=== PATIENT | female | born 1950 | race Caucasian/White ===

== ENCOUNTER 2019-12-25 10:04 | Inpatient (IN) ==
--- NOTE | 2019-12-10 15:07 | PAT Medication Instructions ---
Medication Instructions Date of Service December 10, 2019 Home Medications atenolol 25 mg PO QAM cholecalciferol (vitamin D3) 2,000 unit PO QAM hydrochlorothiazide 25 mg PO QAM levothyroxine 150 mcg PO UD metformin 500 mg PO BIDM omeprazole 20 mg PO QAM PRN acetaminophen [Tylenol Extra Strength] 1,000 mg PO Q6H PRN DO NOT take the morning of surgery cholecalciferol (vitamin D3) 2,000 unit PO QAM hydrochlorothiazide 25 mg PO QAM metformin 500 mg PO BIDM Take morning of surgery With a small sip of water, OTHERWISE NOTHING TO EAT OR DRINK AFTER MIDNIGHT: atenolol 25 mg PO QAM levothyroxine 150 mcg PO UD omeprazole 20 mg PO QAM PRN (if needed) acetaminophen [Tylenol Extra Strength] 1,000 mg PO Q6H PRN (okay to take up to 4 hours prior to surgery if needed) Take evening before surgery metformin 500 mg PO BIDM acetaminophen [Tylenol Extra Strength] 1,000 mg PO Q6H PRN (if needed) Other Notes If you have any questions please call us at [phone] or [phone] or [phone] or [phone]
--- NOTE | 2019-12-15 09:33 | Anesthesiology Consultation ---
Date of Service December 15, 2019 Assessment & Plan (1) Encounter for pre-operative examination: Per PAT assessment on 12/14: No known COVID-19 positive contacts. Travel screen- Lives/works in [facility]. Patient works as nurse at [employer] (no COVID cases at her facility in either residents or staff per patient). Patient had COVID testing 12/06 which was negative per patient (done weekly by employer). Wears PPE. She also states that she will not be working and will be self-isolating after having preop COVID testing done. No current COVID-19 related symptoms. Case reviewed with Dr. Hicks- does not feel that rapid testing needed on patient as long as no change to travel/work hx. Patient scheduled for preop protocol COVID-19 testing on 12/20 ([facility]). Awaiting results. - Check BSG AM DOS Chart Review Chart Review: Acceptable Risk for Surgery (pending COVID testing) and Patient seen in Pre Admission Testing Teaching & Discussion Pre-Anesthesia Teaching/Discussion Notes: Instructed NPO after midnight before surgery,except medications with 15 cc of water. Medication instructions provided according to the PAT guidelines. History Surgery Operation Date: 12/25/19 08:30 Proposed Procedures p Left Anterior Total Hip Arthroplasty - Heri Gerardo, DO Height/Weight Height: 5 ft 6.5 in Weight: 91.7 kg Allergies Allergy/AdvReac Type Severity Reaction Status Date / Time adhesive Allergy Mild Rash (with Verified 12/15/19 16:17 older bandaids) nickel Allergy Mild Rash Verified 11/30/19 08:13 tetanus toxoid, adsorbed AdvReac Intermediate Elevated BP Verified 12/15/19 16:17 NSAIDS (Non-Steroidal AdvReac Unknown was "told Unverified 12/15/19 16:17 Anti-Inflamma to avoid" Medications Home Medications Medication Instructions Recorded Confirmed Last Taken atenolol 25 mg PO QAM 12/02/18 11/30/19 01/08/19 05:45 cholecalciferol (vitamin D3) 2,000 unit PO QAM 12/02/18 11/30/19 01/07/19 hydrochlorothiazide 25 mg PO QAM 12/02/18 11/30/19 01/07/19 levothyroxine 150 mcg PO UD 12/02/18 11/30/19 01/08/19 05:45 metformin 500 mg PO BIDM 12/02/18 11/30/19 01/07/19 18:00 omeprazole 20 mg PO QAM PRN 12/02/18 11/30/19 01/07/19 acetaminophen [Tylenol Extra 1,000 mg PO Q6H PRN 11/30/19 11/30/19 Unknown Strength] Past Medical History Medical History Diabetes mellitus, type 2 NIDDM GERD (gastroesophageal reflux disease) controlled HTN (hypertension) (Chronic) Hypothyroidism Obesity Osteoarthritis Skin cancer s/p precancerous skin excision Exercise / Class Metabolic Activity II 4-5 Yardwork/Stairs/Walk up hill Past Family History Family History Mother Family history of diabetes mellitus Past Surgical History Surgical History H/O breast biopsy BENIGN H/O colonoscopy H/O tubal ligation History of appendectomy [facility] 2012. MAC #3, ET 7.0 grade view I. History of cholecystectomy 01/08/19: Grade view 1, MAC#3, ETT 7.5 at [facility] History of hysterectomy with unilateral oophorectomy History of repair of rotator cuff LEFT History of tooth extraction Orbital fracture REPAIRED (? HARDWARE INTACT/POSSIBLE WIRE) Past Anesthesia History No Hx of Anesthesia Complications (except PONV) and No Family Hx of Anesthesia Complications History of PONV History of PONV and Hx of Motion Sickness Social History Smoking Status: Former smoker tobacco type: cigarettes Do You Dip or Chew Tobacco: No Smoking End Date: QUIT 13+ YRS AGO Hx Alcohol Use: Yes Alcohol type: beer, wine and hard liquor alcohol intake frequency: holidays/special occasions only Hx Substance Use: No substance use type: does not use Review of Systems Controlled reflux. Patient denies chest pain, shortness of breath, dyspnea on exertion, fever, chills, cough, wheezing, palpitations. Physical Exam Vital Signs VITALS BP 132/80 P 61 TEMP 98.3 SP02 97$E RESP 16 PHYSICAL Full neck and c-spine range of motion. Full TMJ range of motion. TMD 3 finger breaths Mallampati Score 2 Dentition: full denture on upper Lungs: clear throughout to auscultation Cardiac: regular rate and rhythm, no murmurs noted Spine: normal Carotid arteries: negative bruit Extremities: no edema Testing Laboratory Results 12/15/19 09:53 12/15/19 09:53 PT 10.3 Seconds (9.0-12.0) 12/15/19 09:53 INR 1.0 (0.9-1.1) 12/15/19 09:53 APTT 25.6 Seconds (21.0-31.0) 12/15/19 09:53 Hemoglobin A1c 6.6 % (4.5-5.6) H 12/15/19 09:53 Blood Type A Positive 12/15/19 09:53 Antibody Screen NEGATIVE 12/15/19 09:53 Electrocardiogram Date: 01/05/19 Findings: + SB @ (58) Chest X-Ray Date: 12/15/19 Findings: + NAD
--- NOTE | 2019-12-15 10:19 | XRay Report ---
XR chest Pre-admission PA/Lat HISTORY: 68 years-old Female pat preoperative exam. No acute chest complaints COMPARISON: None TECHNIQUE: PA and lateral views of the chest FINDINGS: Cardiomediastinal and hilar silhouettes are within normal limits. There is no pneumothorax, pleural e ffusion, airspace consolidation or overt pulmonary edema. Bones of the chest appear grossly intact. D egenerative changes of the shoulders and spine. IMPRESSION: No acute process. ACT 112: Negative or not required by law. The above report was generated using voice recognition software. It may contain grammatical, syntax o r spelling errors. Electronically signed by: Mauricio Blair M.D. 12/15/2019 10:18 AM
[2019-12-15 11:09] LABS: Basophils # (auto) 0.03 K/uL (0-0.2); Basophils % (auto) 0.5 %; Eosinophils % (auto) 3.4 %; Hematocrit (blood only) 39.9 % (37-47); Hemoglobin 13.1 g/dL (12.0-16.0); Immature Granulocytes # (auto) 0.03 K/uL (0.00-0.02); Immature Granulocytes % (auto) 0.5 %; Lymphocytes # (auto) 1.79 K/uL (1.2-3.4); Lymphocytes % (auto) 30.4 %; Mean Corpuscular Hemoglobin 28.7 pg (25-34); Mean Corpuscular Hgb Conc 32.8 g/dL (32-36); Mean Corpuscular Volume 87.3 fL (80-100); Mean Platelet Volume 9.6 fL (7.4-10.4); Monocytes # (auto) 0.43 K/uL (0.11-0.59); Monocytes % (auto) 7.3 %; Neutrophils # (auto) 3.41 K/uL (1.4-6.5); Neutrophils % (auto) 57.9 %; Platelet Count 262 K/uL (130-400); RDW Coefficient of Variation 13.3 % (11.5-14.5); RDW Standard Deviation 42.5 fL (36.4-46.3); Red Blood Count 4.57 M/uL (4.2-5.4); White Blood Count 5.89 K/uL (4.8-10.8)
[2019-12-15 11:16] LABS: BUN Creatinine Ratio 23.1 (10-20); Calcium 8.9 mg/dl (8.5-10.1); Creatinine Clr Calc Pharmacy 86.1 ml/min; Est GFR (African American) 98.8; Est GFR (Non-African American) 85.2
[2019-12-15 11:17] LABS: Partial Thromboplastin Ratio 0.9; Partial Thromboplastin Time 25.6 Seconds (21.0-31.0); Prothrombin Time 10.3 Seconds (9.0-12.0)
[2019-12-15 11:56] LABS: Estimated Average Glucose 143 mg/dl; Hemoglobin A1C 6.6 % (4.5-5.6)
--- NOTE | 2019-12-24 06:59 | History & Physical Report ---
Date of Service December 24, 2019 Assessment & Plan (1) Osteoarthritis of left hip: We will proceed with a left anterior total of arthroplasty. Postoperatively she will be placed on aspirin for DVT prophylaxis and kept overnight in the hospital for postoperative medical management. She plans to use home nursing agency through [facility] upon discharge. Verito is a low risk for joint replacement surgery without any major comorbidities. Present on Admission?: Yes History of Present Illness Chief Complaint: Primary osteoarthritis of the left hip Primary Care Provider: Mahad Marques MD Verito is a pleasant 69-year-old female who is been dealing with chronic increasing left hip and groin pain. X-rays and clinical examination have been diagnostic for advanced osteoarthritis of the left hip. She has failed extensive conservative treatment including intra-articular injections. She has elected proceed with a left anterior total hip arthroplasty. Allergies Allergy/AdvReac Type Severity Reaction Status Date / Time adhesive Allergy Mild Rash (with Verified 12/15/19 16:17 older bandaids) nickel Allergy Mild Rash Verified 11/30/19 08:13 tetanus toxoid, adsorbed AdvReac Intermediate Elevated BP Verified 12/15/19 16:17 NSAIDS (Non-Steroidal AdvReac Unknown was "told Unverified 12/15/19 16:17 Anti-Inflamma to avoid" Home Medications Home Medications Medication Instructions Recorded Confirmed Type atenolol 25 mg PO QAM 12/02/18 11/30/19 History cholecalciferol (vitamin D3) 2,000 unit PO QAM 12/02/18 11/30/19 History hydrochlorothiazide 25 mg PO QAM 12/02/18 11/30/19 History levothyroxine 150 mcg PO UD 12/02/18 11/30/19 History metformin 500 mg PO BIDM 12/02/18 11/30/19 History omeprazole 20 mg PO QAM PRN 12/02/18 11/30/19 History acetaminophen [Tylenol Extra 1,000 mg PO Q6H PRN 11/30/19 11/30/19 History Strength] Past Med/Surg History Medical History Diabetes mellitus, type 2 NIDDM GERD (gastroesophageal reflux disease) controlled HTN (hypertension) (Chronic) Hypothyroidism Obesity Osteoarthritis Skin cancer s/p precancerous skin excision Surgical History H/O breast biopsy BENIGN H/O colonoscopy H/O tubal ligation History of appendectomy [facility] 2012. MAC #3, ET 7.0 grade view I. History of cholecystectomy 01/08/19: Grade view 1, MAC#3, ETT 7.5 at [facility] History of hysterectomy with unilateral oophorectomy History of repair of rotator cuff LEFT History of tooth extraction Orbital fracture REPAIRED (? 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 Beliefs That Will Affect Care: None marital status: Current Living Situation: Significant Other Feels Safe at Home: Yes Smoking Status: Former smoker Tobacco Type: cigarettes ; Second Hand Exposure: Yes (FAMILY SMOKED- A CHILD) ; Hx Alcohol Use: Yes Alcohol type: beer, wine and hard liquor Hx Substance Use: No Review of Systems Review of Systems: All systems reviewed & are unremarkable except as noted in HPI & below Physical Exam Constitutional: WD/WN, vitals as above Eyes: PERRL, conjunctivae normal, anicteric sclerae ENMT: external ear and nose normal, oropharynx normal Neck: trachea midline, no thyromegaly Respiratory: normal respiratory effort Cardiovascular: RRR, no murmur, no edema Gastrointestinal (Abdomen): normal bowel sounds, soft, nontender, no hepatosplenomegaly Musculoskeletal: Physical examination of the left hip reveals decreased range of motion with flexion, internal and external rotation. There is significant groin pain with forced internal rotation of the hip his leg lengths are essentially equal. Psychiatric: A+Ox3, euthymic affect Results & Data Results & Data ([facility]) Diagnostic Findings Radiographs of the left hip and pelvis demonstrate advanced osteoarthritis with joint space narrowing osteophyte formation and [id number] articulation. PG Care Time/CCT Total # of Minutes Spent Total Time Spent with Patient: Total time spent is greater than 50% in coordination of care (as documented) at patient's floor/unit and/or counseling patient: Coding Level of Care Code None Diagnoses Osteoarthritis of left hip M16.12
--- NOTE | 2019-12-25 09:50 | History & Physical Bridge Note ---
Date of Service December 25, 2019 History & Physical Bridge Note I have examined the patient, reviewed the History & Physical and in the interval since the performance of the History & Physical I have noted the following changes of clinical significance: no changes noted
[~2019-12-25 10:04] MED LIST: ACETAMINOPHEN 500 MG TAB PO SCH; BUPIVACAINE 0.5 % 5 MG/1 ML PF 10ML VIAL ONE; CEFAZOLIN 2000MG 2,000 MG/15 ML SYR IV SCH; FAMOTIDINE 20 MG TAB PO SCH; GABAPENTIN 300 MG CAP PO SCH; LIDOCAINE HCL 2% 2 ML VIAL/AMP(20MG/ML) INFIL ONE; LR 500ML BOLUS, THEN 15ML/HR IV SCH; LR 60ML/HR IV SCH; MIDAZOLAM HCL 1 MG/ML 2ML VIAL ONE; ONDANSETRON INJ 2 MG/ML 2 ML VIAL ONE; PROPOFOL IV EMULSION 10 MG/ML 20 ML VIAL IV ONE; ROPIVACAINE 0.5% HCL/PF 150 MG, BUPIVACAINE 0.5% MPF 30 ML, EPINEPHrine 30MG/30ML (OR U... INSTIL SCH; TRANEXAMIC ACID 1,000 MG **IV Intra-op IV SCH; TRANEXAMIC ACID 1,000 MG **IV Pre-op IV SCH; dexAMETHasone 4 MG TAB PO SCH; fentaNYL citrate 100 MCG/2 ML VIAL ONE
[2019-12-25] MEDS ORDERED: fentaNYL citrate 100 MCG/2 ML VIAL IV PRN (10:21)
[2019-12-25] MEDS ORDERED: HYDROmorphone INJ 1 MG/ML SYRINGE IV PRN (10:21)
[2019-12-25] MEDS ORDERED: ONDANSETRON INJ 2 MG/ML 2 ML VIAL IV PRN ×2 (10:21→15:05)
[2019-12-25] MEDS ORDERED: ePHEDrine sulfate 50 MG/ML AMP IV PRN (10:21)
[2019-12-25] MEDS ORDERED: ATROPINE SULFATE 0.1 MG/ML 10ML SYR IV PRN (10:21)
[2019-12-25] MEDS ORDERED: ORTHO JOINT ANESTHETIC ONE (10:22)
[2019-12-25] MEDS ORDERED: MIDAZOLAM HCL 1 MG/ML 2ML VIAL ONE (11:51)
[2019-12-25] MEDS ORDERED: ePHEDrine sulfate 50 MG/ML SYR ONE (12:07)
[2019-12-25] MEDS ORDERED: DiphenhydrAMINE HCL 50 MG/ML VIAL ONE (12:08)
[2019-12-25] MEDS ORDERED: PHENYLEPHRINE 100MCG/ML 5ML SYR ONE (12:08)
[2019-12-25] MEDS ORDERED: METOCLOPRAMIDE HCL INJ 5 MG/ML 2 ML VIAL ONE (12:08)
--- NOTE | 2019-12-25 12:53 | Operative Report ---
PG Post Operative Report Pre & Post Diagnosis Operation Date: 12/25/19 12:00 Pre-Op Diagnosis: LEFT HIP DEGENERATIVE JOINT DISEASE Post-Op Diagnosis: LEFT HIP DEGENERATIVE JOINT DISEASE I identified the patient and participated in the time-out.: Yes Procedure Operation Date: 12/25/19 12:00 Actual Procedures p Left Anterior Total Hip Arthroplasty(Left) - Heri Gerardo DO Surgeon Heri Gerardo DO Slip Tender Heri Montgomery PAC Estimated Blood Loss 200 Findings Consistent with Post-Op Diagnosis Specimens Left femoral head Complications none Disposition Disposition: Recovery Room Indications Verito is a pleasant 69-year-old female who is been dealing with chronic increasing left hip and groin pain. X-rays and clinical examination have been diagnostic for advanced osteoarthritis of the left hip. After failing conservative treatment, she has elected to proceed with a left anterior total hip arthroplasty. Description of Procedure Implants used I used a Biomet Taperloc total hip arthroplasty system with a size 14 standard offset micro Taperloc stem, a 50 mm G7 cup with a 25mm screw, an E1 polyethylene liner, a 36 mm ceramic head with a -3 neck. Verito arrived at the hospital for the above procedure. She was seen in the preoperative holding area and the operative extremity was identified and signed. She was given a spinal anesthetic, a preoperative antibiotic, and TXA. She was then taken back to the operating room and laid on the table in the supine position. She was given basic sedation. The operative leg was secured to a Puristst leg positioner. The hip was then prepped and draped in sterile fashion. A timeout was done and the patient and the operative extremity was properly identified. An anterior approach was used. Dissection was taken down through the fascia and the tensor muscle belly was retracted laterally and the rectus was retracted medially. The circumflex vessels were identified and ligated. The capsule was then incised and tagged for later repair. The femoral neck was then cut and the femoral head was removed. The acetabulum was exposed. Time was spent doing a complete circumferential labral release. Sequential reaming of the acetabulum up to a size 49 reamer was done. Final reamings were done under fluoroscopy to ensure appropriate version. A Biomet 50 mm G7 cup was then impacted into place. A single 25 mm screw was placed. The E1 polyethylene liner was then snapped into place. Surrounding soft tissues were then injected with 100 cc of an orthopedic pain control cocktail. The proximal femur was then exposed. Sequential broaching up to a size 14 broach was done. Off that broach a size 36 head with a -3 neck was trialed. The hip was reduced and fluoroscopic images showed anatomic alignment of the implants in acceptable length. The broach was removed. The final size 14 standard offset micro Taperloc stem was then impacted into place. A ceramic 46 mm head with a -3 neck was then impacted onto the stem and the hip was reduced. Final fluoroscopic images showed anatomic alignment of the hip. The capsule was then closed with #1 Vicryl suture. A dilute betadyne lavage was then done for 3 minutes. The joint was then irrigated with normal saline solution. The fascia was closed with #1 PDS suture. Skin was closed with 2-0 Vicryl, alaina, and a Silverlon dressing. She was then transferred to a hospital bed and taken to the post anesthesia care unit in stable condition. She tolerated the procedure well. Heri Montgomery PA-C, was present for the entire procedure. He was critical for patient positioning, prepping, draping, retraction exposure, wound closure and application of sterile dressing. I attest to the content of the Intraoperative Record and any orders documented therein. Any exceptions are noted below.
--- NOTE | 2019-12-25 12:59 | Fluoroscopy Report ---
FL hip LT 1V HISTORY: 69 years-old Female LT ANTERIOR TOTAL left hip total joint arthroplasty COMPARISON: Pelvis and left hip radiographs 12/15/2019 TECHNIQUE: 2 spot fluoroscopic images of the left hip were obtained utilizing 25.2 seconds fluoroscop y time FINDINGS: Left hip total joint arthroplasty illustrates satisfactory alignment. No acute fracture or definite r etained foreign body identified. Expected postoperative soft tissue swelling and deep tissue air. IMPRESSION: Fluoroscopic assistance as above. Please see operative report for further details. ACT 112: Negative or not required by law. The above report was generated using voice recognition software. It may contain grammatical, syntax o r spelling errors. Electronically signed by: Mauricio Blair M.D. 12/25/2019 12:57 PM
--- NOTE | 2019-12-25 14:02 | Anesthesiology Progress Note ---
Date of Service December 25, 2019 Anesthesia Post Procedure Vital Signs Vital Signs: Temp Pulse Resp BP BP Pulse Ox 12/25/19 13:55 60 13 128/66 96 12/25/19 13:45 36.4 C L 61 12 120/68 95 12/25/19 13:30 60 12 121/59 L 97 12/25/19 13:20 36.1 C L 63 16 100/67 98 12/25/19 10:37 37 C 56 L 20 141/51 H 97 Transfer of Care Handoff Completed per policy Notes Mental Status: alert / awake / arousable and participated in evaluation Patient Amnestic to Procedure: Yes Nausea / Vomiting: adequately controlled Pain: adequately controlled Airway Patency, RR, SpO2: stable & adequate BP & HR: stable & adequate Hydration State: stable & adequate Neuraxial Anesthesia: was administered and sensory block is resolving Anesthetic Complications: no major complications apparent and Pt Satisfied with anesthetic care
--- NOTE | 2019-12-25 14:18 | XRay Report ---
XR hip 1V LT w pelvis CLINICAL HISTORY: Postop examination COMPARISON: None. DISCUSSION: There are postsurgical changes of a total left hip arthroplasty. The femoral and acetabul ar components appear well seated. There is no dislocation. There are overlying skin alaina. There is gas in the soft tissues consistent with recent surgery IMPRESSION: Postsurgical changes of a total left hip arthroplasty. ACT 112: Negative or not required by law. Electronically signed by: Tai Peraza M.D. 12/25/2019 2:17 PM
[2019-12-25] MEDS ORDERED: HYDROmorphone INJ 0.5 MG/0.5 ML SYR IV PRN (15:05)
[2019-12-25] MEDS ORDERED: OXYCODONE HCL IR 5 MG TAB (IMMEDIATE RELEASE) PO PRN (15:05)
[2019-12-25] MEDS ORDERED: NALOXONE HCL 0.4 MG/1 ML VIAL/CARP IV PRN (15:05)
[2019-12-25] MEDS ORDERED: bisacodyL 10 MG SUPP PR PRN (15:05)
[2019-12-25] MEDS ORDERED: MAGNESIUM HYDROXIDE SUSP 30 ML UDC PO PRN (15:05)
[2019-12-25] MEDS ORDERED: METOCLOPRAMIDE HCL INJ 5 MG/ML 2 ML VIAL IV PRN (15:05)
[2019-12-25] MEDS ORDERED: PHARMACY GLYCEMIC MGMT CONSULT PRN (15:25)
[2019-12-25] MEDS ORDERED: DEXTROSE 50% 50 ML SYRINGE IV PRN (15:30)
[2019-12-25] MEDS ORDERED: GLUCOSE 10 TABS/TUBE PO PRN (15:30)
[2019-12-25] MEDS ORDERED: GLUCAGON FOR INJ 1 MG VIAL IM PRN (15:30)
[2019-12-25] MEDS ORDERED: CARBOHYDRATES FOR HYPOGLYCEMIA PO PRN (15:30)
[2019-12-25] MEDS ORDERED: GLUCOSE 40% GEL 15 GM TUBE PO PRN (15:30)
[2019-12-25] MEDS ORDERED: NovoLIN-N (NPH) PER UNIT CHARGE SQ ONE (15:45)
--- NOTE | 2019-12-25 16:24 | Pharmacy Report ---
Glycemic Control Consultation - Date of Service December 25, 2019 - Scope Scope: Glycemic Pharmacist consulted for glycemic control and to write orders per [facility] inpatient glycemic control protocol. - Objective Weight: 90.4 kg Accuchecks BSG (last 24hrs): 12/25/19 12/25/19 10:36 13:22 POC Glucose 170 H 193 H HbA1c: Hemoglobin A1c 6.6 % (4.5-5.6) H 12/15/19 09:53 - Recent Pertinent Medications Outpatient Anti-diabetic Regimen: * Metformin 500mg PO BIDM * A1c = 6.6 % 12/15/19 Risk Factors for Insulin Resistance: * Steroids: Dexamethasone 8mg PO preop + ortho mix * Recent Surgery * Diet - Assessment & Plan Assessment & Plan: ASSESSMENT: * 69yo T2DM female with excellent outpatient control per recent A1c * Pt is maintained on oral antidiabetic agents as an outpatient * Oral agents are not recommended for inpatient use d/t drug interactions, changing PO intake, and difficulty titrating for acute hyper/hypoglycemia. ADA recommends re-initiating outpatient oral agents 1-2 days prior to discharge if/when appropriate if they were held on admission. * Will hold oral agents for admission and utilize SQ basal bolus insulin regimen which is the recommended regimen for inpatient glycemic control. * Will initiate weight based insulin dosing for insulin jorge alberto patient and titrate based on BSG trends. * Will use one time dose of weight based NPH to cover pre-op steroids PLAN FOR INPATIENT GLYCEMIC CONTROL: * Holding outpatient oral diabetes medications - use NovoLog per CF/CR while metformin on hold * Steroid induced hyperglycemia * NPH 25 units (0.3 units/kg) SQ x 1 dose * Bolus insulin * NovoLog per scale ACHS or Q6hrs while NPO * Goal Range: Low 110 mg/dL - High 140 mg/dL * Correction Factor: 25 mg/dL/unit * Nutritional / Prandial insulin per carb ratio of 1 unit per 9 grams CHO consumed * Please note that the plan above was derived based on current level of insulin resistance and hospital stress. These recommendations are appropriate for inpatient admission only. Plan of care upon discharge will need to be reassessed to avoid potential outpatient hypo/hyperglycemia. Thank you.
[2019-12-25] MEDS: INSULIN ASPART 100 UNITS/ML 3 ML PEN SC SCH ×2 (17:15→21:29)
[2019-12-25] MEDS: KETOROLAC TROMETHAMINE 15 MG/ML VIAL IV SCH ×2 (17:16→21:21)
[2019-12-25] MEDS: SODIUM CHLORIDE 0.9% 1000ML 1,000 ML IV SCH (17:23)
[2019-12-25] MEDS: ACETAMINOPHEN 500 MG TAB PO SCH (17:28)
[2019-12-25] MEDS ORDERED: SENNA 8.6 MG TAB PO SCH (21:00)
[2019-12-25] MEDS: ASPIRIN 81 MG ECTAB PO SCH (21:20)
[2019-12-25] MEDS: DOCUSATE SODIUM 100 MG CAP PO SCH (21:21)
[2019-12-25] MEDS: CEFAZOLIN 2000MG 2,000 MG/15 ML SYR IV SCH (21:31)
[2019-12-26] MEDS: SODIUM CHLORIDE 0.9% 1000ML 1,000 ML IV SCH (02:37)
[2019-12-26] MEDS: KETOROLAC TROMETHAMINE 15 MG/ML VIAL IV SCH ×2 (03:02→09:42)
[2019-12-26] MEDS: CEFAZOLIN 2000MG 2,000 MG/15 ML SYR IV SCH (03:02)
[2019-12-26] MEDS: ACETAMINOPHEN 500 MG TAB PO SCH (06:16)
[2019-12-26] MEDS ORDERED: LEVOTHYROXINE SODIUM 150 MCG TABLET PO SCH (06:30)
[2019-12-26 06:47] LABS: Basophils # (auto) 0.01 K/uL (0-0.2); Basophils % (auto) 0.1 %; Hemoglobin 11.6 g/dL (12.0-16.0); Immature Granulocytes # (auto) 0.04 K/uL (0.00-0.02); Immature Granulocytes % (auto) 0.3 %; Lymphocytes # (auto) 1.07 K/uL (1.2-3.4); Lymphocytes % (auto) 8.5 %; Mean Corpuscular Hemoglobin 28.6 pg (25-34); Mean Corpuscular Hgb Conc 34.1 g/dL (32-36); Mean Platelet Volume 9.2 fL (7.4-10.4); Monocytes # (auto) 0.99 K/uL (0.11-0.59); Monocytes % (auto) 7.9 %; Neutrophils # (auto) 10.47 K/uL (1.4-6.5); Neutrophils % (auto) 83.2 %; Platelet Count 249 K/uL (130-400); RDW Coefficient of Variation 12.9 % (11.5-14.5); RDW Standard Deviation 39.4 fL (36.4-46.3); Red Blood Count 4.05 M/uL (4.2-5.4); White Blood Count 12.58 K/uL (4.8-10.8)
--- NOTE | 2019-12-26 06:48 | Orthopedic Progress Note ---
Date of Service December 26, 2019 Assessment & Plan (1) History of left hip replacement: Overall she is doing very well. She is not having much pain in the left hip. She will be seen by physical therapy this morning for ambulation and range of motion exercises. She is on aspirin for DVT prophylaxis. She can be discharged home later today. She will follow-up with orthopedics in 2 weeks. Present on Admission?: Yes Geri Sellers was seen and examined at bedside this morning. Overall she is doing very well. She is not having much pain in the left hip. She has been up and ambulating to the bathroom. She has no complaints. Physical Exam Musculoskeletal: On physical examination of the left hip, the Silverlon dressing is clean and dry. Leg lengths are equal. She has active dorsiflexion and plantarflexion of her left ankle. Results & Data ([facility]) Vital Signs (Past 12 Hours) Vital Signs Temp Pulse Pulse Resp BP Pulse Ox 12/26/19 02:13 36.9 C 66 16 134/72 95 12/25/19 23:46 36.5 C 69 16 134/72 96 12/25/19 19:30 36.5 C 71 16 110/64 97 Laboratory Results H & H 12/15/19 12/26/19 Range/Units 09:53 06:04 Hgb 13.1 11.6 L (12.0-16.0) g/dL Hct 39.9 34.0 L (37-47) % Coagulation 12/15/19 Range/Units 09:53 INR 1.0 (0.9-1.1) Diagnostic Findings Postoperative x-rays of the left hip show the prosthesis to be in anatomic alignment without any evidence of fracture, dislocation, or loosening. PG Care Time/CCT Total # of Minutes Spent Total Time Spent with Patient: Total time spent is greater than 50% in coordin ation of care (as documented) at patient's floor/unit and/or counseling patient: Coding Level of Care Code None Diagnoses History of left hip replacement Z96.642
--- NOTE | 2019-12-26 06:49 | Discharge Summary ---
Date of Service December 26, 2019 Admission HPI Per Admitting Provider Verito is a pleasant 69-year-old female who is been dealing with chronic increasing left hip and groin pain. X-rays and clinical examination have been diagnostic for advanced osteoarthritis of the left hip. She has failed extensive conservative treatment including intra-articular injections. She has elected proceed with a left anterior total hip arthroplasty. Principal Diagnosis Left hip replacement Discharge Data Allergies Allergy/AdvReac Type Severity Reaction Status Date / Time adhesive Allergy Mild Rash (with Verified 12/25/19 10:44 older bandaids) nickel Allergy Mild Rash Verified 12/25/19 10:44 tetanus toxoid, adsorbed AdvReac Intermediate Elevated BP Verified 12/25/19 10:44 NSAIDS (Non-Steroidal AdvReac Unknown was "told Verified 12/25/19 10:44 Anti-Inflamma to avoid" Consultations 12/26/19 08:00 Consult Case Management - Discharge Planning Routine Procedures Performed Operation Date: 12/25/19 12:00 Actual Procedures p Left Anterior Total Hip Arthroplasty(Left) - Heri Gerardo DO Ordered Studies 12/25/19 12:00 FL fluoroscopy <1hr Routine FL hip LT 1V Routine Hospital Course (1) History of left hip replacement: On December 25, 2019 Verito arrived at [facility] and underwent a left anterior total hip arthroplasty without complication. She had a spinal anesthetic. Postoperatively she was started on aspirin for DVT prophylaxis and transferred to the general orthopedic floors. Her hospital course was uneventful. On postop day #1 her H&H was stable and her pain was well controlled. She was able to participate well with physical therapy doing ambulation and range of motion exercises. She was then discharged home. She will follow-up with orthopedics in 2 weeks. Total Time Total Time Spent Total Time Spent (In Minutes): 20 Discharge Plan Discharge Items Patient Disposition: Home - Home Health Services Reason For Visit: LEFT HIP DEGENERATIVE JOINT DISEASE Discharge Diagnosis: Left hip replacement Activity: As commented below Non-emergency contact: Surgeon Call non-emergency contact if: your wound has increased redness and your wound has increased drainage Follow-up/Referrals: Mahad Marques MD [Primary Care Provider] - Diet: Regular Addtl Attending Provider Instructions: Activity and Therapy Recommendations: * If you are using [facility] then therapy will be provided at your home until they feel you have accomplished all of your goals. * If you are using [facility] then Physical Therapy will be provided until they feel you are ready to start Outpatient Physical Therapy. * If you are not using home therapy then Outpatient Physical Therapy should start about 3-5 days from your day of surgery. Therapy will last about 6-10 weeks * You were shown a series of exercises in the hospital. Do these exercises three times each day including the exercises you were shown in physical therapy. * Get up and walk several times each day.~ For the first four weeks, try not to stand or walk for more than one hour at a time. If you do stand or walk for more than one hour, you will not hurt anything, but your leg will likely swell.~~ * As you feel comfortable, you may change from the walker or crutches to a cane and~then to independent walking. Medications: * Narcotic You will likely be sent home from the hospital with a prescription for the narcotic pain medication that worked best throughout your stay. * Aspirin Most patients will be required to take Aspirin 81mg twice a day for 6 weeks after surgery. This is obtained [id number] and a prescription is not necessary. * Other medications may be prescribed for specific circumstances. If you have any questions, please call the office at . * Resume previous home medications unless otherwise instructed TEDs/Elastic Stockings: The white elastic stockings help limit swelling and prevent blood clots from forming in your legs. The more you wear them, the more they work. Wear them for six weeks. Dressing Care: Leave the Silverlon dressing on for 7 days. After 7 days you may remove the dressing. Then, you may leave the alaina open to air or cover them with a dry dressing so they do not rub on your pants. The alaina will be removed at your 2 week follow-up appointment. Showering: You may shower with the Silverlon dressing in place. After 7 days remove the dressing. After the dressing is removed you may shower normally with the alaina exposed. Let soapy water run over the alaina and pat them dry. Things To Watch For: * Drainage from the incision site that occurs more than one week after your surgery. * Increased redness at the incision site. * Fever above 102 degrees Fahrenheit. * Unusual chest pain or shortness of breath. * Call [facility] at with any of the above problems Follow-Up Visit: Follow-up with Dr. Gerardo's PA (Heri Montgomery) 2-3 weeks after your day of surgery. He will remove your alaina and answer any questions. If you have any additional questions or concerns, Dr Gerardo is usually in the office at the same time and will be available An appointment was probably scheduled when you signed-up for surgery in the office. If you have any questions call Office Instructions: More detailed instructions as well as Frequently Asked Questions were provided in a folder by our office when you signed-up for surgery. Please review these instructions when you get home. If you have any further questions or concerns, please feel free to call the office at [phone] Pending Studies at Discharge: No Stand-Alone Forms: My [facility], Smoking Cessation Medications and DC Order Prescriptions: New oxycodone 5 mg Tablet 5 mg PO Q4H PRN (Reason: pain) Qty: 30 RF: 0 aspirin 81 mg Tablet,Delayed Release (Dr/Ec) 81 mg PO BID 42 Days Qty: 0 RF: 0 Continued metformin 500 mg tablet 500 mg PO BIDM RF: 0 atenolol 25 mg tablet 25 mg PO QAM RF: 0 levothyroxine 150 mcg tablet 150 mcg PO UD RF: 0 omeprazole 20 mg capsule,delayed release(DR/EC) 20 mg PO QAM PRN (Reason: Heartburn) RF: 0 hydrochlorothiazide 25 mg tablet 25 mg PO QAM RF: 0 cholecalciferol (vitamin D3) 2,000 unit Tablet 2,000 unit PO QAM RF: 0 acetaminophen [Tylenol Extra Strength] 500 mg Tablet 1,000 mg PO Q6H PRN (Reason: Pain) RF: 0 Discharge Orders: Discharge Order (Routine); Ordered 12/26/19 Ordered By: Heri Gerardo Admission Data Admit Date/Time: 12/25/19 13:18 Attending Provider: Heri Gerardo Admit Provider: Heri Gerardo Primary Care Provider: Mahad Marques Coding Level of Care Code D/C Day Management <30 mins Diagnoses History of left hip replacement Z96.642
[2019-12-26 07:27] LABS: BUN Creatinine Ratio 24.3 (10-20); Calcium 8.6 mg/dl (8.5-10.1); Creatinine Clr Calc Pharmacy 68.4 ml/min; Est GFR (African American) 76.1; Est GFR (Non-African American) 65.7; Potassium 3.4 mmol/L (3.5-5.1)
[2019-12-26] MEDS ORDERED: hydroCHLOROthiazide 25 MG TAB PO SCH (09:00)
[2019-12-26] MEDS ORDERED: ATENOLOL 25 MG TABLET PO SCH (09:00)
[2019-12-26] MEDS ORDERED: MULTIVITAMIN TAB PO SCH (09:00)
[2019-12-26] MEDS ORDERED: PANTOprazole 40 MG TAB PO SCH (09:00)
[2019-12-26] MEDS: ASPIRIN 81 MG ECTAB PO SCH (09:37)
[2019-12-26] MEDS: INSULIN ASPART 100 UNITS/ML 3 ML PEN SC SCH (09:42)
[2019-12-26] MEDS: DOCUSATE SODIUM 100 MG CAP PO SCH (09:45)
[2019-12-27] MEDS ORDERED: LEVOTHYROXINE SODIUM 150 MCG TABLET PO SCH (06:30)
== END 2019-12-26 12:02 | disposition home health service (06) | DRG 470 ==
LOC: ASU 10:04 → 3E 13:18

== ENCOUNTER 2022-09-29 17:44 | Inpatient (IN) ==
--- NOTE | 2022-09-29 18:10 | Emergency Department Note ---
Impression & Plan Fever, Hypokalemia, Hypomagnesemia, Elevated procalcitonin ED Provider Note HISTORY OF PRESENT ILLNESS: Patient is a 71-year-old female presenting with a fever. Patient has a history of pancreatic cancer and received her first chemotherapy treatment 3 days ago. She reports she been doing well postchemotherapy but took her temperature today and it was elevated to 100.5. She denies any chest pain or shortness of breath. Denies any dysuria or hematuria. Denies any cough. Denies any abdominal pain, nausea or vomiting. Reports feeling well other than the fever. She denies taking any antipyretics prior to arrival in the emergency department. ROS: as above PHYSICAL EXAM: Constitutional: Patient appears in no acute distress. HENT: Head: Normocephalic and atraumatic. Eyes: EOMI, PERRL Mouth/Throat: Mucous membranes moist. Neck: Trachea midline. Neck supple. Cardiovascular: RRR, No murmurs, rubs or gallops. Intact distal pulses. Pulmonary/Chest: No respiratory distress. Breath sounds clear and equal erika aterally. No wheezes or rales. Abdominal: BS +. Abdomen soft, no tenderness, rebound or guarding. Musculoskeletal: No edema, tenderness or deformity noted. Skin: Warm and dry. No rash, erythema, pallor or cyanosis Psychiatric: Appropriate mood and affect for situation. Neurological: Alert and keenly responsive. CN II-XII grossly intact, moving all extremities equally and fully. MDM: - Vitals signs showed elevated temperature. - History obtained via patient. Patient presents with fever. Patient reports she just started chemotherapy for history of pancreatic cancer 3 days ago. She reports that she was doing well up until today when she developed a fever of 100.5. She did not take any antipyretics prior to arrival in the emergency department. Denies any chest pain, shortness of breath, cough, nausea or vomiting. Denies any abdominal pain. - Chronic conditions affecting care: DM-2; hypothyroidism; HTN; pancreatic cancer - Differential diagnoses include, but are not limited to: UTI; pneumonia; bacteremia; viral syndrome - Order placed for continuous cardiac monitoring. At this time, monitor showed rate of 80 bpm with normal sinus rhythm, per my interpretation. - External medical records reviewed. - EKG reviewed by myself showed normal sinus rhythm. Rate 76 bpm. No acute ischemic changes. QTc 432. - Laboratory workup interpreted by myself showed normal WBC; chronic anemia (Hgb 9.8); hypokalemia (K 3.4); hypomagnesemia (Mg 1.6); normal lactate; normal liver function tests; normal troponin; slightly elevated anion gap (12); elevated procalcitonin (0.92) - CXR negative for pneumonia, per my interpretation. - Blood cultures obtained. - Patient empirically started on IV vancomycin and cefepime, given her immunocompromised status. - Patient reports she gave urine yesterday to her doctor and it was negative. She does not wish to give another urine sample now. - Discussion was had with social services analyst about patient's case and need for admission. - Hospitalist, Dr. Hickman, consulted for admission. - [facility] ASSESSMENT AND PLAN: Diagnosis: Fever; elevated procalcitonin; hypomagnesemia; hypokalemia; elevated anion gap Plan: Admit Past Med/Surg History Medical History (Updated 09/29/22 @ 20:33 by Melba Melissa MD) Diabetes mellitus, type 2 NIDDM GERD (gastroesophageal reflux disease) controlled HTN (hypertension) Hypothyroidism Obesity Osteoarthritis Skin cancer s/p precancerous skin excision Surgical History (Updated 12/26/19 @ 06:44 by Heri Gerardo DO) H/O breast biopsy BENIGN H/O colonoscopy H/O tubal ligation History of appendectomy [facility], [place] 2012. MAC #3, ET 7.0 grade view I. History of cholecystectomy 01/08/19: Grade view 1, MAC#3, ETT 7.5 at [facility], [place] History of hysterectomy with unilateral oophorectomy History of left hip replacement (~12/2019) History of repair of rotator cuff LEFT History of tooth extraction Orbital fracture REPAIRED (? HARDWARE INTACT/POSSIBLE WIRE) Family History Mother Family history of diabetes mellitus Social History Smoking Status: Former smoker Second Hand Exposure: Yes (FAMILY SMOKED- A CHILD); Hx Alcohol Use: Yes Alcohol type: beer, wine and hard liquor Hx Substance Use: No Preferred Language: Prydeinig Communication Ability: Effective Residential Builder Required: No Beliefs That Will Affect Care: None marital status: Current Living Situation: Significant Other Feels Safe at Home: Yes Assistive Devices: Denture - Upper, Glasses and Walker Allergies Allergies Allergy/AdvReac Type Severity Reaction Status Date / Time adhesive Allergy Mild Rash (with Verified 09/29/22 19:13 older bandaids) nickel Allergy Mild Rash Verified 09/29/22 19:13 tetanus toxoid, adsorbed AdvReac Intermediate Elevated BP Verified 09/29/22 19:13 NSAIDS (Non-Steroidal AdvReac Unknown was "told Verified 09/29/22 19:13 Anti-Inflamma to avoid" Home Meds Home Medications Medication Instructions Recorded Confirmed atenolol 25 mg tablet 25 mg PO QAM 12/02/18 09/29/22 cholecalciferol (vitamin D3) 50 2,000 unit PO QAM 12/02/18 09/29/22 mcg (2,000 unit) tablet hydrochlorothiazide 25 mg tablet 25 mg PO QAM 12/02/18 09/29/22 levothyroxine 150 mcg tablet 150 mcg PO DAILYBB 12/02/18 09/29/22 omeprazole 20 mg capsule,delayed 20 mg PO QAM 12/02/18 09/29/22 release aspirin 81 mg tablet,delayed 81 mg PO DAILY 09/29/22 09/29/22 release empagliflozin 25 mg tablet 25 mg PO QAM 09/29/22 09/29/22 (Jardiance) metformin 500 mg tablet,extended 1,000 mg PO BIDM 09/29/22 09/29/22 release 24 hr nitrofurantoin 100 mg PO AMHS 09/29/22 09/29/22 monohydrate/macrocrystals 100 mg capsule ondansetron HCl 8 mg tablet 8 mg PO Q8 PRN Nausea 09/29/22 09/29/22 potassium chloride 10 mEq 20 meq PO QAM 09/29/22 09/29/22 tablet,extended release prochlorperazine maleate 10 mg 10 mg PO Q6 PRN Nausea 09/29/22 09/29/22 tablet Results & Data (ED) Vital Signs Vital Signs - 24 hr 09/29/22 17:51 09/29/22 19:00 09/29/22 18:51 Temperature 37.7 C H Temperature Source Oral Pulse Rate 80 78 Pulse Rate [Apical] Respiratory Rate 18 Respiratory Effort / Characteristics Non-Labored Spontaneous Respiratory Depth Normal Respiratory Pattern Regular Blood Pressure 115/75 Blood Pressure [Right Arm] Blood Pressure Mean 88 Blood Pressure Mean [Right Arm] Blood Pressure Position Sitting Pulse Oximetry 98 Oxygen Delivery Method Room Air Room Air Sepsis Recent Fever Within 48 Hours No Sepsis New/Unexplained Change in Mental Status N/A Sepsis Action Taken by Nursing No Action Required 09/29/22 19:00 09/29/22 19:00 09/29/22 19:30 Temperature Temperature Source Pulse Rate 81 Pulse Rate [Apical] Respiratory Rate 20 Respiratory Effort / Characteristics Respiratory Depth Respiratory Pattern Blood Pressure 115/60 117/64 Blood Pressure [Right Arm] Blood Pressure Mean 78 81 Blood Pressure Mean [Right Arm] Blood Pressure Position Pulse Oximetry 95 Oxygen Delivery Method Sepsis Recent Fever Within 48 Hours Sepsis New/Unexplained Change in Mental Status Sepsis Action Taken by Nursing 09/29/22 19:30 09/29/22 19:57 Temperature Temperature Source Pulse Rate 77 Pulse Rate [Apical] 78 Respiratory Rate 20 18 Respiratory Effort / Characteristics Respiratory Depth Respiratory Pattern Blood Pressure Blood Pressure [Right Arm] 117/64 Blood Pressure Mean Blood Pressure Mean [Right Arm] 81 Blood Pressure Position Pulse Oximetry 92 94 Oxygen Delivery Method Room Air Room Air Sepsis Recent Fever Within 48 Hours Sepsis New/Unexplained Change in Mental Status Sepsis Action Taken by Nursing Laboratory Data 09/29/22 18:51 09/29/22 18:51 Lab Results 09/29/22 09/29/22 09/29/22 Range/Units 18:51 18:51 18:51 WBC 10.80 (4.8-10.8) K/ul RBC 3.37 L (4.20-5.40) M/uL Hgb 9.8 L (12.0-16.0) g/dl Hct 29.3 L (37.0-47.0) % MCV 86.9 (80.0-100.0) fL MCH 29.1 (25.0-34.0) pg MCHC 33.4 (32.0-36.0) g/dL RDW Std Deviation 44.2 (36.4-46.3) fL RDW Coeff of Parth 14.0 (11.5-14.5) % Plt Count 242 (130-400) K/uL MPV 10.4 (9.4-12.4) fL Immature Gran % (Auto) 0.5 % Neut % (Auto) 94.3 % Lymph % (Auto) 4.6 % [place] % (Auto) 0.5 % Eos % (Auto) 0.0 % Baso % (Auto) 0.1 % Neut # (Auto) 10.19 H (1.40-6.50) K/uL Lymph # (Auto) 0.50 L (1.2-3.4) K/uL [place] # (Auto) 0.05 L (0.11-0.59) K/uL Eos # (Auto) 0.00 (0-0.50) K/uL Baso # (Auto) 0.01 (0-0.2) K/uL Immature Gran # (Auto) 0.05 (0.01-0.20) K/uL Sodium 133 L (136-145) mmol/L Potassium 3.4 L (3.5-5.1) mmol/L Chloride 98 (98-107) mmol/L Carbon Dioxide 23 (21-32) mmol/L Anion Gap 12 H (3-11) BUN 16 (6-23) mg/dl Creatinine 0.82 (0.6-1.2) mg/dl Est Cr Clr Drug Dosing 59.8 ml/min Est GFR ( Amer) 84.0 ml/min Est GFR (Non-Af Amer) 72.5 ml/min BUN/Creatinine Ratio 19.5 (10-20) Glucose 188 H (70-99(Fasting)) mg/dl Lactate (0.4-2.0) mmol/L Calcium 8.4 L (8.6-10.3) mg/dl Magnesium 1.6 L (1.7-2.4) mg/dl Total Bilirubin 1.0 (0.2-1.0) mg/dl Direct Bilirubin 0.2 (0-0.2) mg/dl AST 21 (13-39) U/L ALT 17 (7-52) U/L Alkaline Phosphatase 90 (34-104) U/L Troponin I High Sens 10.7 (0-14) pg/ml Total Protein 5.9 L (6.0-8.3) gm/dl Albumin 3.3 L (3.4-5.0) gm/dl Procalcitonin 0.92 H (0-0.5) ng/ml 09/29/22 Range/Units 20:00 WBC (4.8-10.8) K/ul RBC (4.20-5.40) M/uL Hgb (12.0-16.0) g/dl Hct (37.0-47.0) % MCV (80.0-100.0) fL MCH (25.0-34.0) pg MCHC (32.0-36.0) g/dL RDW Std Deviation (36.4-46.3) fL RDW Coeff of Parth (11.5-14.5) % Plt Count (130-400) K/uL MPV (9.4-12.4) fL Immature Gran % (Auto) % Neut % (Auto) % Lymph % (Auto) % [place] % (Auto) % Eos % (Auto) % Baso % (Auto) % Neut # (Auto) (1.40-6.50) K/uL Lymph # (Auto) (1.2-3.4) K/uL [place] # (Auto) (0.11-0.59) K/uL Eos # (Auto) (0-0.50) K/uL Baso # (Auto) (0-0.2) K/uL Immature Gran # (Auto) (0.01-0.20) K/uL Sodium (136-145) mmol/L Potassium (3.5-5.1) mmol/L Chloride (98-107) mmol/L Carbon Dioxide (21-32) mmol/L Anion Gap (3-11) BUN (6-23) mg/dl Creatinine (0.6-1.2) mg/dl Est Cr Clr Drug Dosing ml/min Est GFR ( Amer) ml/min Est GFR (Non-Af Amer) ml/min BUN/Creatinine Ratio (10-20) Glucose (70-99(Fasting)) mg/dl Lactate 0.7 (0.4-2.0) mmol/L Calcium (8.6-10.3) mg/dl Magnesium (1.7-2.4) mg/dl Total Bilirubin (0.2-1.0) mg/dl Direct Bilirubin (0-0.2) mg/dl AST (13-39) U/L ALT (7-52) U/L Alkaline Phosphatase (34-104) U/L Troponin I High Sens (0-14) pg/ml Total Protein (6.0-8.3) gm/dl Albumin (3.4-5.0) gm/dl Procalcitonin (0-0.5) ng/ml Administered Medications Sodium Chloride (Nss 1000ml) 1,000 mls @ 999 mls/hr IV .Q1H1M ONE Stop: 09/29/22 20:42 Last Admin: 09/29/22 20:07 Dose: 999 mls/hr Documented By: LAURA Discontinued Medications Cefepime HCl (Maxipime) 2,000 mg in 20 mls @ 5 mls/min IV NOW STA; Protocol Stop: 09/29/22 19:45 Last Admin: 09/29/22 20:07 Dose: 5 mls/min Documented By: LAURA Acetaminophen (Ofirmev) 1,000 mg in 100 mls @ 400 mls/hr IV NOW STA Stop: 09/29/22 20:13 Last Admin: 09/29/22 20:11 Dose: 400 mls/hr Documented By: LAURA Imaging Data Radiologist's Impression: Chest X-Ray 09/29/22 18:08 XR chest 1V portable HISTORY: 71 years-old Female Sepsis acute sepsis COMPARISON: 12/15/2019 TECHNIQUE: AP view of the chest FINDINGS: Cardiomediastinal and hilar silhouettes are unchanged. Right pectoral [id number] catheter distal tip projects over the superior cavoatrial junction. No pneumothorax, pleural effusion, airspace consolidation or pulmonary edema. Bones of the chest appear grossly intact. IMPRESSION: No acute process. ACT 112: Negative or not required by law. The above report was generated using voice recognition software. It may contain grammatical, syntax or spelling errors. Electronically signed by: Juan Carlos Blair M.D. 09/29/2022 6:53 PM Discharge Plan Visit Data Chief Complaint: Fever Stated Complaint: FEVER, IS CURRENTLY ON CHEMO ED Provider: Melba Melissa Discharge Problem: Fever, Hypokalemia, Hypomagnesemia, Elevated procalcitonin Forms Stand Alone Forms: [email or web address] Prescriptions Prescriptions: No Action atenolol 25 mg tablet 25 mg PO QAM levothyroxine 150 mcg tablet 150 mcg PO DAILYBB omeprazole 20 mg capsule,delayed release(DR/EC) 20 mg PO QAM hydrochlorothiazide 25 mg tablet 25 mg PO QAM cholecalciferol (vitamin D3) 2,000 unit Tablet 2,000 unit PO QAM ondansetron HCl 8 mg tablet 8 mg PO Q8 PRN (Reason: Nausea) potassium chloride 10 mEq tablet extended release 20 meq PO QAM prochlorperazine maleate 10 mg tablet 10 mg PO Q6 PRN (Reason: Nausea) aspirin [Aspirin Low-Strength] 81 mg Tablet,Delayed Release (Dr/Ec) 81 mg PO DAILY Rx Instructions: take with food metformin 500 mg tablet extended release 24 hr 1,000 mg PO BIDM nitrofurantoin monohyd/m-cryst 100 mg capsule 100 mg PO AMHS Rx Instructions: take with food until gone start 09/27/22 end 10/04/22 Jardiance 25 mg tablet 25 mg PO QAM Referrals Referrals: Mahad Marques MD [Primary Care Provider] -
--- NOTE | 2022-09-29 18:54 | XRay Report ---
XR chest 1V portable HISTORY: 71 years-old Female Sepsis acute sepsis COMPARISON: 12/15/2019 TECHNIQUE: AP view of the chest FINDINGS: Cardiomediastinal and hilar silhouettes are unchanged. Right pectoral Sfbbjm-a-Ncro catheter distal t ip projects over the superior cavoatrial junction. No pneumothorax, pleural effusion, airspace consol idation or pulmonary edema. Bones of the chest appear grossly intact. IMPRESSION: No acute process. ACT 112: Negative or not required by law. The above report was generated using voice recognition software. It may contain grammatical, syntax o r spelling errors. Electronically signed by: Juan Carlos Blair M.D. 09/29/2022 6:53 PM
[2022-09-29 19:23] LABS: Hematocrit (blood only) 29.3 % (37.0-47.0); Hemoglobin 9.8 g/dl (12.0-16.0); Mean Corpuscular Hemoglobin 29.1 pg (25.0-34.0); Mean Corpuscular Hgb Conc 33.4 g/dL (32.0-36.0); Mean Corpuscular Volume 86.9 fL (80.0-100.0); Mean Platelet Volume 10.4 fL (9.4-12.4); Platelet Count 242 K/uL (130-400); RDW Standard Deviation 44.2 fL (36.4-46.3); Red Blood Count 3.37 M/uL (4.20-5.40)
[2022-09-29 19:39] LABS: Albumin Level 3.3 gm/dl (3.4-5.0); BUN Creatinine Ratio 19.5 (10-20); Bilirubin Direct 0.2 mg/dl (0-0.2); Calcium 8.4 mg/dl (8.6-10.3); Creatinine Clr Calc Pharmacy 59.8 ml/min; Est GFR (Non-African American) 72.5 ml/min; Magnesium 1.6 mg/dl (1.7-2.4); Potassium 3.4 mmol/L (3.5-5.1); Total Protein 5.9 gm/dl (6.0-8.3)
[2022-09-29] MEDS ORDERED: CEFEPIME 2,000 MG/20 ML VIAL IV STA (19:42)
[2022-09-29] MEDS ORDERED: SODIUM CHLORIDE 0.9% 1000ML 1,000 ML IV ONE (19:42)
[2022-09-29] MEDS ORDERED: VANCOMYCIN HCL 1,750 MG in SODIUM CHLORIDE 0.9% 500 ML IV ONE (19:42)
[2022-09-29] MEDS ORDERED: VANCOMYCIN CONSULT ACTIVE PRN (19:42)
[2022-09-29 19:45] LABS: Basophils # (auto) 0.01 K/uL (0-0.2); Basophils % (auto) 0.1 %; Immature Granulocytes # (auto) 0.05 K/uL (0.01-0.20); Immature Granulocytes % (auto) 0.5 %; Lymphocytes % (auto) 4.6 %; Monocytes # (auto) 0.05 K/uL (0.11-0.59); Monocytes % (auto) 0.5 %; Neutrophils # (auto) 10.19 K/uL (1.40-6.50); Neutrophils % (auto) 94.3 %; Troponin I High Sensitivity 10.7 pg/ml (0-14)
[2022-09-29] MEDS ORDERED: ACETAMINOPHEN 1,000 MG/100 ML VIAL IV STA (19:59)
[2022-09-29] MEDS ORDERED: MAGNESIUM SULFATE / D5W 1 GM/100 ML BAG IV ONE (20:41)
[2022-09-29] MEDS ORDERED: POTASSIUM CHLORIDE PWD 20 MEQ PACK PO STA (20:41)
[2022-09-29] MEDS: DAPTOmycin 350 MG in SYRINGE 0 ML IV SCH (21:01)
--- NOTE | 2022-09-29 22:15 | History & Physical Report ---
Date of Service September 29, 2022 Assessment & Plan (1) Fever: Plan: Possible sepsis, abnormal procalcitonin immunocompromised patient History metastatic pancreatic cancer status post recent chemotherapy initiation No obvious source for now New onset anemia possibly from chemotherapy, rule out bleed from A port site with note of ecchymosis; FOBT negative hypertension, BP on the lower side DM2 on oral medications, suboptimal control as of recent hemoglobin A1c of 8.12 August 2022 Postsurgical hypothyroidism, TSH slightly elevated Hypokalemia secondary to home diuretic Rx past tobacco abuse GMF CS, Daptomycin and Cefepime for now Check UA CT chest Re: A port swelling rule out abscess Anemia work-up, transfuse PRBC if hemoglobin less than 7 and or for symptomatic anemia basal bolus insulin, ISS BG goal 1 10-1 40, carb count coverage Replace potassium, hold home diuretic until patient euvolemic. DVT prophylaxis. SCDs Re: A port site bruising possibly causing anemia DNR Text document was generated using [employer] voice recognition software. It may contain grammatical or spelling errors. Kindly contact undersigned for clarification of any documentation item in question. History of Present Illness Chief Complaint: Fever Primary Care Provider: Mahad Marques MD History obtained from patient and records. Medical history significant for hypertension, DM2 on oral medications, postsurgical hypothyroidism, metastatic pancreatic cancer status post surgery recently started on palliative chemotherapy, past tobacco abuse. Patient recently diagnosed to have metastatic pancreatic cancer status post surgery at [facility] last month. Patient had A port placement at [facility] by IR 5 days ago. Nonpainful wheezing noted Aport site postprocedure. Patient received first chemotherapy session a few days ago. Appetite okay but food tasted differently as per patient. Today temperature was noted to be 100.5 at home. Patient denies headache, chest pain, SOB, abdominal pain, dysuria, diarrhea. Denies black/bloody stools/hematuria. No unusual swellings. IV cefepime administered at the ER. 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 [facility] Allergies Allergy/AdvReac Type Severity Reaction Status Date / Time adhesive Allergy Mild Rash (with Verified 09/29/22 19:13 older bandaids) nickel Allergy Mild Rash Verified 09/29/22 19:13 tetanus toxoid, adsorbed AdvReac Intermediate Elevated BP Verified 09/29/22 19:13 NSAIDS (Non-Steroidal AdvReac Unknown was "told Verified 09/29/22 19:13 Anti-Inflamma to avoid" Home Medications Medication Instructions Recorded Confirmed Type atenolol 25 mg tablet 25 mg PO QAM 12/02/18 09/29/22 History cholecalciferol (vitamin D3) 50 2,000 unit PO QAM 12/02/18 09/29/22 History mcg (2,000 unit) tablet hydrochlorothiazide 25 mg tablet 25 mg PO QAM 12/02/18 09/29/22 History levothyroxine 150 mcg tablet 150 mcg PO DAILYBB 12/02/18 09/29/22 History omeprazole 20 mg capsule,delayed 20 mg PO QAM 12/02/18 09/29/22 History release aspirin 81 mg tablet,delayed 81 mg PO DAILY 09/29/22 09/29/22 History release empagliflozin 25 mg tablet 25 mg PO QAM 09/29/22 09/29/22 History (Jardiance) metformin 500 mg tablet,extended 1,000 mg PO BIDM 09/29/22 09/29/22 History release 24 hr nitrofurantoin 100 mg PO AMHS 09/29/22 09/29/22 History monohydrate/macrocrystals 100 mg capsule ondansetron HCl 8 mg tablet 8 mg PO Q8 PRN Nausea 09/29/22 09/29/22 History potassium chloride 10 mEq 20 meq PO QAM 09/29/22 09/29/22 History tablet,extended release prochlorperazine maleate 10 mg 10 mg PO Q6 PRN Nausea 09/29/22 09/29/22 History tablet Past Med/Surg History Medical History (Updated 09/29/22 @ 20:33 by Melba Melissa MD) Diabetes mellitus, type 2 NIDDM GERD (gastroesophageal reflux disease) controlled HTN (hypertension) Hypothyroidism Obesity Osteoarthritis Skin cancer s/p precancerous skin excision Surgical History (Updated 12/26/19 @ 06:44 by Heri Gerardo DO) H/O breast biopsy BENIGN H/O colonoscopy H/O tubal ligation History of appendectomy [facility] 2012. MAC #3, ET 7.0 grade view I. History of cholecystectomy 01/08/19: Grade view 1, MAC#3, ETT 7.5 at [facility] History of hysterectomy with unilateral oophorectomy History of left hip replacement (~12/2019) History of repair of rotator cuff LEFT History of tooth extraction Orbital fracture REPAIRED (? HARDWARE INTACT/POSSIBLE WIRE) Family History Mother Family history of diabetes mellitus Social History Smoking Status: Former smoker Smoking End Date: 16 YRS SGO; Second Hand Exposure: Yes (FAMILY SMOKED- A CHILD); Hx Alcohol Use: Yes Alcohol type: beer, wine and hard liquor Hx Substance Use: No Preferred Language: Thai Communication Ability: Effective Pot Firer Required: No Beliefs That Will Affect Care: None marital status: Current Living Situation: Other Current Living Situation Comment: FRIEND LESLY Feels Safe at Home: Yes Safety Concerns: Feels Safe At This Time Assistive Devices: Denture - Upper and Glasses Review of Systems Review of Systems: As per HPI, all other systems reviewed and negative Physical Exam Physical Exam: GENERAL: Comfortable, pleasant, no respiratory distress SKIN: Pallor, warm HEENT: Bespectacled, pale palpebral conjunctivae, no ptosis, dry buccal mucosa NECK : Supple, no tenderness CHEST : CTA, right a port site with minimal bruising, no tenderness HEART : RRR, no obvious murmurs ABDOMEN: Some distention, nontender RECTAL : Intact sphincter, yellow brown stool (FOBT negative) EXTREMITIES : No LE swelling/tenderness, no other conspicuous deformities noted NEUROLOGIC : Coherent, no facial asymmetry, no other gross focality Results & Data Results & Data Vital Signs (Past 12 Hours) Vital Signs Temp Pulse Pulse Resp BP BP Pulse Ox 09/29/22 21:34 36.8 C 09/29/22 21:30 78 20 96 09/29/22 21:30 111/74 09/29/22 21:00 76 19 96 09/29/22 21:00 103/61 09/29/22 20:30 80 18 95 09/29/22 20:30 136/76 09/29/22 20:00 78 20 92 09/29/22 20:00 114/65 09/29/22 19:57 78 18 117/64 94 09/29/22 19:30 77 20 92 09/29/22 19:30 117/64 09/29/22 19:00 81 20 95 09/29/22 19:00 115/60 09/29/22 18:51 09/29/22 19:00 78 09/29/22 17:51 37.7 C H 80 18 115/75 98 O2 Del Method 09/29/22 21:34 09/29/22 21:30 Room Air 09/29/22 21:30 09/29/22 21:00 09/29/22 21:00 09/29/22 20:30 Room Air 09/29/22 20:30 09/29/22 20:00 09/29/22 20:00 09/29/22 19:57 Room Air 09/29/22 19:30 Room Air 09/29/22 19:30 09/29/22 19:00 09/29/22 19:00 09/29/22 18:51 Room Air 09/29/22 19:00 09/29/22 17:51 Room Air Laboratory Results Laboratory Results WBC 10.80 K/ul (4.8-10.8) 09/29/22 18:51 RBC 3.37 M/uL (4.20-5.40) L 09/29/22 18:51 Hgb 9.8 g/dl (12.0-16.0) L 09/29/22 18:51 Hct 29.3 % (37.0-47.0) L 09/29/22 18:51 MCV 86.9 fL (80.0-100.0) 09/29/22 18:51 MCH 29.1 pg (25.0-34.0) 09/29/22 18:51 MCHC 33.4 g/dL (32.0-36.0) 09/29/22 18:51 RDW Std Deviation 44.2 fL (36.4-46.3) 09/29/22 18:51 RDW Coeff of Parth 14.0 % (11.5-14.5) 09/29/22 18:51 Plt Count 242 K/uL (130-400) 09/29/22 18:51 MPV 10.4 fL (9.4-12.4) 09/29/22 18:51 Immature Gran % (Auto) 0.5 % 09/29/22 18:51 Neut % (Auto) 94.3 % 09/29/22 18:51 Lymph % (Auto) 4.6 % 09/29/22 18:51 [place] % (Auto) 0.5 % 09/29/22 18:51 Eos % (Auto) 0.0 % 09/29/22 18:51 Baso % (Auto) 0.1 % 09/29/22 18:51 Neut # (Auto) 10.19 K/uL (1.40-6.50) H 09/29/22 18:51 Lymph # (Auto) 0.50 K/uL (1.2-3.4) L 09/29/22 18:51 [place] # (Auto) 0.05 K/uL (0.11-0.59) L 09/29/22 18:51 Eos # (Auto) 0.00 K/uL (0-0.50) 09/29/22 18:51 Baso # (Auto) 0.01 K/uL (0-0.2) 09/29/22 18:51 Immature Gran # (Auto) 0.05 K/uL (0.01-0.20) 09/29/22 18:51 Sodium 133 mmol/L (136-145) L 09/29/22 18:51 Potassium 3.4 mmol/L (3.5-5.1) L 09/29/22 18:51 Chloride 98 mmol/L (98-107) 09/29/22 18:51 Carbon Dioxide 23 mmol/L (21-32) 09/29/22 18:51 Anion Gap 12 (3-11) H 09/29/22 18:51 BUN 16 mg/dl (6-23) 09/29/22 18:51 Creatinine 0.82 mg/dl (0.6-1.2) 09/29/22 18:51 Est Cr Clr Drug Dosing 59.8 ml/min 09/29/22 18:51 Est GFR ( Amer) 84.0 ml/min 09/29/22 18:51 Est GFR (Non-Af Amer) 72.5 ml/min 09/29/22 18:51 BUN/Creatinine Ratio 19.5 (10-20) 09/29/22 18:51 Glucose 188 mg/dl (70-99(Fasting)) H 09/29/22 18:51 Lactate 0.7 mmol/L (0.4-2.0) 09/29/22 20:00 Calcium 8.4 mg/dl (8.6-10.3) L 09/29/22 18:51 Magnesium 1.6 mg/dl (1.7-2.4) L 09/29/22 18:51 Total Bilirubin 1.0 mg/dl (0.2-1.0) 09/29/22 18:51 Direct Bilirubin 0.2 mg/dl (0-0.2) 09/29/22 18:51 AST 21 U/L (13-39) 09/29/22 18:51 ALT 17 U/L (7-52) 09/29/22 18:51 Alkaline Phosphatase 90 U/L (34-104) 09/29/22 18:51 Troponin I High Sens 10.7 pg/ml (0-14) 09/29/22 18:51 Total Protein 5.9 gm/dl (6.0-8.3) L 09/29/22 18:51 Albumin 3.3 gm/dl (3.4-5.0) L 09/29/22 18:51 Procalcitonin 0.92 ng/ml (0-0.5) H 09/29/22 18:51 SARS-CoV-2, RNA, NAAT NEGATIVE (NEGATIVE) 09/29/22 20:42 Impressions Chest X-Ray 09/29/22 18:08 XR chest 1V portable HISTORY: 71 years-old Female Sepsis acute sepsis COMPARISON: 12/15/2019 TECHNIQUE: AP view of the chest FINDINGS: Cardiomediastinal and hilar silhouettes are unchanged. Right pectoral [id number] catheter distal tip projects over the superior cavoatrial junction. No pneumothorax, pleural effusion, airspace consolidation or pulmonary edema. Bones of the chest appear grossly intact. IMPRESSION: No acute process. ACT 112: Negative or not required by law. The above report was generated using voice recognition software. It may contain grammatical, syntax or spelling errors. Electronically signed by: Juan Carlos Blair M.D. 09/29/2022 6:53 PM Diagnostic Findings EKG as per my interpretation : Rate 75, NSR, LAD, LAFB, diffuse T wave flattening, low voltage
[2022-09-29] MEDS ORDERED: traMADol HCL 50 MG TABLET PO PRN (22:22)
[2022-09-29] MEDS ORDERED: LACTATED RINGER'S 1,000 ML IV ONE (22:22)
[2022-09-29] MEDS ORDERED: OPTIRAY 350 100ml IV ONE (22:33)
[2022-09-29 22:54] LABS: Thyroid Stimulating Hormone 7.553 uIu/ml (0.300-4.500)
[2022-09-29 23:34] LABS: T4 Free Thyroxine 1.44 ng/dl (0.61-1.60)
--- NOTE | 2022-09-29 23:34 | CT Scan Report ---
Exam(s): CT CHEST With Contrast EXAM: CT Chest With Intravenous Contrast CLINICAL HISTORY: Reason for exam: R chest wall swelling. TECHNIQUE: Axial computed tomography images of the chest with intravenous contrast. CTDI is 9.93 mGy and DLP is 308.82 mGy-cm. Automated exposure control was utilized for the study. A dose lowering technique was utilized adhering to the principles of ALARA. CONTRAST: Contrast must be dictated COMPARISON: No relevant prior studies available. FINDINGS: Lungs: Unremarkable. No mass. No consolidation. Pleural space: Unremarkable. No pneumothorax. No significant effusion. Heart: There is a trace pericardial effusion. There are coronary vascular calcifications. Bones/joints: There are advanced degenerative changes of the thoracic spine. No acute fracture. No dislocation. Soft tissues: Unremarkable. Vasculature: See above. Lymph nodes: Unremarkable. No enlarged lymph nodes. Liver: There are multiple hepatic low-density lesions. Pancreas: There is an inflammatory versus neoplastic process within the region of the pancreatic tail (image 54 series 2). Spleen: There is a small splenule. Intraperitoneal space: There is a small volume upper abdominal ascites. Tubes, lines and devices: There is a right chest chemotherapy port in place. IMPRESSION: 1. No acute intrathoracic abnormality. 2. No abnormality of the right chest wall, correlate with physical examination findings. 3. Partial visualization of an inflammatory versus neoplastic process in the pancreatic tail, correlate with patient's prior imaging. Electronically signed by: Josue Champagne MD 09/29/22 23:33 PM
[2022-09-29] MEDS ORDERED: GLUCOSE 10 TAB/TUBE PO PRN (23:54)
[2022-09-29] MEDS ORDERED: GLUCOSE 40% GEL 15 GM TUBE PO PRN (23:54)
[2022-09-29] MEDS ORDERED: DEXTROSE 50% 50 ML SYRINGE IV PRN (23:54)
[2022-09-29] MEDS ORDERED: GLUCAGON FOR INJ 1 MG VIAL SQ PRN (23:54)
[2022-09-29] MEDS ORDERED: CARBOHYDRATES FOR HYPOGLYCEMIA PO PRN (23:54)
[2022-09-30] MEDS: INSULIN ASPART PER UNIT CHARGE SC SCH ×5 (00:24→21:50)
[2022-09-30] MEDS: LANTUS PER UNIT CHARGE SQ SCH ×2 (00:24→21:51)
[2022-09-30] MEDS: LEVOTHYROXINE SODIUM 150 MCG TABLET PO SCH (05:06)
[2022-09-30 06:27] LABS: Hematocrit (blood only) 26.8 % (37.0-47.0); Hemoglobin 8.8 g/dl (12.0-16.0); Mean Corpuscular Hemoglobin 29.1 pg (25.0-34.0); Mean Corpuscular Hgb Conc 32.8 g/dL (32.0-36.0); Mean Corpuscular Volume 88.7 fL (80.0-100.0); Mean Platelet Volume 10.3 fL (9.4-12.4); Platelet Count 227 K/uL (130-400); RDW Coefficient of Variation 14.3 % (11.5-14.5); RDW Standard Deviation 46.1 fL (36.4-46.3); Red Blood Count 3.02 M/uL (4.20-5.40); White Blood Count 8.52 K/ul (4.8-10.8)
[2022-09-30 06:39] LABS: BUN Creatinine Ratio 22.7 (10-20); Calcium 8.3 mg/dl (8.6-10.3); Creatinine Clr Calc Pharmacy 74.2 ml/min; Est GFR (African American) 103.7 ml/min; Est GFR (Non-African American) 89.5 ml/min; Magnesium 1.9 mg/dl (1.7-2.4); Potassium 3.4 mmol/L (3.5-5.1)
[2022-09-30 06:51] LABS: Basophils # (auto) 0.02 K/uL (0-0.2); Basophils % (auto) 0.2 %; Eosinophils # (auto) 0.06 K/uL (0-0.50); Eosinophils % (auto) 0.7 %; Immature Granulocytes # (auto) 0.05 K/uL (0.01-0.20); Immature Granulocytes % (auto) 0.6 %; Lymphocytes # (auto) 0.66 K/uL (1.2-3.4); Lymphocytes % (auto) 7.7 %; Monocytes # (auto) 0.06 K/uL (0.11-0.59); Monocytes % (auto) 0.7 %; Neutrophils # (auto) 7.67 K/uL (1.40-6.50); Neutrophils % (auto) 90.1 %; RBC Morphology Unremarkable
[2022-09-30 06:59] LABS: Ferritin 922.2 ng/ml (8-388)
[2022-09-30] MEDS: POTASSIUM CHLORIDE CRTAB 20 MEQ TABCR PO SCH (08:47)
[2022-09-30] MEDS: ATENOLOL 25 MG TABLET PO SCH (08:47)
[2022-09-30] MEDS: PANTOprazole 40 MG TAB PO SCH (08:47)
--- NOTE | 2022-09-30 14:09 | Electrocardiogram Report ---
Test Reason : Blood Pressure : / mmHG Vent. Rate : 076 BPM Atrial Rate : 076 BPM P-R Int : 156 ms QRS Dur : 096 ms QT Int : 384 ms P-R-T Axes : 056 -06 063 degrees QTc Int : 432 ms Normal sinus rhythm Low voltage QRS Borderline ECG When compared with ECG of 03-OCT-2010 14:12, No significant change was found Confirmed by Manny Silva ([id number]) on 09/30/2022 2:09:03 PM Referred By: REFERRED SELF Confirmed By:Manny Silva
[2022-09-30] MEDS: DAPTOmycin 350 MG in SYRINGE 0 ML IV SCH (19:53)
[2022-09-30] MEDS: HEPARIN 100 UNIT/ML 5ML FLUSH FLUSH PRN (19:54)
--- NOTE | 2022-09-30 20:14 | Hospitalist Progress Note ---
Date of Service September 30, 2022 Assessment & Plan (1) Fever: Plan: 1) Fever: Possible sepsis, abnormal procalcitonin immunocompromised patient History metastatic pancreatic cancer status post surgery 08/29/22 recent chemotherapy initiation last as per patient No obvious source for now possibly from chemo on iv daptomycin and cefepime will follow cultures seems stable currently New onset anemia possibly from chemotherapy, rule out bleed from A port site with note of ecchymosis; FOBT negative will follow labs. hb 8.8 today hypertension, BP on the lower side on atenolol holding hctz. DM2 on oral medications, suboptimal control as of recent hemoglobin A1c of 8.12 August 2022 on insulin glargine and ISS will monitor Postsurgical hypothyroidism, TSH slightly elevated free t4 normal. Hypokalemia secondary to home diuretic Rx on supplements will follow labs past tobacco abuse Admission and Anticipated Discharge Date Admission Date: September 29, 2022 Subjective resting comfortably afebrile today denies cough no nausea ate opk no chest pain or sob n neck pain or back pain had surgery for pancreatic cancer 08/30 had fi\rest chemo last Says since surgery she is feeling pressure in her bladder Review of Systems Review of Systems: As above Physical Exam Constitutional: WD/WN, vitals as above Eyes: EOMI Neck: trachea midline, no thyromegaly Respiratory: normal respiratory effort, lungs clear to auscultation Cardiovascular: RRR, no murmur, no edema Gastrointestinal (Abdomen): surgery site clean, non tender soft bowel sounds present Neurologic: alert and oriented speech clear no facial droop moves extremities Results & Data Results & Data Vital Signs (Past 12 Hours) Vital Signs Temp Pulse Resp BP Pulse Ox O2 Del Method 09/30/22 15:13 36.9 C 70 16 112/72 96 Room Air
[2022-09-30] MEDS: ACETAMINOPHEN 325 MG TAB PO PRN (21:49)
[2022-10-01 01:26] LABS: Appearance Urine Cloudy (Clear); Bacteria Urine Automated Negative (Negative); Bilirubin Urine Negative (Negative); Blood Urine Negative (Negative); Color Urine Dark Yellow; Epithelial Cell Urine Auto >30 /lpf (0-5); Glucose Urine UA 3+ (Negative); Ketones Urine 3+ (Negative); Leukocyte Esterase Urine Negative (Negative); Nitrite Urine Negative (Negative); Protein Urine 1+ (Negative); RBC Urine Automated 0-4 /hpf (0-4); Specific Gravity Urine 1.044 (1.000-1.030); Urobilinogen Urine Negative (Negative); pH Urine 5.5 (4.5-7.5)
[2022-10-01] MEDS: LEVOTHYROXINE SODIUM 150 MCG TABLET PO SCH (06:08)
[2022-10-01 06:24] LABS: Basophils # (auto) 0.02 K/uL (0-0.2); Basophils % (auto) 0.3 %; Eosinophils # (auto) 0.16 K/uL (0-0.50); Eosinophils % (auto) 2.7 %; Hematocrit (blood only) 26.6 % (37.0-47.0); Hemoglobin 8.6 g/dl (12.0-16.0); Immature Granulocytes # (auto) 0.06 K/uL (0.01-0.20); Lymphocytes # (auto) 1.05 K/uL (1.2-3.4); Lymphocytes % (auto) 17.5 %; Mean Corpuscular Hemoglobin 28.9 pg (25.0-34.0); Mean Corpuscular Hgb Conc 32.3 g/dL (32.0-36.0); Mean Corpuscular Volume 89.3 fL (80.0-100.0); Monocytes # (auto) 0.06 K/uL (0.11-0.59); Neutrophils # (auto) 4.64 K/uL (1.40-6.50); Neutrophils % (auto) 77.5 %; Platelet Count 255 K/uL (130-400); RDW Coefficient of Variation 14.3 % (11.5-14.5); RDW Standard Deviation 46.4 fL (36.4-46.3); Red Blood Count 2.98 M/uL (4.20-5.40); White Blood Count 5.99 K/ul (4.8-10.8)
[2022-10-01 06:40] LABS: BUN Creatinine Ratio 23.3 (10-20); Calcium 8.6 mg/dl (8.6-10.3); Creatinine Clr Calc Pharmacy 81.7 ml/min; Est GFR (Non-African American) 92.4 ml/min; Magnesium 1.9 mg/dl (1.7-2.4); Potassium 3.5 mmol/L (3.5-5.1)
[2022-10-01] MEDS: POTASSIUM CHLORIDE CRTAB 20 MEQ TABCR PO SCH (08:33)
[2022-10-01] MEDS: PANTOprazole 40 MG TAB PO SCH (08:33)
[2022-10-01] MEDS: ATENOLOL 25 MG TABLET PO SCH (08:33)
[2022-10-01] MEDS: INSULIN ASPART PER UNIT CHARGE SC SCH ×4 (08:38→21:26)
--- NOTE | 2022-10-01 10:17 | Hospitalist Progress Note ---
Date of Service October 01, 2022 Assessment & Plan (1) Fever: Plan: 1) Fever: Possible sepsis, abnormal procalcitonin immunocompromised patient History metastatic pancreatic cancer status post surgery 08/29/22 recent chemotherapy initiation last as per patient No obvious source for now possibly elevated temp from chemo on iv daptomycin and cefepime will stop daptomycin now and cont with Rocephin pending urine culture result given h/o pressure in bladder. If negative will stop antibiotics completely and will send her home. New onset anemia possibly from chemotherapy, rule out bleed from A port site with note of ecchymosis; FOBT negative H/H stable. HTN-chroic, stable. on atenolol. holding hctz. DM2 on oral medications, suboptimal control as of recent hemoglobin A1c of 8.12 August 2022 on insulin glargine and ISS inpatient and around her goal. will monitor Postsurgical hypothyroidism, TSH slightly elevated free t4 normal. This is a long standing issue for her and she is managed in the clinic. Hypokalemia secondary to home diuretic Rx on supplements will follow labs DVT proph: start Lovenox given known malignancy and high risk VTE DNR Dispo-to home in am. Sweetie Zamora DO [facility] Hospitalist Admission and Anticipated Discharge Date Admission Date: September 29, 2022 Subjective 71 yo F presenting with elevated temperature post chemotherapy induction she remains afebrile feeling well denies nausea and is tolerating PO workup is negative for infection with urine culture pending She does report some "pressure" in her bladder with urination next chemo scheduled for Saturday Review of Systems Review of Systems: All systems were reviewed and negative except as indicated on subjective above. Physical Exam Physical Exam: CONSTITUTIONAL: WNWD, vitals as above, generally well-appearing, NAD EYES: normal conjunctivae, no scleral icterus ENT: external ear and nose normal, MMM NECK: trachea midline, RESPIRATORY: clear to auscultation bilaterally, no crackles, rales or wheezes, normal respiratory effort CARDIOVASCULAR: regular rate and rhythm, S1 and 2 heard without murmurs, gallops or rubs, no JVD, no peripheral edema, CHEST: inspection of chest was normal GASTROINTESTINAL: soft, nontender, ND, no guarding MUSCULOSKELETAL: strength 5/5 throughout, head is normocephalic and atraumatic, SKIN: warm and dry NEUROLOGIC: CN 2-12 grossly intact, no sensory deficit, normal cognition, normal speech, no tremor PSYCHIATRIC: alert cooperative and oriented to person, place and time. Euthymic mood, makes good eye contact, language grossly intact, recent and remote memory grossly intact. Results & Data Results & Data Vital Signs (Past 12 Hours) Vital Signs Temp Pulse Resp BP Pulse Ox O2 Del Method 10/01/22 07:25 36.7 C 66 18 107/66 95 Room Air 09/30/22 22:27 36.7 C 72 95 Room Air Laboratory Results Short CBC 10/01/22 Range/Units 06:02 WBC 5.99 (4.8-10.8) K/ul Hgb 8.6 L (12.0-16.0) g/dl Hct 26.6 L (37.0-47.0) % Plt Count 255 (130-400) K/uL BMP 10/01/22 06:02 Sodium 136 Potassium 3.5 Chloride 103 Carbon Dioxide 24 BUN 14 Creatinine 0.60 Glucose 122 H Calcium 8.6 Urine 10/01/22 Range/Units 01:15 Urine Color Dark Yellow Urine Appearance Cloudy A (Clear) Urine pH 5.5 (4.5-7.5) Ur Specific [place] 1.044 H (1.000-1.030) Urine Protein 1+ H (Negative) Urine Glucose (UA) 3+ H (Negative) Medications Administered Current Inpatient Medications Acetaminophen (Acetaminophen 325 Mg Tab) 650 mg PO Q4H PRN PRN Reason: pain/fever Stop: 10/29/22 23:53 Last Admin: 09/30/22 21:49 Dose: 650 mg Atenolol (Atenolol 25 Mg Tablet) 25 mg PO [facility] Stop: 10/30/22 08:59 Last Admin: 10/01/22 08:33 Dose: 25 mg Dextrose (Dextrose 50% 50 Ml Syringe) 25 - 50 ml IV UD PRN; Protocol PRN Reason: Hypoglycemia Protocol Stop: 10/29/22 23:53 Glucagon (Glucagon For Inj 1 Mg Vial) 1 mg SQ UD PRN; Protocol PRN Reason: Hypoglycemia Protocol Stop: 10/29/22 23:53 Glucose (Glucose 10 Tab/Tube) 4 - 8 tab PO UD PRN; Protocol PRN Reason: Hypoglycemia Treatment Stop: 10/29/22 23:53 Glucose (Glucose 40% Gel 15 Gm Tube) 15 - 30 gm PO UD PRN; Protocol PRN Reason: Hypoglycemia Protocol Stop: 10/29/22 23:53 Heparin Sodium (Porcine) (Heparin 100 Unit/Ml 5ml Flush) 5 ml FLUSH PRN PRN PRN Reason: Flush Stop: 10/30/22 05:40 Last Admin: 09/30/22 19:54 Dose: 5 ml Daptomycin 350 mg/ Syringe 7 mls @ 3.5 mls/min IV Q24H KIERSTEN; Protocol Stop: 10/01/22 20:59 Last Admin: 09/30/22 19:53 Dose: 3.5 mls/min Insulin Aspart (Insulin Aspart Per Unit Charge) 0 units SC ACHS KIERSTEN Stop: 10/29/22 23:53 Last Admin: 10/01/22 08:38 Dose: 2 units Insulin Glargine (Lantus Per Unit Charge) 5 units SQ HS KIERSTEN Stop: 10/29/22 23:53 Last Admin: 09/30/22 21:51 Dose: 5 units Levothyroxine Sodium (Levothyroxine Sodium 150 Mcg Tablet) 150 mcg PO DAILYBB KIERSTEN Stop: 10/30/22 06:29 Last Admin: 10/01/22 06:08 Dose: 150 mcg Miscellaneous (Carbohydrates For Hypoglycemia ) 15 - 30 gm PO UD PRN PRN Reason: Hypoglycemia Protocol Stop: 10/29/22 23:53 Pantoprazole Sodium (Pantoprazole 40 Mg Tab) 40 mg PO QAM [facility] Stop: 10/30/22 08:59 Last Admin: 10/01/22 08:33 Dose: Not Given Potassium Chloride (Potassium Chloride Crtab 20 Meq Tabcr) 20 meq PO QAM KIERSTEN Stop: 10/30/22 08:59 Last Admin: 10/01/22 08:33 Dose: 20 meq Tramadol HCl (Tramadol Hcl 50 Mg Tablet) 25 - 50 mg PO Q4H PRN PRN Reason: Pain Stop: 10/29/22 22:21
[2022-10-01] MEDS: ACETAMINOPHEN 325 MG TAB PO PRN (18:36)
[2022-10-01] MEDS ORDERED: cefTRIAXone SODIUM 1,000 MG in DEXTROSE 5% AD-VAN 50 ML IV SCH (21:00)
[2022-10-01] MEDS ORDERED: ENOXAPARIN INJ 40 MG/0.4 ML SYR SQ SCH (21:00)
[2022-10-01] MEDS: LANTUS PER UNIT CHARGE SQ SCH (21:27)
[2022-10-01] MEDS: HEPARIN 100 UNIT/ML 5ML FLUSH FLUSH PRN (21:59)
[2022-10-02] MEDS: LEVOTHYROXINE SODIUM 150 MCG TABLET PO SCH (06:06)
[2022-10-02] MEDS: INSULIN ASPART PER UNIT CHARGE SC SCH ×2 (08:26→12:27)
[2022-10-02] MEDS: POTASSIUM CHLORIDE CRTAB 20 MEQ TABCR PO SCH (08:26)
[2022-10-02] MEDS: PANTOprazole 40 MG TAB PO SCH (08:26)
[2022-10-02] MEDS: ATENOLOL 25 MG TABLET PO SCH (08:27)
--- NOTE | 2022-10-02 09:32 | Discharge Summary ---
Discharge Summary Date of Service October 02, 2022 Notes For Next Care Provider she was in the hospital after presenting for a fever workup for infection was negative and empiric antibiotics were stopped ok to proceed with chemotherapy as scheduled Medication Changes From Visit no changes Admission HPI Per Admitting Provider History obtained from patient and records. Medical history significant for hypertension, DM2 on oral medications, postsurgical hypothyroidism, metastatic pancreatic cancer status post surgery recently started on palliative chemotherapy, past tobacco abuse. Patient recently diagnosed to have metastatic pancreatic cancer status post surgery at [facility] last month. Patient had A port placement at [facility] by IR 5 days ago. Nonpainful wheezing noted Aport site postprocedure. Patient received first chemotherapy session a few days ago. Appetite okay but food tasted differently as per patient. Today temperature was noted to be 100.5 at home. Patient denies headache, chest pain, SOB, abdominal pain, dysuria, diarrhea. Denies black/bloody stools/hematuria. No unusual swellings. IV cefepime administered at the ER. Medical History as above Surgical History : Shoulder surgery, breast biopsy, vascular procedure, BTL, appendectomy, orbital floor repair, partial hysterectomy, oophorectomy, partial pancreatectomy as per records, thyroid lobectomy Family History : Throat cancer, DM Personal/Social history : Past tobacco abuse, rare EtOH intake, NEWS DEPARTMENT INTERN at [employer] Principal Dx & Hospital Course #1 = Principal Diagnosis (1) Fever: 1) Fever: Possible sepsis, abnormal procalcitonin immunocompromised patient History metastatic pancreatic cancer status post surgery 08/29/22 recent chemotherapy initiation last as per patient No obvious source for now possibly elevated temp from chemo on iv daptomycin and cefepime will stop daptomycin now and cont with Rocephin pending urine culture result given h/o pressure in bladder. If negative will stop antibiotics completely and will send her home. New onset anemia possibly from chemotherapy, rule out bleed from A port site with note of ecchymosis; FOBT negative H/H stable. HTN-chroic, stable. on atenolol. holding hctz. DM2 on oral medications, suboptimal control as of recent hemoglobin A1c of 8.12 August 2022 on insulin glargine and ISS inpatient and around her goal. will monitor Postsurgical hypothyroidism, TSH slightly elevated free t4 normal. This is a long standing issue for her and she is managed in the clinic. Hypokalemia secondary to home diuretic Rx on supplements will follow labs DVT proph: start Lovenox given known malignancy and high risk VTE DNR Dispo-to home in am. DO Wilfredo Yusufhuan Hospitalist Discharge Exam CONSTITUTIONAL: WNWD, vitals as above, generally well-appearing, NAD EYES: normal conjunctivae, no scleral icterus ENT: external ear and nose normal, MMM NECK: trachea midline, RESPIRATORY: clear to auscultation bilaterally, no crackles, rales or wheezes, normal respiratory effort CARDIOVASCULAR: regular rate and rhythm, S1 and 2 heard without murmurs, gallops or rubs, no JVD, no peripheral edema, CHEST: inspection of chest was normal GASTROINTESTINAL: soft, nontender, ND, no guarding MUSCULOSKELETAL: strength 5/5 throughout, head is normocephalic and atraumatic, SKIN: warm and dry NEUROLOGIC: CN 2-12 grossly intact, no sensory deficit, normal cognition, normal speech, no tremor PSYCHIATRIC: alert cooperative and oriented to person, place and time. Euthymic mood, makes good eye contact, language grossly intact, recent and remote memory grossly intact. Updated Medication List Medication Instructions Recorded Confirmed Type atenolol 25 mg tablet 25 mg PO QAM 12/02/18 09/29/22 History cholecalciferol (vitamin D3) 50 2,000 unit PO QAM 12/02/18 09/29/22 History mcg (2,000 unit) tablet hydrochlorothiazide 25 mg tablet 25 mg PO QAM 12/02/18 09/29/22 History levothyroxine 150 mcg tablet 150 mcg PO DAILYBB 12/02/18 09/29/22 History omeprazole 20 mg capsule,delayed 20 mg PO QAM 12/02/18 09/29/22 History release aspirin 81 mg tablet,delayed 81 mg PO DAILY 09/29/22 09/29/22 History release metformin 500 mg tablet,extended 1,000 mg PO BIDM 09/29/22 09/29/22 History release 24 hr ondansetron HCl 8 mg tablet 8 mg PO Q8 PRN Nausea 09/29/22 09/29/22 History potassium chloride 10 mEq 20 meq PO QAM 09/29/22 09/29/22 History tablet,extended release prochlorperazine maleate 10 mg 10 mg PO Q6 PRN Nausea 09/29/22 09/29/22 History tablet Hospital Stay Data Consultations 09/29/22 20:31 ED Decision to Admit Stat Diagnostic Imagining Performed 09/29/22 22:10 CT chest diagnostic w con Stat Pending Results Patient Have Any Pending Studies at Discharge: Yes Discharge Instructions Given to Patient (Per Discharging Provider) Please continue all medications as instructed on discharge list below. Please follow-up with your primary care provider within one week of discharge to touch base after returning home from the hospital. Please stop Jardiance as this is likely the cause of your recently increased urinary pressure. You may want to restart at the lower, 10mg dose at some poin t, but I would defer this to your primary care provider. Dr. Dillon is aware that you were in the hospital. He is planning to continue with your treatment on 10/05. There is a urine culture pending at time of discharge, but as of 10/02, no bacteria was growing in the lab. If you experience worsened fever, pain, shortness of breath or worsening urinary symptoms, please seek medical attention to investigate this further. It was a pleasure taking care of you! Please call if you have any questions or problems. You can reach a [facility] hospitalist on duty at [facility] 24 hours a day by calling [phone]. Take care of yourself. Sweetie Zamora, DO [facility]
[2022-10-02] MEDS: HEPARIN 100 UNIT/ML 5ML FLUSH FLUSH PRN (12:17)
--- NOTE | 2022-10-05 10:46 | Coding Query ---
To promote full compliance with coding requirements relating to patient care, provider participation is requested in all cases of applications scientist uncertainty. Please assist us with the question(s) below: Coding Question(s): The diagnosis below is documented in the medical record as possible sepsis with abnormal procalcitonin. Please indicate if it is still a possible diagnosis or ruled out. Physician's Response(s): SEPSIS ( ) Diagnosed and POA ( ) Diagnosed and not POA ( X ) Ruled out ( ) Other (please specify) MTDD
== END 2022-10-02 14:02 | disposition home or self-care (01) | DRG 864 ==
LOC: ED 17:44 → SUATTDRO 22:19 → 3E 22:19

== ENCOUNTER 2022-10-21 18:35 | Inpatient (IN) ==
--- NOTE | 2022-10-21 18:54 | Emergency Department Note ---
History of Present Illness General Chief complaint: Swelling/Edema to Extremity Stated complaint: L LEG EDEMA Time Seen by Provider: 10/21/22 18:43 History of Present Illness Provider complaint: Weakness shortness of breath left lower extremity swelling Onset (ago): day(s) 2 71-year-old female on chemotherapy for pancreatic cancer presents emergency department for weakness shortness of breath and left lower extremity swelling. Patient reports for the last 2 to 3 days she has been increasingly weak. She states she has not been getting up to walk around or move around as much because she feels so weak. She states that today she noticed that her left lower extremity swollen and she reports shortness of breath the last few days. No fevers. No nausea or vomiting. No diarrhea. No chest pain. No hematuria dysuria. No melena or hematochezia. Home Medications Medication Instructions Recorded Confirmed Type atenolol 25 mg tablet 25 mg PO QAM 12/02/18 10/21/22 History cholecalciferol (vitamin D3) 50 2,000 unit PO QAM 12/02/18 10/21/22 History mcg (2,000 unit) tablet hydrochlorothiazide 25 mg tablet 25 mg PO QAM 12/02/18 10/21/22 History levothyroxine 150 mcg tablet 150 mcg PO DAILYBB 12/02/18 10/21/22 History omeprazole 20 mg capsule,delayed 20 mg PO QAM 12/02/18 10/21/22 History release aspirin 81 mg tablet,delayed 81 mg PO DAILY 09/29/22 10/21/22 History release metformin 500 mg tablet,extended 1,000 mg PO BIDM 09/29/22 10/21/22 History release 24 hr ondansetron HCl 8 mg tablet 8 mg PO Q8 PRN Nausea 09/29/22 10/21/22 History potassium chloride 10 mEq 10 meq PO QAM 09/29/22 10/21/22 History tablet,extended release prochlorperazine maleate 10 mg 10 mg PO Q6 PRN Nausea 09/29/22 10/21/22 History tablet clotrimazole 10 mg rosalia 10 mg PO 5XD 10/21/22 10/21/22 History Allergies Allergy/AdvReac Type Severity Reaction Status Date / Time adhesive Allergy Mild Rash (with Verified 09/29/22 19:13 older bandaids) nickel Allergy Mild Rash Verified 09/29/22 19:13 tetanus toxoid, adsorbed AdvReac Intermediate Elevated BP Verified 09/29/22 19:13 NSAIDS (Non-Steroidal AdvReac Unknown was "told Verified 09/29/22 19:13 Anti-Inflamma to avoid" Past Med/Surg History Medical History Diabetes mellitus, type 2 NIDDM GERD (gastroesophageal reflux disease) controlled HTN (hypertension) Hypothyroidism Obesity Osteoarthritis Skin cancer s/p precancerous skin excision Surgical History H/O breast biopsy BENIGN H/O colonoscopy H/O tubal ligation History of appendectomy [facility] 2012. MAC #3, ET 7.0 grade view I. History of cholecystectomy 01/08/19: Grade view 1, MAC#3, ETT 7.5 at [facility] History of hysterectomy with unilateral oophorectomy History of left hip replacement (~12/2019) History of repair of rotator cuff LEFT History of tooth extraction Orbital fracture REPAIRED (? HARDWARE INTACT/POSSIBLE WIRE) Family History Mother Family history of diabetes mellitus Social History Smoking Status: Former smoker Second Hand Exposure: Yes (FAMILY SMOKED- A CHILD); Do You Dip or Chew Tobacco: No; Hx Alcohol Use: Yes Alcohol type: beer, wine and hard liquor Hx Substance Use: No Preferred Language: Singaporean Communication Ability: Effective Stamp Redemption Clerk Required: No Beliefs That Will Affect Care: None marital status: Current Living Situation: Other Current Living Situation Comment: FRIEND LESLY Feels Safe at Home: Yes Assistive Devices: Raised Toilet Seat and Walker Physical Exam Vital Signs Vital Signs - 24 hr 10/21/22 18:44 10/21/22 20:57 10/21/22 22:30 Temperature 36.5 C Temperature Source Oral Pulse Rate 69 Pulse Rate [Apical] 68 71 Pulse Rhythm Pulse Rhythm [Apical] Regular Regular Pulse Strength [Apical] Normal Normal Respiratory Rate 18 14 22 Respiratory Effort / Characteristics Non-Labored Spontaneous Non-Labored Spontaneous Non-Labored Spontaneous Respiratory Depth Normal Normal Normal Respiratory Pattern Regular Regular Regular Blood Pressure 121/86 Blood Pressure [Right Arm] 110/69 128/64 Blood Pressure Mean 97 Blood Pressure Mean [Right Arm] 82 85 Blood Pressure Position Semi-fowlers Blood Pressure Position [Right Arm] Semi-fowlers Semi-fowlers Pulse Oximetry 98 97 98 Oxygen Delivery Method Room Air Room Air Room Air Sepsis Recent Fever Within 48 Hours No Sepsis New/Unexplained Change in Mental Status No Sepsis Action Taken by Nursing No Action Required 10/21/22 22:36 Temperature Temperature Source Pulse Rate 71 Pulse Rate [Apical] Pulse Rhythm Regular Pulse Rhythm [Apical] Pulse Strength [Apical] Respiratory Rate 19 Respiratory Effort / Characteristics Respiratory Depth Respiratory Pattern Blood Pressure Blood Pressure [Right Arm] Blood Pressure Mean Blood Pressure Mean [Right Arm] Blood Pressure Position Blood Pressure Position [Right Arm] Pulse Oximetry 97 Oxygen Delivery Method Room Air Sepsis Recent Fever Within 48 Hours Sepsis New/Unexplained Change in Mental Status Sepsis Action Taken by Nursing Physical Exam HENT: Exam performed. -Head: Normocephalic and atraumatic. -Right Ear: External ear normal. No mastoid erythema -Left Ear: External ear normal. No mastoid erythema EYES: Conjunctivae and EOM are normal. Right eye exhibits no discharge. Left eye exhibits no discharge. No scleral icterus. NECK: Normal range of motion. Neck supple. No JVD present. CV: Normal rate, regular rhythm, normal heart sounds and intact distal pulses.Palpable radial pulses bue. PULM/CHEST: Effort normal and breath sounds normal. No respiratory distress. No stridor. She has no wheezes. She has no rales. ABD: The abdomen is soft. There is no tenderness. There is no rebound, no guarding. MUSC/SKEL: Swelling of the left lower extremity no pain on palpation of the popliteal or posterior thigh of the left lower extremity. Right lower extremity is within normal limits. Full range of motion of both lower extremities. NEURO: She is alert and oriented to person, place, and time. She has normal strength. No cranial nerve deficit or sensory deficit. Coordination and gait normal. GCS eye subscore is 4. GCS verbal subscore is 5. GCS motor subscore is 6. Cerebellar tests wnl. SKIN: Skin is warm and dry. She is not diaphoretic. PSYCH: She has a normal mood and affect. Behavior is normal. Judgment and thought content normal. Course Course 184: The patient was evaluated in room B9. A complete history and physical exam was performed Administered Medications Heparin Sodium/Dextrose (Heparin Sodium/Dextrose) 25,000 units in 500 mls @ 23 mls/hr IV .[id number] KIERSTEN; Protocol Stop: 11/20/22 21:59 Last Titration: 10/21/22 23:09 Dose: 1,150 units/hr, 23 mls/hr Documented By: Co-signed By: Admin: 10/21/22 22:30 Dose: 1,150 units/hr, 23 mls/hr Documented By: Co-signed By: BAKARI Discontinued Medications Heparin Sodium (Porcine) (Heparin Sod (Porcine) 1000 Unit/Ml) 5,000 units IV NOW ONE Stop: 10/21/22 22:01 Last Admin: 10/21/22 22:30 Dose: 5,000 units Documented By: Co-signed By: BAKARI Heparin Sodium/Dextrose (Heparin Iv Adult Wt-Based Standard With Bolus Protocol) 1 each IV NOW STA; Protocol Stop: 10/21/22 21:44 Last Admin: 10/21/22 22:30 Dose: 1 each Documented By: Ioversol (Optiray 320 500ml) 108 ml IV ONCE ONE Stop: 10/21/22 20:41 Last Admin: 10/21/22 20:40 Dose: 108 ml Documented By: CHRIS Ioversol (Optiray 320 100ml) 81 ml IV ONCE ONE Stop: 10/21/22 22:26 Last Admin: 10/21/22 22:25 Dose: 81 ml Documented By: VIOLETA Critical Care Time Critical Care Time: Yes Total Critical Care Time: 70 I have personally spent greater than 70 minutes of critical care time in the direct management of this patient. This includes bedside care, interpretation of diagnostic studies, and testing, discussion with consultants, patient, and family members, and other required patient management activities. This 70 minutes is in excess of all separately billable procedures. Medical Decision Making Laboratory Data Attestation: I reviewed the patient's lab results. 10/21/22 19:17 10/21/22 19:17 Lab Results 10/21/22 10/21/22 10/21/22 Range/Units 19:17 19:17 19:17 WBC 24.56 H (4.8-10.8) K/ul RBC 2.94 L (4.20-5.40) M/uL Hgb 8.8 L (12.0-16.0) g/dl Hct 26.4 L (37.0-47.0) % MCV 89.8 (80.0-100.0) fL MCH 29.9 (25.0-34.0) pg MCHC 33.3 (32.0-36.0) g/dL RDW Std Deviation 49.2 H (36.4-46.3) fL RDW Coeff of Parth 18.7 H (11.5-14.5) % Plt Count 330 (130-400) K/uL MPV 10.7 (9.4-12.4) fL Absolute Nucleated RBC 0.11 (0-0.12) K/uL Nucleated RBC % (auto) 0.4 % Neutrophils % (Manual) 89 % Lymphocytes % (Manual) 3 % Monocytes % (Manual) 6 % Metamyelocytes % (Man) 1 % Myelocytes % (Man) 1 % Neutrophils # (Manual) 21.86 H (1.40-6.50) K/uL Total Absolute Neuts 21.86 H (1.4-6.5) K/uL Lymphocytes # (Manual) 0.74 L (1.2-3.4) K/uL Total Abs Lymphocytes 0.74 L (1.2-3.4) K/uL Monocytes # (Manual) 1.47 H (0.11-0.59) K/uL Metamyelocytes # (Man) 0.25 H (0-0) K/uL Myelocytes # (Manual) 0.25 H (0-0) K/uL Hypersegmented Neuts 1+ Polychromasia 1+ Anisocytosis Present PT 11.4 (9.0-12.0) Seconds INR 1.0 (0.9-1.1) APTT 25.9 (21.0-31.0) Seconds PTT Ratio 0.9 Sodium 128 L (136-145) mmol/L Potassium 4.3 (3.5-5.1) mmol/L Chloride 97 L (98-107) mmol/L Carbon Dioxide 22 (21-32) mmol/L Anion Gap 9 (3-11) BUN 54 H (6-23) mg/dl Creatinine 1.34 H (0.6-1.2) mg/dl Est Cr Clr Drug Dosing Not Reportable Est GFR ( Amer) 46.4 ml/min Est GFR (Non-Af Amer) 40.0 ml/min BUN/Creatinine Ratio 40.3 H (10-20) Glucose 212 H (70-99(Fasting)) mg/dl Lactate (0.4-2.0) mmol/L Calcium 8.4 L (8.6-10.3) mg/dl Magnesium 1.6 L (1.7-2.4) mg/dl Total Bilirubin 0.5 (0.2-1.0) mg/dl Direct Bilirubin 0.1 (0-0.2) mg/dl AST 11 L (13-39) U/L ALT 7 (7-52) U/L Alkaline Phosphatase 91 (34-104) U/L Total Creatine Kinase 13 L (26-192) U/L Troponin I High Sens 8.2 (0-14) pg/ml Total Protein 5.8 L (6.0-8.3) gm/dl Albumin 3.1 L (3.4-5.0) gm/dl Lipase 44 (11-82) U/L Urine Color Urine Appearance (Clear) Urine pH (4.5-7.5) Ur Specific Delta (1.000-1.030) Urine Protein (Negative) Urine Glucose (UA) (Negative) Urine Ketones (Negative) Urine Blood (Negative) Urine Nitrite (Negative) Urine Bilirubin (Negative) Urine Urobilinogen (Negative) Ur Leukocyte Esterase (Negative) Urine WBC (Auto) (0-5) /hpf Urine RBC (Auto) (0-4) /hpf U Hyaline Cast (Auto) (0-5) /lpf U Epithel Cells (Auto) (0-5) /lpf Urine Bacteria (Auto) (Negative) Ur Renal Epithelial Cell Urine Mucus (None Prsent) 10/21/22 10/21/22 Range/Units 20:53 21:11 WBC (4.8-10.8) K/ul RBC (4.20-5.40) M/uL Hgb (12.0-16.0) g/dl Hct (37.0-47.0) % MCV (80.0-100.0) fL MCH (25.0-34.0) pg MCHC (32.0-36.0) g/dL RDW Std Deviation (36.4-46.3) fL RDW Coeff of Parth (11.5-14.5) % Plt Count (130-400) K/uL MPV (9.4-12.4) fL Absolute Nucleated RBC (0-0.12) K/uL Nucleated RBC % (auto) % Neutrophils % (Manual) % Lymphocytes % (Manual) % Monocytes % (Manual) % Metamyelocytes % (Man) % Myelocytes % (Man) % Neutrophils # (Manual) (1.40-6.50) K/uL Total Absolute Neuts (1.4-6.5) K/uL Lymphocytes # (Manual) (1.2-3.4) K/uL Total Abs Lymphocytes (1.2-3.4) K/uL Monocytes # (Manual) (0.11-0.59) K/uL Metamyelocytes # (Man) (0-0) K/uL Myelocytes # (Manual) (0-0) K/uL Hypersegmented Neuts Polychromasia Anisocytosis PT (9.0-12.0) Seconds INR (0.9-1.1) APTT (21.0-31.0) Seconds PTT Ratio Sodium (136-145) mmol/L Potassium (3.5-5.1) mmol/L Chloride (98-107) mmol/L Carbon Dioxide (21-32) mmol/L Anion Gap (3-11) BUN (6-23) mg/dl Creatinine (0.6-1.2) mg/dl Est Cr Clr Drug Dosing Est GFR ( Amer) ml/min Est GFR (Non-Af Amer) ml/min BUN/Creatinine Ratio (10-20) Glucose (70-99(Fasting)) mg/dl Lactate 1.6 (0.4-2.0) mmol/L Calcium (8.6-10.3) mg/dl Magnesium (1.7-2.4) mg/dl Total Bilirubin (0.2-1.0) mg/dl Direct Bilirubin (0-0.2) mg/dl AST (13-39) U/L ALT (7-52) U/L Alkaline Phosphatase (34-104) U/L Total Creatine Kinase (26-192) U/L Troponin I High Sens (0-14) pg/ml Total Protein (6.0-8.3) gm/dl Albumin (3.4-5.0) gm/dl Lipase (11-82) U/L Urine Color Dark Yellow Urine Appearance Cloudy A (Clear) Urine pH 5.0 (4.5-7.5) Ur Specific Delta > 1.045 H (1.000-1.030) Urine Protein Trace H (Negative) Urine Glucose (UA) Negative (Negative) Urine Ketones Negative (Negative) Urine Blood Negative (Negative) Urine Nitrite Negative (Negative) Urine Bilirubin 1+ H (Negative) Urine Urobilinogen Negative (Negative) Ur Leukocyte Esterase Negative (Negative) Urine WBC (Auto) 5-10 H (0-5) /hpf Urine RBC (Auto) 5-10 H (0-4) /hpf U Hyaline Cast (Auto) 5-10 H (0-5) /lpf U Epithel Cells (Auto) >30 H (0-5) /lpf Urine Bacteria (Auto) 1+ H (Negative) Ur Renal Epithelial Cell Not Reportable Urine Mucus Present A (None Prsent) Imaging Data Attestation: I personally reviewed and interpreted this imaging study as follows: My Impression: Chest x-ray negative. Airway clear. No pneumothorax. No consolidation. No cardiomegaly or cephalization.. No free air under the diaphragm. No fractures of the skeletal structures. Mediport present. Radiologist's Impression: Chest CTA 10/21/22 18:50 CR Exam(s): CTA CHEST IV Amt: 108ML OPTIRAY 320 EXAM: CT Angiography Chest With Intravenous Contrast CLINICAL HISTORY: Reason for exam: ro PE sob. TECHNIQUE: Axial computed tomographic angiography images of the chest with intravenous contrast. CTDI is 25 mGy and DLP is 379.68 mGy-cm. Automated exposure control was utilized for the study. A dose lowering technique was utilized adhering to the principles of ALARA. MIP reconstructed images were created and reviewed. COMPARISON: 09/29/2022. FINDINGS: Pulmonary arteries: On the right, there are filling defect identified within the mid proximal apical segmental branches of the right upper lobe pulmonary artery and several filling defect within the mid proximal right middle lobe pulmonary arteries. There is a partially occlusive thrombus involving the right lower lobe pulmonary artery with multiple proximal and mid distal segmental and subsegmental pulmonary emboli involving the right lower lobe. Filling defect identified within the mid distal left pulmonary artery extending into the left lower lobe pulmonary artery and several proximal segmental and subsegmental left lower lobe lateral branches of the left lower lobe pulmonary artery. Small filling defect identified within the mid distal branches of the lingular lobe pulmonary artery and within the mid proximal branch of the left upper lobe apical segmental pulmonary arteries. Aorta: Atherosclerotic disease of aorta with no aneurysm or dissection. Lungs: Small nodule in the right upper lobe, image 71, series 3 measuring 3.2 mm. Mild right lower lobe atelectasis. Pleural space: Unremarkable. No significant effusion. No pneumothorax. Heart: The RV/LV ratio is 0.9 with no distinct right-sided cardiac strain. No significant pericardial effusion. Normal cardiac size with coronary artery calcifications. Bones/joints: Multilevel degenerative disease of the spine with no acute fracture or subluxation. Soft tissues: Unremarkable. Lymph nodes: Unremarkable. No enlarged lymph nodes. Intraperitoneal space: Moderate to large ascites. There is a low- attenuation structure within the left liver lobe, incompletely characterized suggestive of liver lesion measuring approximately 4.0 x 3. 6 cm. Additional low-attenuation structures suggestive of liver cysts demonstrated largest seen in the left liver lobe by the hepatic hilum measuring 3.1 x 2.8 cm. IMPRESSION: 1. Numerous bilateral pulmonary emboli including the mid distal left pulmonary artery as well as multiple segmental and subsegmental bilateral pulmonary emboli as described with no evidence of right-sided cardiac strain. 2. Right upper lobe nodule measuring 3.2 mm. If indicated, this can be further followed up with CT chest in 6-12 months, depending on risk factors. 3. Liver lesions, many suggestive of simple liver cyst with at least one lesion identified in the anterior left liver lobe representing a solid lesion otherwise incompletely characterized. Follow-up with right upper quadrant ultrasound recommended to evaluate cystic versus solid lesion. Communications: Call Doctor Other Electronically signed by: Kristie Moreno MD 10/21/22 21:38 PM Chest X-Ray 10/21/22 18:50 XR chest 1V portable CLINICAL HISTORY: sob ro pe TECHNIQUE: Single frontal radiograph of the chest was obtained. Comparison: Comparison is made to chest radiograph 09/29/2022 FINDINGS: A port catheter is seen. Calcified aortic knob is seen. The lungs are clear. No evidence of pleural effusion or pneumothorax. IMPRESSION: No acute abnormalities and in particular no radiographic evidence of pneumonia. ACT 112: Negative or not required by law. Electronically signed by: Devon Dukes M.D. 10/21/2022 7:23 PM Venous Doppler Study 10/21/22 18:51 CR Exam(s): US VENOUS LEFT LOWER EXTREMITY EXAM: US Duplex Left Lower Extremity Veins CLINICAL HISTORY: Reason for exam: ro dvt. TECHNIQUE: Real-time duplex ultrasound scan of the left lower extremity veins integrating B-mode two-dimensional vascular structure, Doppler spectral analysis, color flow Doppler imaging and compression. COMPARISON: None. FINDINGS: Deep veins: Absent compressibility of the left common femoral vein, superficial femoral vein and popliteal vein consistent with deep venous thrombosis. Absent compressibility through the calf veins including the posterior tibial vein, peroneal and anterior tibial vein with no color flow consistent with deep venous thrombosis. Superficial veins: Unremarkable. No thrombus in the visualized great saphenous vein. Soft tissues: Nonspecific edema involving the calf region. No popliteal cyst. IMPRESSION: Deep venous thrombosis from the level of the common femoral vein into the popliteal vein and venous structures below the knee. Communications: Call Doctor Other Electronically signed by: Kristie Moreno MD 10/21/22 21:21 PM Abdomen/Pelvis CT 10/21/22 21:43 Exam(s): CT ABDOMEN + PELVIS With Contrast IV Amt: 81 ml optiray 320 EXAM: CT Abdomen and Pelvis With Intravenous Contrast CLINICAL HISTORY: Reason for exam: difficultuy urinating. TECHNIQUE: Axial computed tomography images of the abdomen and pelvis with intravenous contrast. Automated exposure control was utilized for the study. A dose lowering technique was utilized adhering to the principles of ALARA. CONTRAST: Patient received 81 ml optiray 320 of IV contrast COMPARISON: 04/13/2013. FINDINGS: Lung bases: Mild right lower lobe atelectasis, remainder of the lung bases are clear. Heart: Unremarkable. No significant pericardial effusion. Normal cardiac size with coronary artery calcifications. Mediastinum: Minimal hiatal hernia. Remainder of the stomach is unremarkable. ABDOMEN: Liver: There is a low-attenuation structure within the left liver lobe at the gallbladder fossa measuring 3.5 x 2.5 cm with slightly elevated Hounsfield units, indeterminate if this represents a liver cyst versus solid lesion. Multiple additional low-attenuation structures within the liver with Hounsfield units suggestive of liver cysts, and largest seen in the left liver lobe by the hepatic hilum measuring 3.5 x 2.0 cm. Gallbladder and bile ducts: Status post cholecystectomy. Pancreas: There is a large heterogeneous mass involving the pancreatic body measuring approximately 8.0 x 5.2 cm with area of central decreased attenuation measuring 2.4 x 2.6 cm, a combination of findings suggestive of large pancreatic mass with central necrosis. Spleen: There is an ill-defined low-attenuation lesion within the spleen measuring 1.3 x 0.7 cm, otherwise incompletely characterized, cannot exclude neoplasm. Adrenals: Unremarkable. No mass. Kidneys and ureters: Unremarkable. No solid mass. No hydronephrosis. Stomach and bowel: Area of mild thickening of the descending colon and sigmoid, does not exclude mild colitis. No obstruction. PELVIS: Appendix: No findings to suggest acute appendicitis. Bladder: The urinary bladder is decompressed Via Murdock catheter. Reproductive: Unremarkable as visualized. ABDOMEN and PELVIS: Intraperitoneal space: Numerous nodular intraperitoneal densities demonstrated along the anterior abdomen most compatible with omental carcinomatosis. Similar tortuous reticulonodular areas of metastatic implants along the right posterolateral abdomen. No free air. No significant fluid collection. Bones/joints: Multilevel degenerative disease of the spine. There is a left-sided hip prosthesis in place with normal alignment. No acute fracture. Soft tissues: Unremarkable. Vasculature: See above. Lymph nodes: Unremarkable. No enlarged lymph nodes. IMPRESSION: 1. 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 2. Multiple liver cysts with additional lesion in the left liver lobe measuring 3.5 cm, not excluding solid lesions/metastatic disease. If indicated, this can be assessed with ultrasound to evaluate simple cyst versus solid lesion. 3. Ill-defined slightly heterogeneous lesion within the spleen measuring 1.3 cm, cannot exclude metastatic process. If indicated, this may be assessed with ultrasound to evaluate cyst versus solid lesion. Electronically signed by: Kristie Moreno MD 10/21/22 22:58 PM ECG Data Attestation: I personally reviewed and interpreted this ECG as follows: Indication: + weakness Rate (beats per minute): 70 Rhythm: + normal sinus ECG Intervals/blocks: + Normal QRS, + Normal AR and + Normal QT-c ECG ST segments: + Normal ST segments Additional Comments: Baseline wander and artifact MDM Narrative Cardiac monitoring: An order was placed for continuous cardiac monitoring. The monitor shows a rate of 70 with sinus rhythm interpreted by me Vital signs stable. Labs show leukocytosis of 24.56 however lactic acid is within normal limits. Electrolytes are within normal limits. Imaging shows a large DVT and multiple pulmonary emboli. Patient be treated with heparin. Patient will be admitted to the [facility] hospitalist team Dr. Krishnamurthy notified. Impression & Plan Pulmonary emboli, DVT (deep venous thrombosis) Discharge Plan Visit Data Chief Complaint: Swelling/Edema to Extremity Stated Complaint: L LEG EDEMA ED Provider: Kevin Malone Discharge Problem: Pulmonary emboli, DVT (deep venous thrombosis) Patient Disposition: Admitted As Inpatient Forms Stand Alone Forms: [facility] Prescriptions Prescriptions: No Action atenolol 25 mg tablet 25 mg PO QAM levothyroxine 150 mcg tablet 150 mcg PO DAILYBB omeprazole 20 mg capsule,delayed release(DR/EC) 20 mg PO QAM hydrochlorothiazide 25 mg tablet 25 mg PO QAM cholecalciferol (vitamin D3) 2,000 unit Tablet 2,000 unit PO QAM ondansetron HCl 8 mg tablet 8 mg PO Q8 PRN (Reason: Nausea) potassium chloride 10 mEq tablet extended release 10 meq PO QAM prochlorperazine maleate 10 mg tablet 10 mg PO Q6 PRN (Reason: Nausea) aspirin 81 mg Tablet,Delayed Release (Dr/Ec) 81 mg PO DAILY Rx Instructions: take with food metformin 500 mg tablet extended release 24 hr 1,000 mg PO BIDM clotrimazole 10 mg rosalia 10 mg PO 5XD Rx Instructions: use for 14 days Referrals Referrals: Mahad Marques MD [Primary Care Provider] -
--- NOTE | 2022-10-21 19:24 | XRay Report ---
XR chest 1V portable CLINICAL HISTORY: sob ro pe TECHNIQUE: Single frontal radiograph of the chest was obtained. Comparison: Comparison is made to chest radiograph 09/29/2022 FINDINGS: A port catheter is seen. Calcified aortic knob is seen. The lungs are clear. No evidence of pleural e ffusion or pneumothorax. IMPRESSION: No acute abnormalities and in particular no radiographic evidence of pneumonia. ACT 112: Negative or not required by law. Electronically signed by: Devon Dukes M.D. 10/21/2022 7:23 PM
[2022-10-21 19:49] LABS: Hematocrit (blood only) 26.4 % (37.0-47.0); Hemoglobin 8.8 g/dl (12.0-16.0); Mean Corpuscular Hemoglobin 29.9 pg (25.0-34.0); Mean Corpuscular Hgb Conc 33.3 g/dL (32.0-36.0); Mean Corpuscular Volume 89.8 fL (80.0-100.0); Mean Platelet Volume 10.7 fL (9.4-12.4); Nucleated RBC # (auto) 0.11 K/uL (0-0.12); Nucleated RBC % (auto) 0.4 %; Platelet Count 330 K/uL (130-400); RDW Coefficient of Variation 18.7 % (11.5-14.5); RDW Standard Deviation 49.2 fL (36.4-46.3); Red Blood Count 2.94 M/uL (4.20-5.40); White Blood Count 24.56 K/ul (4.8-10.8)
[2022-10-21 20:00] LABS: Alanine Aminotransferase 7 U/L (7-52); Albumin Level 3.1 gm/dl (3.4-5.0); Alkaline Phosphatase 91 U/L (34-104); Anion Gap 9 (3-11); Aspartate Aminotransferase 11 U/L (13-39); BUN Creatinine Ratio 40.3 (10-20); Bilirubin Direct 0.1 mg/dl (0-0.2); Bilirubin,Total 0.5 mg/dl (0.2-1.0); Blood Urea Nitrogen 54 mg/dl (6-23); Calcium 8.4 mg/dl (8.6-10.3); Carbon Dioxide 22 mmol/L (21-32); Chloride 97 mmol/L (98-107); Creatine Kinase 13 U/L (26-192); Est GFR (African American) 46.4 ml/min; Glucose 212 mg/dl (70-99(Fasting)); Lipase 44 U/L (11-82); Magnesium 1.6 mg/dl (1.7-2.4); Potassium 4.3 mmol/L (3.5-5.1); Sodium 128 mmol/L (136-145); Total Protein 5.8 gm/dl (6.0-8.3)
[2022-10-21 20:07] LABS: Troponin I High Sensitivity 8.2 pg/ml (0-14)
[2022-10-21 20:10] LABS: Partial Thromboplastin Ratio 0.9; Partial Thromboplastin Time 25.9 Seconds (21.0-31.0); Prothrombin Time 11.4 Seconds (9.0-12.0)
[2022-10-21 20:12] LABS: ALC (manual) 0.74 K/uL (1.2-3.4); ANC (manual) 21.86 K/uL (1.4-6.5); Anisocytosis Present; Hypersegmented Neutrophils 1+; Lymphocytes # (manual) 0.74 K/uL (1.2-3.4); Lymphocytes % (manual) 3 %; Metamyelocytes # (manual) 0.25 K/uL (0-0); Metamyelocytes % (manual) 1 %; Monocytes # (manual) 1.47 K/uL (0.11-0.59); Monocytes % (manual) 6 %; Myelocytes # (manual) 0.25 K/uL (0-0); Myelocytes % (manual) 1 %; Neutrophils # (manual) 21.86 K/uL (1.40-6.50); Neutrophils % (manual) 89 %; Polychromasia 1+
[2022-10-21] MEDS ORDERED: OPTIRAY 320 500ml IV ONE (20:40)
--- NOTE | 2022-10-21 21:22 | Ultrasound Report ---
Exam(s): US VENOUS LEFT LOWER EXTREMITY EXAM: US Duplex Left Lower Extremity Veins CLINICAL HISTORY: Reason for exam: ro dvt. TECHNIQUE: Real-time duplex ultrasound scan of the left lower extremity veins integrating B-mode two-dimensional vascular structure, Doppler spectral analysis, color flow Doppler imaging and compression. COMPARISON: None. FINDINGS: Deep veins: Absent compressibility of the left common femoral vein, superficial femoral vein and popliteal vein consistent with deep venous thrombosis. Absent compressibility through the calf veins including the posterior tibial vein, peroneal and anterior tibial vein with no color flow consistent with deep venous thrombosis. Superficial veins: Unremarkable. No thrombus in the visualized great saphenous vein. Soft tissues: Nonspecific edema involving the calf region. No popliteal cyst. IMPRESSION: Deep venous thrombosis from the level of the common femoral vein into the popliteal vein and venous structures below the knee. Communications: Call Doctor Other Electronically signed by: Kristie Moreno MD 10/21/22 21:21 PM
[2022-10-21 21:31] LABS: Appearance Urine Cloudy (Clear); Blood Urine Negative (Negative); Color Urine Dark Yellow; Epithelial Cell Urine Auto >30 /lpf (0-5); Glucose Urine UA Negative (Negative); Ketones Urine Negative (Negative); Leukocyte Esterase Urine Negative (Negative); Nitrite Urine Negative (Negative); Protein Urine Trace (Negative); Specific Gravity Urine > 1.045 (1.000-1.030); Urobilinogen Urine Negative (Negative)
[2022-10-21 21:33] LABS: Bilirubin Urine 1+ (Negative)
--- NOTE | 2022-10-21 21:39 | CT Scan Report ---
Exam(s): CTA CHEST IV Amt: 108ML OPTIRAY 320 EXAM: CT Angiography Chest With Intravenous Contrast CLINICAL HISTORY: Reason for exam: ro PE sob. TECHNIQUE: Axial computed tomographic angiography images of the chest with intravenous contrast. CTDI is 25 mGy and DLP is 379.68 mGy-cm. Automated exposure control was utilized for the study. A dose lowering technique was utilized adhering to the principles of ALARA. MIP reconstructed images were created and reviewed. COMPARISON: 09/29/2022. FINDINGS: Pulmonary arteries: On the right, there are filling defect identified within the mid proximal apical segmental branches of the right upper lobe pulmonary artery and several filling defect within the mid proximal right middle lobe pulmonary arteries. There is a partially occlusive thrombus involving the right lower lobe pulmonary artery with multiple proximal and mid distal segmental and subsegmental pulmonary emboli involving the right lower lobe. Filling defect identified within the mid distal left pulmonary artery extending into the left lower lobe pulmonary artery and several proximal segmental and subsegmental left lower lobe lateral branches of the left lower lobe pulmonary artery. Small filling defect identified within the mid distal branches of the lingular lobe pulmonary artery and within the mid proximal branch of the left upper lobe apical segmental pulmonary arteries. Aorta: Atherosclerotic disease of aorta with no aneurysm or dissection. Lungs: Small nodule in the right upper lobe, image 71, series 3 measuring 3.2 mm. Mild right lower lobe atelectasis. Pleural space: Unremarkable. No significant effusion. No pneumothorax. Heart: The RV/LV ratio is 0.9 with no distinct right-sided cardiac strain. No significant pericardial effusion. Normal cardiac size with coronary artery calcifications. Bones/joints: Multilevel degenerative disease of the spine with no acute fracture or subluxation. Soft tissues: Unremarkable. Lymph nodes: Unremarkable. No enlarged lymph nodes. Intraperitoneal space: Moderate to large ascites. There is a low- attenuation structure within the left liver lobe, incompletely characterized suggestive of liver lesion measuring approximately 4.0 x 3. 6 cm. Additional low-attenuation structures suggestive of liver cysts demonstrated largest seen in the left liver lobe by the hepatic hilum measuring 3.1 x 2.8 cm. IMPRESSION: 1. Numerous bilateral pulmonary emboli including the mid distal left pulmonary artery as well as multiple segmental and subsegmental bilateral pulmonary emboli as described with no evidence of right-sided cardiac strain. 2. Right upper lobe nodule measuring 3.2 mm. If indicated, this can be further followed up with CT chest in 6-12 months, depending on risk factors. 3. Liver lesions, many suggestive of simple liver cyst with at least one lesion identified in the anterior left liver lobe representing a solid lesion otherwise incompletely characterized. Follow-up with right upper quadrant ultrasound recommended to evaluate cystic versus solid lesion. Communications: Call Doctor Other Electronically signed by: Kristie Moreno MD 10/21/22 21:38 PM
[2022-10-21] MEDS ORDERED: Heparin IV Adult Wt-Based Standard WITH Bolus Protocol IV STA (21:43)
[2022-10-21 21:46] LABS: Bacteria Urine Automated 1+ (Negative); Mucus Urine Present (None Prsent)
[2022-10-21] MEDS ORDERED: HEPARIN SOD (PORCINE) 1000 UNIT/ML IV ONE ×2 (21:59→22:00)
[2022-10-21] MEDS ORDERED: OPTIRAY 320 100ml IV ONE (22:25)
[2022-10-21] MEDS: HEPARIN SODIUM/DEXTROSE 25,000 UNITS/500 ML BAG IV SCH (22:30)
--- NOTE | 2022-10-21 22:59 | CT Scan Report ---
Exam(s): CT ABDOMEN + PELVIS With Contrast IV Amt: 81 ml optiray 320 EXAM: CT Abdomen and Pelvis With Intravenous Contrast CLINICAL HISTORY: Reason for exam: difficultuy urinating. TECHNIQUE: Axial computed tomography images of the abdomen and pelvis with intravenous contrast. Automated exposure control was utilized for the study. A dose lowering technique was utilized adhering to the principles of ALARA. CONTRAST: Patient received 81 ml optiray 320 of IV contrast COMPARISON: 04/13/2013. FINDINGS: Lung bases: Mild right lower lobe atelectasis, remainder of the lung bases are clear. Heart: Unremarkable. No significant pericardial effusion. Normal cardiac size with coronary artery calcifications. Mediastinum: Minimal hiatal hernia. Remainder of the stomach is unremarkable. ABDOMEN: Liver: There is a low-attenuation structure within the left liver lobe at the gallbladder fossa measuring 3.5 x 2.5 cm with slightly elevated Hounsfield units, indeterminate if this represents a liver cyst versus solid lesion. Multiple additional low-attenuation structures within the liver with Hounsfield units suggestive of liver cysts, and largest seen in the left liver lobe by the hepatic hilum measuring 3.5 x 2.0 cm. Gallbladder and bile ducts: Status post cholecystectomy. Pancreas: There is a large heterogeneous mass involving the pancreatic body measuring approximately 8.0 x 5.2 cm with area of central decreased attenuation measuring 2.4 x 2.6 cm, a combination of findings suggestive of large pancreatic mass with central necrosis. Spleen: There is an ill-defined low-attenuation lesion within the spleen measuring 1.3 x 0.7 cm, otherwise incompletely characterized, cannot exclude neoplasm. Adrenals: Unremarkable. No mass. Kidneys and ureters: Unremarkable. No solid mass. No hydronephrosis. Stomach and bowel: Area of mild thickening of the descending colon and sigmoid, does not exclude mild colitis. No obstruction. PELVIS: Appendix: No findings to suggest acute appendicitis. Bladder: The urinary bladder is decompressed Via Murdock catheter. Reproductive: Unremarkable as visualized. ABDOMEN and PELVIS: Intraperitoneal space: Numerous nodular intraperitoneal densities demonstrated along the anterior abdomen most compatible with omental carcinomatosis. Similar tortuous reticulonodular areas of metastatic implants along the right posterolateral abdomen. No free air. No significant fluid collection. Bones/joints: Multilevel degenerative disease of the spine. There is a left-sided hip prosthesis in place with normal alignment. No acute fracture. Soft tissues: Unremarkable. Vasculature: See above. Lymph nodes: Unremarkable. No enlarged lymph nodes. IMPRESSION: 1. 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 2. Multiple liver cysts with additional lesion in the left liver lobe measuring 3.5 cm, not excluding solid lesions/metastatic disease. If indicated, this can be assessed with ultrasound to evaluate simple cyst versus solid lesion. 3. Ill-defined slightly heterogeneous lesion within the spleen measuring 1.3 cm, cannot exclude metastatic process. If indicated, this may be assessed with ultrasound to evaluate cyst versus solid lesion. Electronically signed by: Kristie Moreno MD 10/21/22 22:58 PM
[2022-10-21] MEDS ORDERED: MAGNESIUM SULFATE / D5W 1 GM/100 ML BAG IV ONE (23:06)
[2022-10-21] MEDS ORDERED: SODIUM CHLORIDE 0.9% 1000ML 1,000 ML IV ONE (23:07)
[2022-10-22 00:01] LABS: Thyroid Stimulating Hormone 27.221 uIu/ml (0.300-4.500)
[2022-10-22 00:39] LABS: T4 Free Thyroxine 1.4 ng/dl (0.61-1.60)
--- NOTE | 2022-10-22 01:43 | History & Physical Report ---
Date of Service October 22, 2022 Assessment & Plan (1) Pulmonary emboli: Plan: Pulmonary thromboembolism metastatic pancreatic cancer status post surgery (chemotherapy currently on hold due to weakness), progressive disease noted on CAT scan Hyponatremia, ARF secondary to clinical dehydration hypertension, BP on the lower side DM2 on oral medications, suboptimal control as of recent hemoglobin A1c of 8.12 August 2022 postsurgical hypothyroidism, TSH markedly elevated chronic anemia likely secondary to chemotherapy, hemoglobin at baseline, FOBT negative past tobacco abuse Medical telemetry IV heparin Request AM provider to contact patient's G oncologist Dr. Sutherland) to discuss recommendations for home anticoagulation and possible inpatient Palliative care consultation to discuss goals of care if appropriate given progressive disease and increased patient debility. Careful correction of sodium, hyponatremia work-up Monitor creatinine response to IVF, hold home HCTZ for now Increase maintenance levothyroxine dose from 150mcg to 175 mcg daily and recheck TSH next month outpatient. basal bolus insulin, ISS BG goal 1 10-1 40, carb count coverage DVT prophylaxis. IV heparin DNR Text document was generated using [employer] voice recognition software. It may contain grammatical or spelling errors. Kindly contact undersigned for clarification of any documentation item in question. History of Present Illness Chief Complaint: Leg swelling, shortness of breath, weakness Primary Care Provider: Mahad Marques MD History obtained from patient and records. Medical history significant for hypertension, DM2 on oral medications, postsurgical hypothyroidism, metastatic pancreatic cancer status post surgery (chemotherapy currently on hold ), chronic anemia (last baseline hemoglobin of 8), past tobacco abuse. Recent confinement last month for fever, possible sepsis in setting of recent chemotherapy initiation for metastatic pancreatic cancer. No growth on CS. Patient discharged home. Chemotherapy on hold since last session last 10/11/2022 due to generalized weakne ss. Patient not ambulating well. Patient noted left leg swelling with shortness of breath the last few days. No chest pain, no unusual cough symptoms. Patient consulted ER for worsening symptoms. IV heparin started at the ER for PE DVT on imaging. Medical Historyas above Surgical History : Shoulder surgery, breast biopsy, vascular procedure, BTL, appendectomy, orbital floor repair, partial hysterectomy, oophorectomy, partial pancreatectomy as per records, thyroid lobectomy Family History : Throat cancer, DM Personal/Social history : Past tobacco abuse, rare EtOH intake, [employer] at [employer] [facility], [place] Allergies Allergy/AdvReac Type Severity Reaction Status Date / Time adhesive Allergy Mild Rash (with Verified 09/29/22 19:13 older bandaids) nickel Allergy Mild Rash Verified 09/29/22 19:13 tetanus toxoid, adsorbed AdvReac Intermediate Elevated BP Verified 09/29/22 19:13 NSAIDS (Non-Steroidal AdvReac Unknown was "told Verified 09/29/22 19:13 Anti-Inflamma to avoid" Home Medications Medication Instructions Recorded Confirmed Type atenolol 25 mg tablet 25 mg PO QAM 12/02/18 10/21/22 History cholecalciferol (vitamin D3) 50 2,000 unit PO QAM 12/02/18 10/21/22 History mcg (2,000 unit) tablet hydrochlorothiazide 25 mg tablet 25 mg PO QAM 12/02/18 10/21/22 History levothyroxine 150 mcg tablet 150 mcg PO DAILYBB 12/02/18 10/21/22 History omeprazole 20 mg capsule,delayed 20 mg PO QAM 12/02/18 10/21/22 History release aspirin 81 mg tablet,delayed 81 mg PO DAILY 09/29/22 10/21/22 History release metformin 500 mg tablet,extended 1,000 mg PO BIDM 09/29/22 10/21/22 History release 24 hr ondansetron HCl 8 mg tablet 8 mg PO Q8 PRN Nausea 09/29/22 10/21/22 History potassium chloride 10 mEq 10 meq PO QAM 09/29/22 10/21/22 History tablet,extended release prochlorperazine maleate 10 mg 10 mg PO Q6 PRN Nausea 09/29/22 10/21/22 History tablet clotrimazole 10 mg rosalia 10 mg PO 5XD 10/21/22 10/21/22 History Past Med/Surg History Medical History Diabetes mellitus, type 2 NIDDM GERD (gastroesophageal reflux disease) controlled HTN (hypertension) Hypothyroidism Obesity Osteoarthritis Skin cancer s/p precancerous skin excision Surgical History H/O breast biopsy BENIGN H/O colonoscopy H/O tubal ligation History of appendectomy [facility] 2012. MAC #3, ET 7.0 grade view I. History of cholecystectomy 01/08/19: Grade view 1, MAC#3, ETT 7.5 at [facility] History of hysterectomy with unilateral oophorectomy History of left hip replacement (~12/2019) History of repair of rotator cuff LEFT History of tooth extraction Orbital fracture REPAIRED (? HARDWARE INTACT/POSSIBLE WIRE) Family History Mother Family history of diabetes mellitus Social History Smoking Status: Former smoker Second Hand Exposure: Yes (FAMILY SMOKED- A CHILD); Do You Dip or Chew Tobacco: No; Hx Alcohol Use: Yes Alcohol type: beer, wine and hard liquor Hx Substance Use: No Preferred Language: Botswanan Communication Ability: Effective Compliance Technician Required: No Beliefs That Will Affect Care: None marital status: Current Living Situation: Other Current Living Situation Comment: FRIEND LESLY Feels Safe at Home: Yes Assistive Devices: Raised Toilet Seat and Walker Review of Systems Review of Systems: As per HPI, all other systems reviewed and negative Physical Exam Physical Exam: GENERAL: Comfortable, pleasant, no respiratory distress SKIN: Pallor, warm HEENT: Bespectacled, pale palpebral conjunctivae, no ptosis, dry buccal mucosa NECK : Supple, no tenderness CHEST : CTA, no tenderness HEART : RRR, no obvious murmurs ABDOMEN: Some distention, nontender RECTAL : Intact sphincter, yellow brown stool (FOBT negative) EXTREMITIES : LLE swelling with minimal tenderness, no other conspicuous deformities noted NEUROLOGIC : Coherent, no facial asymmetry, no other gross focality Results & Data Results & Data Vital Signs (Past 12 Hours) Vital Signs Temp Pulse Pulse Resp BP BP Pulse Ox 10/21/22 22:36 71 19 97 10/21/22 22:30 71 22 128/64 98 10/21/22 20:57 68 14 110/69 97 10/21/22 18:44 36.5 C 69 18 121/86 98 O2 Del Method 10/21/22 22:36 Room Air 10/21/22 22:30 Room Air 10/21/22 20:57 Room Air 10/21/22 18:44 Room Air Laboratory Results Laboratory Results WBC 24.56 K/ul (4.8-10.8) H 10/21/22 19:17 RBC 2.94 M/uL (4.20-5.40) L 10/21/22 19:17 Hgb 8.8 g/dl (12.0-16.0) L 10/21/22 19:17 Hct 26.4 % (37.0-47.0) L 10/21/22 19:17 MCV 89.8 fL (80.0-100.0) 10/21/22 19:17 MCH 29.9 pg (25.0-34.0) 10/21/22 19:17 MCHC 33.3 g/dL (32.0-36.0) 10/21/22 19:17 RDW Std Deviation 49.2 fL (36.4-46.3) H 10/21/22 19:17 RDW Coeff of Parth 18.7 % (11.5-14.5) H 10/21/22 19:17 Plt Count 330 K/uL (130-400) 10/21/22 19:17 MPV 10.7 fL (9.4-12.4) 10/21/22 19:17 Absolute Nucleated RBC 0.11 K/uL (0-0.12) 10/21/22 19:17 Nucleated RBC % (auto) 0.4 % 10/21/22 19:17 Neutrophils % (Manual) 89 % 10/21/22 19:17 Lymphocytes % (Manual) 3 % 10/21/22 19:17 Monocytes % (Manual) 6 % 10/21/22 19:17 Metamyelocytes % (Man) 1 % 10/21/22 19:17 Myelocytes % (Man) 1 % 10/21/22 19:17 Neutrophils # (Manual) 21.86 K/uL (1.40-6.50) H 10/21/22 19:17 Total Absolute Neuts 21.86 K/uL (1.4-6.5) H 10/21/22 19:17 Lymphocytes # (Manual) 0.74 K/uL (1.2-3.4) L 10/21/22 19:17 Total Abs Lymphocytes 0.74 K/uL (1.2-3.4) L 10/21/22 19:17 Monocytes # (Manual) 1.47 K/uL (0.11-0.59) H 10/21/22 19:17 Metamyelocytes # (Man) 0.25 K/uL (0-0) H 10/21/22 19:17 Myelocytes # (Manual) 0.25 K/uL (0-0) H 10/21/22 19:17 Hypersegmented Neuts 1+ 10/21/22 19:17 Polychromasia 1+ 10/21/22 19:17 Anisocytosis Present 10/21/22 19:17 PT 11.4 Seconds (9.0-12.0) 10/21/22 19:17 INR 1.0 (0.9-1.1) 10/21/22 19:17 APTT 25.9 Seconds (21.0-31.0) 10/21/22 19:17 PTT Ratio 0.9 10/21/22 19:17 Sodium 128 mmol/L (136-145) L 10/21/22 19:17 Potassium 4.3 mmol/L (3.5-5.1) 10/21/22 19:17 Chloride 97 mmol/L (98-107) L 10/21/22 19:17 Carbon Dioxide 22 mmol/L (21-32) 10/21/22 19:17 Anion Gap 9 (3-11) 10/21/22 19:17 BUN 54 mg/dl (6-23) H 10/21/22 19:17 Creatinine 1.34 mg/dl (0.6-1.2) H 10/21/22 19:17 Est Cr Clr Drug Dosing Not Reportable 10/21/22 19:17 Est GFR ( Amer) 46.4 ml/min 10/21/22 19:17 Est GFR (Non-Af Amer) 40.0 ml/min 10/21/22 19:17 BUN/Creatinine Ratio 40.3 (10-20) H 10/21/22 19:17 Glucose 212 mg/dl (70-99(Fasting)) H 10/21/22 19:17 Osmolality 293 mOsm/kg (280-300) 10/21/22 19:17 Lactate 1.6 mmol/L (0.4-2.0) 10/21/22 20:53 Calcium 8.4 mg/dl (8.6-10.3) L 10/21/22 19:17 Magnesium 1.6 mg/dl (1.7-2.4) L 10/21/22 19:17 Total Bilirubin 0.5 mg/dl (0.2-1.0) 10/21/22 19:17 Direct Bilirubin 0.1 mg/dl (0-0.2) 10/21/22 19:17 AST 11 U/L (13-39) L 10/21/22 19:17 ALT 7 U/L (7-52) 10/21/22 19:17 Alkaline Phosphatase 91 U/L (34-104) 10/21/22 19:17 Total Creatine Kinase 13 U/L (26-192) L 10/21/22 19:17 Troponin I High Sens 8.2 pg/ml (0-14) 10/21/22 19:17 Total Protein 5.8 gm/dl (6.0-8.3) L 10/21/22 19:17 Albumin 3.1 gm/dl (3.4-5.0) L 10/21/22 19:17 Lipase 44 U/L (11-82) 10/21/22 19:17 TSH 27.221 uIu/ml (0.300-4.500) H 10/21/22 19:17 Free T4 1.40 ng/dl (0.61-1.60) 10/21/22 19:17 Urine Color Dark Yellow 10/21/22 21:11 Urine Appearance Cloudy (Clear) A 10/21/22 21:11 Urine pH 5.0 (4.5-7.5) 10/21/22 21:11 Ur Specific Mobile > 1.045 (1.000-1.030) H 10/21/22 21:11 Urine Protein Trace (Negative) H 10/21/22 21:11 Urine Glucose (UA) Negative (Negative) 10/21/22 21:11 Urine Ketones Negative (Negative) 10/21/22 21:11 Urine Blood Negative (Negative) 10/21/22 21:11 Urine Nitrite Negative (Negative) 10/21/22 21:11 Urine Bilirubin 1+ (Negative) H 10/21/22 21:11 Urine Urobilinogen Negative (Negative) 10/21/22 21:11 Ur Leukocyte Esterase Negative (Negative) 10/21/22 21:11 Urine WBC (Auto) 5-10 /hpf (0-5) H 10/21/22 21:11 Urine RBC (Auto) 5-10 /hpf (0-4) H 10/21/22 21:11 U Hyaline Cast (Auto) 5-10 /lpf (0-5) H 10/21/22 21:11 U Epithel Cells (Auto) >30 /lpf (0-5) H 10/21/22 21:11 Urine Bacteria (Auto) 1+ (Negative) H 10/21/22 21:11 Ur Renal Epithelial Cell Not Reportable 10/21/22 21:11 Urine Mucus Present (None Prsent) A 10/21/22 21:11 SARS-CoV-2, RNA, NAAT NEGATIVE (NEGATIVE) 10/21/22 23:28 Impressions Chest CTA 10/21/22 18:50 CR Exam(s): CTA CHEST IV Amt: 108ML OPTIRAY 320 EXAM: CT Angiography Chest With Intravenous Contrast CLINICAL HISTORY: Reason for exam: ro PE sob. TECHNIQUE: Axial computed tomographic angiography images of the chest with intravenous contrast. CTDI is 25 mGy and DLP is 379.68 mGy-cm. Automated exposure control was utilized for the study. A dose lowering technique was utilized adhering to the principles of ALARA. MIP reconstructed images were created and reviewed. COMPARISON: 09/29/2022. FINDINGS: Pulmonary arteries: On the right, there are filling defect identified within the mid proximal apical segmental branches of the right upper lobe pulmonary artery and several filling defect within the mid proximal right middle lobe pulmonary arteries. There is a partially occlusive thrombus involving the right lower lobe pulmonary artery with multiple proximal and mid distal segmental and subsegmental pulmonary emboli involving the right lower lobe. Filling defect identified within the mid distal left pulmonary artery extending into the left lower lobe pulmonary artery and several proximal segmental and subsegmental left lower lobe lateral branches of the left lower lobe pulmonary artery. Small filling defect identified within the mid distal branches of the lingular lobe pulmonary artery and within the mid proximal branch of the left upper lobe apical segmental pulmonary arteries. Aorta: Atherosclerotic disease of aorta with no aneurysm or dissection. Lungs: Small nodule in the right upper lobe, image 71, series 3 measuring 3.2 mm. Mild right lower lobe atelectasis. Pleural space: Unremarkable. No significant effusion. No pneumothorax. Heart: The RV/LV ratio is 0.9 with no distinct right-sided cardiac strain. No significant pericardial effusion. Normal cardiac size with coronary artery calcifications. Bones/joints: Multilevel degenerative disease of the spine with no acute fracture or subluxation. Soft tissues: Unremarkable. Lymph nodes: Unremarkable. No enlarged lymph nodes. Intraperitoneal space: Moderate to large ascites. There is a low- attenuation structure within the left liver lobe, incompletely characterized suggestive of liver lesion measuring approximately 4.0 x 3. 6 cm. Additional low-attenuation structures suggestive of liver cysts demonstrated largest seen in the left liver lobe by the hepatic hilum measuring 3.1 x 2.8 cm. IMPRESSION: 1. Numerous bilateral pulmonary emboli including the mid distal left pulmonary artery as well as multiple segmental and subsegmental bilateral pulmonary emboli as described with no evidence of right-sided cardiac strain. 2. Right upper lobe nodule measuring 3.2 mm. If indicated, this can be further followed up with CT chest in 6-12 months, depending on risk factors. 3. Liver lesions, many suggestive of simple liver cyst with at least one lesion identified in the anterior left liver lobe representing a solid lesion otherwise incompletely characterized. Follow-up with right upper quadrant ultrasound recommended to evaluate cystic versus solid lesion. Communications: Call Doctor Other Electronically signed by: Kristie Moreno MD 10/21/22 21:38 PM Chest X-Ray 10/21/22 18:50 XR chest 1V portable CLINICAL HISTORY: sob ro pe TECHNIQUE: Single frontal radiograph of the chest was obtained. Comparison: Comparison is made to chest radiograph 09/29/2022 FINDINGS: A port catheter is seen. Calcified aortic knob is seen. The lungs are clear. No evidence of pleural effusion or pneumothorax. IMPRESSION: No acute abnormalities and in particular no radiographic evidence of pneumonia. ACT 112: Negative or not required by law. Electronically signed by: Devon Dukes M.D. 10/21/2022 7:23 PM Venous Doppler Study 10/21/22 18:51 CR Exam(s): US VENOUS LEFT LOWER EXTREMITY EXAM: US Duplex Left Lower Extremity Veins CLINICAL HISTORY: Reason for exam: ro dvt. TECHNIQUE: Real-time duplex ultrasound scan of the left lower extremity veins integrating B-mode two-dimensional vascular structure, Doppler spectral analysis, color flow Doppler imaging and compression. COMPARISON: None. FINDINGS: Deep veins: Absent compressibility of the left common femoral vein, superficial femoral vein and popliteal vein consistent with deep venous thrombosis. Absent compressibility through the calf veins including the posterior tibial vein, peroneal and anterior tibial vein with no color flow consistent with deep venous thrombosis. Superficial veins: Unremarkable. No thrombus in the visualized great saphenous vein. Soft tissues: Nonspecific edema involving the calf region. No popliteal cyst. IMPRESSION: Deep venous thrombosis from the level of the common femoral vein into the popliteal vein and venous structures below the knee. Communications: Call Doctor Other Electronically signed by: Kristie Moreno MD 10/21/22 21:21 PM Abdomen/Pelvis CT 10/21/22 21:43 Exam(s): CT ABDOMEN + PELVIS With Contrast IV Amt: 81 ml optiray 320 EXAM: CT Abdomen and Pelvis With Intravenous Contrast CLINICAL HISTORY: Reason for exam: difficultuy urinating. TECHNIQUE: Axial computed tomography images of the abdomen and pelvis with intravenous contrast. Automated exposure control was utilized for the study. A dose lowering technique was utilized adhering to the principles of ALARA. CONTRAST: Patient received 81 ml optiray 320 of IV contrast COMPARISON: 04/13/2013. FINDINGS: Lung bases: Mild right lower lobe atelectasis, remainder of the lung bases are clear. Heart: Unremarkable. No significant pericardial effusion. Normal cardiac size with coronary artery calcifications. Mediastinum: Minimal hiatal hernia. Remainder of the stomach is unremarkable. ABDOMEN: Liver: There is a low-attenuation structure within the left liver lobe at the gallbladder fossa measuring 3.5 x 2.5 cm with slightly elevated Hounsfield units, indeterminate if this represents a liver cyst versus solid lesion. Multiple additional low-attenuation structures within the liver with Hounsfield units suggestive of liver cysts, and largest seen in the left liver lobe by the hepatic hilum measuring 3.5 x 2.0 cm. Gallbladder and bile ducts: Status post cholecystectomy. Pancreas: There is a large heterogeneous mass involving the pancreatic body measuring approximately 8.0 x 5.2 cm with area of central decreased attenuation measuring 2.4 x 2.6 cm, a combination of findings suggestive of large pancreatic mass with central necrosis. Spleen: There is an ill-defined low-attenuation lesion within the spleen measuring 1.3 x 0.7 cm, otherwise incompletely characterized, cannot exclude neoplasm. Adrenals: Unremarkable. No mass. Kidneys and ureters: Unremarkable. No solid mass. No hydronephrosis. Stomach and bowel: Area of mild thickening of the descending colon and sigmoid, does not exclude mild colitis. No obstruction. PELVIS: Appendix: No findings to suggest acute appendicitis. Bladder: The urinary bladder is decompressed Via Murdock catheter. Reproductive: Unremarkable as visualized. ABDOMEN and PELVIS: Intraperitoneal space: Numerous nodular intraperitoneal densities demonstrated along the anterior abdomen most compatible with omental carcinomatosis. Similar tortuous reticulonodular areas of metastatic implants along the right posterolateral abdomen. No free air. No significant fluid collection. Bones/joints: Multilevel degenerative disease of the spine. There is a left-sided hip prosthesis in place with normal alignment. No acute fracture. Soft tissues: Unremarkable. Vasculature: See above. Lymph nodes: Unremarkable. No enlarged lymph nodes. IMPRESSION: 1. 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 2. Multiple liver cysts with additional lesion in the left liver lobe measuring 3.5 cm, not excluding solid lesions/metastatic disease. If indicated, this can be assessed with ultrasound to evaluate simple cyst versus solid lesion. 3. Ill-defined slightly heterogeneous lesion within the spleen measuring 1.3 cm, cannot exclude metastatic process. If indicated, this may be assessed with ultrasound to evaluate cyst versus solid lesion. Electronically signed by: Kristie Moreno MD 10/21/22 22:58 PM Diagnostic Findings EKG as per my interpretation :Rate 70, NSR, LAD, LAFB, T wave flattening lateral leads, low voltage Code Status & VTE Plan VTE Prophylaxis Plan VTE Prophylaxis will be ordered: Yes (1) Pulmonary emboli Pulmonary embolism type: multiple subsegmental (without acute cor pulmonale) Qualified Code(s): I26.94 - Multiple subsegmental pulmonary emboli without acute cor pulmonale
[2022-10-22] MEDS ORDERED: CARBOHYDRATES FOR HYPOGLYCEMIA PO PRN (03:57)
[2022-10-22] MEDS ORDERED: oxyCODONE HCL IR 5 MG TAB (IMMEDIATE RELEASE) PO PRN (03:57)
[2022-10-22] MEDS ORDERED: GLUCOSE 40% GEL 15 GM TUBE PO PRN (03:57)
[2022-10-22] MEDS ORDERED: GLUCAGON FOR INJ 1 MG VIAL SQ PRN (03:57)
[2022-10-22] MEDS ORDERED: GLUCOSE 10 TAB/TUBE PO PRN (03:57)
[2022-10-22] MEDS ORDERED: DEXTROSE 50% 50 ML SYRINGE IV PRN (03:57)
[2022-10-22 04:38] LABS: Hematocrit (blood only) 25.3 % (37.0-47.0); Hemoglobin 8.7 g/dl (12.0-16.0); Mean Corpuscular Hemoglobin 30.5 pg (25.0-34.0); Mean Corpuscular Hgb Conc 34.4 g/dL (32.0-36.0); Mean Corpuscular Volume 88.8 fL (80.0-100.0); Mean Platelet Volume 10.4 fL (9.4-12.4); Nucleated RBC # (auto) 0.07 K/uL (0-0.12); Nucleated RBC % (auto) 0.3 %; Platelet Count 325 K/uL (130-400); RDW Standard Deviation 49.3 fL (36.4-46.3); Red Blood Count 2.85 M/uL (4.20-5.40); White Blood Count 24.94 K/ul (4.8-10.8)
[2022-10-22 04:52] LABS: BUN Creatinine Ratio 36.7 (10-20); Calcium 8.6 mg/dl (8.6-10.3); Creatinine Clr Calc Pharmacy 38.4 ml/min; Est GFR (African American) 44.4 ml/min; Est GFR (Non-African American) 38.3 ml/min; Potassium 4.4 mmol/L (3.5-5.1)
[2022-10-22 05:01] LABS: Anisocytosis Present; Basophils % (auto) 0.4 %; Eosinophils # (auto) 0.07 K/uL (0-0.50); Eosinophils % (auto) 0.3 %; Immature Granulocytes # (auto) 2.38 K/uL (0.01-0.20); Immature Granulocytes % (auto) 9.5 %; Lymphocytes # (auto) 2.64 K/uL (1.2-3.4); Lymphocytes % (auto) 10.6 %; Monocytes # (auto) 1.89 K/uL (0.11-0.59); Monocytes % (auto) 7.6 %; Neutrophils # (auto) 17.86 K/uL (1.40-6.50); Neutrophils % (auto) 71.6 %; Polychromasia 1+
[2022-10-22] MEDS: INSULIN ASPART PER UNIT CHARGE SC SCH ×5 (05:15→21:59)
[2022-10-22 05:23] LABS: Partial Thromboplastin Ratio 4.9
[2022-10-22 06:09] LABS: Partial Thromboplastin Time 136.8 Seconds (21.0-31.0)
[2022-10-22] MEDS: LEVOTHYROXINE SODIUM 175 MCG TABLET PO SCH (07:13)
[2022-10-22 08:45] LABS: Uric Acid 8.6 mg/dl (2.6-7.2)
[2022-10-22] MEDS: PANTOprazole 40 MG TAB PO SCH (09:29)
[2022-10-22] MEDS: ATENOLOL 25 MG TABLET PO SCH (09:30)
--- NOTE | 2022-10-22 10:24 | Ultrasound Report ---
ULTRASOUND KIDNEYS AND BLADDER CLINICAL HISTORY: Acute renal insufficiency. COMPARISON STUDY: Abdominal CT dated 10/21/2022. TECHNIQUE: Real-time, grayscale, and color flow sonography of the kidneys and bladder is performed. I mages are reviewed in the transverse and longitudinal planes. FINDINGS: Kidneys: The kidneys demonstrated mild cortical atrophy. Echotexture is normal. The right kidney vickie ures 11.0 cm in length and the left kidney measures 10.5 cm in length. There is no hydronephrosis. N o shadowing renal calculi are identified. There is no sonographic evidence of contour deforming renal mass lesion. No perinephric fluid is identified. Bladder: The bladder is decompressed right Murdock catheter and could not be evaluated. Abdomen: Survey images of the abdomen show a moderate to large volume of abdominopelvic ascites. IMPRESSION: 1. The kidneys demonstrate mild cortical atrophy and are without hydronephrosis. 2. The bladder was decompressed around a Murdock catheter and could not be assessed. 3. Abdominopelvic ascites. ACT 112: Negative or not required by law. Electronically signed by: Frandy Mauro M.D. 10/22/2022 10:23 AM
[2022-10-22] MEDS: LANTUS PER UNIT CHARGE SQ SCH (11:25)
[2022-10-22 11:27] LABS: Partial Thromboplastin Ratio 1.8
[2022-10-22] MEDS: SODIUM CHLORIDE 0.9% 1000ML 1,000 ML IV SCH ×2 (13:32→17:52)
--- NOTE | 2022-10-22 14:03 | Communication Note ---
Date of Service: October 22, 2022 Patient seen and examined at bedside. She is upset due to multiple test She endorses discomfort in her left leg. Murdock is in place draining clear urine. Bladder scan is greater than 700; likely due to ascites. Renal ultrasound confirms that bladder is decompressed. On examination; Constitutional: WD/WN, vitals as above, NAD, sitting up in bed, pleasant, conversing easily Respiratory: normal respiratory effort, lungs clear to auscultation, no wheeze, rales, rhonchi. Normal insp/exp effort, no accessory muscle use Cardiovascular: RRR, no murmur, no edema Vessels: no JVD or carotid bruit Chest: normal inspection of chest Abdomen: Distended, nontender. Musculoskeletal: no cyanosis or clubbing, extremities motor strength 5/5. Left leg greater than right. Skin: no rashes, warm and dry normal turgor Neurologic: PERRL, EOMI, accommodation nl, no face palsy, no dysarthria CN's II- XI intact bilaterally and moves all extremities Psychiatric: A+Ox prerenal. Obtain, euthymic affect Lymphatic: no cervical or axillary lymphadenopathy : deferred Assessment/plan Acute DVT on the left resulting in PE: Continue on IV heparin for now Monitor kidney function; will decide on oral anticoagulation depending on kidney function. Acute kidney injury Hyponatremia Baseline creatinine 0.8. Likely prerenal. Obtain urine osmolarity, urine electrolytes. Renal USG Continue on IV normal saline. Obtain BMP in afternoon Leukocytosis Start on empiric ceftriaxone for now. Follow-up on urine and blood culture results. Metastatic pancreatic cancer on palliative chemotherapy; Chemotherapy on hold due to weakness since 10/11/2022 We will obtain palliative care consult after discussion with the patient.. Patient would be eligible for hospice care.
[2022-10-22 14:59] LABS: BUN Creatinine Ratio 41.7 (10-20); Creatinine Clr Calc Pharmacy 44.5 ml/min; Est GFR (Non-African American) 45.8 ml/min
[2022-10-22 15:08] LABS: Urine Chloride < 15 mmol/L; Urine Potassium 48.7 mmol/L; Urine Sodium < 10 mmol/L
[2022-10-22] MEDS: cefTRIAXone SODIUM 2,000 MG in DEXTROSE 5% 50 ML IV SCH (15:26)
--- NOTE | 2022-10-22 17:11 | Electrocardiogram Report ---
Test Reason : Blood Pressure : / mmHG Vent. Rate : 070 BPM Atrial Rate : 070 BPM P-R Int : 168 ms QRS Dur : 106 ms QT Int : 374 ms P-R-T Axes : 034 -03 069 degrees QTc Int : 403 ms Normal sinus rhythm Low voltage QRS Abnormal ECG When compared with ECG of 29-SEP-2022 18:37, No significant change was found Confirmed by Phan Alonzo ([id number]) on 10/22/2022 5:10:45 PM Referred By: REFERRED SELF Confirmed By:Ernst Alonzo
[2022-10-22] MEDS: PROMETHAZINE HCL 6.25 MG in SODIUM CHLORIDE 0.9% 50 ML IV PRN (20:46)
[2022-10-23] MEDS ORDERED: HEPARIN 100 UNIT/ML 5ML FLUSH FLUSH PRN (00:51)
[2022-10-23] MEDS: HEPARIN SODIUM/DEXTROSE 25,000 UNITS/500 ML BAG IV SCH (03:15)
[2022-10-23] MEDS: LEVOTHYROXINE SODIUM 175 MCG TABLET PO SCH (05:19)
[2022-10-23] MEDS: SODIUM CHLORIDE 0.9% 1000ML 1,000 ML IV SCH ×2 (07:18→21:38)
[2022-10-23 07:23] LABS: Hematocrit (blood only) 25.3 % (37.0-47.0); Hemoglobin 8.4 g/dl (12.0-16.0); Mean Corpuscular Hemoglobin 30.1 pg (25.0-34.0); Mean Corpuscular Hgb Conc 33.2 g/dL (32.0-36.0); Mean Corpuscular Volume 90.7 fL (80.0-100.0); Mean Platelet Volume 10.3 fL (9.4-12.4); Nucleated RBC # (auto) 0.02 K/uL (0-0.12); Nucleated RBC % (auto) 0.1 %; Platelet Count 438 K/uL (130-400); RDW Coefficient of Variation 19.6 % (11.5-14.5); RDW Standard Deviation 55.2 fL (36.4-46.3); Red Blood Count 2.79 M/uL (4.20-5.40); White Blood Count 25.32 K/ul (4.8-10.8)
[2022-10-23 07:48] LABS: Basophils # (auto) 0.09 K/uL (0-0.2); Basophils % (auto) 0.4 %; Eosinophils # (auto) 0.13 K/uL (0-0.50); Eosinophils % (auto) 0.5 %; Hypersegmented Neutrophils 1+; Immature Granulocytes # (auto) 1.59 K/uL (0.01-0.20); Immature Granulocytes % (auto) 6.3 %; Lymphocytes % (auto) 10.3 %; Monocytes % (auto) 6.7 %; Neutrophils # (auto) 19.21 K/uL (1.40-6.50); Neutrophils % (auto) 75.8 %
[2022-10-23 08:04] LABS: Partial Thromboplastin Ratio 1.7
[2022-10-23 08:32] LABS: Partial Thromboplastin Time 46.8 Seconds (21.0-31.0)
[2022-10-23] MEDS: ATENOLOL 25 MG TABLET PO SCH (08:32)
[2022-10-23] MEDS: PANTOprazole 40 MG TAB PO SCH (08:32)
[2022-10-23] MEDS: LANTUS PER UNIT CHARGE SQ SCH (08:35)
[2022-10-23] MEDS: INSULIN ASPART PER UNIT CHARGE SC SCH ×4 (08:35→21:37)
--- NOTE | 2022-10-23 10:35 | Palliative Care Consultation ---
Date of Consultation October 23, 2022 Assessment & Plan (1) Palliative care by specialist: Met with pt at the bedside - upon introducing myself, she immediately advised me she did not need palliative medicine because she "was not going on hospice and did not wish to have comfort care." Provided overview of Palliative Medicine, a subspecialty that provides specialized medical care for people living with a serious illness by offering a focus on quality of life. Palliative Medicine is often conflated with hospice: I advised patient/family that Palliative and hospice can be partners but we are not the same. It is important to understand the difference so that we may be informed, and not afraid. Palliative Medicine works to improve QOL through reduction of symptom burden/more control over their illness, for both the patient and family. Palliative medicine clinicians are board certified, specially-trained and another member of the patient's medical care team. We often provide an extra layer of support because our care is based on the needs of the patient, not the prognosis; as such, it's appropriate at any age/advancing stage of a serious illness and can be provided along with curative treatment. Palliative Medicine clinicians are also trained in advanced communication methodologies, to facilitate complex discussions about advanced illness planning, which are needed to help assure that the treatment choices match the patient's goals, aka delivering Goal Concordant care. Finally, we discussed that hospice is a visiting nurse service that focuses on care delivered at the very end of life for patients with terminal illness, with life expectancy less than 6 month. After providing her with additional information about what palliative medicine can offer, she was willing to meet with me and have more conversation. Please see advance care planning discussion below. (2) Advanced care planning/counseling discussion: Face to face ACP discussion with pt at bedside x 40 minutes Advance illness planning conversations are conducted to review goals and expectations, support shared decision-making, and engage in disease specific advance care planning. This type of advance care planning is sometimes referred to as 'preparedness planning. It is used to review the risks and benefits of offered therapy, elicit and deepen understanding of the underlying illness and therapeutic options, ensure adequate psychosocial support, address existential concerns and coping, and engage in end-of-life planning. Preparedness planning is not meant to replace informed consent discussions. Palliative medicine plays a role in the process of deepening a patients understanding of this specific medical intervention and ensuring this treatment aligns with their goals of care remains a central tenet of the planning conversation. We reviewed that all chronic/progressive disease has a declining trajectory over time where facets of patient self-identity and independence are lost. Every acute event leads to a further decline, resulting- many times, in a new baseline. Advised that the greatest priority is to determine what matters most to pt, then family and to develop a plan of care that is aligned with those priorities. Verito states that she does not believe her chemotherapy is offering much help to her cancer. She states that she has been following her CA 19-9 level and noticing that it is not dramatically reducing. She states that she has not had any conversations about prognosis with her oncology team. She also states that she has not asked about prognosis because she feels that if there was something to share with her that she needed to know, then they would tell her without having to be prompted. She is unsure where about whether or not she wants to continue chemotherapy. 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 But she feels that overall her quality of life is not dramatically improved with therapy. She wants to have more of a conversation about this with her oncology team as well as with her daughter. (3) Pulmonary emboli: Pulmonary embolism type: multiple subsegmental (without acute cor pulmonale) Qualified Code(s): I26.94 - Multiple subsegmental pulmonary emboli without acute cor pulmonale (4) Metastasis from pancreatic cancer: (5) Fever: (6) Weakness generalized: (7) Former smoker: Maverick Sellers is overall aware of her mortality and the fact that she has a terminal cancer. She has not had any conversation about prognosis with her oncology team but indicates that she is recently beginning to think it is time to explore these conversations. She has withheld asking anything because she feels if there is something to tell her as far as prognosis, that would have been advised to her by without being prompted. She has been following her labs and feels that her chemotherapy has not been showing any demonstrable effect on her cancer. For now she wishes to continue cancer directed therapy and have follow- up with her oncologist who is a physician. She does not want additional family members involved in any discussions or decision making. She has been discussing concerns with her daughter, but she is not interested in including any other members of her family. She also adds that she has not shared her disease or her prognosis with her siblings. She does not desire any hospice or comfort directed care at this time. She wishes to follow-up with primary oncology team to discuss prognosis and further decisions about cancer directed therapy. She is not interested in nursing home placement for subacute rehab. She is receptive to possibly some home-based PT services but apart from this, will not consider anything else. She denies any acute symptom management needs at this time. I provided my name and contact information should this change in the future. For now I will sign off and remain available to reengage if needed. Patient is aware that she can asked them to call me or page me should she have additional questions or needs. She was appreciative of our time together in conversation and she also expressed an apology for her "rude reaction to hearing you say you're with palliative medicine when you came into the room" and states that she feels better knowing that it is not end-of-life care or hospice. History of Present Illness Reason for Consultation: On 10/23/22 @ 10:29 Gutierrez Garcia Wrote metastatic pacnreatic cancer, [facility], hospice care Attending Physician: Gutierrez Garcia MD History of Present Illness Per ED notes: "History obtained from patient and records. Medical history significant for hypertension, DM2 on oral medications, postsurgical hypothyroidism, metastatic pancreatic cancer status post surgery (chemotherapy currently on hold ), chronic anemia (last baseline hemoglobin of 8), past tobacco abuse. Recent confinement last month for fever, possible sepsis in setting of recent chemotherapy initiation for metastatic pancreatic cancer. No growth on CS. Patient discharged home. Chemotherapy on hold since last session last 10/11/2022 due to generalized weakness. Patient not ambulating well. Patient noted left leg swelling with shortness of breath the last few days. No chest pain, no unusual cough symptoms. Patient consulted ER for worsening symptoms." PMH: HTN, DM2 on oral medications, postsurgical hypothyroidism, metastatic pancreatic ca s/p surgery/foll by Dr. Audra dawson/recently started on palliative chemotherapy, +prior tobacco abuse. CTA in ED revealed the followin. Numerous bilateral pulmonary emboli including the mid distal left pulmonary artery as well as multiple segmental and subsegmental bilateral pulmonary emboli as described with no evidence of right- sided cardiac strain. 2. Right upper lobe nodule measuring 3.2 mm. If indicated, this can be further followed up with CT chest in 6-12 months, depending on risk factors. 3. Liver lesions, many suggestive of simple liver cyst with at least one lesion identified in the anterior left liver lobe representing a solid lesion otherwise incompletely characterized. Follow-up with right upper quadrant ultrasound recommended to evaluate cystic versus solid lesion. Allergies Allergy/AdvReac Type Severity Reaction Status Date / Time adhesive Allergy Mild Rash (with Verified 09/29/22 19:13 older bandaids) nickel Allergy Mild Rash Verified 09/29/22 19:13 tetanus toxoid, adsorbed AdvReac Intermediate Elevated BP Verified 09/29/22 19:13 NSAIDS (Non-Steroidal AdvReac Unknown was "told Verified 09/29/22 19:13 Anti-Inflamma to avoid" Home Medications Medication Instructions Recorded Confirmed Type atenolol 25 mg tablet 25 mg PO QAM 12/02/18 10/21/22 History cholecalciferol (vitamin D3) 50 2,000 unit PO QAM 12/02/18 10/21/22 History mcg (2,000 unit) tablet hydrochlorothiazide 25 mg tablet 25 mg PO QAM 12/02/18 10/21/22 History levothyroxine 150 mcg tablet 150 mcg PO DAILYBB 12/02/18 10/21/22 History omeprazole 20 mg capsule,delayed 20 mg PO QAM 12/02/18 10/21/22 History release aspirin 81 mg tablet,delayed 81 mg PO DAILY 09/29/22 10/21/22 History release metformin 500 mg tablet,extended 1,000 mg PO BIDM 09/29/22 10/21/22 History release 24 hr ondansetron HCl 8 mg tablet 8 mg PO Q8 PRN Nausea 09/29/22 10/21/22 History potassium chloride 10 mEq 10 meq PO QAM 09/29/22 10/21/22 History tablet,extended release prochlorperazine maleate 10 mg 10 mg PO Q6 PRN Nausea 09/29/22 10/21/22 History tablet clotrimazole 10 mg rosalia 10 mg PO 5XD 10/21/22 10/21/22 History apixaban 5 mg tablet (Eliquis) 5 mg PO BID #60 tabs 10/23/22 Rx Patient History Medical History (Updated 10/23/22 @ 10:42 by Olga Lidia Levin DNP) Advanced care planning/counseling discussion Diabetes mellitus, type 2 NIDDM Former smoker GERD (gastroesophageal reflux disease) controlled HTN (hypertension) Hypothyroidism Metastasis from pancreatic cancer Obesity Osteoarthritis Palliative care by specialist Skin cancer s/p precancerous skin excision Weakness generalized Surgical History H/O breast biopsy BENIGN H/O colonoscopy H/O tubal ligation History of appendectomy [facility] 2012. MAC #3, ET 7.0 grade view I. 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) Family History Mother Family history of diabetes mellitus Social History Smoking Status: Former smoker Second Hand Exposure: Yes (FAMILY SMOKED- A CHILD); Do You Dip or Chew Tobacco: No; Hx Alcohol Use: No Hx Substance Use: No Preferred Language: Greek Communication Ability: Effective 4Th Grade Teacher Required: No Beliefs That Will Affect Care: None marital status: Current Living Situation: Significant Other Current Living Situation Comment: FRIEND LESLY Feels Safe at Home: Yes Safety Concerns: Feels Safe At This Time Assistive Devices: None Review of Systems Review of Systems: All systems reviewed & are unremarkable except as noted in Subjective Physical Exam Physical Exam: pt declined Results & Data Vital Signs (Past 12 Hours) Vital Signs Temp Pulse Pulse Resp BP Pulse Ox O2 Del Method 10/23/22 08:01 36.7 C 68 18 106/70 95 Room Air 10/23/22 06:00 62 10/23/22 03:53 36.7 C 65 18 115/75 96 Room Air 10/22/22 23:21 36.7 C 65 16 106/70 95 Room Air Laboratory Results data reviewed Diagnostic Findings data reviewed PG Care Time/CCT Total # of Minutes Spent Total Time Spent: 100 Total Time Spent with Patient: Total time spent is greater than 50% in coordination of care (as documented) at patient's floor/unit and/or counseling patient: I spent 100 minutes overall addressing this case: 20 in medical data review/discussion with referring provider(s) and/or preparation for the visit 15 in direct interaction with the patient 40 Advance Care Planning/Goals of Care discussions as detailed above in note (must be >16min) 10 in subsequent review and synthesis of assessment and plan 15 in communicating with other providers regarding the patient's case: primary team Advanced Care Planning 56201 Advanced Care Planning 30 Min 89012 Advanced Care Planning Additional 30 [place] [address] IN/OBS CONSULT LVL 5,80M Patient Type New History Comprehensive Exam Comprehensive Medical Decision Making High Complexity Diagnoses Palliative care by specialist Z51.5 Advanced care planning/counseling discussion Z71.89 Pulmonary emboli I26.94 Pulmonary embolism type: multiple subsegmental (without acute cor pulmonale) Metastasis from pancreatic cancer C79.9; C25.9 Fever R50.9 Weakness generalized R53.1 Former smoker Z87.891 Additional Codes Advanced Care Planning - 66251 Advanced Care Planning 30 Min: 38056 Advanced Care Planning 30 Min ([id number]) Advanced Care Planning - 17922 Advanced Care Planning Additional 30 Min: 24733 Advanced Care Planning Additional 30 Min ([id number])
[2022-10-23 11:13] LABS: Calcium 8.3 mg/dl (8.6-10.3); Creatinine Clr Calc Pharmacy 45.2 ml/min; Est GFR (Non-African American) 45.8 ml/min; Potassium 3.7 mmol/L (3.5-5.1)
[2022-10-23] MEDS: cefTRIAXone SODIUM 2,000 MG in DEXTROSE 5% 50 ML IV SCH (15:16)
--- NOTE | 2022-10-23 16:09 | Hospitalist Progress Note ---
Date of Service October 23, 2022 Assessment & Plan (1) Pulmonary emboli: (2) Metastasis from pancreatic cancer: (3) DVT (deep venous thrombosis): Plan: History of metastatic pancreatic cancer status post surgery (chemotherapy currently on hold due to weakness), progressive disease noted on CAT scan. Follows up with Dr. Sutherland. Last chemotherapy on October 11, 2022 Presented with left leg swelling Found to have left-sided DVT from the level of common femoral vein to popliteal vein and venous structure below the knee CTA chest reviewed; numerous bilateral PE Currently on heparin drip Plans to switch over to Eliquis in the next subsequent days. Prescription sent. Asked case management to review the sifuentes. Discussed with oncologist. Patient has follow-up with oncology day after tomorrow. (4) Acute kidney failure: (5) Hyponatremia: Plan: Acute kidney injury likely prerenal. Renal ultrasound obtained Interpretation of urinary electrolytes suggest hyponatremia due to hypovolemia Creatinine downtrending with IV hydration. Sodium improving as well Continue IV hydration for now. Murdock removed on request of the patient. (6) Leukocytosis: Plan: Noted to have leukocytosis with WBC of 24,000 Blood cultures negative Urine culture negative Continue on ceftriaxone for now. Monitor for fever, chills. Repeat blood culture if is positive. (7) Diabetes: Plan: A1c of 8.5 in August 2022. NovoLog and Lantus. Plan Goals of care discussion; Refer palliative care note for further details. Patient was to follow-up with oncology and decide on further cancer treatment. DVT heparin drip DNR/DNI Dispofrom home, lives with her . Prefers to go back home. PT OT ordered. Admission and Anticipated Discharge Date Admission Date: October 22, 2022 Subjective Patient seen and examined at bedside. She is comfortably sitting up; not in any distress. She is saturating well on room air. Review of Systems Review of Systems: All systems reviewed & are unremarkable except as noted in Subjective Physical Exam Physical Exam: GENERAL: Comfortable, pleasant, no respiratory distress SKIN: Pallor, warm NECK : Supple, no tenderness CHEST : CTA, no tenderness HEART : RRR, no obvious murmurs ABDOMEN: Some distention, nontender RECTAL : Intact sphincter, yellow brown stool (FOBT negative) EXTREMITIES : LLE swelling with minimal tenderness, no other conspicuous deformities noted NEUROLOGIC : Coherent, no facial asymmetry, no other gross focality Results & Data Results & Data Vital Signs (Past 12 Hours) Vital Signs Temp Pulse Pulse Resp BP Pulse Ox O2 Del Method 10/23/22 15:03 36.7 C 64 18 108/71 96 Room Air 10/23/22 11:50 36.7 C 72 16 104/71 96 Room Air 10/23/22 07:30 68 10/23/22 08:00 Room Air 10/23/22 08:01 36.7 C 68 18 106/70 95 Room Air 10/23/22 06:00 62 Laboratory Results Laboratory Results WBC 25.32 K/ul (4.8-10.8) H 10/23/22 06:50 RBC 2.79 M/uL (4.20-5.40) L 10/23/22 06:50 Hgb 8.4 g/dl (12.0-16.0) L 10/23/22 06:50 Hct 25.3 % (37.0-47.0) L 10/23/22 06:50 MCV 90.7 fL (80.0-100.0) 10/23/22 06:50 MCH 30.1 pg (25.0-34.0) 10/23/22 06:50 MCHC 33.2 g/dL (32.0-36.0) 10/23/22 06:50 RDW Std Deviation 55.2 fL (36.4-46.3) H 10/23/22 06:50 RDW Coeff of Parth 19.6 % (11.5-14.5) H 10/23/22 06:50 Plt Count 438 K/uL (130-400) H 10/23/22 06:50 MPV 10.3 fL (9.4-12.4) 10/23/22 06:50 Immature Gran % (Auto) 6.3 % 10/23/22 06:50 Neut % (Auto) 75.8 % 10/23/22 06:50 Lymph % (Auto) 10.3 % 10/23/22 06:50 [place] % (Auto) 6.7 % 10/23/22 06:50 Eos % (Auto) 0.5 % 10/23/22 06:50 Baso % (Auto) 0.4 % 10/23/22 06:50 Neut # (Auto) 19.21 K/uL (1.40-6.50) H 10/23/22 06:50 Lymph # (Auto) 2.60 K/uL (1.2-3.4) 10/23/22 06:50 [place] # (Auto) 1.70 K/uL (0.11-0.59) H 10/23/22 06:50 Eos # (Auto) 0.13 K/uL (0-0.50) 10/23/22 06:50 Baso # (Auto) 0.09 K/uL (0-0.2) 10/23/22 06:50 Immature Gran # (Auto) 1.59 K/uL (0.01-0.20) H 10/23/22 06:50 Absolute Nucleated RBC 0.02 K/uL (0-0.12) 10/23/22 06:50 Nucleated RBC % (auto) 0.1 % 10/23/22 06:50 Neutrophils % (Manual) 89 % 10/21/22 19:17 Lymphocytes % (Manual) 3 % 10/21/22 19:17 Monocytes % (Manual) 6 % 10/21/22 19:17 Metamyelocytes % (Man) 1 % 10/21/22 19:17 Myelocytes % (Man) 1 % 10/21/22 19:17 Neutrophils # (Manual) 21.86 K/uL (1.40-6.50) H 10/21/22 19:17 Total Absolute Neuts 21.86 K/uL (1.4-6.5) H 10/21/22 19:17 Lymphocytes # (Manual) 0.74 K/uL (1.2-3.4) L 10/21/22 19:17 Total Abs Lymphocytes 0.74 K/uL (1.2-3.4) L 10/21/22 19:17 Monocytes # (Manual) 1.47 K/uL (0.11-0.59) H 10/21/22 19:17 Metamyelocytes # (Man) 0.25 K/uL (0-0) H 10/21/22 19:17 Myelocytes # (Manual) 0.25 K/uL (0-0) H 10/21/22 19:17 Hypersegmented Neuts 1+ 10/23/22 06:50 Polychromasia 1+ 10/22/22 04:26 Anisocytosis Present 10/22/22 04:26 PT 11.4 Seconds (9.0-12.0) 10/21/22 19:17 INR 1.0 (0.9-1.1) 10/21/22 19:17 APTT 46.8 Seconds (21.0-31.0) H* 10/23/22 06:50 PTT Ratio 1.7 10/23/22 06:50 Sodium 131 mmol/L (136-145) L 10/23/22 10:30 Potassium 3.7 mmol/L (3.5-5.1) 10/23/22 10:30 Chloride 99 mmol/L (98-107) 10/23/22 10:30 Carbon Dioxide 24 mmol/L (21-32) 10/23/22 10:30 Anion Gap 8 (3-11) 10/23/22 10:30 BUN 42 mg/dl (6-23) H 10/23/22 10:30 Creatinine 1.20 mg/dl (0.6-1.2) 10/23/22 10:30 Est Cr Clr Drug Dosing 45.2 ml/min 10/23/22 10:30 Est GFR ( Amer) 53.0 ml/min 10/23/22 10:30 Est GFR (Non-Af Amer) 45.8 ml/min 10/23/22 10:30 BUN/Creatinine Ratio 35.0 (10-20) H 10/23/22 10:30 Glucose 211 mg/dl (70-99(Fasting)) H 10/23/22 10:30 POC Glucose 203 mg/dl (70-99) H 10/23/22 11:48 Osmolality 293 mOsm/kg (280-300) 10/21/22 19:17 Lactate 1.6 mmol/L (0.4-2.0) 10/21/22 20:53 Uric Acid 8.6 mg/dl (2.6-7.2) H 10/22/22 04:26 Calcium 8.3 mg/dl (8.6-10.3) L 10/23/22 10:30 Magnesium 1.6 mg/dl (1.7-2.4) L 10/21/22 19:17 Total Bilirubin 0.5 mg/dl (0.2-1.0) 10/21/22 19:17 Direct Bilirubin 0.1 mg/dl (0-0.2) 10/21/22 19:17 AST 11 U/L (13-39) L 10/21/22 19:17 ALT 7 U/L (7-52) 10/21/22 19:17 Alkaline Phosphatase 91 U/L (34-104) 10/21/22 19:17 Total Creatine Kinase 11 U/L (26-192) L 10/22/22 04:26 Troponin I High Sens 8.2 pg/ml (0-14) 10/21/22 19:17 Total Protein 5.8 gm/dl (6.0-8.3) L 10/21/22 19:17 Albumin 3.1 gm/dl (3.4-5.0) L 10/21/22 19:17 Lipase 44 U/L (11-82) 10/21/22 19:17 TSH 27.221 uIu/ml (0.300-4.500) H 10/21/22 19:17 Free T4 1.40 ng/dl (0.61-1.60) 10/21/22 19:17 Urine Color Dark Yellow 10/21/22 21:11 Urine Appearance Cloudy (Clear) A 10/21/22 21:11 Urine pH 5.0 (4.5-7.5) 10/21/22 21:11 Ur Specific [place] > 1.045 (1.000-1.030) H 10/21/22 21:11 Urine Protein Trace (Negative) H 10/21/22 21:11 Urine Glucose (UA) Negative (Negative) 10/21/22 21:11 Urine Ketones Negative (Negative) 10/21/22 21:11 Urine Blood Negative (Negative) 10/21/22 21:11 Urine Nitrite Negative (Negative) 10/21/22 21:11 Urine Bilirubin 1+ (Negative) H 10/21/22 21:11 Urine Urobilinogen Negative (Negative) 10/21/22 21:11 Ur Leukocyte Esterase Negative (Negative) 10/21/22 21:11 Urine WBC (Auto) 5-10 /hpf (0-5) H 10/21/22 21:11 Urine RBC (Auto) 5-10 /hpf (0-4) H 10/21/22 21:11 U Hyaline Cast (Auto) 5-10 /lpf (0-5) H 10/21/22 21:11 U Epithel Cells (Auto) >30 /lpf (0-5) H 10/21/22 21:11 Urine Bacteria (Auto) 1+ (Negative) H 10/21/22 21:11 Ur Renal Epithelial Cell Not Reportable 10/21/22 21:11 Urine Mucus Present (None Prsent) A 10/21/22 21:11 Urine Osmolality 545 mOsm/kg (500-800) 10/22/22 Unknown Ur Random Creatinine 103.0 mg/dl 10/22/22 Unknown Urine Sodium < 10 mmol/L 10/22/22 Unknown Urine Potassium 48.7 mmol/L 10/22/22 Unknown Urine Chloride < 15 mmol/L 10/22/22 Unknown SARS-CoV-2, RNA, NAAT NEGATIVE (NEGATIVE) 10/21/22 23:28 Impressions Chest CTA 10/21/22 18:50 CR Exam(s): CTA CHEST IV Amt: 108ML OPTIRAY 320 EXAM: CT Angiography Chest With Intravenous Contrast CLINICAL HISTORY: Reason for exam: ro PE sob. TECHNIQUE: Axial computed tomographic angiography images of the chest with intravenous contrast. CTDI is 25 mGy and DLP is 379.68 mGy-cm. Automated exposure control was utilized for the study. A dose lowering technique was utilized adhering to the principles of ALARA. MIP reconstructed images were created and reviewed. COMPARISON: 09/29/2022. FINDINGS: Pulmonary arteries: On the right, there are filling defect identified within the mid proximal apical segmental branches of the right upper lobe pulmonary artery and several filling defect within the mid proximal right middle lobe pulmonary arteries. There is a partially occlusive thrombus involving the right lower lobe pulmonary artery with multiple proximal and mid distal segmental and subsegmental pulmonary emboli involving the right lower lobe. Filling defect identified within the mid distal left pulmonary artery extending into the left lower lobe pulmonary artery and several proximal segmental and subsegmental left lower lobe lateral branches of the left lower lobe pulmonary artery. Small filling defect identified within the mid distal branches of the lingular lobe pulmonary artery and within the mid proximal branch of the left upper lobe apical segmental pulmonary arteries. Aorta: Atherosclerotic disease of aorta with no aneurysm or dissection. Lungs: Small nodule in the right upper lobe, image 71, series 3 measuring 3.2 mm. Mild right lower lobe atelectasis. Pleural space: Unremarkable. No significant effusion. No pneumothorax. Heart: The RV/LV ratio is 0.9 with no distinct right-sided cardiac strain. No significant pericardial effusion. Normal cardiac size with coronary artery calcifications. Bones/joints: Multilevel degenerative disease of the spine with no acute fracture or subluxation. Soft tissues: Unremarkable. Lymph nodes: Unremarkable. No enlarged lymph nodes. Intraperitoneal space: Moderate to large ascites. There is a low- attenuation structure within the left liver lobe, incompletely characterized suggestive of liver lesion measuring approximately 4.0 x 3. 6 cm. Additional low-attenuation structures suggestive of liver cysts demonstrated largest seen in the left liver lobe by the hepatic hilum measuring 3.1 x 2.8 cm. IMPRESSION: 1. Numerous bilateral pulmonary emboli including the mid distal left pulmonary artery as well as multiple segmental and subsegmental bilateral pulmonary emboli as described with no evidence of right-sided cardiac strain. 2. Right upper lobe nodule measuring 3.2 mm. If indicated, this can be further followed up with CT chest in 6-12 months, depending on risk factors. 3. Liver lesions, many suggestive of simple liver cyst with at least one lesion identified in the anterior left liver lobe representing a solid lesion otherwise incompletely characterized. Follow-up with right upper quadrant ultrasound recommended to evaluate cystic versus solid lesion. Communications: Call Doctor Other Electronically signed by: Kristie Moreno MD 10/21/22 21:38 PM Chest X-Ray 10/21/22 18:50 XR chest 1V portable CLINICAL HISTORY: sob ro pe TECHNIQUE: Single frontal radiograph of the chest was obtained. Comparison: Comparison is made to chest radiograph 09/29/2022 FINDINGS: A port catheter is seen. Calcified aortic knob is seen. The lungs are clear. No evidence of pleural effusion or pneumothorax. IMPRESSION: No acute abnormalities and in particular no radiographic evidence of pneumonia. ACT 112: Negative or not required by law. Electronically signed by: Devon Dukes M.D. 10/21/2022 7:23 PM Venous Doppler Study 10/21/22 18:51 CR Exam(s): US VENOUS LEFT LOWER EXTREMITY EXAM: US Duplex Left Lower Extremity Veins CLINICAL HISTORY: Reason for exam: ro dvt. TECHNIQUE: Real-time duplex ultrasound scan of the left lower extremity veins integrating B-mode two-dimensional vascular structure, Doppler spectral analysis, color flow Doppler imaging and compression. COMPARISON: None. FINDINGS: Deep veins: Absent compressibility of the left common femoral vein, superficial femoral vein and popliteal vein consistent with deep venous thrombosis. Absent compressibility through the calf veins including the posterior tibial vein, peroneal and anterior tibial vein with no color flow consistent with deep venous thrombosis. Superficial veins: Unremarkable. No thrombus in the visualized great saphenous vein. Soft tissues: Nonspecific edema involving the calf region. No popliteal cyst. IMPRESSION: Deep venous thrombosis from the level of the common femoral vein into the popliteal vein and venous structures below the knee. Communications: Call Doctor Other Electronically signed by: Kristie Moreno MD 10/21/22 21:21 PM Abdomen/Pelvis CT 10/21/22 21:43 Exam(s): CT ABDOMEN + PELVIS With Contrast IV Amt: 81 ml optiray 320 EXAM: CT Abdomen and Pelvis With Intravenous Contrast CLINICAL HISTORY: Reason for exam: difficultuy urinating. TECHNIQUE: Axial computed tomography images of the abdomen and pelvis with intravenous contrast. Automated exposure control was utilized for the study. A dose lowering technique was utilized adhering to the principles of ALARA. CONTRAST: Patient received 81 ml optiray 320 of IV contrast COMPARISON: 04/13/2013. FINDINGS: Lung bases: Mild right lower lobe atelectasis, remainder of the lung bases are clear. Heart: Unremarkable. No significant pericardial effusion. Normal cardiac size with coronary artery calcifications. Mediastinum: Minimal hiatal hernia. Remainder of the stomach is unremarkable. ABDOMEN: Liver: There is a low-attenuation structure within the left liver lobe at the gallbladder fossa measuring 3.5 x 2.5 cm with slightly elevated Hounsfield units, indeterminate if this represents a liver cyst versus solid lesion. Multiple additional low-attenuation structures within the liver with Hounsfield units suggestive of liver cysts, and largest seen in the left liver lobe by the hepatic hilum measuring 3.5 x 2.0 cm. Gallbladder and bile ducts: Status post cholecystectomy. Pancreas: There is a large heterogeneous mass involving the pancreatic body measuring approximately 8.0 x 5.2 cm with area of central decreased attenuation measuring 2.4 x 2.6 cm, a combination of findings suggestive of large pancreatic mass with central necrosis. Spleen: There is an ill-defined low-attenuation lesion within the spleen measuring 1.3 x 0.7 cm, otherwise incompletely characterized, cannot exclude neoplasm. Adrenals: Unremarkable. No mass. Kidneys and ureters: Unremarkable. No solid mass. No hydronephrosis. Stomach and bowel: Area of mild thickening of the descending colon and sigmoid, does not exclude mild colitis. No obstruction. PELVIS: Appendix: No findings to suggest acute appendicitis. Bladder: The urinary bladder is decompressed Via Murdock catheter. Reproductive: Unremarkable as visualized. ABDOMEN and PELVIS: Intraperitoneal space: Numerous nodular intraperitoneal densities demonstrated along the anterior abdomen most compatible with omental carcinomatosis. Similar tortuous reticulonodular areas of metastatic implants along the right posterolateral abdomen. No free air. No significant fluid collection. Bones/joints: Multilevel degenerative disease of the spine. There is a left-sided hip prosthesis in place with normal alignment. No acute fracture. Soft tissues: Unremarkable. Vasculature: See above. Lymph nodes: Unremarkable. No enlarged lymph nodes. IMPRESSION: 1. 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 2. Multiple liver cysts with additional lesion in the left liver lobe measuring 3.5 cm, not excluding solid lesions/metastatic disease. If indicated, this can be assessed with ultrasound to evaluate simple cyst versus solid lesion. 3. Ill-defined slightly heterogeneous lesion within the spleen measuring 1.3 cm, cannot exclude metastatic process. If indicated, this may be assessed with ultrasound to evaluate cyst versus solid lesion. Electronically signed by: Kristie Moreno MD 10/21/22 22:58 PM Renal Ultrasound 10/22/22 08:52 ULTRASOUND KIDNEYS AND BLADDER CLINICAL HISTORY: Acute renal insufficiency. COMPARISON STUDY: Abdominal CT dated 10/21/2022. TECHNIQUE: Real-time, grayscale, and color flow sonography of the kidneys and bladder is performed. Images are reviewed in the transverse and longitudinal planes. FINDINGS: Kidneys: The kidneys demonstrated mild cortical atrophy. Echotexture is normal. The right kidney measures 11.0 cm in length and the left kidney measures 10.5 cm in length. There is no hydronephrosis. No shadowing renal calculi are identified. There is no sonographic evidence of contour deforming renal mass lesion. No perinephric fluid is identified. Bladder: The bladder is decompressed right Murdock catheter and could not be evaluated. Abdomen: Survey images of the abdomen show a moderate to large volume of abdominopelvic ascites. IMPRESSION: 1. The kidneys demonstrate mild cortical atrophy and are without hydronephrosis. 2. The bladder was decompressed around a Murdock catheter and could not be assessed. 3. Abdominopelvic ascites. ACT 112: Negative or not required by law. Electronically signed by: Frandy Mauro M.D. 10/22/2022 10:23 AM (1) Pulmonary emboli Pulmonary embolism type: multiple subsegmental (without acute cor pulmonale) Qualified Code(s): I26.94 - Multiple subsegmental pulmonary emboli without acute cor pulmonale (3) DVT (deep venous thrombosis) Affected thrombotic vein of extremity: unspecified vein of extremity Chronicity: acute DVT location: lower extremity Laterality: left Qualified Code(s): I82.402 - Acute embolism and thrombosis of unspecified deep veins of left lower extremity
[2022-10-24] MEDS: LEVOTHYROXINE SODIUM 175 MCG TABLET PO SCH (06:17)
[2022-10-24] MEDS: HEPARIN SODIUM/DEXTROSE 25,000 UNITS/500 ML BAG IV SCH (07:25)
[2022-10-24] MEDS: INSULIN ASPART PER UNIT CHARGE SC SCH ×4 (08:25→21:15)
[2022-10-24] MEDS: LANTUS PER UNIT CHARGE SQ SCH (08:26)
[2022-10-24] MEDS: PANTOprazole 40 MG TAB PO SCH (08:26)
[2022-10-24] MEDS: ATENOLOL 25 MG TABLET PO SCH (08:26)
[2022-10-24 09:09] LABS: BUN Creatinine Ratio 36.1 (10-20); Calcium 8.4 mg/dl (8.6-10.3); Creatinine Clr Calc Pharmacy 56.5 ml/min; Est GFR (African American) 68.6 ml/min; Est GFR (Non-African American) 59.2 ml/min; Potassium 3.8 mmol/L (3.5-5.1)
[2022-10-24 09:32] LABS: Partial Thromboplastin Ratio 1.9
[2022-10-24 09:43] LABS: Partial Thromboplastin Time 52.7 Seconds (21.0-31.0)
[2022-10-24] MEDS: SODIUM CHLORIDE 0.9% 1000ML 1,000 ML IV SCH (11:06)
[2022-10-24] MEDS: APIXABAN 5 MG TABLET PO SCH ×2 (13:17→21:16)
[2022-10-24] MEDS: cefTRIAXone SODIUM 2,000 MG in DEXTROSE 5% 50 ML IV SCH (14:49)
--- NOTE | 2022-10-24 17:00 | Hospitalist Progress Note ---
Date of Service October 24, 2022 Assessment & Plan (1) Pulmonary emboli: (2) Metastasis from pancreatic cancer: (3) DVT (deep venous thrombosis): Plan: per admitting service notes with addendum: History of metastatic pancreatic cancer status post surgery (chemotherapy currently on hold due to weakness), progressive disease noted on CAT scan. Follows up with Dr. Sutherland. Last chemotherapy on October 11, 2022 Presented with left leg swelling Found to have left-sided DVT from the level of common femoral vein to popliteal vein and venous structure below the knee CTA chest reviewed; numerous bilateral PE Currently on heparin drip Plans to switch over to Eliquis in the next subsequent days. Prescription sent. Asked case management to review the sifuentes. Discussed with oncologist. Patient has follow-up with oncology day after tomorrow. 10/24 Hemodynamically stable Transition from heparin drip to Eliquis 10 mg twice daily x7 days, then 5 mg twice daily next (4) Acute kidney failure: (5) Hyponatremia: Plan: Acute kidney injury likely prerenal. Renal ultrasound obtained Interpretation of urinary electrolytes suggest hyponatremia due to hypovolemia Creatinine downtrending with IV hydration. Sodium improving as well Continue IV hydration for now. Murdock removed on request of the patient. 10/24 Sodium improved now 131 Creatinine improved, now 0.97 Monitor closely (6) Leukocytosis: Plan: Noted to have leukocytosis with WBC of 24,000 Blood cultures negative Urine culture negative Continue on ceftriaxone for now. Monitor for fever, chills. Repeat blood culture if is positive. 10/24 Leukocytosis about the same, 25 K No signs of infection at this point Reactive from DVT/PE: Repeat tomorrow, with peripheral smear (7) Diabetes: Plan: A1c of 8.5 in August 2022. NovoLog and Lantus. Generalized weakness PT and OT evaluation Plan Goals of care discussion; Refer palliative care note for further details. Patient was to follow-up with oncology and decide on further cancer treatment. DVT heparin drip DNR/DNI DispoPT and OT in progress Lives at home with her Admission and Anticipated Discharge Date Admission Date: October 22, 2022 Subjective Follow-up for acute DVT, PE, etc. Seen resting in bed, comfortable, not in distress States she feels fine overall except for urinary retention Denies abdominal pain, dysuria, fevers or chills No shortness of breath, chest pain, dizziness No bleeding No other symptoms Review of Systems Review of Systems: all noted and negative except for above Physical Exam Physical Exam: General- oriented x 3, not in distress, speaks in sentences with no effort or accessory muscle use Eyes- anicteric Neck- no JVD Lungs- clear breath sounds bilaterally, no rales/wheezes Heart- normal rate, regular rhythm; no murmurs Abdomen- normal bowel sounds, nondistended, soft, nontender Extremities-right lower extremity edema but no warmth or tenderness Neuro- alert, oriented x 3; no gross focal neurologic deficits Skin- warm & dry Results & Data Results & Data Vital Signs (Past 12 Hours) Vital Signs Temp Pulse Pulse Resp BP Pulse Ox O2 Del Method 10/24/22 15:00 36.7 C 66 18 97/64 L 94 Room Air 10/24/22 11:24 36.8 C 67 18 104/69 95 Room Air 10/24/22 07:00 68 10/24/22 09:21 Room Air 10/24/22 07:47 36.7 C 66 18 113/74 94 Room Air all noted and reviewed including below (1) Pulmonary emboli Pulmonary embolism type: multiple subsegmental (without acute cor pulmonale) Qualified Code(s): I26.94 - Multiple subsegmental pulmonary emboli without acute cor pulmonale (3) DVT (deep venous thrombosis) Affected thrombotic vein of extremity: unspecified vein of extremity Chronicity: acute DVT location: lower extremity Laterality: left Qualified Code(s): I82.402 - Acute embolism and thrombosis of unspecified deep veins of left lower extremity
[2022-10-25] MEDS: SODIUM CHLORIDE 0.9% 1000ML 1,000 ML IV SCH ×2 (00:22→13:42)
[2022-10-25] MEDS: LEVOTHYROXINE SODIUM 175 MCG TABLET PO SCH (05:46)
[2022-10-25 08:29] LABS: Basophils # (auto) 0.07 K/uL (0-0.2); Basophils % (auto) 0.3 %; Eosinophils # (auto) 0.11 K/uL (0-0.50); Eosinophils % (auto) 0.5 %; Hematocrit (blood only) 24.3 % (37.0-47.0); Immature Granulocytes # (auto) 0.78 K/uL (0.01-0.20); Immature Granulocytes % (auto) 3.7 %; Lymphocytes # (auto) 1.41 K/uL (1.2-3.4); Lymphocytes % (auto) 6.7 %; Mean Corpuscular Hemoglobin 30.2 pg (25.0-34.0); Mean Corpuscular Hgb Conc 32.9 g/dL (32.0-36.0); Mean Corpuscular Volume 91.7 fL (80.0-100.0); Monocytes # (auto) 1.84 K/uL (0.11-0.59); Monocytes % (auto) 8.7 %; Neutrophils # (auto) 16.84 K/uL (1.40-6.50); Neutrophils % (auto) 80.1 %; Platelet Count 539 K/uL (130-400); RDW Coefficient of Variation 19.6 % (11.5-14.5); Red Blood Count 2.65 M/uL (4.20-5.40); White Blood Count 21.05 K/ul (4.8-10.8)
[2022-10-25] MEDS: APIXABAN 5 MG TABLET PO SCH ×2 (08:46→21:25)
[2022-10-25] MEDS: PANTOprazole 40 MG TAB PO SCH (08:46)
[2022-10-25] MEDS: ATENOLOL 25 MG TABLET PO SCH (08:46)
[2022-10-25 08:47] LABS: BUN Creatinine Ratio 31.9 (10-20); Calcium 8.3 mg/dl (8.6-10.3); Creatinine Clr Calc Pharmacy 60.6 ml/min; Est GFR (African American) 74.1 ml/min; Est GFR (Non-African American) 63.9 ml/min; Potassium 3.6 mmol/L (3.5-5.1)
[2022-10-25 08:51] LABS: Partial Thromboplastin Ratio 1.2; Partial Thromboplastin Time 33.9 Seconds (21.0-31.0)
[2022-10-25] MEDS: LANTUS PER UNIT CHARGE SQ SCH (08:51)
[2022-10-25] MEDS: INSULIN ASPART PER UNIT CHARGE SC SCH ×4 (08:51→21:23)
[2022-10-25 08:59] LABS: Hypersegmented Neutrophils 1+; Polychromasia 1+
--- NOTE | 2022-10-25 09:29 | Urology Consultation ---
Date of Consultation October 25, 2022 Assessment & Plan (1) Urinary retention: 71 year old female with metastatic pancreatic cancer admitted for DVT and PE. - Urology is consulted for urinary retention. - Afebrile, labs reviewed - creatinine 0.91, WBC 21.05, Hgb 8.0. - Urine culture 10/21 showed low counts of mixed probable skin steve. - Blood cultures no growth to date. - She remains on Ceftriaxone empirically. - Imaging reviewed and shows no obstruction. - Murdock was removed on 10/23 and patient has been unable to void, requiring straight catheterization. - Bladder scans have been confounded by abdominal/pelvic ascites. We discussed potential etiologies including deconditioning, atonic bladder, pelvic floor dysfunction or musculoskeletal dysfunction, constipation, urinary tract infection. Recommend insert and maintain Murdock catheter for management of retention at this time. She is agreeable. Maintain Murdock for 7-10 days. Recommend follow-up outpatient with our service for voiding trial and further evaluation. will sign off, contact our service with any questions or concerns. History of Present Illness Reason for Consultation: urinary retention Attending Physician: David Georges MD History of Present Illness This is a 71 year old female with metastatic pancreatic cancer that presented to the emergency department on 10/21/22 with complaint of left lower extremity swelling and shortness of breath for the past few days. She was found to have DVT and PE on imaging and was admitted and started on Heparin. She developed urinary retention during admission. Urology is consulted for urinary retention. Murdock catheter was inserted on day of admission. CT A/P on arrival showed no hydronephrosis, urinary bladder decompressed by Murdock catheter. Murdock was removed on 10/23 per patient request. She has been unable to void on her own since removal and has required straight catheterization. Bladder scans have been elevated. However, patient has ascites. She remains afebrile. Today's labs show creatinine 0.91, WBC 21.05, Hgb 8.0. Blood cultures showing no growth to date. Urine culture showed 3 types of organisms, all low counts of probable skin steve. She is currently on IV Ceftriaxone. Renal US 10/22 - IMPRESSION: 1. The kidneys demonstrate mild cortical atrophy and are without hydronephrosis. 2. The bladder was decompressed around a Murdock catheter and could not be assessed. 3. Abdominopelvic ascites. Patient seen and examined at bedside. She is awake, alert and resting in bed. Reports improvement in her edema since arrival. She denies prior issue with urinary retention. She was voiding spontaneously prior to admission, but does endorse some sensation of incomplete emptying since her surgery in August. She reports bladder pressure. No flank or abdominal pain. No dysuria or hematuria. No nausea or vomiting. No fever or chills. Denies bothersome urgency or freq uency at baseline. Allergies Allergy/AdvReac Type Severity Reaction Status Date / Time adhesive Allergy Mild Rash (with Verified 09/29/22 19:13 older bandaids) nickel Allergy Mild Rash Verified 09/29/22 19:13 tetanus toxoid, adsorbed AdvReac Intermediate Elevated BP Verified 09/29/22 19:13 NSAIDS (Non-Steroidal AdvReac Unknown was "told Verified 09/29/22 19:13 Anti-Inflamma to avoid" Home Medications Medication Instructions Recorded Confirmed Type atenolol 25 mg tablet 25 mg PO QAM 12/02/18 10/21/22 History cholecalciferol (vitamin D3) 50 2,000 unit PO QAM 12/02/18 10/21/22 History mcg (2,000 unit) tablet hydrochlorothiazide 25 mg tablet 25 mg PO QAM 12/02/18 10/21/22 History levothyroxine 150 mcg tablet 150 mcg PO DAILYBB 12/02/18 10/21/22 History omeprazole 20 mg capsule,delayed 20 mg PO QAM 12/02/18 10/21/22 History release aspirin 81 mg tablet,delayed 81 mg PO DAILY 09/29/22 10/21/22 History release metformin 500 mg tablet,extended 1,000 mg PO BIDM 09/29/22 10/21/22 History release 24 hr ondansetron HCl 8 mg tablet 8 mg PO Q8 PRN Nausea 09/29/22 10/21/22 History potassium chloride 10 mEq 10 meq PO QAM 09/29/22 10/21/22 History tablet,extended release prochlorperazine maleate 10 mg 10 mg PO Q6 PRN Nausea 09/29/22 10/21/22 History tablet clotrimazole 10 mg rosalia 10 mg PO 5XD 10/21/22 10/21/22 History apixaban 5 mg tablet (Eliquis) 5 mg PO BID #60 tabs 10/23/22 Rx Patient History Medical History Advanced care planning/counseling discussion Diabetes mellitus, type 2 NIDDM Former smoker GERD (gastroesophageal reflux disease) controlled HTN (hypertension) Hypothyroidism Metastasis from pancreatic cancer Obesity Osteoarthritis Palliative care by specialist Skin cancer s/p precancerous skin excision Weakness generalized Surgical History H/O breast biopsy BENIGN H/O colonoscopy H/O tubal ligation History of appendectomy [facility] 2012. MAC #3, ET 7.0 grade view I. History of cholecystectomy 01/08/19: Grade view 1, MAC#3, ETT 7.5 at [facility] History of hysterectomy with unilateral oophorectomy History of left hip replacement (~12/2019) History of repair of rotator cuff LEFT History of tooth extraction Orbital fracture REPAIRED (? 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 Beliefs That Will Affect Care: None marital status: Current Living Situation: Significant Other Current Living Situation Comment: FRIEND LESLY Feels Safe at Home: Yes Safety Concerns: Feels Safe At This Time Assistive Devices: Walker Review of Systems Review of Systems: All systems reviewed & are unremarkable except as noted in HPI & below Physical Exam Constitutional: comfortable; no acute distress Eyes: no scleral abnormality Neck: trachea midline Respiratory: normal respiratory effort; no respiratory distress and no labored breathing Cardiovascular: Extremities: + edema (left lower extremity) Gastrointestinal (Abdomen): Percussion/Palpation: abdomen soft; abdomen nontender Musculoskeletal: Head/Neck/Chest: normocephalic and head atraumatic Neurologic: moves all extremities and awake Psychiatric: Orientation: alert and oriented x 3 Genitourinary: no CVA tenderness Results & Data Vital Signs (Past 12 Hours) Vital Signs Temp Pulse Pulse Resp BP Pulse Ox O2 Del Method 10/25/22 07:55 77 10/25/22 07:54 36.7 C 77 18 112/73 94 Room Air 10/25/22 03:50 36.8 C 71 18 120/74 94 Room Air 10/25/22 00:32 71 10/24/22 23:39 36.7 C 70 18 114/72 94 Room Air 10/24/22 21:41 Room Air PG Care Time/CCT Total # of Minutes Spent Total Time Spent with Patient: Total time spent is greater than 50% in coordination of care (as documented) at patient's floor/unit and/or counseling patient: Coding Level of Care Code 10721 INT INP/OBS CARE 2/55MIN Diagnoses Urinary retention R33.9
[2022-10-25] MEDS: cefTRIAXone SODIUM 2,000 MG in DEXTROSE 5% 50 ML IV SCH (13:43)
--- NOTE | 2022-10-25 18:09 | Hospitalist Progress Note ---
Date of Service October 25, 2022 Assessment & Plan (1) Pulmonary emboli: (2) Metastasis from pancreatic cancer: (3) DVT (deep venous thrombosis): Plan: per admitting service notes with addendum: History of metastatic pancreatic cancer status post surgery (chemotherapy currently on hold due to weakness), progressive disease noted on CAT scan. Follows up with Dr. Sutherland. Last chemotherapy on October 11, 2022 Presented with left leg swelling Found to have left-sided DVT from the level of common femoral vein to popliteal vein and venous structure below the knee CTA chest reviewed; numerous bilateral PE Currently on heparin drip Plans to switch over to Eliquis in the next subsequent days. Prescription sent. Asked case management to review the sifuentes. Discussed with oncologist. Patient has follow-up with oncology day after tomorrow. 10/25 Hemodynamically stable Transition from heparin drip to Eliquis 10 mg twice daily x7 days, then 5 mg twice daily Tolerating Eliquis well (4) Acute kidney failure: (5) Hyponatremia: Plan: Acute kidney injury likely prerenal. Renal ultrasound obtained Interpretation of urinary electrolytes suggest hyponatremia due to hypovolemia Creatinine downtrending with IV hydration. Sodium improving as well Continue IV hydration for now. Murdock removed on request of the patient. 10/25 Sodium improved now 131 Creatinine improved, now 0.97 Monitor closely (6) Leukocytosis: Plan: Noted to have leukocytosis with WBC of 24,000 Blood cultures negative Urine culture negative Continue on ceftriaxone for now. Monitor for fever, chills. Repeat blood culture if is positive. 10/25 Leukocytosis improving, 21 K No signs of infection at this point Reactive from DVT/PE? (7) Diabetes: Plan: A1c of 8.5 in August 2022. NovoLog and Lantus. Generalized weakness PT and OT evaluation Urinary retention Urologist consulted Murdock catheter placed for now, maintain for 7 to 10 days Trial of voiding as an outpatient Plan Goals of care discussion; Refer palliative care note for further details. Patient was to follow-up with oncology and decide on further cancer treatment. DVT heparin drip DNR/DNI DispoPT and OT in progress Lives at home with her Admission and Anticipated Discharge Date Admission Date: October 22, 2022 Subjective Follow-up for acute DVT and PE, etc. Seen resting in bed, not in distress, comfortable States she still feels weak today No abdominal pain Still having urinary retention Lower leg pain improving No shortness of breath, palpitations, hemoptysis No other symptoms Review of Systems Review of Systems: all noted and negative except for above Physical Exam Physical Exam: General- oriented x 3, not in distress, speaks in sentences with no effort or accessory muscle use Eyes- anicteric Neck- no JVD Lungs- clear breath sounds bilaterally, no rales/wheezes Heart- normal rate, regular rhythm; no murmurs Abdomen- normal bowel sounds, nondistended, soft, nontender Extremities-mild left lower extremity edema Neuro- alert, oriented x 3; no gross focal neurologic deficits Skin- warm & dry Results & Data Results & Data Vital Signs (Past 12 Hours) all noted and reviewed including below (1) Pulmonary emboli Pulmonary embolism type: multiple subsegmental (without acute cor pulmonale) Qualified Code(s): I26.94 - Multiple subsegmental pulmonary emboli without acute cor pulmonale (3) DVT (deep venous thrombosis) Affected thrombotic vein of extremity: unspecified vein of extremity Chronicity: acute DVT location: lower extremity Laterality: left Qualified Code(s): I82.402 - Acute embolism and thrombosis of unspecified deep veins of left lower extremity
[2022-10-26] MEDS: ACETAMINOPHEN 325 MG TAB PO PRN (00:41)
[2022-10-26] MEDS: SODIUM CHLORIDE 0.9% 1000ML 1,000 ML IV SCH ×2 (03:18→16:31)
[2022-10-26] MEDS: LEVOTHYROXINE SODIUM 175 MCG TABLET PO SCH (03:19)
[2022-10-26 08:21] LABS: BUN Creatinine Ratio 29.9 (10-20); Calcium 8.5 mg/dl (8.6-10.3); Creatinine Clr Calc Pharmacy 63.1 ml/min; Est GFR (African American) 78.2 ml/min; Est GFR (Non-African American) 67.5 ml/min; Potassium 3.7 mmol/L (3.5-5.1)
[2022-10-26] MEDS: LANTUS PER UNIT CHARGE SQ SCH (08:34)
[2022-10-26] MEDS: INSULIN ASPART PER UNIT CHARGE SC SCH ×4 (08:34→22:07)
[2022-10-26] MEDS: ATENOLOL 25 MG TABLET PO SCH (08:37)
[2022-10-26] MEDS: PANTOprazole 40 MG TAB PO SCH (08:37)
[2022-10-26] MEDS: APIXABAN 5 MG TABLET PO SCH ×2 (08:37→22:02)
[2022-10-26 10:17] LABS: Basophils # (auto) 0.08 K/uL (0-0.2); Basophils % (auto) 0.4 %; Eosinophils % (auto) 0.5 %; Hematocrit (blood only) 25.8 % (37.0-47.0); Hemoglobin 8.4 g/dl (12.0-16.0); Immature Granulocytes # (auto) 0.67 K/uL (0.01-0.20); Immature Granulocytes % (auto) 3.1 %; Lymphocytes # (auto) 1.25 K/uL (1.2-3.4); Lymphocytes % (auto) 5.8 %; Mean Corpuscular Hemoglobin 29.5 pg (25.0-34.0); Mean Corpuscular Hgb Conc 32.6 g/dL (32.0-36.0); Mean Corpuscular Volume 90.5 fL (80.0-100.0); Mean Platelet Volume 9.9 fL (9.4-12.4); Monocytes # (auto) 1.76 K/uL (0.11-0.59); Monocytes % (auto) 8.2 %; Neutrophils # (auto) 17.52 K/uL (1.40-6.50); Platelet Count 641 K/uL (130-400); RDW Coefficient of Variation 19.5 % (11.5-14.5); RDW Standard Deviation 62.2 fL (36.4-46.3); Red Blood Count 2.85 M/uL (4.20-5.40); White Blood Count 21.38 K/ul (4.8-10.8)
[2022-10-26] MEDS: cefTRIAXone SODIUM 2,000 MG in DEXTROSE 5% 50 ML IV SCH (14:53)
--- NOTE | 2022-10-26 17:22 | Hospitalist Progress Note ---
Date of Service October 26, 2022 Assessment & Plan (1) Pulmonary emboli: (2) Metastasis from pancreatic cancer: (3) DVT (deep venous thrombosis): Plan: per admitting service notes with addendum: History of metastatic pancreatic cancer status post surgery (chemotherapy currently on hold due to weakness), progressive disease noted on CAT scan. Follows up with Dr. Sutherland. Last chemotherapy on October 11, 2022 Presented with left leg swelling Found to have left-sided DVT from the level of common femoral vein to popliteal vein and venous structure below the knee CTA chest reviewed; numerous bilateral PE Currently on heparin drip Plans to switch over to Eliquis in the next subsequent days. Prescription sent. Asked case management to review the sifuentes. Discussed with oncologist. Patient has follow-up with oncology day after tomorrow. 10/26 Hemodynamically stable Transition from heparin drip to Eliquis 10 mg twice daily x7 days, then 5 mg twice daily Tolerating Eliquis well (4) Acute kidney failure: (5) Hyponatremia: Plan: Acute kidney injury likely prerenal. Renal ultrasound obtained Interpretation of urinary electrolytes suggest hyponatremia due to hypovolemia Creatinine downtrending with IV hydration. Sodium improving as well Continue IV hydration for now. Murdock removed on request of the patient. 10/26 Sodium improved now 130 Creatinine improved, now 0.8 Monitor closely (6) Leukocytosis: Plan: Noted to have leukocytosis with WBC of 24,000 Blood cultures negative Urine culture negative Continue on ceftriaxone for now. Monitor for fever, chills. Repeat blood culture if is positive. 10/26 Leukocytosis improving, 21 K Peripheral smear: no lymphoproliferative disorder No signs of infection at this point Reactive from DVT/PE? (7) Diabetes: Plan: A1c of 8.5 in August 2022. NovoLog and Lantus. Generalized weakness PT and OT evaluation Urinary retention Urologist consulted Murdock catheter placed for now, maintain for 7 to 10 days Trial of voiding as an outpatient Plan Goals of care discussion; Refer palliative care note for further details. Patient was to follow-up with oncology and decide on further cancer treatment. DVT heparin drip DNR/DNI DispoPT and OT in progress Lives at home with her Admission and Anticipated Discharge Date Admission Date: October 22, 2022 Subjective ff up for acute DVT, PE, etc seen resting in bed, comfortable states weakness improving no chest pain, dyspnea, palpitations, dizziness has mild LLE discomfort, swelling no other new symptoms Review of Systems Review of Systems: all noted and negative except for above Physical Exam Physical Exam: General- oriented x 3, not in distress, speaks in sentences with no effort or accessory muscle use Eyes- anicteric Neck- no JVD Lungs- clear breath sounds bilaterally, no rales/wheezes Heart- normal rate, regular rhythm; no murmurs Abdomen- normal bowel sounds, nondistended, soft, nontender Extremities-mild edema RLE Neuro- alert, oriented x 3; no gross focal neurologic deficits Skin- warm & dry Results & Data Results & Data Vital Signs (Past 12 Hours) Vital Signs Temp Pulse Pulse Resp BP Pulse Ox O2 Del Method 10/26/22 15:47 69 10/26/22 15:30 36.5 C 69 16 110/75 96 Room Air 10/26/22 08:00 Room Air 10/26/22 08:00 74 10/26/22 12:06 36.5 C 65 18 111/75 96 Room Air 10/26/22 07:29 36.9 C 74 18 114/77 96 Room Air all noted and reviewed including below (1) Pulmonary emboli Pulmonary embolism type: multiple subsegmental (without acute cor pulmonale) Qualified Code(s): I26.94 - Multiple subsegmental pulmonary emboli without acute cor pulmonale (3) DVT (deep venous thrombosis) Affected thrombotic vein of extremity: unspecified vein of extremity Chronicity: acute DVT location: lower extremity Laterality: left Qualified Code(s): I82.402 - Acute embolism and thrombosis of unspecified deep veins of left lower extremity
[2022-10-27] MEDS: PROMETHAZINE HCL 6.25 MG in SODIUM CHLORIDE 0.9% 50 ML IV PRN (01:41)
[2022-10-27] MEDS: ACETAMINOPHEN 325 MG TAB PO PRN (03:45)
[2022-10-27] MEDS: LEVOTHYROXINE SODIUM 175 MCG TABLET PO SCH (03:45)
[2022-10-27] MEDS: SODIUM CHLORIDE 0.9% 1000ML 1,000 ML IV SCH (05:52)
[2022-10-27 08:28] LABS: Basophils % (auto) 0.5 %; Eosinophils # (auto) 0.11 K/uL (0-0.50); Eosinophils % (auto) 0.6 %; Hematocrit (blood only) 25.9 % (37.0-47.0); Hemoglobin 8.4 g/dl (12.0-16.0); Immature Granulocytes # (auto) 0.56 K/uL (0.01-0.20); Immature Granulocytes % (auto) 2.9 %; Lymphocytes # (auto) 1.71 K/uL (1.2-3.4); Lymphocytes % (auto) 8.7 %; Mean Corpuscular Hemoglobin 29.9 pg (25.0-34.0); Mean Corpuscular Hgb Conc 32.4 g/dL (32.0-36.0); Mean Corpuscular Volume 92.2 fL (80.0-100.0); Mean Platelet Volume 9.6 fL (9.4-12.4); Monocytes # (auto) 1.98 K/uL (0.11-0.59); Monocytes % (auto) 10.1 %; Neutrophils # (auto) 15.13 K/uL (1.40-6.50); Neutrophils % (auto) 77.2 %; Platelet Count 667 K/uL (130-400); RDW Coefficient of Variation 19.7 % (11.5-14.5); RDW Standard Deviation 64.4 fL (36.4-46.3); Red Blood Count 2.81 M/uL (4.20-5.40); White Blood Count 19.59 K/ul (4.8-10.8)
[2022-10-27 08:45] LABS: BUN Creatinine Ratio 32.9 (10-20); Calcium 8.4 mg/dl (8.6-10.3); Creatinine Clr Calc Pharmacy 72.3 ml/min; Est GFR (African American) 87.9 ml/min; Est GFR (Non-African American) 75.8 ml/min; Potassium 3.8 mmol/L (3.5-5.1)
--- NOTE | 2022-10-27 09:18 | Hospitalist Progress Note ---
Date of Service October 27, 2022 Assessment & Plan (1) Pulmonary emboli: (2) Metastasis from pancreatic cancer: (3) DVT (deep venous thrombosis): Plan: per admitting service notes with addendum: History of metastatic pancreatic cancer status post surgery (chemotherapy currently on hold due to weakness), progressive disease noted on CAT scan. Follows up with Dr. Sutherland. Last chemotherapy on October 11, 2022 Presented with left leg swelling Found to have left-sided DVT from the level of common femoral vein to popliteal vein and venous structure below the knee CTA chest reviewed; numerous bilateral PE Currently on heparin drip Plans to switch over to Eliquis in the next subsequent days. Prescription sent. Asked case management to review the sifuentes. Discussed with oncologist. Patient has follow-up with oncology day after tomorrow. 10/26 Hemodynamically stable Transition from heparin drip to Eliquis 10 mg twice daily x7 days, then 5 mg twice daily Tolerating Eliquis well (4) Acute kidney failure: (5) Hyponatremia: Plan: Acute kidney injury likely prerenal. Renal ultrasound obtained Interpretation of urinary electrolytes suggest hyponatremia due to hypovolemia Creatinine downtrending with IV hydration. Sodium improving as well Continue IV hydration for now. Murdock removed on request of the patient. 10/26 Sodium improved now 130 Creatinine improved, now 0.8 Monitor closely (6) Leukocytosis: Plan: Noted to have leukocytosis with WBC of 24,000 Blood cultures negative Urine culture negative Continue on ceftriaxone for now. Monitor for fever, chills. Repeat blood culture if is positive. 10/26 Leukocytosis improving, 21 K Peripheral smear: no lymphoproliferative disorder No signs of infection at this point Reactive from DVT/PE? (7) Diabetes: Plan: A1c of 8.5 in August 2022. NovoLog and Lantus. Generalized weakness PT and OT evaluation Urinary retention Urologist consulted Murdock catheter placed for now, maintain for 7 to 10 days Trial of voiding as an outpatient Plan Goals of care discussion; Refer palliative care note for further details. Patient was to follow-up with oncology and decide on further cancer treatment. DVT heparin drip DNR/DNI DispoPT and OT in progress Lives at home with her Admission and Anticipated Discharge Date Admission Date: October 22, 2022 Results & Data Results & Data Vital Signs (Past 12 Hours) Vital Signs Temp Pulse Pulse Resp BP Pulse Ox O2 Del Method 10/27/22 08:19 36.4 C L 72 18 112/74 95 Room Air 10/27/22 02:36 36.5 C 75 18 133/85 95 Room Air 10/26/22 22:00 72 10/26/22 22:57 36.5 C 71 16 119/78 95 Room Air (1) Pulmonary emboli Pulmonary embolism type: multiple subsegmental (without acute cor pulmonale) Qualified Code(s): I26.94 - Multiple subsegmental pulmonary emboli without acute cor pulmonale (3) DVT (deep venous thrombosis) Affected thrombotic vein of extremity: unspecified vein of extremity Chronicity: acute DVT location: lower extremity Laterality: left Qualified Code(s): I82.402 - Acute embolism and thrombosis of unspecified deep veins of left lower extremity
[2022-10-27] MEDS: ATENOLOL 25 MG TABLET PO SCH (09:33)
[2022-10-27] MEDS: APIXABAN 5 MG TABLET PO SCH (09:33)
[2022-10-27] MEDS: PANTOprazole 40 MG TAB PO SCH (09:33)
[2022-10-27] MEDS: LANTUS PER UNIT CHARGE SQ SCH (09:38)
[2022-10-27] MEDS: INSULIN ASPART PER UNIT CHARGE SC SCH ×2 (09:38→13:08)
[2022-10-27] MEDS: cefTRIAXone SODIUM 2,000 MG in DEXTROSE 5% 50 ML IV SCH (13:08)
--- NOTE | 2022-10-27 17:28 | Discharge Summary ---
Discharge Summary Date of Service October 27, 2022 Notes For Next Care Provider Medication Changes From Visit Eliquis 10 mg twice daily until October 30, 2022, then 5 mg twice daily Admission HPI Per Admitting Provider History obtained from patient and records. Medical history significant for hypertension, DM2 on oral medications, postsurgical hypothyroidism, metastatic pancreatic cancer status post surgery (chemotherapy currently on hold ), chronic anemia (last baseline hemoglobin of 8), past tobacco abuse. Recent confinement last month for fever, possible sepsis in setting of recent chemotherapy initiation for metastatic pancreatic cancer. No growth on CS. Patient discharged home. Chemotherapy on hold since last session last 10/11/2022 due to generalized weakness. Patient not ambulating well. Patient noted left leg swelling with shortness of breath the last few days. No chest pain, no unusual cough symptoms. Patient consulted ER for worsening symptoms. IV heparin started at the ER for PE DVT on imaging. 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 [employer] Admission Exam Per Admitting Provider GENERAL: Comfortable, pleasant, no respiratory distress SKIN: Pallor, warm HEENT: Bespectacled, pale palpebral conjunctivae, no ptosis, dry buccal mucosa NECK : Supple, no tenderness CHEST : CTA, no tenderness HEART : RRR, no obvious murmurs ABDOMEN: Some distention, nontender RECTAL : Intact sphincter, yellow brown stool (FOBT negative) EXTREMITIES : LLE swelling with minimal tenderness, no other conspicuous deformities noted NEUROLOGIC : Coherent, no facial asymmetry, no other gross focality Principal Dx & Hospital Course #1 = Principal Diagnosis (1) Pulmonary emboli: (2) Metastasis from pancreatic cancer: (3) DVT (deep venous thrombosis): (4) Acute kidney failure: (5) Hyponatremia: (6) Leukocytosis: (7) Diabetes: Plan (1) Pulmonary emboli: (2) Metastasis from pancreatic cancer: (3) DVT (deep venous thrombosis): Plan: per admitting service notes with addendum: History of metastatic pancreatic cancer status post surgery (chemotherapy currently on hold due to weakness), progressive disease noted on CAT scan. Follows up with Dr. Sutherland. Last chemotherapy on October 11, 2022 Presented with left leg swelling Found to have left-sided DVT from the level of common femoral vein to popliteal vein and venous structure below the knee CTA chest reviewed; numerous bilateral PE Currently on heparin drip Plans to switch over to Eliquis in the next subsequent days. Prescription sent. Asked case management to review the sifuentes. Discussed with oncologist. Patient has follow-up with oncology day after tomorrow. 10/27 Hemodynamically stable Transition from heparin drip to Eliquis 10 mg twice daily x7 days, then 5 mg twice daily Tolerating Eliquis well (4) Acute kidney failure: (5) Hyponatremia: Plan: Acute kidney injury likely prerenal. Renal ultrasound obtained Interpretation of urinary electrolytes suggest hyponatremia due to hypovolemia Creatinine downtrending with IV hydration. Sodium improving as well Continue IV hydration for now. Swanson removed on request of the patient. 10/27 Sodium improved now 131 Creatinine improved, now 0.8 Monitor as outpatient Blood pressure stable, DC HCTZ and potassium (6) Leukocytosis: Plan: Noted to have leukocytosis with WBC of 24,000 Blood cultures negative Urine culture negative Continue on ceftriaxone for now. Monitor for fever, chills. Repeat blood culture if is positive. 10/27 Leukocytosis improving, 24 K, now 19 K Peripheral smear: no lymphoproliferative disorder No signs of infection at this point Reactive from DVT/PE? Monitor as outpatient (7) Diabetes: Plan: A1c of 8.5 in August 2022. NovoLog and Lantus. Generalized weakness PT and OT evaluation Urinary retention Urologist consulted Swanson catheter placed for now, maintain for 7 to 10 days Trial of voiding as an outpatient Abnormal CT findings Liver lesions, many suggestive of simple liver cyst with at least one lesion identified in the anterior left liver lobe representing a solid lesion otherwise incompletely characterized. Follow-up with right upper quadrant ultrasound recommended to evaluate cystic versus solid lesion. Ill-defined slightly heterogeneous lesion within the spleen measuring 1.3 cm, cannot exclude metastatic process. If indicated, this may be assessed with ultrasound to evaluate cyst versus solid lesion. Plan Goals of care discussion; Refer palliative care note for further details. Patient was to follow-up with oncology and decide on further cancer treatment. DVT heparin drip DNR/DNI Dispopatient prefers to be discharged to home with her family support Discharge Exam General- oriented x 3, not in distress, speaks in sentences with no effort or accessory muscle use Eyes- anicteric Neck- no JVD Lungs- clear breath sounds bilaterally, no rales/wheezes Heart- normal rate, regular rhythm; no murmurs Abdomen- normal bowel sounds, nondistended, soft, nontender Extremities-mild left lower extremity edema, no warmth/tenderness/erythema Neuro- alert, oriented x 3; no gross focal neurologic deficits Skin- warm & dry Updated Medication List Medication Instructions Recorded Confirmed Type atenolol 25 mg tablet 25 mg PO QAM 12/02/18 10/21/22 History cholecalciferol (vitamin D3) 50 2,000 unit PO QAM 12/02/18 10/21/22 History mcg (2,000 unit) tablet levothyroxine 150 mcg tablet 150 mcg PO DAILYBB 12/02/18 10/21/22 History omeprazole 20 mg capsule,delayed 20 mg PO QAM 12/02/18 10/21/22 History release metformin 500 mg tablet,extended 1,000 mg PO BIDM 09/29/22 10/21/22 History release 24 hr ondansetron HCl 8 mg tablet 8 mg PO Q8 PRN Nausea 09/29/22 10/21/22 History prochlorperazine maleate 10 mg 10 mg PO Q6 PRN Nausea 09/29/22 10/21/22 History tablet clotrimazole 10 mg rosalia 10 mg PO 5XD 10/21/22 10/21/22 History apixaban 5 mg tablet (Eliquis) 5 mg PO BID #60 tabs 10/23/22 Rx Hospital Stay Data Consultations 10/21/22 23:02 ED Decision to Admit Stat 10/23/22 10:28 Consult Palliative Care Routine 10/25/22 08:32 Consult Urology Routine Diagnostic Imagining Performed 10/21/22 18:50 CT angio chest PE protocol Stat FINDINGS: Pulmonary arteries: On the right, there are filling defect identified within the mid proximal apical segmental branches of the right upper lobe pulmonary artery and several filling defect within the mid proximal right middle lobe pulmonary arteries. There is a partially occlusive thrombus involving the right lower lobe pulmonary artery with multiple proximal and mid distal segmental and subsegmental pulmonary emboli involving the right lower lobe. Filling defect identified within the mid distal left pulmonary artery extending into the left lower lobe pulmonary artery and several proximal segmental and subsegmental left lower lobe lateral branches of the left lower lobe pulmonary artery. Small filling defect identified within the mid distal branches of the lingular lobe pulmonary artery and within the mid proximal branch of the left upper lobe apical segmental pulmonary arteries. Aorta: Atherosclerotic disease of aorta with no aneurysm or dissection. Lungs: Small nodule in the right upper lobe, image 71, series 3 measuring 3.2 mm. Mild right lower lobe atelectasis. Pleural space: Unremarkable. No significant effusion. No pneumothorax. Heart: The RV/LV ratio is 0.9 with no distinct right-sided cardiac strain. No significant pericardial effusion. Normal cardiac size with coronary artery calcifications. Bones/joints: Multilevel degenerative disease of the spine with no acute fracture or subluxation. Soft tissues: Unremarkable. Lymph nodes: Unremarkable. No enlarged lymph nodes. Intraperitoneal space: Moderate to large ascites. There is a low- attenuation structure within the left liver lobe, incompletely characterized suggestive of liver lesion measuring approximately 4.0 x 3. 6 cm. Additional low-attenuation structures suggestive of liver cysts demonstrated largest seen in the left liver lobe by the hepatic hilum measuring 3.1 x 2.8 cm. IMPRESSION: 1. Numerous bilateral pulmonary emboli including the mid distal left pulmonary artery as well as multiple segmental and subsegmental bilateral pulmonary emboli as described with no evidence of right-sided cardiac strain. 2. Right upper lobe nodule measuring 3.2 mm. If indicated, this can be further followed up with CT chest in 6-12 months, depending on risk factors. 3. Liver lesions, many suggestive of simple liver cyst with at least one lesion identified in the anterior left liver lobe representing a solid lesion otherwise incompletely characterized. Follow-up with right upper quadrant ultrasound recommended to evaluate cystic versus solid lesion. Communications: Call Doctor Other Electronically signed by: Kristie Moreno MD 10/21/22 21:38 PM 10/21/22 18:51 US venous doppler LE LT Stat 10/21/22 21:43 CT abd pelvis IV con only Stat FINDINGS: Lung bases: Mild right lower lobe atelectasis, remainder of the lung bases are clear. Heart: Unremarkable. No significant pericardial effusion. Normal cardiac size with coronary artery calcifications. Mediastinum: Minimal hiatal hernia. Remainder of the stomach is unremarkable. ABDOMEN: Liver: There is a low-attenuation structure within the left liver lobe at the gallbladder fossa measuring 3.5 x 2.5 cm with slightly elevated Hounsfield units, indeterminate if this represents a liver cyst versus solid lesion. Multiple additional low-attenuation structures within the liver with Hounsfield units suggestive of liver cysts, and largest seen in the left liver lobe by the hepatic hilum measuring 3.5 x 2.0 cm. Gallbladder and bile ducts: Status post cholecystectomy. Pancreas: There is a large heterogeneous mass involving the pancreatic body measuring approximately 8.0 x 5.2 cm with area of central decreased attenuation measuring 2.4 x 2.6 cm, a combination of findings suggestive of large pancreatic mass with central necrosis. Spleen: There is an ill-defined low-attenuation lesion within the spleen measuring 1.3 x 0.7 cm, otherwise incompletely characterized, cannot exclude neoplasm. Adrenals: Unremarkable. No mass. Kidneys and ureters: Unremarkable. No solid mass. No hydronephrosis. Stomach and bowel: Area of mild thickening of the descending colon and sigmoid, does not exclude mild colitis. No obstruction. PELVIS: Appendix: No findings to suggest acute appendicitis. Bladder: The urinary bladder is decompressed Via Swanson catheter. Reproductive: Unremarkable as visualized. ABDOMEN and PELVIS: Intraperitoneal space: Numerous nodular intraperitoneal densities demonstrated along the anterior abdomen most compatible with omental carcinomatosis. Similar tortuous reticulonodular areas of metastatic implants along the right posterolateral abdomen. No free air. No significant fluid collection. Bones/joints: Multilevel degenerative disease of the spine. There is a left-sided hip prosthesis in place with normal alignment. No acute fracture. Soft tissues: Unremarkable. Vasculature: See above. Lymph nodes: Unremarkable. No enlarged lymph nodes. IMPRESSION: 1. 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 2. Multiple liver cysts with additional lesion in the left liver lobe measuring 3.5 cm, not excluding solid lesions/metastatic disease. If indicated, this can be assessed with ultrasound to evaluate simple cyst versus solid lesion. 3. Ill-defined slightly heterogeneous lesion within the spleen measuring 1.3 cm, cannot exclude metastatic process. If indicated, this may be assessed with ultrasound to evaluate cyst versus solid lesion. 10/22/22 08:52 US Renal Bladder [US renal/blad retro comp] Urgent Pending Results Patient Have Any Pending Studies at Discharge: No Discharge Instructions Given to Patient (Per Discharging Provider) PLEASE REFER TO YOUR NEW MEDICATION LIST AND FOLLOW INSTRUCTIONS CAREFULLY. YOUR NEW MEDICATIONS INCLUDE: ELIQUIS- blood thinner for blood clots in the lungs, legs - take as follows: 10MG TWICE A DAY UNTIL OCTOBER 30, 2022, THEN 5MG TWICE A DAY INDEFINITELY STOP TAKING HCTZ AND POTASSIUM. MAINTAIN SWANSON CATHETER FOR NOW UNTIL FOLLOW UP WITH PRIMARY CARE PHYSICIAN. PLEASE CALL YOUR PRIMARY CARE PHYSICIAN OR RETURN TO THE ER IF WITH WORSENING OF SYMPTOMS, INCLUDING SHORTNESS OF BREATH, CHEST PAIN, LEG SWELLING OR PAIN, ETC FOLLOW UP WITH PRIMARY CARE PHYSICIAN IN 1 WEEK. Total Time Total Time Spent Total Time Spent (In Minutes): > 30 minutes
== END 2022-10-27 15:19 | disposition home or self-care (01) | DRG 299 ==
LOC: ED 18:35 → EDINP 10-22 01:41 → SUATTDRO 10-22 01:41 → 2W 10-22 03:57

== ENCOUNTER 2022-10-30 14:28 | Inpatient (IN) ==
--- NOTE | 2022-10-30 14:41 | Emergency Department Note ---
Impression & Plan Acute dehydration, Metastasis from pancreatic cancer, Weakness generalized, Leukocytosis, Arrhythmia ED Provider Note NAME: KRIS GREENE AGE: 71 SEX: F : 1950 ARRIVES VIA: Ambulance INFORMANT: Patient, ED PROVIDER(S): German Anaya MD CHIEF COMPLAINT: Shortness of breath MEDICAL DECISION MAKING: Patient presents due to concern for an episode of shortness of breath. The patient does appear to have bigeminy with associated PVCs. IV was established and the patient did receive IV fluids. Patient does have a white count of 19 but this is chronic and stable. Hemoglobin 8.7 which is chronic and stable. Platelet count of 822 she has worsened compared to prior. EKG does show possible bigeminy as well as accelerated junctional rhythm. Procalcitonin was added given the patient's elevated white blood cell count. The patient was ordered additional IV fluids. The patient's calcium was low which was ordered for repletion. I did speak the on-call hospitalist service Valencia Ceja PA-C and the patient was admitted by Dr. Banda Prior /Outside records reviewed: During the patient's most recent admission the patient was noted to have an elevated white counts of up to 24,000. The patient has had negative blood cultures at that time. Patient's leukocytosis had improved from 24,000 and 19,000. This is relatively stable from the time of her discharge. Did review a discharge summary from 3 days prior shows that the patient has a known history of hypertension type 2 diabetes metastatic pancreatic cancer postsurgery with chemo currently on hold prior history of tobacco use abuse and chronic anemia. Patient was diagnosed with PEs with metastases from pancreatic cancer and associated DVT patient was to be transitioned to Eliquis 10 twice daily for 7 days then 5 twice daily thereafter. Patient is also been seen by palliative care during her most recent inpatient stay she does state that the patient is overall aware of her mortality and the fact that she has terminal cancer. This at the time of this palliative care consultation the patient does not desire any hospice or comfort directed care. Differential diagnosis: Reactive airway disease, pneumonia, pneumothorax, COPD, CHF, infections, cardiac ischemia, pulmonary embolism, musculoskeletal, gastrointestinal, as well as other pathologies. Diagnostics, as interpreted by me: ECG: Possible accelerated junctional rhythm in a pattern of bigeminy. PVCs noted. Normal axis. Ventricular rate of 112. Cardiac monitoring: An order was placed for continuous cardiac monitoring. The monitor shows a rate of 82 with sinus with PVCs rhythm. Patient was placed on pulse oximetry Medical decision rules: none Imaging studies: See below HPI: Patient presents due to concern for shortness of breath which began prior to arrival. This approximate lasted 30 minutes in duration. The patient has had productive cough which is relatively unchanged from prior. The patient does have a known history of metastatic pancreatic cancer was recently admitted for PEs. Patient does have a chronic indwelling Murdock catheter. Currently chemothe rapy is on hold given the patient's weakness as well as recent admission and hospitalization. The patient was recently discharged on Saturday. Patient denies any chest pains. No leg swelling or calf pain. Patient has had poor appetite in the last 24 hours. Patient denies any falls or trauma. At the time of the episode she did feel weak and dizzy and thus lay down on the floor. The patient was not able to get up and ambulate thereafter. Ambulance did arrive and thus brought the patient in for further evaluation treatment PAST MEDICAL HISTORY: See Below PAST SURGICAL HISTORY: See Below SOCIAL HISTORY: See Below HOME MEDICATIONS: See Below ALLERGIES: See Below VITALS: See Below PHYSICAL EXAMINATION: GENERAL: Fatigued in appearance, wearing glasses, nontoxic EYE EXAM: Normal conjunctiva. PERRL, no anisocoria and EOM's grossly intact w/o pain. NECK: Supple, no nuchal rigidity, no adenopathy, non-tender. No signs of meningismus. FROM of the neck with good chin to chest and neck extension. No stridor. LUNGS: Clear to auscultation. Normal chest wall mechanics. HEART: Regular, no MRG. ABDOMEN: Abdomen soft, non-tender, no masses, no rebound or guarding. BACK: No CVA TTP. SKIN: No rashes and no bruising. UPPER EXTREMITIES: Upper extremities are grossly normal. LOWER EXTREMITIES: Grossly normal, no edema. NEURO EXAM: A&O x3, cranial nerves II-XII grossly intact, normal speech, moves all 4 extremities. Past Med/Surg History Medical History Advanced care planning/counseling discussion Diabetes mellitus, type 2 NIDDM Former smoker GERD (gastroesophageal reflux disease) controlled HTN (hypertension) Hypothyroidism Metastasis from pancreatic cancer Obesity Osteoarthritis Palliative care by specialist Skin cancer s/p precancerous skin excision Weakness generalized Surgical History H/O breast biopsy BENIGN H/O colonoscopy H/O tubal ligation History of appendectomy [facility] 2012. MAC #3, ET 7.0 grade view I. History of cholecystectomy 01/08/19: Grade view 1, MAC#3, ETT 7.5 at [facility] History of hysterectomy with unilateral oophorectomy History of left hip replacement (~12/2019) History of repair of rotator cuff LEFT History of tooth extraction Orbital fracture REPAIRED (? HARDWARE INTACT/POSSIBLE WIRE) Family History Mother Family history of diabetes mellitus Social History Smoking Status: Former smoker Tobacco Type: Cigarettes Second Hand Exposure: No; Do You Dip or Chew Tobacco: No; Tobacco Cessation Education Requested by Patient: No Hx Alcohol Use: No Hx Substance Use: No Preferred Language: Latvian Communication Ability: Effective Visual Impairment: Limited Hearing Ability: Normal Spring Coiler Required: No Beliefs That Will Affect Care: None marital status: Current Living Situation: Significant Other Current Living Situation Comment: FRIEND LESLY Other Information That Helps Us Care for You: No Feels Safe at Home: Yes Safety Concerns: Feels Safe At This Time Assistive Devices: None Allergies Allergies Allergy/AdvReac Type Severity Reaction Status Date / Time adhesive Allergy Mild Rash (with Verified 09/29/22 19:13 older bandaids) nickel Allergy Mild Rash Verified 09/29/22 19:13 tetanus toxoid, adsorbed AdvReac Intermediate Elevated BP Verified 09/29/22 19:13 NSAIDS (Non-Steroidal AdvReac Unknown was "told Verified 09/29/22 19:13 Anti-Inflamma to avoid" Home Meds Home Medications Medication Instructions Recorded Confirmed atenolol 25 mg tablet 25 mg PO QAM 12/02/18 10/30/22 cholecalciferol (vitamin D3) 50 2,000 unit PO QAM 12/02/18 10/30/22 mcg (2,000 unit) tablet levothyroxine 150 mcg tablet 150 mcg PO DAILYBB 12/02/18 10/30/22 omeprazole 20 mg capsule,delayed 20 mg PO QAM 12/02/18 10/30/22 release metformin 500 mg tablet,extended 1,000 mg PO BIDM 09/29/22 10/30/22 release 24 hr ondansetron HCl 8 mg tablet 8 mg PO Q8 PRN Nausea 09/29/22 10/30/22 prochlorperazine maleate 10 mg 10 mg PO Q6 PRN Nausea 09/29/22 10/30/22 tablet clotrimazole 10 mg rosalia 10 mg PO 5XD 10/21/22 10/30/22 Previous Rx's Medication Instructions Recorded apixaban 5 mg tablet (Eliquis) 5 mg PO BID #60 tabs 10/23/22 Results & Data (ED) Vital Signs Vital Signs - 24 hr 10/30/22 14:37 10/30/22 14:37 10/30/22 14:39 Temperature 36.7 C Temperature Source Oral Pulse Rate 56 L 56 L Pulse Rate [Right Apical] Pulse Rate from SpO2 Sensor Respiratory Rate 24 Respiratory Effort / Characteristics Respiratory Depth Respiratory Pattern Tachypnea Blood Pressure 89/63 L Blood Pressure [Left Arm] Blood Pressure Mean 71 Blood Pressure Mean [Left Arm] Pulse Oximetry 97 Oxygen Delivery Method Room Air Room Air Sepsis Recent Fever Within 48 Hours No Sepsis New/Unexplained Change in Mental Status No Sepsis Action Taken by Nursing Physician Notified Oxygen Flow Rate - Titration 97 10/30/22 14:56 10/30/22 14:42 10/30/22 15:30 Temperature Temperature Source Pulse Rate 75 Pulse Rate [Right Apical] 70 Pulse Rate from SpO2 Sensor Respiratory Rate 20 24 Respiratory Effort / Characteristics Non-Labored Spontaneous Respiratory Depth Normal Respiratory Pattern Regular Blood Pressure 86/59 L Blood Pressure [Left Arm] 89/63 L Blood Pressure Mean 68 Blood Pressure Mean [Left Arm] 71 Pulse Oximetry 97 97 Oxygen Delivery Method Room Air Room Air Sepsis Recent Fever Within 48 Hours Sepsis New/Unexplained Change in Mental Status Sepsis Action Taken by Nursing Oxygen Flow Rate - Titration 10/30/22 16:00 10/30/22 16:30 10/30/22 17:00 Temperature Temperature Source Pulse Rate 112 H 51 L 47 L Pulse Rate [Right Apical] Pulse Rate from SpO2 Sensor 73 Respiratory Rate 21 15 24 Respiratory Effort / Characteristics Respiratory Depth Respiratory Pattern Blood Pressure 88/57 L 87/64 L 87/57 L Blood Pressure [Left Arm] Blood Pressure Mean 67 71 67 Blood Pressure Mean [Left Arm] Pulse Oximetry 95 Oxygen Delivery Method Room Air Sepsis Recent Fever Within 48 Hours Sepsis New/Unexplained Change in Mental Status Sepsis Action Taken by Nursing Oxygen Flow Rate - Titration 10/30/22 18:09 10/30/22 18:30 Temperature Temperature Source Pulse Rate 53 L 49 L Pulse Rate [Right Apical] Pulse Rate from SpO2 Sensor 53 L Respiratory Rate 16 18 Respiratory Effort / Characteristics Respiratory Depth Respiratory Pattern Blood Pressure 89/56 L 90/57 L Blood Pressure [Left Arm] Blood Pressure Mean 67 68 Blood Pressure Mean [Left Arm] Pulse Oximetry 94 Oxygen Delivery Method Sepsis Recent Fever Within 48 Hours Sepsis New/Unexplained Change in Mental Status Sepsis Action Taken by Nursing Oxygen Flow Rate - Titration Home Medications Current Medication List: was personally reviewed by me Laboratory Data Attestation: I reviewed the patient's lab results. 10/30/22 15:21 10/30/22 15:21 Lab Results 10/30/22 10/30/22 10/30/22 Range/Units 15:21 15:21 15:21 WBC 19.39 H (4.8-10.8) K/ul RBC 2.95 L (4.20-5.40) M/uL Hgb 8.7 L (12.0-16.0) g/dl Hct 27.8 L (37.0-47.0) % MCV 94.2 (80.0-100.0) fL MCH 29.5 (25.0-34.0) pg MCHC 31.3 L (32.0-36.0) g/dL RDW Std Deviation 65.2 H (36.4-46.3) fL RDW Coeff of Parth 19.3 H (11.5-14.5) % Plt Count 822 H (130-400) K/uL MPV 9.6 (9.4-12.4) fL Immature Gran % (Auto) 4.5 % Neut % (Auto) 79.4 % Lymph % (Auto) 7.9 % [place] % (Auto) 7.7 % Eos % (Auto) 0.1 % Baso % (Auto) 0.4 % Neut # (Auto) 15.39 H (1.40-6.50) K/uL Lymph # (Auto) 1.54 (1.2-3.4) K/uL [place] # (Auto) 1.50 H (0.11-0.59) K/uL Eos # (Auto) 0.02 (0-0.50) K/uL Baso # (Auto) 0.07 (0-0.2) K/uL Immature Gran # (Auto) 0.87 H (0.01-0.20) K/uL Absolute Nucleated RBC 0.02 (0-0.12) K/uL Nucleated RBC % (auto) 0.1 % Sodium 128 L (136-145) mmol/L Potassium 4.7 (3.5-5.1) mmol/L Chloride 101 (98-107) mmol/L Carbon Dioxide 14 L (21-32) mmol/L Anion Gap 13 H (3-11) BUN 42 H (6-23) mg/dl Creatinine 1.27 H (0.6-1.2) mg/dl Est Cr Clr Drug Dosing 45.0 ml/min Est GFR ( Amer) 49.5 ml/min Est GFR (Non-Af Amer) 42.7 ml/min BUN/Creatinine Ratio 33.1 H (10-20) Glucose 223 H (70-99(Fasting)) mg/dl Calcium 8.3 L (8.6-10.3) mg/dl Total Bilirubin 0.4 (0.2-1.0) mg/dl AST 13 (13-39) U/L ALT 8 (7-52) U/L Alkaline Phosphatase 86 (34-104) U/L Troponin I High Sens 33.1 H (0-14) pg/ml Total Protein 5.5 L (6.0-8.3) gm/dl Albumin 2.6 L (3.4-5.0) gm/dl Globulin 2.9 (2.5-4.0) gm/dl Albumin/Globulin Ratio 0.9 (0.9-2) Procalcitonin (0-0.5) ng/ml TSH 32.051 H (0.300-4.500) uIu/ml Free T4 1.09 (0.61-1.60) ng/dl Lyme Disease IgG Ab (Negative) Lyme Disease IgM Ab (Negative) SARS-CoV-2, RNA, NAAT (NEGATIVE) 10/30/22 10/30/22 10/30/22 Range/Units 15:21 15:21 15:25 WBC (4.8-10.8) K/ul RBC (4.20-5.40) M/uL Hgb (12.0-16.0) g/dl Hct (37.0-47.0) % MCV (80.0-100.0) fL MCH (25.0-34.0) pg MCHC (32.0-36.0) g/dL RDW Std Deviation (36.4-46.3) fL RDW Coeff of Parth (11.5-14.5) % Plt Count (130-400) K/uL MPV (9.4-12.4) fL Immature Gran % (Auto) % Neut % (Auto) % Lymph % (Auto) % [place] % (Auto) % Eos % (Auto) % Baso % (Auto) % Neut # (Auto) (1.40-6.50) K/uL Lymph # (Auto) (1.2-3.4) K/uL [place] # (Auto) (0.11-0.59) K/uL Eos # (Auto) (0-0.50) K/uL Baso # (Auto) (0-0.2) K/uL Immature Gran # (Auto) (0.01-0.20) K/uL Absolute Nucleated RBC (0-0.12) K/uL Nucleated RBC % (auto) % Sodium (136-145) mmol/L Potassium (3.5-5.1) mmol/L Chloride (98-107) mmol/L Carbon Dioxide (21-32) mmol/L Anion Gap (3-11) BUN (6-23) mg/dl Creatinine (0.6-1.2) mg/dl Est Cr Clr Drug Dosing ml/min Est GFR ( Amer) ml/min Est GFR (Non-Af Amer) ml/min BUN/Creatinine Ratio (10-20) Glucose (70-99(Fasting)) mg/dl Calcium (8.6-10.3) mg/dl Total Bilirubin (0.2-1.0) mg/dl AST (13-39) U/L ALT (7-52) U/L Alkaline Phosphatase (34-104) U/L Troponin I High Sens (0-14) pg/ml Total Protein (6.0-8.3) gm/dl Albumin (3.4-5.0) gm/dl Globulin (2.5-4.0) gm/dl Albumin/Globulin Ratio (0.9-2) Procalcitonin 0.45 (0-0.5) ng/ml TSH (0.300-4.500) uIu/ml Free T4 (0.61-1.60) ng/dl Lyme Disease IgG Ab Negative (Negative) Lyme Disease IgM Ab Equivocal A (Negative) SARS-CoV-2, RNA, NAAT NEGATIVE (NEGATIVE) Administered Medications Apixaban (Apixaban 5 Mg Tablet) 5 mg PO BID KIERSTEN Stop: 11/29/22 22:59 Last Admin: 10/31/22 09:11 Dose: 5 mg Documented By: Admin: 10/30/22 23:11 Dose: 5 mg Documented By: ABL Clotrimazole (Clotrimazole 10 Mg Rosalia) 10 mg BUCCAL [id number] KIERSTEN Stop: 11/13/22 19:01 Last Admin: 10/31/22 05:42 Dose: 10 mg Documented By: Admin: 10/30/22 23:41 Dose: 10 mg Documented By: ABL Sodium Chloride (Nss 1000ml) 1,000 mls @ 125 mls/hr IV .Q8H KIERSTEN Stop: 10/31/22 14:20 Last Admin: 10/31/22 05:43 Dose: 125 mls/hr Documented By: Infusion: 10/31/22 05:43 Dose: 125 mls/hr Documented By: Admin: 10/30/22 23:41 Dose: 125 mls/hr Documented By: ABL Insulin Aspart (Insulin Aspart Per Unit Charge) 0 units SC ACHS KIERSTEN Stop: 11/30/22 07:29 Last Admin: 10/31/22 09:11 Dose: 2 units Documented By: KTEzra Co-signed By: EDMUND Levothyroxine Sodium (Levothyroxine Sodium 150 Mcg Tablet) 150 mcg PO DAILYBB KIERSTEN Stop: 11/30/22 06:29 Last Admin: 10/31/22 05:42 Dose: 150 mcg Documented By: ABL Pantoprazole Sodium (Pantoprazole 40 Mg Tab) 40 mg PO QAM KIERSTEN Stop: 11/30/22 08:59 Last Admin: 10/31/22 09:11 Dose: 40 mg Documented By: KTS Vitamin D (Cholecalciferol 1,000 Units 25 Mcg Tab) 2,000 units PO QAM KIERSTEN Stop: 11/30/22 08:59 Last Admin: 10/31/22 09:11 Dose: 2,000 units Documented By: EDILIA Discontinued Medications Heparin Sodium (Porcine) (Heparin Sod 5,000 Unit/0.5 Ml Vial) 5,000 units SQ Q8 KIERSTEN Stop: 11/29/22 22:20 Last Admin: 10/30/22 23:47 Dose: Not Given Documented By: ABL Sodium Chloride (Nss) 500 mls @ 999 mls/hr IV .Q31M KIERSTEN Stop: 10/30/22 15:30 Last Infusion: 10/30/22 16:03 Dose: 0 mls/hr Documented By: Admin: 10/30/22 15:26 Dose: 999 mls/hr Documented By: KATHERYN Calcium Gluconate () 1,000 mg in 60 mls @ 240 mls/hr IV NOW STA Stop: 10/30/22 17:15 Last Infusion: 10/30/22 17:50 Dose: 0 mls/hr Documented By: Admin: 10/30/22 17:21 Dose: 240 mls/hr Documented By: KATHERYN Sodium Chloride (Nss 1000ml) 1,000 mls @ 999 mls/hr IV .Q1H1M ONE Stop: 10/30/22 18:01 Last Infusion: 10/30/22 20:56 Dose: 0 mls/hr Documented By: Admin: 10/30/22 17:20 Dose: 999 mls/hr Documented By: KATHERYN Sodium Chloride (Nss) 500 mls @ 500 mls/hr IV .Q1H KIERSTEN Stop: 10/30/22 23:44 Last Infusion: 10/30/22 23:49 Dose: 0 mls/hr Documented By: Admin: 10/30/22 22:49 Dose: 500 mls/hr Documented By: ABL Imaging Data Radiologist's Impression: Chest X-Ray 10/30/22 14:48 XR chest 1V portable CLINICAL HISTORY: weakness TECHNIQUE: Single frontal radiograph of the chest was obtained. Comparison: Comparison is made to chest radiograph 10/21/2022 FINDINGS: A port catheter is seen. The cardiomediastinal silhouette is normal. The lungs are clear. No evidence of pleural effusion or pneumothorax. IMPRESSION: No acute chest disease. ACT 112: Negative or not required by law. Electronically signed by: Devon Dukes M.D. 10/30/2022 3:02 PM Discharge Plan Visit Data Chief Complaint: Shortness of Breath/Dyspnea Stated Complaint: SOB ED Provider: German Anaya Discharge Problem: Acute dehydration, Metastasis from pancreatic cancer, Weakness generalized, Leukocytosis, Arrhythmia Patient Disposition: Admitted As Inpatient Discharge Instructions Interventions: ED Discharge Assessment Last Done: 10/30/22 22:00 Leukocytosis Qualifiers: Leukocytosis type: unspecified Qualified Code(s): D72.829 - Elevated white blood cell count, unspecified Arrhythmia Qualifiers: Arrhythmia type: unspecified cardiac arrhythmia Qualified Code(s): I49.9 - Cardiac arrhythmia, unspecified
[2022-10-30] MEDS ORDERED: SODIUM CHLORIDE 0.9% 500 ML IV SCH ×2 (15:00→22:45)
--- NOTE | 2022-10-30 15:04 | XRay Report ---
XR chest 1V portable CLINICAL HISTORY: weakness TECHNIQUE: Single frontal radiograph of the chest was obtained. Comparison: Comparison is made to chest radiograph 10/21/2022 FINDINGS: A port catheter is seen. The cardiomediastinal silhouette is normal. The lungs are clear. No evidence of pleural effusion or pneumothorax. IMPRESSION: No acute chest disease. ACT 112: Negative or not required by law. Electronically signed by: Devon Dukes M.D. 10/30/2022 3:02 PM
--- NOTE | 2022-10-30 15:18 | Electrocardiogram Report ---
Test Reason : Blood Pressure : / mmHG Vent. Rate : 112 BPM Atrial Rate : 000 BPM P-R Int : 000 ms QRS Dur : 112 ms QT Int : 346 ms P-R-T Axes : 000 -06 076 degrees QTc Int : 472 ms Probable Accelerated Junctional rhythm with frequent Premature ventricular complexes in a pattern of bigeminy Low voltage QRS Cannot rule out Anterior infarct (cited on or before 30-OCT-2022) Abnormal ECG When compared with ECG of 21-OCT-2022 19:02, Junctional rhythm has replaced Sinus rhythm Vent. rate has increased BY 42 BPM Confirmed by Manny Silva ([id number]) on 10/30/2022 3:18:30 PM Referred By: Confirmed By:Manny Silva
[2022-10-30 15:57] LABS: Basophils # (auto) 0.07 K/uL (0-0.2); Basophils % (auto) 0.4 %; Eosinophils # (auto) 0.02 K/uL (0-0.50); Eosinophils % (auto) 0.1 %; Hematocrit (blood only) 27.8 % (37.0-47.0); Hemoglobin 8.7 g/dl (12.0-16.0); Immature Granulocytes # (auto) 0.87 K/uL (0.01-0.20); Immature Granulocytes % (auto) 4.5 %; Lymphocytes # (auto) 1.54 K/uL (1.2-3.4); Lymphocytes % (auto) 7.9 %; Mean Corpuscular Hemoglobin 29.5 pg (25.0-34.0); Mean Corpuscular Hgb Conc 31.3 g/dL (32.0-36.0); Mean Corpuscular Volume 94.2 fL (80.0-100.0); Mean Platelet Volume 9.6 fL (9.4-12.4); Monocytes % (auto) 7.7 %; Neutrophils # (auto) 15.39 K/uL (1.40-6.50); Neutrophils % (auto) 79.4 %; Nucleated RBC # (auto) 0.02 K/uL (0-0.12); Nucleated RBC % (auto) 0.1 %; Platelet Count 822 K/uL (130-400); RDW Coefficient of Variation 19.3 % (11.5-14.5); RDW Standard Deviation 65.2 fL (36.4-46.3); Red Blood Count 2.95 M/uL (4.20-5.40); White Blood Count 19.39 K/ul (4.8-10.8)
[2022-10-30 16:22] LABS: Lyme Ab IgG w/WB Rflx Negative (Negative)
[2022-10-30 16:23] LABS: Lyme Ab IgM w/WB Rflx Equivocal (Negative)
[2022-10-30 16:36] LABS: Albumin Level 2.6 gm/dl (3.4-5.0); Bilirubin,Total 0.4 mg/dl (0.2-1.0); Calcium 8.3 mg/dl (8.6-10.3); Potassium 4.7 mmol/L (3.5-5.1)
[2022-10-30 16:42] LABS: Albumin Globulin Ratio 0.9 (0.9-2); BUN Creatinine Ratio 33.1 (10-20); Est GFR (African American) 49.5 ml/min; Est GFR (Non-African American) 42.7 ml/min; Globulin 2.9 gm/dl (2.5-4.0); Total Protein 5.5 gm/dl (6.0-8.3); Troponin I High Sensitivity 33.1 pg/ml (0-14)
[2022-10-30 16:49] LABS: Thyroid Stimulating Hormone 32.051 uIu/ml (0.300-4.500)
[2022-10-30] MEDS ORDERED: SODIUM CHLORIDE 0.9% 1000ML 1,000 ML IV ONE (17:01)
[2022-10-30] MEDS ORDERED: CALCIUM GLUCONATE 1,000 MG/60 ML BAG IV STA (17:01)
[2022-10-30 17:28] LABS: T4 Free Thyroxine 1.09 ng/dl (0.61-1.60)
--- NOTE | 2022-10-30 18:32 | History & Physical Report ---
Date of Service October 30, 2022 Assessment & Plan (1) Urinary retention: (2) Leukocytosis: (3) Hyponatremia: (4) Acute kidney failure: (5) Metastasis from pancreatic cancer: (6) Pulmonary emboli: (7) Hypothyroidism: (8) Diabetes mellitus, type 2: Plan This is a 71yo F with a PMH of recent admission for PE, metastatic pancreatic cancer status post surgery (chemotherapy currently on hold due to weakness), progressive disease noted on CAT scan, hyponatremia 2/2 poor PO intake, DM II, hypothyroidism, anemia and other medical problems who presents with ongoing weakness and fall at home. Generalized weakness In setting of poor cancer prognosis, dehydration Placement recommended on previous admission but patient elected to return home with services Fall precautions, rehydration, PT/OT evaluation - goal is to return home with services Declined palliative consult Pulmonary emboli Metastasis from pancreatic cancer DVT (deep venous thrombosis) History of metastatic pancreatic cancer status post surgery (chemotherapy currently on hold due to weakness), progressive disease noted on CAT scan. Follows up with Dr. Sutherland. Last chemotherapy on October 11, 2022 CTA chest reviewed; numerous bilateral PE Transitioned to Eliquis 10 mg twice daily x7 days, then 5 mg twice daily Acute kidney failure Cr 1.27 (baseline ~0.8). Likely pre-renal Continue fluid resuscitation Monitor with daily BMP Hypotension SBP 80-90s since arrival, resting comfortably and responding to questions Received 1 L NSS fluid bolus in ED, continue maintenance fluids WBC unchanged from previous, afebrile, cont. to monitor Arrhythmia ECG with probable Accelerated Junctional rhythm with frequent Premature ventricular complexes in a pattern of bigeminy, HR [id number] Resting comfortably, no CP, denies any lightheadedness or palpitations Continue to monitor on telemetry overnight, repeat EKG in AM Urinary retention Indwelling charlton in place from retention on previous admission Charlton catheter placed for now, maintain for 7 to 10 days per urology Trial of voiding as an outpatient Hyponatremia Ongoing due to hypovolemia, dehydration. Improved with hydration on previous admission HCTZ discontinued on previous admission Leukocytosis Noted to have leukocytosis with WBC of 24K on last admission and was 19K at discharge, which it remains Negative infectious workup a few days prior with negative blood and urine cultures Completed course of IV ceftriaxone previous admission, no indication for continued abx at this time Monitor for fever, chills Diabetes II A1c of 8.5 in August 2022 Hold home agents SSI while in-patient BSG AC HS Abnormal CT findings Liver lesions, many suggestive of simple liver cyst with at least one lesion identified in the anterior left liver lobe representing a solid lesion otherwise incompletely characterized Follow-up with RUQ ultrasound recommended to evaluate cystic versus solid lesion as out-patient Goals of care discussion During previous admission with palliative service Patient was to follow-up with oncology and decide on further cancer treatment - declined further palliative care at this time DVT Ppx: Eliquis Code status: DNR/DNI PCP: Jerald Dispo: Admitted to PCU Patient seen in collaboration with Dr. Mcintosh. Please see addendum. I spent a total of 80 minutes coordinating, documenting, and providing care for this patient excluding time spent in the performance of separately billed services. History of Present Illness Chief Complaint: generalized weakness, fall at home Primary Care Provider: Mahad Marques MD This is a 71yo F with a PMH of recent admission for PE, metastatic pancreatic cancer status post surgery (chemotherapy currently on hold due to weakness), progressive disease noted on CAT scan, hyponatremia 2/2 poor PO intake, DM II, hypothyroidism, anemia and other medical problems who presents with ongoing weakness and fall at home. Was discharged home few days ago after admission for DVT/PE. Did not want placement at time of discharge and returned home. Was able to get out of bed and use commode today but became very weak upon standing and slid "on to bed" with help of family, who were able to clean her up and called EMS to bring to ED for further evaluation. Patient continues to feel poorly with progressive cancer diagnosis. Poor appetite. Feels depressed. Has been unable to receive chemotherapy treatment due to recent weakness. Is not interested in palliative care during admission but does confirm status as DNR. Denies any fever or chills, chest pain, palpitations, shortness of breath, nausea, vomiting, abdominal pain at chronic baseline, no diarrhea or constipation. Has indwelling Charlton due to urinary retention for the past 4 days. Allergies Allergy/AdvReac Type Severity Reaction Status Date / Time adhesive Allergy Mild Rash (with Verified 09/29/22 19:13 older bandaids) nickel Allergy Mild Rash Verified 09/29/22 19:13 tetanus toxoid, adsorbed AdvReac Intermediate Elevated BP Verified 09/29/22 19:13 NSAIDS (Non-Steroidal AdvReac Unknown was "told Verified 09/29/22 19:13 Anti-Inflamma to avoid" Home Medications Medication Instructions Recorded Confirmed Type atenolol 25 mg tablet 25 mg PO QAM 12/02/18 10/30/22 History cholecalciferol (vitamin D3) 50 2,000 unit PO QAM 12/02/18 10/30/22 History mcg (2,000 unit) tablet levothyroxine 150 mcg tablet 150 mcg PO DAILYBB 12/02/18 10/30/22 History omeprazole 20 mg capsule,delayed 20 mg PO QAM 12/02/18 10/30/22 History release metformin 500 mg tablet,extended 1,000 mg PO BIDM 09/29/22 10/30/22 History release 24 hr ondansetron HCl 8 mg tablet 8 mg PO Q8 PRN Nausea 09/29/22 10/30/22 History prochlorperazine maleate 10 mg 10 mg PO Q6 PRN Nausea 09/29/22 10/30/22 History tablet clotrimazole 10 mg rosalia 10 mg PO 5XD 10/21/22 10/30/22 History apixaban 5 mg tablet (Eliquis) 5 mg PO BID #60 tabs 10/23/22 10/30/22 Rx Past Med/Surg History Medical History Advanced care planning/counseling discussion Diabetes mellitus, type 2 NIDDM Former smoker GERD (gastroesophageal reflux disease) controlled HTN (hypertension) Hypothyroidism Metastasis from pancreatic cancer Obesity Osteoarthritis Palliative care by specialist Skin cancer s/p precancerous skin excision Weakness generalized Surgical History H/O breast biopsy BENIGN H/O colonoscopy H/O tubal ligation History of appendectomy [facility] 2012. MAC #3, ET 7.0 grade view I. History of cholecystectomy 01/08/19: Grade view 1, MAC#3, ETT 7.5 at [facility] History of hysterectomy with unilateral oophorectomy History of left hip replacement (~12/2019) History of repair of rotator cuff LEFT History of tooth extraction Orbital fracture REPAIRED (? HARDWARE INTACT/POSSIBLE WIRE) Family History Mother Family history of diabetes mellitus Social History Smoking Status: Former smoker Tobacco Type: Cigarettes Second Hand Exposure: No; Do You Dip or Chew Tobacco: No; Tobacco Cessation Education Requested by Patient: No Hx Alcohol Use: No Hx Substance Use: No Preferred Language: Jamaican Communication Ability: Effective Visual Impairment: Limited Hearing Ability: Normal Practicing Urologist Required: No Beliefs That Will Affect Care: None marital status: Current Living Situation: Significant Other Current Living Situation Comment: FRIEND LESLY Other Information That Helps Us Care for You: No Feels Safe at Home: Yes Safety Concerns: Feels Safe At This Time Assistive Devices: Walker Review of Systems Review of Systems: At least ten systems reviewed and negative except as noted in the HPI. Physical Exam Physical Exam: General Appearance: WD/WN, vitals as above, appears chronically ill, pale, fatigued Head: normocephalic, atraumatic Eyes: normal inspection, PERRL, conjunctivae normal, anicteric sclerae ENT: external ear and nose normal, oropharynx with dry mucous membranes Neck: normal visual inspection, trachea midline, no thyromegaly Respiratory: normal respiratory effort, lungs clear to auscultation, no wheeze, rales, rhonchi. No accessory muscle use Cardiovascular: bradycardic rate, irregular rhythm, normal peripheral pulses, 1+ BLE edema. Vessels: no JVD Chest: normal inspection of chest Abdomen/GI: normal bowel sounds, soft, nontender, no hepatosplenomegaly : + Charlton Extremities/Musculoskeletal: no cyanosis or clubbing, extremities motor strength 5/5 Neurologic: PERRL, EOMI, accommodation nl, no face palsy, no dysarthria, CN's II-XI intact bilaterally and moves all extremities Psychiatric: A+Ox3, flattened affect Skin: no rashes, normal color, warm/dry Results & Data Results & Data Vital Signs (Past 12 Hours) Vital Signs Temp Pulse Pulse Resp BP BP Pulse Ox 10/30/22 18:09 53 L 16 89/56 L 94 10/30/22 17:00 47 L 24 87/57 L 10/30/22 16:30 51 L 15 87/64 L 95 10/30/22 16:00 112 H 21 88/57 L 10/30/22 15:30 75 24 86/59 L 10/30/22 14:42 70 20 89/63 L 97 10/30/22 14:56 97 10/30/22 14:39 56 L 10/30/22 14:37 10/30/22 14:37 36.7 C 56 L 24 89/63 L 97 O2 Del Method 10/30/22 18:09 10/30/22 17:00 10/30/22 16:30 Room Air 10/30/22 16:00 10/30/22 15:30 10/30/22 14:42 Room Air 10/30/22 14:56 Room Air 10/30/22 14:39 10/30/22 14:37 Room Air 10/30/22 14:37 Room Air Laboratory Results Short CBC 10/30/22 Range/Units 15:21 WBC 19.39 H (4.8-10.8) K/ul Hgb 8.7 L (12.0-16.0) g/dl Hct 27.8 L (37.0-47.0) % Plt Count 822 H (130-400) K/uL BMP 10/30/22 15:21 Sodium 128 L Potassium 4.7 Chloride 101 Carbon Dioxide 14 L BUN 42 H Creatinine 1.27 H Glucose 223 H Calcium 8.3 L Liver Function 10/30/22 Range/Units 15:21 Total Bilirubin 0.4 (0.2-1.0) mg/dl AST 13 (13-39) U/L ALT 8 (7-52) U/L Alkaline Phosphatase 86 (34-104) U/L Albumin 2.6 L (3.4-5.0) gm/dl Diagnostic Findings Chest X-Ray 10/30/22 14:48 XR chest 1V portable CLINICAL HISTORY: weakness TECHNIQUE: Single frontal radiograph of the chest was obtained. Comparison: Comparison is made to chest radiograph 10/21/2022 FINDINGS: A port catheter is seen. The cardiomediastinal silhouette is normal. The lungs are clear. No evidence of pleural effusion or pneumothorax. IMPRESSION: No acute chest disease. ACT 112: Negative or not required by law. Electronically signed by: Devon Dukes M.D. 10/30/2022 3:02 PM ECG Additional Comments: ECG reviewed: Probable Accelerated Junctional rhythm with frequent Premature ventricular complexes in a pattern of bigeminy. Vent. rate has increased BY42 BPM from previous EKG Supervising Physician Co-Signing Physician Notes Date of Service: October 30, 2022 The patient was seen and examined in emergency room: She is a 75-year-old female with significant past medical history of metastatic pancreatic cancer DVT and recent pulmonary emboli on Eliquis and also has leukocytosis without any source of infection apparently felt presyncope while she was trying to use bedside commode at home. She was discharged recently from the hospital 120 at following DVT pulmonary emboli and hyponatremia with acute kidney failure. She has been complaining of more shortness of breath and also more weakness. There is no loss of consciousness during the presyncope episode at home. Denies any fever and or chills. 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 Generally very weak and lethargic Her labs, EKG , imaging studies and medications reviewed Has significant leukocytosis without any evidence of infection, MIGUEL and hyponatremia with abnormal EKG Presyncope likely secondary to dehydration and hypotension Arrhythmia has to be ruled out Metastatic pancreatic cancer with DVT and pulmonary embolism on Eliquis We will try intravenous fluid and check urine for any infection We will admit the patient to telemetry unit for continuation of care Prognosis remains poor-discussed with significant other Reviewed assessment plan as outlined above by Valencia Mcintosh (6) Pulmonary emboli Pulmonary embolism type: multiple subsegmental (without acute cor pulmonale) Qualified Code(s): I26.94 - Multiple subsegmental pulmonary emboli without acute cor pulmonale
--- NOTE | 2022-10-30 18:40 | Communication Note ---
Date of Service: October 30, 2022 The patient was seen and examined in emergency room: She is a 75-year-old female with significant past medical history of metastatic pancreatic cancer DVT and recent pulmonary emboli on Eliquis and also has leukocytosis without any source of infection apparently felt presyncope while she was trying to use bedside commode at home. She was discharged recently from the hospital 120 at following DVT pulmonary emboli and hyponatremia with acute kidney failure. She has been complaining of more shortness of breath and also more weakness. There is no loss of consciousness during the presyncope episode at home. Denies any fever and or chills. On examination Lying in bed with moderate shortness of breath at rest Denies any pain Blood pressure noted to be low at 89/56 Chest-clear to auscultate bilaterally Heart-S1, S2 regular Abdomen-mildly distended, mildly tender all over, bowel sound present Extremities-trace edema bilaterally more on the right side [employer] CLEANING MANAGER-alert, awake and oriented x3. Generally very weak and lethargic Her labs, EKG , imaging studies and medications reviewed Has significant leukocytosis without any evidence of infection, MIGUEL and hyponatremia with abnormal EKG Presyncope likely secondary to dehydration and hypotension Arrhythmia has to be ruled out Metastatic pancreatic cancer with DVT and pulmonary embolism on Eliquis We will try intravenous fluid and check urine for any infection We will admit the patient to telemetry unit for continuation of care Prognosis remains poor-discussed with significant other Reviewed assessment plan as outlined above by Valencia Mcintosh
[2022-10-30] MEDS ORDERED: POLYETHYLENE (MIRALAX) 17 GM PACK PO PRN (22:21)
[2022-10-30] MEDS ORDERED: ONDANSETRON INJ 2 MG/ML 2 ML VIAL IV PRN (22:21)
[2022-10-30] MEDS ORDERED: HEPARIN SOD 5,000 UNIT/0.5 ML VIAL SQ SCH (22:21)
[2022-10-30] MEDS ORDERED: PROCHLORPERAZINE MALEATE 10 MG TAB PO PRN (22:53)
[2022-10-30] MEDS ORDERED: GLUCAGON FOR INJ 1 MG VIAL SQ PRN (22:56)
[2022-10-30] MEDS ORDERED: CARBOHYDRATES FOR HYPOGLYCEMIA PO PRN (22:56)
[2022-10-30] MEDS ORDERED: GLUCOSE 10 TAB/TUBE PO PRN (22:56)
[2022-10-30] MEDS ORDERED: GLUCOSE 40% GEL 15 GM TUBE PO PRN (22:56)
[2022-10-30] MEDS ORDERED: DEXTROSE 50% 50 ML SYRINGE IV PRN (22:56)
[2022-10-30] MEDS: APIXABAN 5 MG TABLET PO SCH (23:11)
[2022-10-30 23:18] LABS: Appearance Urine Turbid (Clear); Bacteria Urine Automated Negative (Negative); Blood Urine 3+ (Negative); Color Urine Orange; Epithelial Cell Urine Auto >30 /lpf (0-5); Glucose Urine UA Trace (Negative); Ketones Urine Negative (Negative); Leukocyte Esterase Urine 2+ (Negative); Nitrite Urine Positive (Negative); Protein Urine 2+ (Negative); RBC Urine Automated >30 /hpf (0-4); Specific Gravity Urine 1.023 (1.000-1.030); Urobilinogen Urine Negative (Negative); WBC Urine Automated >30 /hpf (0-5)
[2022-10-30] MEDS: SODIUM CHLORIDE 0.9% 1000ML 1,000 ML IV SCH (23:41)
[2022-10-30] MEDS: CLOTRIMAZOLE 10 MG TROCHE BUCCAL SCH (23:41)
[2022-10-31 00:11] LABS: Bilirubin Urine 2+ (Negative)
[2022-10-31 00:33] LABS: Cast Urine Automated 0 /lpf (0-5); Uric Acid Crystals Urine Present (None Prsent)
[2022-10-31] MEDS: LEVOTHYROXINE SODIUM 150 MCG TABLET PO SCH (05:42)
[2022-10-31] MEDS: CLOTRIMAZOLE 10 MG TROCHE BUCCAL SCH ×5 (05:42→23:40)
[2022-10-31] MEDS: SODIUM CHLORIDE 0.9% 1000ML 1,000 ML IV SCH ×2 (05:43→16:17)
[2022-10-31 06:39] LABS: Hematocrit (blood only) 26.5 % (37.0-47.0); Hemoglobin 8.3 g/dl (12.0-16.0); Mean Corpuscular Hemoglobin 29.2 pg (25.0-34.0); Mean Corpuscular Hgb Conc 31.3 g/dL (32.0-36.0); Mean Corpuscular Volume 93.3 fL (80.0-100.0); Mean Platelet Volume 9.7 fL (9.4-12.4); Nucleated RBC # (auto) 0.02 K/uL (0-0.12); Nucleated RBC % (auto) 0.1 %; Platelet Count 745 K/uL (130-400); RDW Coefficient of Variation 18.8 % (11.5-14.5); Red Blood Count 2.84 M/uL (4.20-5.40); White Blood Count 18.67 K/ul (4.8-10.8)
[2022-10-31 07:03] LABS: BUN Creatinine Ratio 32.6 (10-20); Calcium 8.5 mg/dl (8.6-10.3); Creatinine Clr Calc Pharmacy 41.4 ml/min; Est GFR (African American) 44.8 ml/min; Est GFR (Non-African American) 38.6 ml/min; Potassium 4.6 mmol/L (3.5-5.1)
[2022-10-31] MEDS: PANTOprazole 40 MG TAB PO SCH (09:11)
[2022-10-31] MEDS: CHOLECALCIFEROL 1,000 UNITS 25 MCG TAB PO SCH (09:11)
[2022-10-31] MEDS: INSULIN ASPART PER UNIT CHARGE SC SCH ×4 (09:11→21:20)
[2022-10-31] MEDS: APIXABAN 5 MG TABLET PO SCH ×2 (09:11→20:05)
--- NOTE | 2022-10-31 11:22 | Electrocardiogram Report ---
Test Reason : Blood Pressure : / mmHG Vent. Rate : 112 BPM Atrial Rate : 038 BPM P-R Int : 000 ms QRS Dur : 104 ms QT Int : 336 ms P-R-T Axes : 000 068 127 degrees QTc Int : 458 ms Accelerated Junctional rhythm with frequent Premature ventricular complexes Low voltage QRS Nonspecific T wave abnormality Abnormal ECG When compared with ECG of 30-OCT-2022 14:57, Questionable change in QRS axis Confirmed by Manny Silva ([id number]) on 10/31/2022 11:21:36 AM Referred By: REFERRED SELF Confirmed By:Manny Silva
--- NOTE | 2022-10-31 15:56 | Hospitalist Progress Note ---
Date of Service October 31, 2022 Assessment & Plan (1) Urinary retention: (2) Leukocytosis: (3) Hyponatremia: (4) Acute kidney failure: (5) Metastasis from pancreatic cancer: (6) Pulmonary emboli: (7) Hypothyroidism: (8) Diabetes mellitus, type 2: Plan This is a 71yo F with a PMH of recent admission for PE, metastatic pancreatic cancer status post surgery (chemotherapy currently on hold due to weakness), progressive disease noted on CAT scan, hyponatremia 2/2 poor PO intake, DM II, hypothyroidism, anemia and other medical problems who presents with ongoing weakness and fall at home. Generalized weakness In setting of poor cancer prognosis, dehydration Placement recommended on previous admission but patient elected to return home with services Fall precautions, rehydration, PT/OT evaluation - goal is to return home with services Declined palliative consult Weakness persist which is multifactorial and mainly due to metastatic pancreatic cancer Pulmonary emboli Metastasis from pancreatic cancer DVT (deep venous thrombosis) History of metastatic pancreatic cancer status post surgery (chemotherapy currently on hold due to weakness), progressive disease noted on CAT scan. Follows up with Dr. Sutherland. Last chemotherapy on October 11, 2022 CTA chest reviewed; numerous bilateral PE Transitioned to Eliquis 10 mg twice daily x7 days, then 5 mg twice daily We will continue Eliquis for now Acute kidney failure Cr 1.27 (baseline ~0.8). Likely pre-renal Continue fluid resuscitation Monitor with daily BMP -creatinine remains elevated We will continue with intravenous fluid and was advised to drink more fluid Hypotension SBP 80-90s since arrival, resting comfortably and responding to questions Received 1 L NSS fluid bolus in ED, continue maintenance fluids WBC unchanged from previous, afebrile, cont. to monitor Blood pressure remains on the lower side Arrhythmia ECG with probable Accelerated Junctional rhythm with frequent Premature ventricular complexes in a pattern of bigeminy, HR [id number] Resting comfortably, no CP, denies any lightheadedness or palpitations Continue to monitor on telemetry overnight, repeat EKG in AM Echo of the heart showed hyperdynamic EF more than 70% no significant valvular disease Urinary retention Indwelling charlton in place from retention on previous admission Charlton catheter placed for now, maintain for 7 to 10 days per urology Trial of voiding as an outpatient Hyponatremia Ongoing due to hypovolemia, dehydration. 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 and no evidence of any infection Antibiotics are not indicated Diabetes II A1c of 8.5 in August 2022 Hold home agents SSI while in-patient BSG AC HS Abnormal CT findings Liver lesions, many suggestive of simple liver cyst with at least one lesion identified in the anterior left liver lobe representing a solid lesion otherwise incompletely characterized Follow-up with RUQ ultrasound recommended to evaluate cystic versus solid lesion as out-patient Goals of care discussion During previous admission with palliative service Patient was to follow-up with oncology and decide on further cancer treatment - declined further palliative care at this time DVT Ppx: Eliquis Code status: DNR/DNI PCP: Jerald Dispo: Admitted to PCU Discussion with the family members in detail Updated about the pancreatic cancer status with metastasis and updated about irregularities of the heart Condition is stable but critical Prognosis remains poor Admission and Anticipated Discharge Date Admission Date: October 30, 2022 Subjective 10/31/2022 The patient was seen and examined in telemetry unit in presence of the family members She has been feeling a little better but he still remains very weak and lethargic No shortness of breath and no dizziness No fever and or chills and no abdominal pain Review of Systems Review of Systems: All systems reviewed and are unremarkable except as noted below Physical Exam Physical Exam: General Appearance: WD/WN, vitals as above, appears chronically ill, pale, fatigued Head: normocephalic, atraumatic Eyes: normal inspection, PERRL, conjunctivae normal, anicteric sclerae ENT: external ear and nose normal, oropharynx with dry mucous membranes Neck: normal visual inspection, trachea midline, no thyromegaly Respiratory: normal respiratory effort, lungs clear to auscultation, no wheeze, rales, rhonchi. No accessory muscle use Cardiovascular: bradycardic rate, irregular rhythm, normal peripheral pulses, 1+ BLE edema. Vessels: no JVD Chest: normal inspection of chest Abdomen/GI: normal bowel sounds, soft, nontender, no hepatosplenomegaly : + Charlton Extremities/Musculoskeletal: no cyanosis or clubbing, extremities motor strength 5/5 Neurologic: PERRL, EOMI, accommodation nl, no face palsy, no dysarthria, CN's II-XI intact bilaterally and moves all extremities Psychiatric: A+Ox3, flattened affect Skin: no rashes, normal color, warm/dry Results & Data Results & Data Vital Signs (Past 12 Hours) Vital Signs Temp Pulse Resp BP Pulse Ox O2 Del Method 10/31/22 13:22 Room Air 10/31/22 12:20 36.4 C L 79 16 88/62 L 96 Room Air 10/31/22 08:08 36.3 C L 97 H 18 94/64 L 96 Room Air 10/31/22 05:41 102/63 Laboratory Results Short CBC 10/30/22 10/31/22 Range/Units 15:21 05:41 WBC 19.39 H 18.67 H (4.8-10.8) K/ul Hgb 8.7 L 8.3 L (12.0-16.0) g/dl Hct 27.8 L 26.5 L (37.0-47.0) % Plt Count 822 H 745 H (130-400) K/uL BMP 10/30/22 10/31/22 15:21 05:41 Sodium 128 L 130 L Potassium 4.7 4.6 Chloride 101 104 Carbon Dioxide 14 L 15 L BUN 42 H 45 H Creatinine 1.27 H 1.38 H Glucose 223 H 187 H Calcium 8.3 L 8.5 L Liver Function 10/30/22 Range/Units 15:21 Total Bilirubin 0.4 (0.2-1.0) mg/dl AST 13 (13-39) U/L ALT 8 (7-52) U/L Alkaline Phosphatase 86 (34-104) U/L Albumin 2.6 L (3.4-5.0) gm/dl Urine 10/30/22 Range/Units Unknown Urine Color [place] Urine Appearance Turbid A (Clear) Urine pH 5.0 (4.5-7.5) Ur Specific [place] 1.023 (1.000-1.030) Urine Protein 2+ H (Negative) Urine Glucose (UA) Trace H (Negative) Medications Administered Current Inpatient Medications Acetaminophen (Acetaminophen 325 Mg Tab) 650 mg PO Q4H PRN PRN Reason: Pain or Fever Stop: 11/29/22 22:20 Apixaban (Apixaban 5 Mg Tablet) 5 mg PO BID [facility] Stop: 11/29/22 22:59 Last Admin: 10/31/22 09:11 Dose: 5 mg Clotrimazole (Clotrimazole 10 Mg Augusto) 10 mg BUCCAL [id number] Stop: 11/13/22 19:01 Last Admin: 10/31/22 14:29 Dose: 10 mg Dextrose (Dextrose 50% 50 Ml Syringe) 25 - 50 ml IV UD PRN; Protocol PRN Reason: Hypoglycemia Protocol Stop: 11/29/22 22:55 Glucagon (Glucagon For Inj 1 Mg Vial) 1 mg SQ UD PRN; Protocol PRN Reason: Hypoglycemia Protocol Stop: 11/29/22 22:55 Glucose (Glucose 10 Tab/Tube) 4 - 8 tab PO UD PRN; Protocol PRN Reason: Hypoglycemia Treatment Stop: 11/29/22 22:55 Glucose (Glucose 40% Gel 15 Gm Tube) 15 - 30 gm PO UD PRN; Protocol PRN Reason: Hypoglycemia Protocol Stop: 11/29/22 22:55 Insulin Aspart (Insulin Aspart Per Unit Charge) 0 units SC ACHS [facility] Stop: 11/30/22 07:29 Last Admin: 10/31/22 13:01 Dose: 1 units Levothyroxine Sodium (Levothyroxine Sodium 150 Mcg Tablet) 150 mcg PO DAILYBB [facility] Stop: 11/30/22 06:29 Last Admin: 10/31/22 05:42 Dose: 150 mcg Miscellaneous (Carbohydrates For Hypoglycemia ) 15 - 30 gm PO UD PRN PRN Reason: Hypoglycemia Protocol Stop: 11/29/22 22:55 Ondansetron HCl (Ondansetron Inj 2 Mg/Ml 2 Ml Vial) 4 mg IV Q6H PRN PRN Reason: Nausea Stop: 11/29/22 22:20 Pantoprazole Sodium (Pantoprazole 40 Mg Tab) 40 mg PO QAM [facility] Stop: 11/30/22 08:59 Last Admin: 10/31/22 09:11 Dose: 40 mg Polyethylene Glycol (Polyethylene (Miralax) 17 Gm Pack) 17 gm PO DAILY PRN PRN Reason: Constipation Stop: 11/29/22 22:20 Prochlorperazine (Prochlorperazine Maleate 10 Mg Tab) 10 mg PO Q6 PRN PRN Reason: Nausea Stop: 11/29/22 22:52 Vitamin D (Cholecalciferol 1,000 Units 25 Mcg Tab) 2,000 units PO QAM [facility] Stop: 11/30/22 08:59 Last Admin: 10/31/22 09:11 Dose: 2,000 units (2) Leukocytosis Leukocytosis type: unspecified Qualified Code(s): D72.829 - Elevated white blood cell count, unspecified (6) Pulmonary emboli Pulmonary embolism type: multiple subsegmental (without acute cor pulmonale) Qualified Code(s): I26.94 - Multiple subsegmental pulmonary emboli without acute cor pulmonale
[2022-11-01] MEDS: SODIUM CHLORIDE 0.9% 1000ML 1,000 ML IV SCH (00:40)
--- NOTE | 2022-11-01 02:02 | Urology Consultation ---
Date of Consultation November 01, 2022 Assessment & Plan (1) Urinary retention: Urology was asked to see this patient secondary to urinary retention and Mountain functioning Charlton catheter. As noted the patient's Charlton catheter was felt to be nonfunctional this was exchanged by the nursing staff and again the catheter was not draining appropriately. I presented to the patient's bedside where the nurses performed an additional bladder scan where the patient was noted to have an excess of 700 cc. I tried to flush and irrigate the patient's catheter and I was only able to flush the catheter and retrieve only the irrigation that was placed in her bladder. I therefore elected to take the existing Charlton catheter out and exchanges for another Charlton catheter to see if it was a Charlton catheter malfunction. New Charlton catheter was inserted without difficulty and was flushed easily but I was only able to obtain the irrigation that I placed into the bladder. As this Charlton catheter did not appear to be functioning properly was subsequent removed. I did discuss case with my attending physician Dr. Langley and patient's imaging that was available was reviewed. As the patient has known metastatic pancreatic cancer with a large volume of abdominopelvic ascites consideration was given that perhaps the amount of fluid noted on bladder scan was actually abdominal pelvic ascites. We therefore replaced the patient's Charlton catheter without difficulty and flushed and irrigated this Charlton catheter. We are easily able to retrieve all the irrigation that was flushed into the Charlton catheter with minimal to no urine output. I discussed with the patient that it is possible that she merely has minimal to no urine in her bladder and again the fluid we are seeing on bladder scan in the discomfort in her lower abdomen may be from abdominal pelvic ascites. For the present time we will leave the Charlton catheter in place and we will obtain a ultrasound to see if the bladder is decompressed around the Charlton catheter balloon with additional recommendations to follow. At the conclusion of the above events the patient did note that she was somewhat comfortable and noted she had some lower abdominal discomfort as noted before but it was not unbearable and she was not in extremis. Bladder US reviewed and it appeared the bladder was decompressed with charlton. I re-visited the patient around 5:45 am and RN notes she had about 50 cc of urine since most recent charlton exchange. History of Present Illness Reason for Consultation: Malfunctioning Charlton Attending Physician: Abiola Mcintosh MD History of Present Illness This is a 71-year-old female who has an underlying history of metastatic pancreatic cancer. The patient had a recent admission to [facility] secondary to pulmonary emboli at which time she developed urinary retention. A Charlton catheter was placed and the patient has had this Charlton catheter since that time. The patient was readmitted to [facility] on 10/30/2022 secondary to generalized weakness and failure to thrive. Urology was consulted as the patient was noted to have minimal output from her Charlton catheter throughout the day on 10/31/2022. The warehouse supervisor 3rd shift nurse noted that the patient again had minimal urine output and the patient was complaining of some lower abdominal discomfort. It was noted that the patient had minimal output from her Charlton catheter. Her Charlton catheter was flushed and irrigated with minimal return. The patient did have her Charlton catheter exchanged and again little to no output was obtained. A bladder scan was performed at bedside were in excess of 700 cc was noted. There is concern the patient had some type of obstructive process in her Charlton catheter and so therefore urology was consulted. At the time of this provider's interview with the patient she did complain of some lower abdominal pain. She did not report any nausea or vomiting. She did not report any fevers, shakes, or chills. CT scan of the abdomen and pelvis performed on 10/21/2022. This showed the patient had a large pancreatic tail mass with extensive peritoneal and omental carcinomatosis and a large amount of abdominal pelvic ascites. No hydronephrosis was noted on this study. Patient did have a Charlton catheter at the time of the study which resulted in decompression of the bladder. Patient has also had a renal ultrasound on 10/22/2022 that showed a large amount of abdominal pelvic ascites and the bladder was again noted to be decompressed around the Charlton catheter. There is no hydronephrosis on this study. Allergies Allergy/AdvReac Type Severity Reaction Status Date / Time adhesive Allergy Mild Rash (with Verified 09/29/22 19:13 older bandaids) nickel Allergy Mild Rash Verified 09/29/22 19:13 tetanus toxoid, adsorbed AdvReac Intermediate Elevated BP Verified 09/29/22 19:13 NSAIDS (Non-Steroidal AdvReac Unknown was "told Verified 09/29/22 19:13 Anti-Inflamma to avoid" Home Medications Medication Instructions Recorded Confirmed Type atenolol 25 mg tablet 25 mg PO QAM 12/02/18 10/30/22 History cholecalciferol (vitamin D3) 50 2,000 unit PO QAM 12/02/18 10/30/22 History mcg (2,000 unit) tablet levothyroxine 150 mcg tablet 150 mcg PO DAILYBB 12/02/18 10/30/22 History omeprazole 20 mg capsule,delayed 20 mg PO QAM 12/02/18 10/30/22 History release metformin 500 mg tablet,extended 1,000 mg PO BIDM 09/29/22 10/30/22 History release 24 hr ondansetron HCl 8 mg tablet 8 mg PO Q8 PRN Nausea 09/29/22 10/30/22 History prochlorperazine maleate 10 mg 10 mg PO Q6 PRN Nausea 09/29/22 10/30/22 History tablet clotrimazole 10 mg rosalia 10 mg PO 5XD 10/21/22 10/30/22 History apixaban 5 mg tablet (Eliquis) 5 mg PO BID #60 tabs 10/23/22 10/30/22 Rx Patient History Medical History Advanced care planning/counseling discussion Diabetes mellitus, type 2 NIDDM Former smoker GERD (gastroesophageal reflux disease) controlled HTN (hypertension) Hypothyroidism Metastasis from pancreatic cancer Obesity Osteoarthritis Palliative care by specialist Skin cancer s/p precancerous skin excision Weakness generalized Surgical History H/O breast biopsy BENIGN H/O colonoscopy H/O tubal ligation History of appendectomy [facility] 2012. MAC #3, ET 7.0 grade view I. History of cholecystectomy 01/08/19: Grade view 1, MAC#3, ETT 7.5 at [facility] History of hysterectomy with unilateral oophorectomy History of left hip replacement (~12/2019) History of repair of rotator cuff LEFT History of tooth extraction Orbital fracture REPAIRED (? HARDWARE INTACT/POSSIBLE WIRE) Family History Mother Family history of diabetes mellitus Social History Smoking Status: Former smoker Tobacco Type: Cigarettes Second Hand Exposure: No; Do You Dip or Chew Tobacco: No; Tobacco Cessation Education Requested by Patient: No Hx Alcohol Use: No Hx Substance Use: No Preferred Language: Finnish Communication Ability: Effective Visual Impairment: Limited Hearing Ability: Normal Contract Implementation Analyst Required: No Beliefs That Will Affect Care: None marital status: Current Living Situation: Significant Other Current Living Situation Comment: FRIEND LESLY Other Information That Helps Us Care for You: No Feels Safe at Home: Yes Safety Concerns: Feels Safe At This Time Assistive Devices: Walker Review of Systems Constitutional: no fever and no chills Eyes: + corrective lenses Ear, Nose, Mouth, Throat: no hearing loss Respiratory: no cough Cardiovascular: no chest pain Gastrointestinal: + abdominal pain (Lower abdominal discomfort); no nausea and no vomiting Genitourinary: Urinary retention Musculoskeletal: no back pain Neurologic: + generalized weakness Physical Exam Constitutional: WD/WN, vitals as above Eyes: Wears glasses ENMT: Ears: no hearing impairment and no external ear abnormality Mouth: no oropharynx abnormality Neck: trachea midline Respiratory: normal respiratory effort; no respiratory distress and no labored breathing Cardiovascular: Rate/Rhythm: regular rate and regular rhythm Gastrointestinal (Abdomen): Abdomen is nonrigid and soft. Patient did have some mild distention. There is no rebound tenderness or guarding Musculoskeletal: 1+ lower extremity edema noted bilaterally Psychiatric: A+Ox3, euthymic affect Results & Data Vital Signs (Past 12 Hours) Vital Signs Temp Pulse Resp BP Pulse Ox O2 Del Method 10/31/22 23:22 36.3 C L 69 18 95/65 L 96 Room Air 10/31/22 19:27 36.4 C L 79 22 94/64 L 96 Room Air 10/31/22 16:47 36.0 C L 82 16 90/64 L 97 Room Air PG Care Time/CCT Total # of Minutes Spent Total Time Spent with Patient: Total time spent is greater than 50% in coordination of care (as documented) at patient's floor/unit and/or counseling patient: Coding Level of Care Code 38437 INT INP/OBS CARE 2/55MIN Diagnoses Urinary retention R33.9
--- NOTE | 2022-11-01 04:09 | Ultrasound Report ---
Exam(s): US BLADDER EXAM: US Pelvis Transabdominal, Complete CLINICAL HISTORY: Reason for exam: assess for charlton placement/decompressed bladder. TECHNIQUE: Real-time complete transabdominal pelvic ultrasound with image documentation. COMPARISON: No relevant prior studies available. FINDINGS: Free fluid: Moderate ascites. Bladder: Charlton catheter is identified in the pelvis likely within a decompressed bladder. IMPRESSION: 1. Moderate ascites. 2. Charlton catheter is identified in the pelvis likely within a decompressed bladder. Electronically signed by: Myles Dillon M.D. 11/01/22 04:07 AM
[2022-11-01] MEDS: HEPARIN 100 UNIT/ML 5ML FLUSH FLUSH PRN (05:47)
[2022-11-01] MEDS: LEVOTHYROXINE SODIUM 150 MCG TABLET PO SCH (05:48)
[2022-11-01] MEDS: CLOTRIMAZOLE 10 MG TROCHE BUCCAL SCH ×5 (06:00→22:26)
[2022-11-01 06:24] LABS: Basophils # (auto) 0.08 K/uL (0-0.2); Basophils % (auto) 0.4 %; Eosinophils # (auto) 0.05 K/uL (0-0.50); Eosinophils % (auto) 0.3 %; Hematocrit (blood only) 25.2 % (37.0-47.0); Immature Granulocytes # (auto) 0.73 K/uL (0.01-0.20); Immature Granulocytes % (auto) 3.8 %; Lymphocytes # (auto) 1.47 K/uL (1.2-3.4); Lymphocytes % (auto) 7.6 %; Mean Corpuscular Hgb Conc 31.7 g/dL (32.0-36.0); Mean Corpuscular Volume 94.4 fL (80.0-100.0); Mean Platelet Volume 9.5 fL (9.4-12.4); Monocytes # (auto) 1.38 K/uL (0.11-0.59); Monocytes % (auto) 7.1 %; Neutrophils # (auto) 15.65 K/uL (1.40-6.50); Neutrophils % (auto) 80.8 %; Platelet Count 645 K/uL (130-400); RDW Coefficient of Variation 19.3 % (11.5-14.5); RDW Standard Deviation 64.4 fL (36.4-46.3); Red Blood Count 2.67 M/uL (4.20-5.40); White Blood Count 19.36 K/ul (4.8-10.8)
[2022-11-01 06:37] LABS: Calcium 8.3 mg/dl (8.6-10.3); Creatinine Clr Calc Pharmacy 39.5 ml/min; Est GFR (African American) 41.5 ml/min; Est GFR (Non-African American) 35.8 ml/min; Potassium 4.1 mmol/L (3.5-5.1)
[2022-11-01] MEDS: APIXABAN 5 MG TABLET PO SCH (08:07)
[2022-11-01] MEDS: CHOLECALCIFEROL 1,000 UNITS 25 MCG TAB PO SCH (08:08)
[2022-11-01] MEDS: PANTOprazole 40 MG TAB PO SCH (08:08)
[2022-11-01] MEDS: INSULIN ASPART PER UNIT CHARGE SC SCH ×4 (08:15→21:45)
[2022-11-01] MEDS ORDERED: cefTRIAXone SODIUM 1,000 MG in DEXTROSE 5% AD-VAN 50 ML IV SCH (08:15)
[2022-11-01] MEDS: cefTRIAXone SODIUM 2,000 MG in DEXTROSE 5% 50 ML IV SCH (10:46)
--- NOTE | 2022-11-01 11:43 | Urology Progress Note ---
Date of Service November 01, 2022 Assessment & Plan (1) Urinary retention: Plan: Follow-up of urinary retention. Bladder US reviewed and bladder was decompressed with Murdock. Murdock is patent and draining yellow urine during exam. Urine output has been low. Urine culture showing low counts of gram negative bacilli - has been started on IV Rocephin by primary team. Patient asked about doing a voiding trial while inpatient. She remains weak and deconditioned. She has declined PT/OT per nursing. We discussed that with her abd/pelvic ascites and low urine output it will be difficult to monitor for retention if catheter is removed and she is unable to void. Recommend keep Murdock for now and likely maintain until outpatient follow- up. Can reassess if she remains inpatient. Continue supportive care and management per medicine service. Plan for follow-up with urology outpatient. Admission and Anticipated Discharge Date Admission Date: October 30, 2022 Subjective Patient seen and examined at bedside this morning. She is awake and resting in bed. Reports feeling tired and weak. She has some abdominal/pelvic discomfort. Murdock is draining clear yellow urine. Review of Systems Constitutional: as per Subjective / HPI Gastrointestinal: as per Subjective / HPI Genitourinary: as per Subjective / HPI Physical Exam Constitutional: no acute distress Respiratory: normal respiratory effort; no respiratory distress and no labored breathing Cardiovascular: Extremities: + edema (mild left lower extremity edema) Gastrointestinal (Abdomen): Percussion/Palpation: abdomen soft; abdomen nontender Psychiatric: Orientation: alert and oriented x 3 Genitourinary: Murdock patent and draining light yellow urine Results & Data Vital Signs (Past 12 Hours) Vital Signs Temp Pulse Pulse Resp BP Pulse Ox O2 Del Method 11/01/22 11:04 Room Air 11/01/22 08:37 36.3 C L 70 18 96/66 L 96 Room Air 11/01/22 07:37 69 11/01/22 03:44 36.3 C L 105 H 20 91/67 L 94 Room Air PG Care Time/CCT Total # of Minutes Spent Total Time Spent with Patient: Total time spent is greater than 50% in coordination of care (as documented) at patient's floor/unit and/or counseling patient: Coding Level of Care Code None Diagnoses Urinary retention R33.9
[2022-11-01 12:40] LABS: INR 1.2 (0.9-1.1); Prothrombin Time 12.9 Seconds (9.0-12.0)
--- NOTE | 2022-11-01 15:57 | Hospitalist Progress Note ---
Date of Service November 01, 2022 Assessment & Plan (1) Urinary retention: (2) Leukocytosis: (3) Hyponatremia: (4) Acute kidney failure: (5) Metastasis from pancreatic cancer: (6) Pulmonary emboli: (7) Hypothyroidism: (8) Diabetes mellitus, type 2: Plan This is a 71yo F with a PMH of recent admission for PE, metastatic pancreatic cancer status post surgery (chemotherapy currently on hold due to weakness), progressive disease noted on CAT scan, hyponatremia 2/2 poor PO intake, DM II, hypothyroidism, anemia and other medical problems who presents with ongoing weakness and fall at home. Generalized weakness In setting of poor cancer prognosis, dehydration Placement recommended on previous admission but patient elected to return home with services Fall precautions, rehydration, PT/OT evaluation - goal is to return home with services Declined palliative consult Weakness persist which is multifactorial and mainly due to metastatic pancreatic cancer Remains stable but critical Urinary retention Indwelling charlton in place from retention on previous admission Charlton catheter placed for now, maintain for 7 to 10 days per urology Has a problem last night with passing urine Urology service was consulted and the patient required multiple times of catheterization last night Appreciate urology input and recommendation Has ascites clinically and also with the ultrasound We will try to get paracentesis The patient is on Eliquis We will hold Eliquis from tomorrow so that paracentesis can be done Saturday or Saturday Pulmonary emboli Metastasis from pancreatic cancer Subacute DVT (deep venous thrombosis) History of metastatic pancreatic cancer status post surgery (chemotherapy currently on hold due to weakness), progressive disease noted on CAT scan. Follows up with Dr. Sutherland. Last chemotherapy on October 11, 2022 CTA chest reviewed; numerous bilateral PE Transitioned to Eliquis 10 mg twice daily x7 days, then 5 mg twice daily We will continue Eliquis for now We will hold Eliquis from tomorrow for possible paracentesis on Saturday/Saturday Acute kidney failure Cr 1.27 (baseline ~0.8). Likely pre-renal Continue fluid resuscitation Monitor with daily BMP -creatinine remains elevated We will continue with intravenous fluid and was advised to drink more fluid Kidney function has been getting slightly worse with BUN and creatinine at 47/4.7 on 11/01/2022 Hypotension SBP 80-90s since arrival, resting comfortably and responding to questions Received 1 L NSS fluid bolus in ED, continue maintenance fluids WBC unchanged from previous, afebrile, cont. to monitor Blood pressure remains on the lower side Arrhythmia ECG with probable Accelerated Junctional rhythm with frequent Premature ventricular complexes in a pattern of bigeminy, HR [id number] Resting comfortably, no CP, denies any lightheadedness or palpitations Continue to monitor on telemetry overnight, repeat EKG in AM Echo of the heart showed hyperdynamic EF more than 70% no significant valvular disease Hyponatremia Ongoing due to hypovolemia, dehydration. 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 and no evidence of any infection Antibiotics are not indicated Diabetes II A1c of 8.5 in August 2022 Hold home agents SSI while in-patient BSG AC HS Abnormal CT findings Liver lesions, many suggestive of simple liver cyst with at least one lesion identified in the anterior left liver lobe representing a solid lesion otherwise incompletely characterized Follow-up with RUQ ultrasound recommended to evaluate cystic versus solid lesion as out-patient Goals of care discussion During previous admission with palliative service Patient was to follow-up with oncology and decide on further cancer treatment - declined further palliative care at this time DVT Ppx: Eliquis Code status: DNR/DNI PCP: Jerald Dispo: Admitted to PCU Discussion with the family members in detail Updated about the pancreatic cancer status with metastasis and updated about irregularities of the heart Condition is stable but critical Prognosis remains poor Admission and Anticipated Discharge Date Admission Date: October 30, 2022 Subjective 10/31/2022 The patient was seen and examined in telemetry unit in presence of the family members She has been feeling a little better but he still remains very weak and lethargic No shortness of breath and no dizziness No fever and or chills and no abdominal pain 11/01/2022 The patient was seen and examined in telemetry unit She has been stable but remains very weak and lethargic Complains abdominal discomfort and wants to avoid Has had issues with voiding last night and urologist has been helping with it with the Charlton placement No fever and or chills and denies any significant pain Review of Systems Review of Systems: All systems reviewed and are unremarkable except as noted below Physical Exam Physical Exam: General Appearance: WD/WN, vitals as above, appears chronically ill, pale, fatigued Head: normocephalic, atraumatic Eyes: normal inspection, PERRL, conjunctivae normal, anicteric sclerae ENT: external ear and nose normal, oropharynx with dry mucous membranes Neck: normal visual inspection, trachea midline, no thyromegaly Respiratory: normal respiratory effort, lungs clear to auscultation, no wheeze, rales, rhonchi. No accessory muscle use Cardiovascular: bradycardic rate, irregular rhythm, normal peripheral pulses, 1+ BLE edema. Vessels: no JVD Chest: normal inspection of chest Abdomen/GI: Mildly distended, minimal fluid in the abdomen clinically, mildly tender normal bowel sounds, soft, no hepatosplenomegaly : + Charlton Extremities/Musculoskeletal: no cyanosis or clubbing, extremities motor strength 5/5 Neurologic: PERRL, EOMI, accommodation nl, no face palsy, no dysarthria, CN's II-XI intact bilaterally and moves all extremities remains very weak and lethargic Psychiatric: A+Ox3, flattened affect Skin: no rashes, normal color, warm/dry Results & Data Results & Data Vital Signs (Past 12 Hours) Vital Signs Temp Pulse Pulse Resp BP Pulse Ox O2 Del Method 11/01/22 12:31 36.6 C 72 18 100/69 94 Room Air 11/01/22 11:04 Room Air 11/01/22 08:37 36.3 C L 70 18 96/66 L 96 Room Air 11/01/22 07:37 69 Laboratory Results Short CBC 11/01/22 Range/Units 05:47 WBC 19.36 H (4.8-10.8) K/ul Hgb 8.0 L (12.0-16.0) g/dl Hct 25.2 L (37.0-47.0) % Plt Count 645 H (130-400) K/uL BMP 11/01/22 05:47 Sodium 131 L Potassium 4.1 Chloride 105 Carbon Dioxide 15 L BUN 47 H Creatinine 1.47 H Glucose 136 H Calcium 8.3 L Medications Administered Current Inpatient Medications Acetaminophen (Acetaminophen 325 Mg Tab) 650 mg PO Q4H PRN PRN Reason: Pain or Fever Stop: 11/29/22 22:20 Apixaban (Apixaban 5 Mg Tablet) 5 mg PO BID KIERSTEN Stop: 11/29/22 22:59 Last Admin: 11/01/22 08:07 Dose: 5 mg Clotrimazole (Clotrimazole 10 Mg Augusto) 10 mg BUCCAL [id number] KIERSTEN Stop: 11/13/22 19:01 Last Admin: 11/01/22 10:46 Dose: Not Given Dextrose (Dextrose 50% 50 Ml Syringe) 25 - 50 ml IV UD PRN; Protocol PRN Reason: Hypoglycemia Protocol Stop: 11/29/22 22:55 Glucagon (Glucagon For Inj 1 Mg Vial) 1 mg SQ UD PRN; Protocol PRN Reason: Hypoglycemia Protocol Stop: 11/29/22 22:55 Glucose (Glucose 10 Tab/Tube) 4 - 8 tab PO UD PRN; Protocol PRN Reason: Hypoglycemia Treatment Stop: 11/29/22 22:55 Glucose (Glucose 40% Gel 15 Gm Tube) 15 - 30 gm PO UD PRN; Protocol PRN Reason: Hypoglycemia Protocol Stop: 11/29/22 22:55 Heparin Sodium (Porcine) (Heparin 100 Unit/Ml 5ml Flush) 5 ml FLUSH PRN PRN PRN Reason: Flush Stop: 12/01/22 00:43 Last Admin: 11/01/22 05:47 Dose: 5 ml Ceftriaxone Sodium 2,000 mg/ (Dextrose) 70 mls @ 140 mls/hr IV Q24H KIERSTEN Stop: 11/11/22 08:59 Last Infusion: 11/01/22 11:17 Dose: Infused Insulin Aspart (Insulin Aspart Per Unit Charge) 0 units SC ACHS KIERSTEN Stop: 11/30/22 07:29 Last Admin: 11/01/22 12:11 Dose: 2 units Levothyroxine Sodium (Levothyroxine Sodium 150 Mcg Tablet) 150 mcg PO DAILYBB [facility] Stop: 11/30/22 06:29 Last Admin: 11/01/22 05:48 Dose: 150 mcg Miscellaneous (Carbohydrates For Hypoglycemia ) 15 - 30 gm PO UD PRN PRN Reason: Hypoglycemia Protocol Stop: 11/29/22 22:55 Ondansetron HCl (Ondansetron Inj 2 Mg/Ml 2 Ml Vial) 4 mg IV Q6H PRN PRN Reason: Nausea Stop: 11/29/22 22:20 Pantoprazole Sodium (Pantoprazole 40 Mg Tab) 40 mg PO QAM [facility] Stop: 11/30/22 08:59 Last Admin: 11/01/22 08:08 Dose: 40 mg Polyethylene Glycol (Polyethylene (Miralax) 17 Gm Pack) 17 gm PO DAILY PRN PRN Reason: Constipation Stop: 11/29/22 22:20 Prochlorperazine (Prochlorperazine Maleate 10 Mg Tab) 10 mg PO Q6 PRN PRN Reason: Nausea Stop: 11/29/22 22:52 Vitamin D (Cholecalciferol 1,000 Units 25 Mcg Tab) [facility] [place]: 11/30/22 08:59 Last Admin: 11/01/22 08:08 Dose: Not Given (2) Leukocytosis Leukocytosis type: unspecified Qualified Code(s): D72.829 - Elevated white blood cell count, unspecified (6) Pulmonary emboli Pulmonary embolism type: multiple subsegmental (without acute cor pulmonale) Qualified Code(s): I26.94 - Multiple subsegmental pulmonary emboli without acute cor pulmonale
[2022-11-02] MEDS: ACETAMINOPHEN 325 MG TAB PO PRN (00:04)
[2022-11-02] MEDS: HEPARIN 100 UNIT/ML 5ML FLUSH FLUSH PRN (01:42)
[2022-11-02] MEDS ORDERED: oxyCODONE HCL IR 5 MG TAB (IMMEDIATE RELEASE) PO STA (01:46)
[2022-11-02] MEDS: LEVOTHYROXINE SODIUM 150 MCG TABLET PO SCH (06:02)
[2022-11-02] MEDS: CLOTRIMAZOLE 10 MG TROCHE BUCCAL SCH ×5 (06:03→23:38)
[2022-11-02] MEDS: CHOLECALCIFEROL 1,000 UNITS 25 MCG TAB PO SCH (08:33)
[2022-11-02] MEDS: PANTOprazole 40 MG TAB PO SCH (08:33)
[2022-11-02 08:57] LABS: Basophils % (auto) 0.5 %; Eosinophils # (auto) 0.06 K/uL (0-0.50); Eosinophils % (auto) 0.3 %; Hematocrit (blood only) 27.3 % (37.0-47.0); Hemoglobin 8.7 g/dl (12.0-16.0); Immature Granulocytes # (auto) 0.71 K/uL (0.01-0.20); Immature Granulocytes % (auto) 3.7 %; Lymphocytes % (auto) 7.3 %; Mean Corpuscular Hemoglobin 29.6 pg (25.0-34.0); Mean Corpuscular Hgb Conc 31.9 g/dL (32.0-36.0); Mean Corpuscular Volume 92.9 fL (80.0-100.0); Mean Platelet Volume 9.6 fL (9.4-12.4); Monocytes # (auto) 1.25 K/uL (0.11-0.59); Monocytes % (auto) 6.5 %; Neutrophils # (auto) 15.66 K/uL (1.40-6.50); Neutrophils % (auto) 81.7 %; Nucleated RBC # (auto) 0.02 K/uL (0-0.12); Nucleated RBC % (auto) 0.1 %; Platelet Count 604 K/uL (130-400); RDW Coefficient of Variation 19.6 % (11.5-14.5); RDW Standard Deviation 64.6 fL (36.4-46.3); Red Blood Count 2.94 M/uL (4.20-5.40); White Blood Count 19.18 K/ul (4.8-10.8)
[2022-11-02] MEDS: Heparin IV Adult Wt-Based Low-Dose *NO* Bolus Protocol IV SCH (08:59)
[2022-11-02 09:06] LABS: BUN Creatinine Ratio 33.3 (10-20); Calcium 8.6 mg/dl (8.6-10.3); Est GFR (African American) 37.7 ml/min; Est GFR (Non-African American) 32.6 ml/min; Potassium 4.4 mmol/L (3.5-5.1)
[2022-11-02 09:22] LABS: 18KDIGG Band REACTIVE; 23KDIGG Band NON-REACTIVE; 23KDIGM Band NON-REACTIVE; 28KDIGG Band NON-REACTIVE; 30KDIGG Band NON-REACTIVE; 39KDIGG Band NON-REACTIVE; 39KDIGM Band NON-REACTIVE; 41KDIGG Band NON-REACTIVE; 41KDIGM Band NON-REACTIVE; 45KDIGG Band NON-REACTIVE; 58KDIGG Band REACTIVE; 66KDIGG Band NON-REACTIVE; 93KDIGG Band REACTIVE; Lyme Antibodies, WB IgG NEGATIVE (NEGATIVE); Lyme Antibodies, WB IgM NEGATIVE (NEGATIVE)
[2022-11-02] MEDS: INSULIN ASPART PER UNIT CHARGE SC SCH ×4 (09:30→21:18)
[2022-11-02] MEDS: cefTRIAXone SODIUM 2,000 MG in DEXTROSE 5% 50 ML IV SCH (09:33)
[2022-11-02] MEDS: HEPARIN SODIUM/DEXTROSE 25,000 UNITS/500 ML BAG IV SCH (09:33)
[2022-11-02 11:00] LABS: Partial Thromboplastin Ratio 1.2; Partial Thromboplastin Time 32.8 Seconds (21.0-31.0)
--- NOTE | 2022-11-02 15:26 | Hospitalist Progress Note ---
Date of Service November 01, 2022 Assessment & Plan (1) Urinary retention: (2) Leukocytosis: (3) Hyponatremia: (4) Acute kidney failure: (5) Metastasis from pancreatic cancer: (6) Pulmonary emboli: (7) Hypothyroidism: (8) Diabetes mellitus, type 2: Plan This is a 71yo F with a PMH of recent admission for PE, metastatic pancreatic cancer status post surgery (chemotherapy currently on hold due to weakness), progressive disease noted on CAT scan, hyponatremia 2/2 poor PO intake, DM II, hypothyroidism, anemia and other medical problems who presents with ongoing weakness and fall at home. Generalized weakness In setting of poor cancer prognosis, dehydration Placement recommended on previous admission but patient elected to return home with services Fall precautions, rehydration, PT/OT evaluation - goal is to return home with services Declined palliative consult Weakness persist which is multifactorial and mainly due to metastatic pancreatic cancer Remains stable but critical Weakness is persisting which is multifactorial and mainly due to metastatic pancreatic cancer Urinary retention Indwelling charlton in place from retention on previous admission Charlton catheter placed for now, maintain for 7 to 10 days per urology Has a problem last night with passing urine Urology service was consulted and the patient required multiple times of catheterization last night Appreciate urology input and recommendation Has ascites clinically and also with the ultrasound We will try to get paracentesis The patient is on Eliquis We will hold Eliquis from tomorrow so that paracentesis can be done Saturday or Saturday Pulmonary emboli Metastasis from pancreatic cancer Subacute DVT (deep venous thrombosis) History of metastatic pancreatic cancer status post surgery (chemotherapy currently on hold due to weakness), progressive disease noted on CAT scan. Follows up with Dr. Sutherland. Last chemotherapy on October 11, 2022 CTA chest reviewed; numerous bilateral PE Transitioned to Eliquis 10 mg twice daily x7 days, then 5 mg twice daily We will continue Eliquis for now We will hold Eliquis from tomorrow for possible paracentesis on Saturday/Saturday Eliquis has been on hold from today and heparin low-dose without bolus has been started for treatment and prevention of clots The risk and benefit of heparin was discussed with the patient Acute kidney failure Cr 1.27 (baseline ~0.8). Likely pre-renal Continue fluid resuscitation Monitor with daily BMP -creatinine remains elevated We will continue with intravenous fluid and was advised to drink more fluid Kidney function has been getting slightly worse with BUN and creatinine at 47/4.7 on 11/01/2022 Creatinine has been going up and it is 1.59 today-patient is likely going through multiorgan failure Hypotension SBP 80-90s since arrival, resting comfortably and responding to questions Received 1 L NSS fluid bolus in ED, continue maintenance fluids WBC unchanged from previous, afebrile, cont. to monitor Blood pressure remains on the lower side Arrhythmia ECG with probable Accelerated Junctional rhythm with frequent Premature ventricular complexes in a pattern of bigeminy, HR [id number] Resting comfortably, no CP, denies any lightheadedness or palpitations Continue to monitor on telemetry overnight, repeat EKG in AM Echo of the heart showed hyperdynamic EF more than 70% no significant valvular disease Remains hemodynamically stable doubt any more arrhythmias Hyponatremia Ongoing due to hypovolemia, dehydration. Improved with hydration on previous admission HCTZ discontinued on previous admission Sodium level is 131 today Sodium is 129 as of today Leukocytosis Noted to have leukocytosis with WBC of 24K on last admission and was 19K at discharge, which it remains Negative infectious workup a few days prior with negative blood and urine cultures Completed course of IV ceftriaxone previous admission, no indication for continued abx at this time Monitor for fever, chills Likely secondary to pancreatic necrosis and no evidence of any infection Antibiotics are not indicated-he has been getting ceftriaxone for possible UTI Diabetes II A1c of 8.5 in August 2022 Hold home agents SSI while in-patient BSG AC HS Abnormal CT findings Liver lesions, many suggestive of simple liver cyst with at least one lesion identified in the anterior left liver lobe representing a solid lesion otherwise incompletely characterized Follow-up with RUQ ultrasound recommended to evaluate cystic versus solid lesion as out-patient Goals of care discussion During previous admission with palliative service Patient was to follow-up with oncology and decide on further cancer treatment - declined further palliative care at this time DVT Ppx: Eliquis Code status: DNR/DNI PCP: Jerald Dispo: Admitted to PCU Discussion with the family members in detail Updated about the pancreatic cancer status with metastasis and updated about irregularities of the heart Condition is stable but critical Prognosis remains poor Admission and Anticipated Discharge Date Admission Date: October 30, 2022 Subjective 10/31/2022 The patient was seen and examined in telemetry unit in presence of the family members She has been feeling a little better but he still remains very weak and lethargic No shortness of breath and no dizziness No fever and or chills and no abdominal pain 11/01/2022 The patient was seen and examined in telemetry unit She has been stable but remains very weak and lethargic Complains abdominal discomfort and wants to avoid Has had issues with voiding last night and urologist has been helping with it with the Charlton placement No fever and or chills and denies any significant pain 11/02/2022 The patient was seen and examined in telemetry unit She remains very weak and lethargic She denies any significant abdominal pain and/or distention, no nausea and/or vomiting Review of Systems Review of Systems: All systems reviewed and are unremarkable except as noted below Gastrointestinal: Some abdominal distention Physical Exam Physical Exam: General Appearance: WD/WN, vitals as above, appears chronically ill, pale, fatigued Head: normocephalic, atraumatic Eyes: normal inspection, PERRL, conjunctivae normal, anicteric sclerae ENT: external ear and nose normal, oropharynx with dry mucous membranes Neck: normal visual inspection, trachea midline, no thyromegaly Respiratory: normal respiratory effort, lungs clear to auscultation, no wheeze, rales, rhonchi. No accessory muscle use Cardiovascular: bradycardic rate, irregular rhythm, normal peripheral pulses, 1+ BLE edema. Vessels: no JVD Chest: normal inspection of chest Abdomen/GI: Mildly distended, minimal fluid in the abdomen clinically, mildly tender normal bowel sounds, soft, no hepatosplenomegaly : + Charlton Extremities/Musculoskeletal: no cyanosis or clubbing, extremities motor strength 5/3 Neurologic: PERRL, EOMI, accommodation nl, no face palsy, no dysarthria, CN's II-XI intact bilaterally and moves all extremities remains very weak and lethargic Psychiatric: A+Ox3, flattened affect Skin: no rashes, normal color, warm/dry Results & Data Results & Data Vital Signs (Past 12 Hours) Vital Signs Temp Pulse Pulse Resp BP Pulse Ox O2 Del Method 11/01/22 12:31 36.6 C 72 18 100/69 94 Room Air 11/01/22 11:04 Room Air 11/01/22 08:37 36.3 C L 70 18 96/66 L 96 Room Air 11/01/22 07:37 69 Laboratory Results Short CBC 11/02/22 Range/Units 07:51 WBC 19.18 H (4.8-10.8) K/ul Hgb 8.7 L (12.0-16.0) g/dl Hct 27.3 L (37.0-47.0) % Plt Count 604 H (130-400) K/uL BMP 11/02/22 07:51 Sodium 129 L Potassium 4.4 Chloride 104 Carbon Dioxide 15 L BUN 53 H Creatinine 1.59 H Glucose 205 H Calcium 8.6 Medications Administered Current Inpatient Medications Acetaminophen (Acetaminophen 325 Mg Tab) 650 mg PO Q4H PRN PRN Reason: Pain or Fever Stop: 11/29/22 22:20 Last Admin: 11/02/22 00:04 Dose: 650 mg Apixaban (Apixaban 5 Mg Tablet) 5 mg PO BID KIERSTEN Stop: 11/29/22 22:59 Last Admin: 11/01/22 08:07 Dose: 5 mg Clotrimazole (Clotrimazole 10 Mg Augusto) 10 mg BUCCAL [id number] KIERSTEN Stop: 11/13/22 19:01 Last Admin: 11/02/22 10:26 Dose: Not Given Dextrose (Dextrose 50% 50 Ml Syringe) 25 - 50 ml IV UD PRN; Protocol PRN Reason: Hypoglycemia Protocol Stop: 11/29/22 22:55 Glucagon (Glucagon For Inj 1 Mg Vial) 1 mg SQ UD PRN; Protocol PRN Reason: Hypoglycemia Protocol Stop: 11/29/22 22:55 Glucose (Glucose 10 Tab/Tube) 4 - 8 tab PO UD PRN; Protocol PRN Reason: Hypoglycemia Treatment Stop: 11/29/22 22:55 Glucose (Glucose 40% Gel 15 Gm Tube) 15 - 30 gm PO UD PRN; Protocol PRN Reason: Hypoglycemia Protocol Stop: 11/29/22 22:55 Heparin Sodium (Porcine) (Heparin 100 Unit/Ml 5ml Flush) 5 ml FLUSH PRN PRN PRN Reason: Flush Stop: 12/01/22 00:43 Last Admin: 11/02/22 01:42 Dose: 5 ml Ceftriaxone Sodium 2,000 mg/ (Dextrose) 70 mls @ 140 mls/hr IV Q24H KIERSTEN Stop: 11/11/22 08:59 Last Infusion: 11/02/22 10:26 Dose: Infused Heparin Sodium/Dextrose (Heparin Sodium/Dextrose) 25,000 units in 500 mls @ 17 mls/hr IV .Q24H [facility]; Protocol Stop: 12/02/22 08:44 Last Admin: 11/02/22 09:33 Dose: 850 units/hr, 17 mls/hr Insulin Aspart (Insulin Aspart Per Unit Charge) 0 units SC ACHS [facility] Stop: 11/30/22 07:29 Last Admin: 11/02/22 12:10 Dose: 3 units Levothyroxine Sodium (Levothyroxine Sodium 150 Mcg Tablet) 150 mcg PO DAILYBB [facility] Stop: 11/30/22 06:29 Last Admin: 11/02/22 06:02 Dose: 150 mcg Miscellaneous (Carbohydrates For Hypoglycemia ) 15 - 30 gm PO UD PRN PRN Reason: Hypoglycemia Protocol Stop: 11/29/22 22:55 Ondansetron HCl (Ondansetron Inj 2 Mg/Ml 2 Ml Vial) 4 mg IV Q6H PRN PRN Reason: Nausea Stop: 11/29/22 22:20 Pantoprazole Sodium (Pantoprazole 40 Mg Tab) [facility] [place] Stop: 11/30/22 08:59 Last Admin: 11/02/22 08:33 Dose: 40 mg Polyethylene Glycol (Polyethylene (Miralax) 17 Gm Pack) 17 gm PO DAILY PRN PRN Reason: Constipation Stop: 11/29/22 22:20 Prochlorperazine (Prochlorperazine Maleate 10 Mg Tab) 10 mg PO Q6 PRN PRN Reason: Nausea Stop: 11/29/22 22:52 Vitamin D (Cholecalciferol 1,000 Units 25 Mcg Tab) 2,[facility] [place] Stop: 11/30/22 08:59 Last Admin: 11/02/22 08:33 Dose: 2,000 units (2) Leukocytosis Leukocytosis type: unspecified Qualified Code(s): D72.829 - Elevated white blood cell count, unspecified (6) Pulmonary emboli Pulmonary embolism type: multiple subsegmental (without acute cor pulmonale) Qualified Code(s): I26.94 - Multiple subsegmental pulmonary emboli without acute cor pulmonale
[2022-11-02 16:33] LABS: Partial Thromboplastin Ratio 1.8
[2022-11-02 17:23] LABS: Partial Thromboplastin Time 50.1 Seconds (21.0-31.0)
[2022-11-03] MEDS: ACETAMINOPHEN 325 MG TAB PO PRN ×3 (01:46→22:17)
[2022-11-03 05:20] LABS: Basophils # (auto) 0.11 K/uL (0-0.2); Basophils % (auto) 0.6 %; Eosinophils # (auto) 0.12 K/uL (0-0.50); Eosinophils % (auto) 0.6 %; Hemoglobin 8.4 g/dl (12.0-16.0); Immature Granulocytes # (auto) 0.75 K/uL (0.01-0.20); Immature Granulocytes % (auto) 3.8 %; Lymphocytes # (auto) 1.75 K/uL (1.2-3.4); Mean Corpuscular Hemoglobin 29.1 pg (25.0-34.0); Mean Corpuscular Hgb Conc 31.1 g/dL (32.0-36.0); Mean Corpuscular Volume 93.4 fL (80.0-100.0); Mean Platelet Volume 9.7 fL (9.4-12.4); Monocytes # (auto) 1.22 K/uL (0.11-0.59); Monocytes % (auto) 6.3 %; Neutrophils # (auto) 15.55 K/uL (1.40-6.50); Neutrophils % (auto) 79.7 %; Platelet Count 583 K/uL (130-400); RDW Coefficient of Variation 19.4 % (11.5-14.5); RDW Standard Deviation 64.7 fL (36.4-46.3); Red Blood Count 2.89 M/uL (4.20-5.40)
[2022-11-03 05:41] LABS: Albumin Level 2.5 gm/dl (3.4-5.0); Bilirubin,Total 0.2 mg/dl (0.2-1.0); Calcium 8.1 mg/dl (8.6-10.3); Potassium 4.1 mmol/L (3.5-5.1)
[2022-11-03 05:46] LABS: Partial Thromboplastin Ratio 3.5
[2022-11-03 05:47] LABS: Albumin Globulin Ratio 0.9 (0.9-2); BUN Creatinine Ratio 35.6 (10-20); Creatinine Clr Calc Pharmacy 36.7 ml/min; Est GFR (African American) 37.4 ml/min; Est GFR (Non-African American) 32.3 ml/min; Globulin 2.8 gm/dl (2.5-4.0); Total Protein 5.3 gm/dl (6.0-8.3)
[2022-11-03] MEDS: LEVOTHYROXINE SODIUM 150 MCG TABLET PO SCH (05:54)
[2022-11-03 06:56] LABS: Partial Thromboplastin Time 97.7 Seconds (21.0-31.0)
[2022-11-03] MEDS: PANTOprazole 40 MG TAB PO SCH (08:55)
[2022-11-03] MEDS: CHOLECALCIFEROL 1,000 UNITS 25 MCG TAB PO SCH (08:55)
[2022-11-03] MEDS: CLOTRIMAZOLE 10 MG TROCHE BUCCAL SCH ×5 (08:55→22:50)
[2022-11-03] MEDS: INSULIN ASPART PER UNIT CHARGE SC SCH ×4 (09:00→21:30)
[2022-11-03] MEDS: HEPARIN SODIUM/DEXTROSE 25,000 UNITS/500 ML BAG IV SCH (09:00)
[2022-11-03] MEDS: cefTRIAXone SODIUM 2,000 MG in DEXTROSE 5% 50 ML IV SCH (09:00)
--- NOTE | 2022-11-03 13:46 | Hospitalist Progress Note ---
Date of Service November 03, 2022 Assessment & Plan (1) Urinary retention: (2) Leukocytosis: (3) Hyponatremia: (4) Acute kidney failure: (5) Metastasis from pancreatic cancer: (6) Pulmonary emboli: (7) Hypothyroidism: (8) Diabetes mellitus, type 2: Plan 71 yo F with PMH of recent admission for PE, metastatic pancreatic cancer status post surgery (chemotherapy currently on hold due to weakness), progressive disease noted on CAT scan, hyponatremia 2/2 poor PO intake, DM II, hyp othyroidism, anemia and other medical problems who presented 10/30 with ongoing weakness and fall at home. She is being managed for the following: Generalized weakness In setting of poor cancer prognosis, dehydration and poor appetite. Placement recommended on previous admission but patient elected to return home with services Fall precautions, rehydration, PT/OT evaluation - goal is to return home with services Declined palliative consult Weakness persist which is multifactorial and mainly due to metastatic pancreatic cancer Appears pt is refusing PT/OT, seems like this is a pattern, will continue to try to convince to use PT/OT while in hospital. Urinary retention: Indwelling charlton in place from retention on previous admission, Uro evaled - keep charlton for now and maintain OP f/u. Ascites: for paracentesis likely on Saturday or Saturday, eliquis on hold and on hep drip. Hold hep drip 5 hours prior to paracentesis or as per IR rec. Pt denies abdominal pain during exam. Pulmonary emboli Metastasis from pancreatic cancer Subacute DVT (deep venous thrombosis) History of metastatic pancreatic cancer status post surgery (chemotherapy currently on hold due to weakness), progressive disease noted on CAT scan. Follows up with Dr. Sutherland. Last chemotherapy on October 11, 2022 CTA chest reviewed; numerous bilateral PE - On Eiquis, currently on hold and on heparin drip. Resume Eliquis after paracentesis is done. Acute kidney failure Cr 1.27 (baseline ~0.8). Likely pre-renal, pt w/ poor appetite. Fluid resuscitation complicated with ascites. Monitor with daily BMP -creatinine remains elevated. Will use albumin. Consult nephrology if with continuous uptrending. Patient advised to drink more fluid. Creatinine of 1.60 today, BMP in AM. Hypotension : Low BP early on arrival, lately better though low normal. Monitor. Arrhythmia ECG with probable Accelerated Junctional rhythm with frequent Premature ventricular complexes in a pattern of bigeminy, HR [id number] Resting comfortably, no CP, denies any lightheadedness or palpitations Echo of the heart showed hyperdynamic EF more than 70% no significant valvular disease Remains hemodynamically stable doubt any more arrhythmias Hyponatremia: Ongoing due to hypovolemia, dehydration, poor appetite. Improved with hydration on previous admission . HCTZ discontinued on previous admission. Na has been low. Will continue to monitor. Leukocytosis: Noted to have leukocytosis with WBC of 24K on last admission and w as 19K at discharge, which it has been lately. Neg infxus w/u. likely 2/2 pancreatic malignancy. Monitor off of ATB. Diabetes II: A1c of 8.5 in August 2022, Hold home agents , SSI while in-patient , BSG AC HS Abnormal CT findings Liver lesions, many suggestive of simple liver cyst with at least one lesion identified in the anterior left liver lobe representing a solid lesion otherwise incompletely characterized Follow-up with RUQ ultrasound recommended to evaluate cystic versus solid lesion as out-patient F/u w/ Oncology upon DC. Goals of care discussion During previous admission with palliative service Patient was to follow-up with oncology and decide on further cancer treatment - declined further palliative care at this time DVT Ppx: Eliquis on hold, on hep drip. Code status: DNR/DNI PCP: Jerald Dispo: Admitted to PCU Prognosis remains poor Admission and Anticipated Discharge Date Admission Date: October 30, 2022 Subjective Patient seen and examined at bedside as a follow-up of generalized weakness in the setting of metastatic pancreatic cancer, urinary retention. Patient was lying in bed, on room air, reports not being able to sleep overnight secondary to back pain which is better now after Tylenol, denies chest pain/dizziness/headache, reports poor appetite corroborated by RN. Patient reports moving bowels. Reports feeling weak and lethargic, denies shortness of breath or dizziness or fever or chills or other ROS. Physical Exam Physical Exam: GENERAL: Alert and oriented x3. NAD, on RA. Appears chronically ill, fatigued. HEENT: No pallor, no icterus. Pupils equal, round and reactive to light. Oral mucosa moist. NECK: No JVD, no neck masses. HEART: S1 and S2 heard. regular rhythm. No murmur, no gallop. RESPIRATORY SYSTEM: Normal AP diameter. No accessory muscle use. No wheezing, no crackles. ABDOMEN: Soft, bowel sounds present, nontender, no distention. CENTRAL NERVOUS SYSTEM: No facial droop. Speech is clear. Obeys simple commands. Moves extremities. EXTREMITIES: No edema, no erythema seen. Results & Data Results & Data Vital Signs (Past 12 Hours) Vital Signs Temp Pulse Pulse Resp BP Pulse Ox O2 Del Method 11/03/22 12:07 36.2 C L 75 18 100/69 96 Room Air 11/03/22 11:21 Room Air 11/03/22 08:31 36.3 C L 74 20 100/70 95 Room Air 11/03/22 07:45 75 11/03/22 02:59 36.3 C L 71 18 109/77 95 Room Air (2) Leukocytosis Leukocytosis type: unspecified Qualified Code(s): D72.829 - Elevated white blood cell count, unspecified (6) Pulmonary emboli Pulmonary embolism type: multiple subsegmental (without acute cor pulmonale) Qualified Code(s): I26.94 - Multiple subsegmental pulmonary emboli without acute cor pulmonale
[2022-11-03] MEDS: ALBUMIN 25% 25 GM/100 ML VIAL IV SCH ×2 (14:45→21:34)
[2022-11-03 16:04] LABS: Partial Thromboplastin Ratio 1.2; Partial Thromboplastin Time 35.1 Seconds (21.0-31.0)
[2022-11-03] MEDS ORDERED: HEPARIN IV BOLUS 3,000 UNITS in SYRINGE 0 ML IV ONE (16:31)
[2022-11-03 23:36] LABS: Partial Thromboplastin Ratio 2.5
[2022-11-03 23:42] LABS: Partial Thromboplastin Time 70.9 Seconds (21.0-31.0)
[2022-11-04] MEDS: ACETAMINOPHEN 325 MG TAB PO PRN ×2 (02:07→18:35)
[2022-11-04] MEDS: LEVOTHYROXINE SODIUM 150 MCG TABLET PO SCH (05:49)
[2022-11-04] MEDS: ALBUMIN 25% 25 GM/100 ML VIAL IV SCH (05:49)
[2022-11-04 06:08] LABS: BUN Creatinine Ratio 39.5 (10-20); Calcium 8.5 mg/dl (8.6-10.3); Creatinine Clr Calc Pharmacy 38.5 ml/min; Est GFR (African American) 38.3 ml/min; Est GFR (Non-African American) 33.1 ml/min; Magnesium 1.5 mg/dl (1.7-2.4); Phosphorus 4.4 mg/dl (2.5-4.9); Potassium 4.1 mmol/L (3.5-5.1)
[2022-11-04 06:39] LABS: Partial Thromboplastin Ratio 1.7
[2022-11-04 06:45] LABS: Partial Thromboplastin Time 49.3 Seconds (21.0-31.0)
[2022-11-04] MEDS: PANTOprazole 40 MG TAB PO SCH (08:56)
[2022-11-04] MEDS: CHOLECALCIFEROL 1,000 UNITS 25 MCG TAB PO SCH (08:56)
[2022-11-04] MEDS: CLOTRIMAZOLE 10 MG TROCHE BUCCAL SCH ×5 (08:56→22:15)
[2022-11-04] MEDS: INSULIN ASPART PER UNIT CHARGE SC SCH ×4 (08:56→20:28)
[2022-11-04] MEDS: cefTRIAXone SODIUM 2,000 MG in DEXTROSE 5% 50 ML IV SCH (09:00)
[2022-11-04] MEDS: HEPARIN SODIUM/DEXTROSE 25,000 UNITS/500 ML BAG IV SCH (09:00)
[2022-11-04] MEDS: MAGNESIUM SULFATE / D5W 1 GM/100 ML BAG IV SCH ×2 (10:58→12:30)
--- NOTE | 2022-11-04 15:37 | Hospitalist Progress Note ---
Date of Service November 04, 2022 Assessment & Plan (1) Urinary retention: (2) Leukocytosis: (3) Hyponatremia: (4) Acute kidney failure: (5) Metastasis from pancreatic cancer: (6) Pulmonary emboli: (7) Hypothyroidism: (8) Diabetes mellitus, type 2: Plan 71 yo F with PMH of recent admission for PE, metastatic pancreatic cancer status post surgery (chemotherapy currently on hold due to weakness), progressive disease noted on CAT scan, hyponatremia 2/2 poor PO intake, DM II, hyp othyroidism, anemia and other medical problems who presented 10/30 with ongoing weakness and fall at home. She is being managed for the following: Generalized weakness In setting of poor cancer prognosis, dehydration and poor appetite. Placement recommended on previous admission but patient elected to return home with services Fall precautions, rehydration, PT/OT evaluation - goal is to return home with services agreeable to palliative consult, placed. Weakness persist which is multifactorial and mainly due to metastatic pancreatic cancer Appears pt is refusing PT/OT, seems like this is a pattern, will continue to try to convince to use PT/OT while in hospital. Urinary retention: Indwelling Charlton in place from retention on previous admission, Uro evaled - keep charlton for now and maintain OP f/u. Ascites: for paracentesis likely on Saturday or Saturday, eliquis on hold and on hep drip. Hold hep drip 5 hours prior to paracentesis or as per IR rec. Pt denies abdominal pain during exam. Pulmonary emboli Metastasis from pancreatic cancer Subacute DVT (deep venous thrombosis) History of metastatic pancreatic cancer status post surgery (chemotherapy currently on hold due to weakness), progressive disease noted on CAT scan. Fol lows up with Dr. Sutherland. Last chemotherapy on October 11, 2022 CTA chest reviewed; numerous bilateral PE - On Eiquis, currently on hold and on heparin drip. Resume Eliquis after paracentesis is done. Acute kidney failure Cr 1.27 (baseline ~0.8). Likely pre-renal, pt w/ poor appetite. Fluid resuscitation complicated with ascites. Monitor with daily BMP -creatinine remains elevated. Consult nephrology if with continuous uptrending. Patient advised to drink more fluid. Creatinine of 1.57 today, BMP in AM. Hypotension : Low BP early on arrival, lately better though low normal. Monitor. Arrhythmia ECG with probable Accelerated Junctional rhythm with frequent Premature ventricular complexes in a pattern of bigeminy, HR [id number] Resting comfortably, no CP, denies any lightheadedness or palpitations Echo of the heart showed hyperdynamic EF more than 70% no significant valvular disease Remains hemodynamically stable doubt any more arrhythmias Hyponatremia: Ongoing due to hypovolemia, dehydration, poor appetite. Improved with hydration on previous admission . HCTZ discontinued on previous admission. Na has been low. Will continue to monitor. Leukocytosis: Noted to have leukocytosis with WBC of 24K on last admission and was 19K at discharge, which it has been lately. Neg infxus w/u. likely 2/2 pancreatic malignancy. Monitor off of ATB. Diabetes II: A1c of 8.5 in August 2022, Hold home agents , SSI while in-patient , BSG AC HS Abnormal CT findings Liver lesions, many suggestive of simple liver cyst with at least one lesion identified in the anterior left liver lobe representing a solid lesion otherwise incompletely characterized Follow-up with RUQ ultrasound recommended to evaluate cystic versus solid lesion as out-patient F/u w/ Oncology upon DC. Goals of care discussion During previous admission with palliative service Patient was to follow-up with oncology and decide on further cancer treatment - declined further palliative care at this time DVT Ppx: Eliquis on hold, on hep drip. Code status: DNR/DNI PCP: Jerald Dispo: Admitted to PCU Prognosis remains poor. Palliative consult placed. Admission and Anticipated Discharge Date Admission Date: October 30, 2022 Subjective Patient seen and examined at bedside as a follow-up of generalized weakness in the setting of metastatic pancreatic cancer, urinary retention. Patient was lying in bed, on room air, reports not being able to sleep overnight, melatonin was offered, pt declined. denies chest pain/dizziness/headache, reports poor appetite corroborated by RN. Ate "sub" yesterday for dinner, didn't eat breakfast in AM. Patient reports moving bowels. Reports feeling weak and lethargic, denies shortness of breath or dizziness or fever or chills or other ROS. Physical Exam Physical Exam: GENERAL: Alert and oriented x3. NAD, on RA. Appears chronically ill, fatigued. HEENT: No pallor, no icterus. Pupils equal, round and reactive to light. Oral mucosa moist. NECK: No JVD, no neck masses. HEART: S1 and S2 heard. regular rhythm. No murmur, no gallop. RESPIRATORY SYSTEM: Normal AP diameter. No accessory muscle use. No wheezing, no crackles. ABDOMEN: Soft, bowel sounds present, nontender, no distention. CENTRAL NERVOUS SYSTEM: No facial droop. Speech is clear. Obeys simple commands. Moves extremities. EXTREMITIES: No edema, no erythema seen. Results & Data Results & Data Vital Signs (Past 12 Hours) Vital Signs Temp Pulse Pulse Resp BP Pulse Ox O2 Del Method 11/04/22 15:18 78 11/04/22 11:55 36.4 C L 50 L 20 92/61 L 96 Room Air 11/04/22 10:32 Room Air 11/04/22 08:24 36.6 C 63 18 124/86 97 Room Air 11/04/22 07:46 71 (2) Leukocytosis Leukocytosis type: unspecified Qualified Code(s): D72.829 - Elevated white blood cell count, unspecified (6) Pulmonary emboli Pulmonary embolism type: multiple subsegmental (without acute cor pulmonale) Qualified Code(s): I26.94 - Multiple subsegmental pulmonary emboli without acute cor pulmonale
[2022-11-04] MEDS ORDERED: SODIUM CHLORIDE 0.9% 500 ML IV ONE (20:35)
--- NOTE | 2022-11-04 20:40 | Communication Note ---
Date of Service: November 04, 2022 Notified by RN of frequent PVCs on the monitor. Patient asymptomatic. AP Asymptomatic PVCs Resume home beta-juan f at low-dose given borderline BP
[2022-11-04] MEDS: ATENOLOL 25 MG TABLET PO SCH (21:08)
[2022-11-04 21:50] LABS: BUN Creatinine Ratio 38.5 (10-20); Calcium 8.2 mg/dl (8.6-10.3); Creatinine Clr Calc Pharmacy 38.7 ml/min; Est GFR (African American) 38.6 ml/min; Est GFR (Non-African American) 33.3 ml/min; Magnesium 1.9 mg/dl (1.7-2.4); Potassium 4.2 mmol/L (3.5-5.1)
[2022-11-04] MEDS ORDERED: MAGNESIUM SULFATE / D5W 1 GM/100 ML BAG IV ONE (22:02)
[2022-11-05] MEDS: ACETAMINOPHEN 325 MG TAB PO PRN (01:20)
[2022-11-05 05:09] LABS: BUN Creatinine Ratio 39.5 (10-20); Calcium 8.6 mg/dl (8.6-10.3); Creatinine Clr Calc Pharmacy 39.8 ml/min; Est GFR (African American) 39.8 ml/min; Est GFR (Non-African American) 34.4 ml/min; Magnesium 2.1 mg/dl (1.7-2.4); Phosphorus 4.3 mg/dl (2.5-4.9); Potassium 4.1 mmol/L (3.5-5.1)
[2022-11-05 05:34] LABS: Partial Thromboplastin Ratio 1.6
[2022-11-05 05:42] LABS: Partial Thromboplastin Time 44.5 Seconds (21.0-31.0)
[2022-11-05] MEDS: LEVOTHYROXINE SODIUM 150 MCG TABLET PO SCH (05:56)
[2022-11-05] MEDS: CLOTRIMAZOLE 10 MG TROCHE BUCCAL SCH ×5 (06:33→23:08)
[2022-11-05] MEDS: INSULIN ASPART PER UNIT CHARGE SC SCH ×4 (09:49→21:45)
[2022-11-05] MEDS: cefTRIAXone SODIUM 2,000 MG in DEXTROSE 5% 50 ML IV SCH (09:49)
[2022-11-05] MEDS: CHOLECALCIFEROL 1,000 UNITS 25 MCG TAB PO SCH (10:26)
[2022-11-05] MEDS: PANTOprazole 40 MG TAB PO SCH ×2 (10:27→22:08)
[2022-11-05] MEDS: HEPARIN SODIUM/DEXTROSE 25,000 UNITS/500 ML BAG IV SCH (13:43)
--- NOTE | 2022-11-05 15:55 | Hospitalist Progress Note ---
Date of Service November 05, 2022 Assessment & Plan (1) Urinary retention: (2) Leukocytosis: (3) Hyponatremia: (4) Acute kidney failure: (5) Metastasis from pancreatic cancer: (6) Pulmonary emboli: (7) Hypothyroidism: (8) Diabetes mellitus, type 2: Plan 71 yo F with PMH of recent admission for PE, metastatic pancreatic cancer status post surgery (chemotherapy currently on hold due to weakness), progressive disease noted on CAT scan, hyponatremia 2/2 poor PO intake, DM II, hyp othyroidism, anemia and other medical problems who presented 10/30 with ongoing weakness and fall at home. She is being managed for the following: Generalized weakness In setting of poor cancer prognosis, dehydration and poor appetite. Placement recommended on previous admission but patient elected to return home with services Fall precautions, rehydration, PT/OT evaluation - goal is to return home with services agreeable to palliative consult, placed. Weakness persist which is multifactorial and mainly due to metastatic pancreatic cancer Appears pt is refusing PT/OT, seems like this is a pattern, will continue to try to convince to use PT/OT while in hospital. Urinary retention: Indwelling Charlton in place from retention on previous admission, Uro evaled - keep charlton for now and maintain OP f/u. Ascites: for paracentesis likely on Saturday or Saturday, eliquis on hold and on hep drip. Hold hep drip 5 hours prior to paracentesis or as per IR rec. Pt denies abdominal pain during exam. Paracentesis order placed for onel. Pulmonary emboli Metastasis from pancreatic cancer Subacute DVT (deep venous thrombosis) History of metastatic pancreatic cancer status post surgery (chemotherapy currently on hold due to weakness), progressive disease noted on CAT scan. Follows up with Dr. Sutherland. Last chemotherapy on October 11, 2022 CTA chest reviewed; numerous bilateral PE - On Eiquis, currently on hold and on heparin drip. Resume Eliquis after paracentesis is done. Acute kidney failure Cr 1.27 (baseline ~0.8). Likely pre-renal, pt w/ poor appetite. Fluid resuscitation complicated with ascites. Monitor with daily BMP -creatinine remains elevated. Consult nephrology if with continuous uptrending. Patient advised to drink more fluid. Creatinine of 1.52 today, BMP in AM. If w/ worsening Cr, consider albumin. Hypotension : Low BP early on arrival, lately better though low normal. Monitor. Arrhythmia ECG with probable Accelerated Junctional rhythm with frequent Premature ventricular complexes in a pattern of bigeminy, HR [id number] Resting comfortably, no CP, denies any lightheadedness or palpitations Echo of the heart showed hyperdynamic EF more than 70% no significant valvular disease Remains hemodynamically stable doubt any more arrhythmias Hyponatremia: Ongoing due to hypovolemia, dehydration, poor appetite. Improved with hydration on previous admission . HCTZ discontinued on previous admission. Na has been low. Will continue to monitor. Leukocytosis: Noted to have leukocytosis with WBC of 24K on last admission and was 19K at discharge, which it has been lately. Neg infxus w/u. likely 2/2 pancreatic malignancy. Monitor off of ATB. Diabetes II: A1c of 8.5 in August 2022, Hold home agents , SSI while in-patient , BSG AC HS Abnormal CT findings Liver lesions, many suggestive of simple liver cyst with at least one lesion identified in the anterior left liver lobe representing a solid lesion otherwise incompletely characterized Follow-up with RUQ ultrasound recommended to evaluate cystic versus solid lesion as out-patient F/u w/ Oncology upon DC. Goals of care discussion During previous admission with palliative service Patient was to follow-up with oncology and decide on further cancer treatment - declined further palliative care at this time DVT Ppx: Eliquis on hold, on hep drip. Code status: DNR/DNI PCP: Jerald Dispo: Admitted to PCU Prognosis remains poor. Palliative consult placed. Paracentesis order placed, hep to be held onel AM at 6, for possible paracentesis later in the day. Admission and Anticipated Discharge Date Admission Date: October 30, 2022 Subjective Patient seen and examined at bedside as a follow-up of generalized weakness in the setting of metastatic pancreatic cancer, urinary retention. Patient was lying in bed, on room air, reports she slept some overnight. denies chest pain/dizziness/headache, reports poor appetite and feeling tired/weak. Patient reports moving bowels. Reports feeling weak and lethargic, denies shortness of breath or dizziness or fever or chills or other ROS. Physical Exam Physical Exam: GENERAL: Alert and oriented x3. NAD, on RA. Appears chronically ill, fatigued. HEENT: No pallor, no icterus. Pupils equal, round and reactive to light. Oral mucosa moist. NECK: No JVD, no neck masses. HEART: S1 and S2 heard. regular rhythm. No murmur, no gallop. RESPIRATORY SYSTEM: Normal AP diameter. No accessory muscle use. No wheezing, no crackles. ABDOMEN: Soft, bowel sounds present, nontender, distention. CENTRAL NERVOUS SYSTEM: No facial droop. Speech is clear. Obeys simple commands. Moves extremities. EXTREMITIES: No edema, no erythema seen. Results & Data Results & Data Vital Signs (Past 12 Hours) Vital Signs Temp Pulse Pulse Resp BP Pulse Ox O2 Del Method 11/05/22 12:14 36.4 C L 75 18 102/71 95 Room Air 11/05/22 08:30 Room Air 11/05/22 08:00 77 11/05/22 08:10 36.4 C L 77 20 94/69 L 95 Room Air (2) Leukocytosis Leukocytosis type: unspecified Qualified Code(s): D72.829 - Elevated white blood cell count, unspecified (6) Pulmonary emboli Pulmonary embolism type: multiple subsegmental (without acute cor pulmonale) Qualified Code(s): I26.94 - Multiple subsegmental pulmonary emboli without acute cor pulmonale
[2022-11-05] MEDS ORDERED: CALCIUM CARBONATE 500 MG CHEWABLE TAB PO PRN (19:43)
--- NOTE | 2022-11-05 20:40 | Communication Note ---
Date of Service: November 05, 2022 Notified by RN of transient bradycardia, heart rate 30s. Patient complaining of burping and heartburn symptoms prior to episode. AP Transient bradycardia Hold beta-juan f for now
--- NOTE | 2022-11-05 21:29 | Palliative Care Consultation ---
Date of Consultation November 05, 2022 Assessment & Plan (1) Palliative care by specialist: Met with pt/family. Provided overview of Palliative Medicine, a subspecialty that provides specialized medical care for people living with a serious illness by offering a focus on quality of life. Palliative Medicine is often conflated with hospice: I advised patient/family that Palliative and hospice can be partners but we are not the same. It is important to understand the difference so that we may be informed, and not afraid. Palliative Medicine works to improve QOL through reduction of symptom burden/more control over their illness, for both the patient and family. Palliative medicine clinicians are board certified, specially-trained and another member of the patient's medical care team. We often provide an extra layer of support because our care is based on the needs of the patient, not the prognosis; as such, it's appropriate at any age/advancing stage of a serious illness and can be provided along with curative treatment. Palliative Medicine clinicians are also trained in advanced communication methodologies, to facilitate complex discussions about advanced illness planning, which are needed to help assure that the treatment choices match the patient's goals, aka delivering Goal Concordant care. Finally, we discussed that hospice is a visiting nurse service that focuses on care delivered at the very end of life for patients with terminal illness, with life expectancy less than 6 month. (2) Advanced care planning/counseling discussion: She denies any acute pain or symptom mgt needs, then added "I want to talk with you but only after I have my call with the oncologist which will be this afternoon." She says she has a teleconference with Dr Sutherland and team this afternoon, then wants to think about her options etc. She said she will ask nursing to page me / for a follow up visit. Verito tompkins frankly tells me she knows her cancer is spreading/getting worse and "they have to make a decision about what they want to do about it now." I encouraged her to think about what matters most to her at this junction and what plan of care would be in alignment with her wishes for herself. (3) Dyspnea and respiratory abnormalities: (4) Pulmonary emboli: Pulmonary embolism type: multiple subsegmental (without acute cor pulmonale) Qualified Code(s): I26.94 - Multiple subsegmental pulmonary emboli without acute cor pulmonale (5) Cancer related pain: (6) Weakness generalized: (7) DVT (deep venous thrombosis): Affected thrombotic vein of extremity: unspecified vein of extremity Chronicity: acute DVT location: lower extremity Laterality: left Qualified Code(s): I82.402 - Acute embolism and thrombosis of unspecified deep veins of left lower extremity (8) Chemotherapy adverse reaction: (9) Metastasis from pancreatic cancer: (10) Former smoker: (11) Acute kidney failure: (12) Leukocytosis: Leukocytosis type: unspecified Qualified Code(s): D72.829 - Elevated white blood cell count, unspecified (13) Urinary retention: (14) Diabetes mellitus, type 2: (15) Acute dehydration: (16) Arrhythmia: Arrhythmia type: unspecified cardiac arrhythmia Qualified Code(s): I49.9 - Cardiac arrhythmia, unspecified Plan pt wants to follow up with me after she speaks with her OS onc team and has some time to consider the options. She is aware of her illness progression and shortened survival/prognosis. Thank you for allowing us to participate in the ongoing care of this patient. Please don't hesitate to call or page with any additional concerns. Dr. Olga Lidia Levin DNP Director, Palliative Care History of Present Illness Reason for Consultation: Goals of care Attending Physician: Es Jurado MD History of Present Illness Verito is a 71 year old female with metastatic pancreatic cancer readmitted following a recent admission. She was seen by me on 10/23/22 during her previous inpatient admission. That time she indicated no desire for any Palliative Medicine intervention for cancer related symptom mgt and very firmly declined hospice/comfort care. Patient at that time was very insistent. She wanted to follow up with her outpatient oncologist at [facility] before making any additional discussions. At this time she is re-admitted with progressive weakness, more falls at home, more functional decline, anorexia, dehydration. CT Abd/pelvis was done last admission on 10/21/22, which revealed the followin. 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 2. Multiple liver cysts with additional lesion in the left liver lobe measuring 3.5 cm, not excluding solid lesions/metastatic disease. If indicated, this can be assessed with ultrasound to evaluate simple cyst versus solid lesion. 3. Ill-defined slightly heterogeneous lesion within the spleen measuring 1.3 cm, cannot exclude metastatic process. If indicated, this may be assessed with ultrasound to evaluate cyst versus solid lesion. Allergies Allergy/AdvReac Type Severity Reaction Status Date / Time adhesive Allergy Mild Rash (with Verified 09/29/22 19:13 older bandaids) nickel Allergy Mild Rash Verified 09/29/22 19:13 tetanus toxoid, adsorbed AdvReac Intermediate Elevated BP Verified 09/29/22 19:13 NSAIDS (Non-Steroidal AdvReac Unknown was "told Verified 09/29/22 19:13 Anti-Inflamma to avoid" Home Medications Medication Instructions Recorded Confirmed Type atenolol 25 mg tablet 25 mg PO QAM 12/02/18 10/30/22 History cholecalciferol (vitamin D3) 50 2,000 unit PO QAM 12/02/18 10/30/22 History mcg (2,000 unit) tablet levothyroxine 150 mcg tablet 150 mcg PO DAILYBB 12/02/18 10/30/22 History omeprazole 20 mg capsule,delayed 20 mg PO QAM 12/02/18 10/30/22 History release metformin 500 mg tablet,extended 1,000 mg PO BIDM 09/29/22 10/30/22 History release 24 hr ondansetron HCl 8 mg tablet 8 mg PO Q8 PRN Nausea 09/29/22 10/30/22 History prochlorperazine maleate 10 mg 10 mg PO Q6 PRN Nausea 09/29/22 10/30/22 History tablet clotrimazole 10 mg rosalia 10 mg PO 5XD 10/21/22 10/30/22 History apixaban 5 mg tablet (Eliquis) 5 mg PO BID #60 tabs 10/23/22 10/30/22 Rx Patient History Medical History (Updated 11/06/22 @ 12:31 by Olga Lidia Levin DNP) Advanced care planning/counseling discussion Cancer related pain Diabetes mellitus, type 2 NIDDM Dyspnea and respiratory abnormalities Fever Former smoker GERD (gastroesophageal reflux disease) controlled HTN (hypertension) Hypothyroidism Metastasis from pancreatic cancer Obesity Osteoarthritis Palliative care by specialist Skin cancer s/p precancerous skin excision Weakness generalized Surgical History H/O breast biopsy BENIGN H/O colonoscopy H/O tubal ligation History of appendectomy [facility] 2012. MAC #3, ET 7.0 grade view I. History of cholecystectomy 01/08/19: Grade view 1, MAC#3, ETT 7.5 at [facility] History of hysterectomy with unilateral oophorectomy History of left hip replacement (~12/2019) History of repair of rotator cuff LEFT History of tooth extraction Orbital fracture REPAIRED (? HARDWARE INTACT/POSSIBLE WIRE) Family History Mother Family history of diabetes mellitus Social History Smoking Status: Former smoker Tobacco Type: Cigarettes Second Hand Exposure: No; Do You Dip or Chew Tobacco: No; Hx Alcohol Use: No Hx Substance Use: No Preferred Language: Spanish Communication Ability: Effective Visual Impairment: Limited Hearing Ability: Normal Rope Maker Required: No Beliefs That Will Affect Care: None marital status: Current Living Situation: Significant Other Current Living Situation Comment: FRIEND LESLY Feels Safe at Home: Yes Assistive Devices: Walker Review of Systems Review of Systems: All systems reviewed & are unremarkable except as noted in Subjective Physical Exam Physical Exam: pt deferred Results & Data Vital Signs (Past 12 Hours) Vital Signs Temp Pulse Pulse Resp BP Pulse Ox O2 Del Method 11/05/22 19:23 36.4 C L 82 18 110/77 94 Room Air 11/05/22 16:01 80 11/05/22 12:14 36.4 C L 75 18 102/71 95 Room Air Laboratory Results data reviewed Diagnostic Findings data reviewed PG Care Time/CCT Total # of Minutes Spent Total Time Spent: 75 Total Time Spent with Patient: Total time spent is greater than 50% in coordination of care (as documented) at patient's floor/unit and/or counseling patient: [place] [address] IN/OBS CONSULT LVL 5,80M Patient Type New History Comprehensive Exam Problem Focused Medical Decision Making High Complexity Diagnoses Palliative care by specialist Z51.5 Advanced care planning/counseling discussion Z71.89 Dyspnea and respiratory abnormalities R06.00; R06.89 Pulmonary emboli I26.94 Pulmonary embolism type: multiple subsegmental (without acute cor pulmonale) Cancer related pain G89.3 Weakness generalized R53.1 DVT (deep venous thrombosis) I82.402 Affected thrombotic vein of extremity: unspecified vein of extremity Chronicity: acute DVT location: lower extremity Laterality: left Chemotherapy adverse reaction T45.1X5A Metastasis from pancreatic cancer C79.9; C25.9 Former smoker Z87.891 Acute kidney failure N17.9 Leukocytosis D72.829 Leukocytosis type: unspecified Urinary retention R33.9 Diabetes mellitus, type 2 E11.9 Acute dehydration E86.0 Arrhythmia I49.9 Arrhythmia type: unspecified cardiac arrhythmia
[2022-11-06] MEDS: LEVOTHYROXINE SODIUM 150 MCG TABLET PO SCH (05:55)
[2022-11-06 06:43] LABS: BUN Creatinine Ratio 41.6 (10-20); Calcium 8.8 mg/dl (8.6-10.3); Creatinine Clr Calc Pharmacy 40.5 ml/min; Est GFR (African American) 40.8 ml/min; Est GFR (Non-African American) 35.2 ml/min; Potassium 4.3 mmol/L (3.5-5.1)
[2022-11-06 07:09] LABS: Partial Thromboplastin Ratio 2.9
[2022-11-06 07:19] LABS: Partial Thromboplastin Time 81.6 Seconds (21.0-31.0)
[2022-11-06] MEDS: CHOLECALCIFEROL 1,000 UNITS 25 MCG TAB PO SCH (08:24)
[2022-11-06] MEDS: PANTOprazole 40 MG TAB PO SCH ×2 (08:24→21:07)
[2022-11-06] MEDS: CLOTRIMAZOLE 10 MG TROCHE BUCCAL SCH ×5 (08:25→22:17)
--- NOTE | 2022-11-06 08:26 | Electrocardiogram Report ---
Test Reason : Blood Pressure : / mmHG Vent. Rate : 086 BPM Atrial Rate : 086 BPM P-R Int : 174 ms QRS Dur : 098 ms QT Int : 342 ms P-R-T Axes : 032 -01 057 degrees QTc Int : 409 ms Normal sinus rhythm Low voltage QRS Poor R wave progression, consider anterior TX vs. lead placement vs. LVH Abnormal ECG When compared with ECG of 31-OCT-2022 05:46, Sinus rhythm has replaced Junctional rhythm Premature ventricular complexes no longer present Decrease in precordial R wave voltage Confirmed by Ovidio Long ([id number]) on 11/06/2022 8:26:20 AM Referred By: REFERRED SELF Confirmed By:Ovidio Long
[2022-11-06] MEDS: cefTRIAXone SODIUM 2,000 MG in DEXTROSE 5% 50 ML IV SCH (08:31)
[2022-11-06] MEDS: INSULIN ASPART PER UNIT CHARGE SC SCH ×4 (08:51→21:10)
[2022-11-06 09:18] LABS: INR 1.1 (0.9-1.1); Prothrombin Time 11.5 Seconds (9.0-12.0)
--- NOTE | 2022-11-06 15:39 | Hospitalist Progress Note ---
Date of Service November 06, 2022 Assessment & Plan (1) Urinary retention: (2) Leukocytosis: (3) Hyponatremia: (4) Acute kidney failure: (5) Metastasis from pancreatic cancer: (6) Pulmonary emboli: (7) Hypothyroidism: (8) Diabetes mellitus, type 2: Plan 71 yo F with PMH of recent admission for PE, metastatic pancreatic cancer status post surgery (chemotherapy currently on hold due to weakness), progressive disease noted on CAT scan, hyponatremia 2/2 poor PO intake, DM II, hyp othyroidism, anemia and other medical problems who presented 10/30 with ongoing weakness and fall at home. She is being managed for the following: Generalized weakness In setting of poor cancer prognosis, dehydration and poor appetite. Placement recommended on previous admission but patient elected to return home with services Fall precautions, rehydration, PT/OT evaluation - goal is to return home with services Palliative on board, appreciate recs. Weakness persist which is multifactorial and mainly due to metastatic pancreatic cancer Appears pt is refusing PT/OT, seems like this is a pattern, will continue to try to convince to use PT/OT while in hospital. Pt is refusing food and declines PPI for her heart burn. Pt would like tums only for now. Urinary retention: Indwelling Charlton in place from retention on previous admission, Uro evaled - keep charlton for now and maintain OP f/u. Ascites: for paracentesis today, eliquis on hold and hep drip on hold. resume eliquis today evening. Pt denies abdominal pain during exam. Pulmonary emboli Metastasis from pancreatic cancer Subacute DVT (deep venous thrombosis) History of metastatic pancreatic cancer status post surgery (chemotherapy currently on hold due to weakness), progressive disease noted on CAT scan. Follows up with Dr. Sutherland. Last chemotherapy on October 11, 2022 CTA chest reviewed; numerous bilateral PE - AC as above Resume Eliquis after paracentesis is done. Acute kidney failure Cr 1.27 (baseline ~0.8). Likely pre-renal, pt w/ poor appetite. Fluid resuscitation complicated with ascites. Monitor with daily BMP -creatinine remains elevated. Consult nephrology if with continuous uptrending. Patient advised to drink more fluid. Creatinine of 1.49 today, BMP in AM. If w/ worsening Cr, consider albumin. Hypotension : Low BP early on arrival, lately better though low normal. Monitor. Arrhythmia ECG with probable Accelerated Junctional rhythm with frequent Premature ventricular complexes in a pattern of bigeminy Resting comfortably, no CP, denies any lightheadedness or palpitations Echo of the heart showed hyperdynamic EF more than 70% no significant valvular disease Remains hemodynamically stable doubt any more arrhythmias Hyponatremia: Ongoing due to hypovolemia, dehydration, poor appetite. Improved with hydration on previous admission . HCTZ discontinued on previous admission. Na has been low. Will continue to monitor. Leukocytosis: Noted to have leukocytosis with WBC of 24K on last admission and was 19K at discharge, which it has been lately. Neg infxus w/u. likely 2/2 pancreatic malignancy. Diabetes II: A1c of 8.5 in August 2022, Hold home agents , SSI while in-patient , BSG AC HS Abnormal CT findings Liver lesions, many suggestive of simple liver cyst with at least one lesion identified in the anterior left liver lobe representing a solid lesion otherwise incompletely characterized Follow-up with RUQ ultrasound recommended to evaluate cystic versus solid lesion as out-patient F/u w/ Oncology upon DC. Goals of care discussion During previous admission with palliative service - patient was to follow-up with oncology and decide on further cancer treatment - declined further palliative care at this time Palliative care onboard this time. DVT Ppx: Eliquis on hold, on hep drip. resume eliquis later in the evenign. Code status: DNR/DNI PCP: Jerald Dispo: Admitted to PCU Prognosis remains poor. Palliative consult placed. Paracentesis today. will follow. Admission and Anticipated Discharge Date Admission Date: October 30, 2022 Subjective Patient seen and examined at bedside as a follow-up of generalized weakness in the setting of metastatic pancreatic cancer, urinary retention. Patient was lying in bed, on room air, reports having heart burn, declines protonix, is using tums. denies chest pain/dizziness/headache, reports poor a ppetite and feeling tired/weak. Patient reports moving bowels. Reports feeling weak and lethargic, denies shortness of breath or dizziness or fever or chills or other ROS. Pt declines food and is with poor appetite. Physical Exam Physical Exam: GENERAL: Alert and oriented x3. NAD, on RA. Appears chronically ill, fatigued. HEENT: No pallor, no icterus. Pupils equal, round and reactive to light. Oral mucosa moist. NECK: No JVD, no neck masses. HEART: S1 and S2 heard. regular rhythm. No murmur, no gallop. RESPIRATORY SYSTEM: Normal AP diameter. No accessory muscle use. No wheezing, no crackles. ABDOMEN: Soft, bowel sounds present, nontender, distention. CENTRAL NERVOUS SYSTEM: No facial droop. Speech is clear. Obeys simple commands. Moves extremities. EXTREMITIES: 1+ ble edema, no erythema seen. Results & Data Results & Data Vital Signs (Past 12 Hours) Vital Signs Temp Pulse Pulse Resp BP Pulse Ox O2 Del Method 11/06/22 11:38 36.7 C 84 18 111/78 95 Room Air 11/06/22 11:18 Room Air 11/06/22 07:51 36.7 C 83 18 115/83 95 Room Air 11/06/22 07:31 88 (2) Leukocytosis Leukocytosis type: unspecified Qualified Code(s): D72.829 - Elevated white blood cell count, unspecified (6) Pulmonary emboli Pulmonary embolism type: multiple subsegmental (without acute cor pulmonale) Qualified Code(s): I26.94 - Multiple subsegmental pulmonary emboli without acute cor pulmonale
--- NOTE | 2022-11-06 15:48 | Ultrasound Report ---
ULTRASOUND-GUIDED DIAGNOSTIC AND THERAPEUTIC PARACENTESIS: HISTORY: Ascites Procedure: The procedure and its risks, benefits and alternatives were discussed with the patient and written informed consent was obtained. Preliminary ultrasound of the abdomen was performed to determ ine a safe needle entry site. The left lower quadrant was prepped and draped in the usual sterile fashion. 1% Lidocaine was used fo r local anesthesia. A paracentesis needle-sheath was inserted into the peritoneal space using ultraso und guidance. The needle was removed and the sheath was connected to tubing and a vacuum suction marion ce. A total of 3 liters of yellow ascites was aspirated. The sheath was removed and a sterile dressin g applied. The patient tolerated the procedure well and there were no immediate complications. IMPRESSION: Ultrasound-guided diagnostic and therapeutic paracentesis with aspiration of 3 liters of ascites. 1 L was sent to the laboratory at the request of the referring physician. Electronically signed by: Kenny Hartmann M.D. 11/06/2022 3:47 PM
[2022-11-06 15:54] LABS: Appearance Peritoneal Fluid Hazy; Color Peritoneal Fluid Yellow; RBC Peritoneal Fluid Auto 2000 /uL; Total Protein Peritoneal Fluid 3.6 gm/dl; WBC Peritoneal Fluid Auto 969 /ul (0-300)
[2022-11-06] MEDS: HEPARIN 100 UNIT/ML 5ML FLUSH FLUSH PRN (16:48)
[2022-11-06 17:11] LABS: Lymphocytes, Fluid 35 %; Mono,Macrophage,Mesothelial 46 %; Neutrophils, Fluid 19 %
[2022-11-06] MEDS: APIXABAN 5 MG TABLET PO SCH (22:17)
[2022-11-07] MEDS: LEVOTHYROXINE SODIUM 150 MCG TABLET PO SCH (05:35)
[2022-11-07 06:59] LABS: Calcium 8.5 mg/dl (8.6-10.3); Magnesium 1.9 mg/dl (1.7-2.4); Potassium 4.1 mmol/L (3.5-5.1)
[2022-11-07 07:08] LABS: BUN Creatinine Ratio 42.6 (10-20); Creatinine Clr Calc Pharmacy 41.4 ml/min; Est GFR (African American) 43.6 ml/min; Est GFR (Non-African American) 37.6 ml/min
[2022-11-07] MEDS: CHOLECALCIFEROL 1,000 UNITS 25 MCG TAB PO SCH ×2 (08:03→10:33)
[2022-11-07] MEDS: APIXABAN 5 MG TABLET PO SCH ×2 (08:03→20:23)
[2022-11-07] MEDS: PANTOprazole 40 MG TAB PO SCH ×2 (08:03→20:15)
[2022-11-07] MEDS: CLOTRIMAZOLE 10 MG TROCHE BUCCAL SCH ×6 (08:04→23:00)
[2022-11-07] MEDS: INSULIN ASPART PER UNIT CHARGE SC SCH ×4 (08:16→20:22)
[2022-11-07] MEDS ORDERED: METOPROLOL TARTRATE 1 MG/ML VIAL IV PRN (15:31)
--- NOTE | 2022-11-07 16:12 | Cardiology Consultation ---
Date of Consultation November 07, 2022 Assessment & Plan (1) Metastasis from pancreatic cancer: (2) Atrial fibrillation with RVR: (3) Pulmonary emboli: Plan The patient has multiple reasons to be tachycardic. She is hypotensive and will not tolerate most rate control medications. I will try correcting some of the reasons for tachycardia such as her anemia and dehydration. Antibiotics for her UTI. Due to her hypotension, if her heart rates remain elevated and are a problem then you could consider digoxin. Ultimately, I do not believe that we will get her heart rates below 100. She is on Eliquis. She is also on a low- dose of atenolol, but I am uncertain as to whether she is actually getting this medication due to her hypotension. Not much more to add from a cardiac standpoint. History of Present Illness Attending Physician: Es Jurado MD History of Present Illness This unfortunate 71-year-old woman with a complex history related to metastatic pancreatic cancer. She was admitted after having a fall and weakness. She has been receiving chemotherapy and has had a poor oral intake. She is anemic with a white count elevation probably due to UTI. History of pulmonary emboli. She has no prior significant history of heart disease. No previous coronary artery disease, myocardial infarction, congestive heart failure or cardiac arrhythmias. After admission she has been noted to be in a SVT which is most likely atrial fibrillation with RVR. She is asymptomatic in regard to the arrhythmia. Allergies Allergy/AdvReac Type Severity Reaction Status Date / Time adhesive Allergy Mild Rash (with Verified 09/29/22 19:13 older bandaids) nickel Allergy Mild Rash Verified 09/29/22 19:13 tetanus toxoid, adsorbed AdvReac Intermediate Elevated BP Verified 09/29/22 19:13 NSAIDS (Non-Steroidal AdvReac Unknown was "told Verified 09/29/22 19:13 Anti-Inflamma to avoid" Home Medications Medication Instructions Recorded Confirmed Type atenolol 25 mg tablet 25 mg PO QAM 12/02/18 10/30/22 History cholecalciferol (vitamin D3) 50 2,000 unit PO QAM 12/02/18 10/30/22 History mcg (2,000 unit) tablet levothyroxine 150 mcg tablet 150 mcg PO DAILYBB 12/02/18 10/30/22 History omeprazole 20 mg capsule,delayed 20 mg PO QAM 12/02/18 10/30/22 History release metformin 500 mg tablet,extended 1,000 mg PO BIDM 09/29/22 10/30/22 History release 24 hr ondansetron HCl 8 mg tablet 8 mg PO Q8 PRN Nausea 09/29/22 10/30/22 History prochlorperazine maleate 10 mg 10 mg PO Q6 PRN Nausea 09/29/22 10/30/22 History tablet clotrimazole 10 mg rosalia 10 mg PO 5XD 10/21/22 10/30/22 History apixaban 5 mg tablet (Eliquis) 5 mg PO BID #60 tabs 10/23/22 10/30/22 Rx Patient History Medical History Advanced care planning/counseling discussion Cancer related pain Diabetes mellitus, type 2 NIDDM Dyspnea and respiratory abnormalities Fever Former smoker GERD (gastroesophageal reflux disease) controlled HTN (hypertension) Hypothyroidism Metastasis from pancreatic cancer Obesity Osteoarthritis Palliative care by specialist Skin cancer s/p precancerous skin excision Weakness generalized Surgical History H/O breast biopsy BENIGN H/O colonoscopy H/O tubal ligation History of appendectomy [facility] 2012. MAC #3, ET 7.0 grade view I. History of cholecystectomy 01/08/19: Grade view 1, MAC#3, ETT 7.5 at [facility] History of hysterectomy with unilateral oophorectomy History of left hip replacement (~12/2019) History of repair of rotator cuff LEFT History of tooth extraction Orbital fracture REPAIRED (? HARDWARE INTACT/POSSIBLE WIRE) Family History Mother Family history of diabetes mellitus Social History Smoking Status: Former smoker Tobacco Type: Cigarettes Second Hand Exposure: No; Do You Dip or Chew Tobacco: No; Hx Alcohol Use: No Hx Substance Use: No Preferred Language: Urdu Communication Ability: Effective Visual Impairment: Limited Hearing Ability: Normal Blanket Washer Required: No Beliefs That Will Affect Care: None marital status: Current Living Situation: Significant Other Current Living Situation Comment: FRIEND LESLY Feels Safe at Home: Yes Assistive Devices: Walker Review of Systems Review of Systems: I have reviewed the advance practitioner documentation and agree. I saw and evaluated the patient on the date of service referenced in the note and have performed a medically appropriate history and or exam. Physical Exam Physical Exam: General: no acute distress and stated age Head: normocephalic, no masses, lesions, tenderness or abnormalities Eyes: conjunctiva are pink and non-injected, sclera clear Neck: supple, no adenopathy, no bruits, normal jugular venous pulse, no hepatojugular reflux Chest: normal shape and normal respiratory effort Lungs: clear to auscultation and percussion Cardiac Exam: - regular rate & rhythm, no murmurs gallops or rubs - normal S1, normal S2 Pulses: 2(+) throughout Abdomen: abdomen soft, non-tender, no abnormal masses and no hepatosplenomegaly Musculoskeletal: no gait disturbance, no joint inflammation, no deforming arthritis Extremities: no edema and no cyanosis Neuro: grossly normal exam Results & Data Vital Signs (Past 12 Hours) Vital Signs Temp Pulse Pulse Resp BP Pulse Ox O2 Del Method 11/07/22 15:25 36.6 C 124 H 17 99/67 L 95 Room Air 11/07/22 11:35 36.6 C 68 18 102/65 95 Room Air 11/07/22 09:45 79 11/07/22 09:29 Room Air 11/07/22 07:37 36.5 C 56 L 18 96/64 L 95 Room Air Laboratory Results Laboratory Results - last 24 hr 11/06/22 11/06/22 11/06/22 16:19 20:33 Unknown Sodium Potassium Chloride Carbon Dioxide Anion Gap BUN Creatinine Est Cr Clr Drug Dosing Est GFR ( Amer) Est GFR (Non-Af Amer) BUN/Creatinine Ratio Glucose POC Glucose 185 H 242 H Calcium Phosphorus Magnesium Fluid Neutrophils % 19 Fluid Lymphocytes % 35 Fluid Meso/Macro/Thurston % 46 Fluid Slide Review 11/07/22 11/07/22 11/07/22 05:57 07:35 11:32 Sodium 128 L Potassium 4.1 Chloride 103 Carbon Dioxide 16 L Anion Gap 9 BUN 60 H Creatinine 1.41 H Est Cr Clr Drug Dosing 41.4 Est GFR ( Amer) 43.6 Est GFR (Non-Af Amer) 37.6 BUN/Creatinine Ratio 42.6 H Glucose 187 H POC Glucose 220 H 198 H Calcium 8.5 L Phosphorus 4.0 D Magnesium 1.9 Fluid Neutrophils % Fluid Lymphocytes % Fluid Meso/Macro/Thurston % Fluid Slide Review Medications Administered Current Inpatient Medications Acetaminophen (Acetaminophen 325 Mg Tab) 650 mg PO Q4H PRN PRN Reason: Pain or Fever Stop: 11/29/22 22:20 Last Admin: 11/05/22 01:20 Dose: 650 mg Apixaban (Apixaban 5 Mg Tablet) 5 mg PO BID KIERSTEN Stop: 11/29/22 22:59 Last Admin: 11/07/22 08:03 Dose: 5 mg Atenolol (Atenolol 25 Mg Tablet) 12.5 mg PO HS KIERSTEN Stop: 12/04/22 20:59 Last Admin: 11/04/22 21:08 Dose: 12.5 mg Calcium Carbonate (Calcium Carbonate 500 Mg Chewable Tab) 500 mg PO Q6H PRN PRN Reason: Heartburn Stop: 12/05/22 19:42 Last Admin: 11/05/22 20:05 Dose: 500 mg Clotrimazole (Clotrimazole 10 Mg Rosalia) 10 mg BUCCAL [id number] KIERSTEN Stop: 11/13/22 19:01 Last Admin: 11/07/22 15:28 Dose: Not Given Dextrose (Dextrose 50% 50 Ml Syringe) 25 - 50 ml IV UD PRN; Protocol PRN Reason: Hypoglycemia Protocol Stop: 11/29/22 22:55 Glucagon (Glucagon For Inj 1 Mg Vial) 1 mg SQ UD PRN; Protocol PRN Reason: Hypoglycemia Protocol Stop: 11/29/22 22:55 Glucose (Glucose 10 Tab/Tube) 4 - 8 tab PO UD PRN; Protocol PRN Reason: Hypoglycemia Treatment Stop: 11/29/22 22:55 Glucose (Glucose 40% Gel 15 Gm Tube) 15 - 30 gm PO UD PRN; Protocol PRN Reason: Hypoglycemia Protocol Stop: 11/29/22 22:55 Heparin Sodium (Porcine) (Heparin 100 Unit/Ml 5ml Flush) 5 ml FLUSH PRN PRN PRN Reason: Flush Stop: 12/01/22 00:43 Last Admin: 11/06/22 16:48 Dose: 5 ml Albumin Human (Albumin 25%) 25 gm in 100 mls @ 50 mls/hr IV ONE ONE Stop: 11/07/22 18:13 Sodium Chloride (Nss) 500 mls @ 250 mls/hr IV .Q2H KIERSTEN Stop: 11/07/22 17:14 Insulin Aspart (Insulin Aspart Per Unit Charge) 0 units SC ACHS KIERSTEN Stop: 11/30/22 07:29 Last Admin: 11/07/22 12:42 Dose: 3 units Levothyroxine Sodium (Levothyroxine Sodium 150 Mcg Tablet) 150 mcg PO DAILYBB KIERSTEN Stop: 11/30/22 06:29 Last Admin: 11/07/22 05:35 Dose: 150 mcg Metoprolol Tartrate (Metoprolol Tartrate 1 Mg/Ml Vial) 5 mg IV Q5M PRN PRN Reason: Afib RVR w/ HR above 110 bpm Miscellaneous (Carbohydrates For Hypoglycemia ) 15 - 30 gm PO UD PRN PRN Reason: Hypoglycemia Protocol Stop: 11/29/22 22:55 Ondansetron HCl (Ondansetron Inj 2 Mg/Ml 2 Ml Vial) 4 mg IV Q6H PRN PRN Reason: Nausea Stop: 11/29/22 22:20 Pantoprazole Sodium (Pantoprazole 40 Mg Tab) 40 mg PO BID [facility] Stop: 12/05/22 19:44 Last Admin: 11/07/22 08:03 Dose: 40 mg Polyethylene Glycol (Polyethylene (Miralax) 17 Gm Pack) 17 gm PO DAILY PRN PRN Reason: Constipation Stop: 11/29/22 22:20 Prochlorperazine (Prochlorperazine Maleate 10 Mg Tab) 10 mg PO Q6 PRN PRN Reason: Nausea Stop: 11/29/22 22:52 Vitamin D (Cholecalciferol 1,000 Units 25 Mcg Tab) 2,000 units PO QAM KIERSTEN Stop: 11/30/22 08:59 Last Admin: 11/07/22 10:33 Dose: Not Given (3) Pulmonary emboli Pulmonary embolism type: multiple subsegmental (without acute cor pulmonale) Qualified Code(s): I26.94 - Multiple subsegmental pulmonary emboli without acute cor pulmonale
[2022-11-07] MEDS ORDERED: ALBUMIN 25% 25 GM/100 ML VIAL IV ONE (16:30)
[2022-11-07] MEDS ORDERED: SODIUM CHLORIDE 0.9% 500 ML IV SCH (16:30)
[2022-11-07 16:37] LABS: Hematocrit (blood only) 27.4 % (37.0-47.0); Hemoglobin 8.7 g/dl (12.0-16.0); Mean Corpuscular Hgb Conc 31.8 g/dL (32.0-36.0); Mean Corpuscular Volume 91.3 fL (80.0-100.0); Mean Platelet Volume 9.7 fL (9.4-12.4); Platelet Count 365 K/uL (130-400); RDW Coefficient of Variation 18.5 % (11.5-14.5); RDW Standard Deviation 60.2 fL (36.4-46.3); White Blood Count 17.02 K/ul (4.8-10.8)
--- NOTE | 2022-11-07 17:57 | Hospitalist Progress Note ---
Date of Service November 07, 2022 Assessment & Plan (1) Urinary retention: (2) Leukocytosis: (3) Hyponatremia: (4) Acute kidney failure: (5) Metastasis from pancreatic cancer: (6) Pulmonary emboli: (7) Hypothyroidism: (8) Diabetes mellitus, type 2: Plan 71 yo F with PMH of recent admission for PE, metastatic pancreatic cancer status post surgery (chemotherapy currently on hold due to weakness), progressive disease noted on CAT scan, hyponatremia 2/2 poor PO intake, DM II, hyp othyroidism, anemia and other medical problems who presented 10/30 with ongoing weakness and fall at home. She is being managed for the following: Generalized weakness In setting of poor cancer prognosis, dehydration and poor appetite. Placement recommended on previous admission but patient elected to return home with services Fall precautions, rehydration, PT/OT evaluation - goal is to return home with services Palliative on board, pending recommendations. Weakness persist which is multifactorial and mainly due to metastatic pancreatic cancer Appears pt is refusing PT/OT, seems like this is a pattern, will continue to try to convince to use PT/OT while in hospital. I have been commencing patient every day regarding PT/OT, she has been declining any physical therapy. Patient continues to decline her medications, declines food, has been difficult to manage. Patient was asked if she wanted me to update her family members, patient declined that. RADHA Estrella at bedside. Tried to reach out to her OP onco for updates and recs, awaiting hearing back. Urinary retention and UTI: Indwelling Charlton in place from retention on previous admission, Uro evaled - keep charlton for now and maintain OP f/u. completed course of uti rx this admission w/ rocephin. Ascites: Status post paracentesis 11/06, 3 L out, PMN less than 250. Continue with Eliquis. Patient denies abdominal pain. Pulmonary emboli Metastasis from pancreatic cancer Subacute DVT (deep venous thrombosis) History of metastatic pancreatic cancer status post surgery (chemotherapy currently on hold due to weakness), progressive disease noted on CAT scan. Follows up with Dr. Sutherland. Last chemotherapy on October 11, 2022 CTA chest reviewed; numerous bilateral PE - AC as above Continue with Eliquis. Acute kidney failure Cr 1.27 (baseline ~0.8). Likely pre-renal, pt w/ poor appetite. Fluid resuscitation complicated with ascites. Monitor with daily BMP -creatinine remains elevated. Consult nephrology if with continuous uptrending. Patient advised to drink more fluid. Creatinine of 1.41 today, BMP in AM. If w/ worsening Cr, consider albumin. A-fib RVR: Patient underwent AVR RVR 11/07 associated with low blood pressure. No chest pain on bedside exam. Multifactorial cause due to electrolyte derangements, poor appetite, underlying cancer. Patient has been declining her medications/food which has been complicating her care. Cardiology consulted, appreciate recommendation. We will use gentle IV fluids because of volume overload status, will support by albumin use. Hemoglobin seems to be stable and better at 8.7. Magnesium normal. She is already on Eliquis for history of PE. c/w atenolol. Hyponatremia: Ongoing due to hypovolemia, dehydration, poor appetite. Improved with hydration on previous admission . HCTZ discontinued on previous admission. Na has been low. Will continue to monitor. Leukocytosis: Noted to have leukocytosis with WBC of 24K on last admission and was 19K at discharge, which it has been lately. Neg infxus w/u. likely 2/2 pancreatic malignancy. Diabetes II: A1c of 8.5 in August 2022, Hold home agents , SSI while in-patient , BSG AC HS Abnormal CT findings Liver lesions, many suggestive of simple liver cyst with at least one lesion identified in the anterior left liver lobe representing a solid lesion otherwise incompletely characterized Follow-up with RUQ ultrasound recommended to evaluate cystic versus solid lesion as out-patient F/u w/ Oncology upon DC. Goals of care discussion During previous admission with palliative service - patient was to follow-up with oncology and decide on further cancer treatment - declined further palliative care at this time Palliative care onboard this time. Pending recs. DVT Ppx: Eliquis Code status: DNR/DNI PCP: Jerald Dispo: Admitted to PCU Prognosis remains poor. Palliative consult placed. Pending recs. Admission and Anticipated Discharge Date Admission Date: October 30, 2022 Subjective Patient seen and examined at bedside as a follow-up of generalized weakness in the setting of metastatic pancreatic cancer, urinary retention. Patient was lying in bed, on room air, reports no issues overnight, continues to decline her medications and physical therapy. denies chest pain/dizziness/headache, reports poor appetite and feeling tired/weak. Patient reports moving bowels. Reports feeling weak and lethargic, denies shortness of breath or dizziness or fever or chills or other ROS. Patient continues to decline food and has poor appetite. Physical Exam Physical Exam: GENERAL: Alert and oriented x3. NAD, on RA. Appears chronically ill, fatigued. HEENT: No pallor, no icterus. Pupils equal, round and reactive to light. Oral mucosa moist. NECK: No JVD, no neck masses. HEART: S1 and S2 heard. regular rhythm. No murmur, no gallop. RESPIRATORY SYSTEM: Normal AP diameter. No accessory muscle use. No wheezing, no crackles. ABDOMEN: Soft, bowel sounds present, nontender, distention. CENTRAL NERVOUS SYSTEM: No facial droop. Speech is clear. Obeys simple commands. Moves extremities. EXTREMITIES: 1+ ble edema, no erythema seen. Results & Data Results & Data Vital Signs (Past 12 Hours) Vital Signs Temp Pulse Pulse Resp BP Pulse Ox O2 Del Method 11/07/22 17:39 74 11/07/22 16:36 139 H 86/52 L 11/07/22 16:15 140 H 81/65 L 11/07/22 15:25 36.6 C 124 H 17 99/67 L 95 Room Air 11/07/22 11:35 36.6 C 68 18 102/65 95 Room Air 11/07/22 09:45 79 11/07/22 09:29 Room Air 11/07/22 07:37 36.5 C 56 L 18 96/64 L 95 Room Air (2) Leukocytosis Leukocytosis type: unspecified Qualified Code(s): D72.829 - Elevated white blood cell count, unspecified (6) Pulmonary emboli Pulmonary embolism type: multiple subsegmental (without acute cor pulmonale) Qualified Code(s): I26.94 - Multiple subsegmental pulmonary emboli without acute cor pulmonale
[2022-11-07] MEDS ORDERED: MAGNESIUM SULFATE / D5W 1 GM/100 ML BAG IV ONE (17:59)
[2022-11-07] MEDS: SODIUM CHLORIDE 0.9% 1000ML 1,000 ML IV SCH (18:25)
[2022-11-07] MEDS: ATENOLOL 25 MG TABLET PO SCH ×2 (20:20→21:17)
[2022-11-07] MEDS ORDERED: MIRTAZAPINE TAB 15 MG TAB PO SCH (21:00)
[2022-11-07] MEDS ORDERED: ALBUMIN 25% 25 GM/100 ML VIAL IV SCH (21:00)
[2022-11-07] MEDS ORDERED: DIGOXIN 250 MCG in SYRINGE 9 ML IV ONE (22:45)
[2022-11-07] MEDS: ACETAMINOPHEN 325 MG TAB PO PRN (23:38)
[2022-11-08] MEDS ORDERED: DIGOXIN 250 MCG in SYRINGE 9 ML IV ONE (00:15)
[2022-11-08] MEDS ORDERED: 0.2 MICRON FILTER SET 1 EACH IV STA (01:20)
[2022-11-08] MEDS ORDERED: STAT IV Infusion **Titration per Protocol STA (01:20)
[2022-11-08] MEDS ORDERED: AMIODARONE IV BOLUS & DRIP IV STA (01:20)
--- NOTE | 2022-11-08 01:20 | Communication Note ---
Date of Service: November 08, 2022 Overnight developments 11/07, 1015P Patient with uncontrolled A-fib rate, 1 20-1 30s, SBP 90s as per RN Digoxin trial given borderline BP 11/08 1:15 AM Heart rate 110s, SBP 90s after 2 separate doses of digoxin as per RN. Amiodarone infusion initiated. 2:12 AM Made aware by RN of patient bradycardia, heart rate 30s to 40s with long pauses. Patient asymptomatic. AP Possible TBS Bradycardic episode last 11/05 which led to temporary Atenolol hold Amiodarone infusion discontinued. 2:16 AM BP 69/42 as per RN. Atropine for symptomatic bradycardia. Hemoglobin 7.1 No overt bleeding as per RN. Patient later complaining of weird feeling and restless legs after atropine administration. Patient refusing blood transfusion if with progressive anemia. Low-dose Ativan 1 dose. 6:05 AM Patient little confused with speech harder to understand as per RN. SBP 60s, heart rate 60s as per RN. 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
[2022-11-08] MEDS ORDERED: AMIODARONE / D5W 150 MG/100 ML BAG IV ONE (01:45)
[2022-11-08] MEDS ORDERED: AMIODARONE / D5W 360 MG/200 ML BAG IV ONE (02:00)
[2022-11-08] MEDS ORDERED: ATROPINE SULFATE 0.1 MG/ML 10ML SYR IV STA ×3 (02:17→03:28)
[2022-11-08] MEDS ORDERED: ATROPINE SULFATE 0.1 MG/ML 10ML SYR IV ONE (02:18)
[2022-11-08] MEDS: ALBUMIN 25% 25 GM/100 ML VIAL IV SCH ×2 (02:23→10:47)
[2022-11-08 02:24] LABS: Basophils # (auto) 0.05 K/uL (0-0.2); Basophils % (auto) 0.3 %; Eosinophils # (auto) 0.31 K/uL (0-0.50); Eosinophils % (auto) 2.1 %; Hematocrit (blood only) 22.7 % (37.0-47.0); Hemoglobin 7.1 g/dl (12.0-16.0); Immature Granulocytes # (auto) 0.31 K/uL (0.01-0.20); Immature Granulocytes % (auto) 2.1 %; Lymphocytes # (auto) 1.02 K/uL (1.2-3.4); Mean Corpuscular Hemoglobin 28.7 pg (25.0-34.0); Mean Corpuscular Hgb Conc 31.3 g/dL (32.0-36.0); Mean Corpuscular Volume 91.9 fL (80.0-100.0); Mean Platelet Volume 9.6 fL (9.4-12.4); Monocytes # (auto) 0.94 K/uL (0.11-0.59); Monocytes % (auto) 6.4 %; Neutrophils # (auto) 11.98 K/uL (1.40-6.50); Neutrophils % (auto) 82.1 %; Platelet Count 305 K/uL (130-400); RDW Coefficient of Variation 18.4 % (11.5-14.5); RDW Standard Deviation 61.3 fL (36.4-46.3); Red Blood Count 2.47 M/uL (4.20-5.40); White Blood Count 14.61 K/ul (4.8-10.8)
[2022-11-08 02:35] LABS: BUN Creatinine Ratio 42.3 (10-20); Calcium 8.3 mg/dl (8.6-10.3); Creatinine Clr Calc Pharmacy 44.9 ml/min; Est GFR (African American) 48.1 ml/min; Est GFR (Non-African American) 41.5 ml/min; Magnesium 2.1 mg/dl (1.7-2.4); Phosphorus 3.3 mg/dl (2.5-4.9)
[2022-11-08 02:55] LABS: Polychromasia 2+
[2022-11-08] MEDS: SODIUM CHLORIDE 0.9% 1000ML 1,000 ML IV SCH (03:18)
[2022-11-08] MEDS ORDERED: LORazepam 0.5 MG TAB PO STA (03:56)
[2022-11-08] MEDS ORDERED: LORazepam 0.5 MG TAB PO PRN ×2 (03:58→12:07)
[2022-11-08] MEDS: LEVOTHYROXINE SODIUM 150 MCG TABLET PO SCH (05:58)
[2022-11-08] MEDS: INSULIN ASPART PER UNIT CHARGE SC SCH ×2 (06:28→12:40)
[2022-11-08 06:47] LABS: Hematocrit (blood only) 22.2 % (37.0-47.0); Hemoglobin 6.8 g/dl (12.0-16.0)
[2022-11-08] MEDS ORDERED: AMIODARONE / D5W 360 MG/200 ML BAG IV SCH (08:00)
--- NOTE | 2022-11-08 08:06 | CT Scan Report ---
CT SCAN OF THE BRAIN WITHOUT IV CONTRAST CLINICAL HISTORY: Change in mental status. COMPARISON STUDY: No priors. TECHNIQUE: Unenhanced axial CT scan of the brain is performed from the vertex to the skull base. A do se lowering technique was utilized adhering to the principles of ALARA. The patient was scanned twice due to motion artifact. CT DOSE: 1094.10 mGy.cm FINDINGS: Brain parenchyma: There is age-related involutional change noting mild subcortical and periventricula r microangiopathic disease. There is no hemorrhage, mass effect, or evidence of acute territorial isc hemia by CT criteria. Taylor-white matter differentiation is preserved. No extra-axial fluid collection is seen. Ventricles, sulci, cisterns: Prominent secondary to involutional change. Intracranial vasculature: There is atherosclerotic calcification of the cavernous carotid arteries. Calvarium: Unremarkable. Sinuses and mastoids: The visualized paranasal sinuses are clear. The mastoid air cells are well pneu matized. Orbits: The bony orbits are grossly intact. Postsurgical change is noted involving the left orbit. IMPRESSION: There is no hemorrhage, mass effect, or evidence of acute territorial ischemia by CT yelena craig. ACT 112: Negative or not required by law. Electronically signed by: Frandy Mauro M.D. 11/08/2022 8:04 AM
--- NOTE | 2022-11-08 08:15 | Electrocardiogram Report ---
Test Reason : Blood Pressure : / mmHG Vent. Rate : 135 BPM Atrial Rate : 013 BPM P-R Int : 000 ms QRS Dur : 116 ms QT Int : 316 ms P-R-T Axes : 000 -12 183 degrees QTc Int : 474 ms Supraventricular tachycardia with frequent Premature ventricular complexes Low voltage QRS Possible Anterolateral infarct (cited on or before 07-NOV-2022) Abnormal ECG When compared with ECG of 05-NOV-2022 19:54, Supraventricular tachycardia now present Premature ventricular complexes are now Present Vent. rate has increased BY 49 BPM QRS duration has increased Confirmed by Ovidio Long ([id number]) on 11/08/2022 8:15:16 AM Referred By: REFERRED SELF Confirmed By:Ovidio Long
[2022-11-08] MEDS: CLOTRIMAZOLE 10 MG TROCHE BUCCAL SCH ×2 (09:11→10:48)
[2022-11-08] MEDS: PANTOprazole 40 MG TAB PO SCH ×2 (09:11→20:12)
[2022-11-08] MEDS: CHOLECALCIFEROL 1,000 UNITS 25 MCG TAB PO SCH (09:11)
[2022-11-08] MEDS ORDERED: ONDANSETRON INJ 2 MG/ML 2 ML VIAL IV PRN (12:07)
[2022-11-08] MEDS ORDERED: MoRPHine SULFATE 10 MG/0.5 ML UDP PO PRN (12:07)
[2022-11-08] MEDS ORDERED: ONDANSETRON 4 MG OD TAB SL PRN (12:07)
[2022-11-08] MEDS ORDERED: LORazepam 2 MG/1 ML VIAL IV PRN (12:07)
[2022-11-08 12:36] LABS: Hematocrit (blood only) 22.3 % (37.0-47.0); Hemoglobin 6.9 g/dl (12.0-16.0)
--- NOTE | 2022-11-08 12:38 | Hospitalist Progress Note ---
Date of Service November 08, 2022 Assessment & Plan (1) Urinary retention: (2) Leukocytosis: (3) Hyponatremia: (4) Acute kidney failure: (5) Metastasis from pancreatic cancer: (6) Pulmonary emboli: (7) Hypothyroidism: (8) Diabetes mellitus, type 2: Plan 71 yo F with PMH of recent admission for PE, metastatic pancreatic cancer status post surgery (chemotherapy currently on hold due to weakness), progressive disease noted on CAT scan, hyponatremia 2/2 poor PO intake, DM II, hyp othyroidism, anemia and other medical problems who presented 10/30 with ongoing weakness and fall at home. She was being managed for the following: Generalized weakness In setting of poor cancer prognosis, dehydration and poor appetite. Placement recommended on previous admission but patient elected to return home with services Fall precautions, rehydration, PT/OT evaluation - goal is to return home with services Palliative on board, pending recommendations. Weakness persist which is multifactorial and mainly due to metastatic pancreatic cancer Appears pt is refusing PT/OT, seems like this is a pattern, will continue to try to convince to use PT/OT while in hospital. I have been commencing patient every day regarding PT/OT, she has been declining any physical therapy. Patient continues to decline her medications, declines food, has been difficult to manage. Patient was asked if she wanted me to update her family members, patient declined that prior. RADHA Estrella at bedside. Today patient was agreeable for family update, had a meeting with palliative care/assistant case manager with patient's family at room. Patient was converted to comfort care status today with a plan to go home with hospice. Urinary retention and UTI: Indwelling Charlton in place from retention on previous admission, Uro evaled - keep charlton for now and maintain OP f/u. completed course of uti rx this admission w/ rocephin. We will keep Charlton for comfort. Ascites: Status post paracentesis 11/06, 3 L out, PMN less than 250. Patient denies abdominal pain. Pulmonary emboli Metastasis from pancreatic cancer Subacute DVT (deep venous thrombosis) Eliquis on hold due to drop in blood. Now patient is on comfort care status. A-fib RVR and symptomatic bradycardia: Range of dysrhythmia secondary to electrolyte abnormalities/underlying metastatic cancer/anemia. Patient with no chest pain, patient currently under comfort care status. Hyponatremia: Ongoing due to hypovolemia, dehydration, poor appetite. Improved with hydration on previous admission . HCTZ discontinued on previous admission. Na has been low. Leukocytosis: Noted to have leukocytosis with WBC of 24K on last admission and was 19K at discharge, which it has been lately. Neg infxus w/u. likely 2/[address] findings: Patient currently under comfort care status Goals of care discussion Refer to subjective of 11/08. Patient transition to comfort care status 11/08/2022 after extensive discussion with the family and patient and palliative care and patient's oncologist. Total of 100 minutes was spent during coordinating care between RN/patient's oncology/palliative care/assistant case manager/patient's family/patient herself including chart review/bedside examination/labs review. Will be transitioned to MedSurg status, plan to go to home with hospice tomorrow. Admission and Anticipated Discharge Date Admission Date: October 30, 2022 Subjective Patient seen and examined at bedside as a follow-up of generalized weakness in the setting of metastatic pancreatic cancer, urinary retention, afib rvr and anemia. Patient was lying in bed, on room air, Ox3, had various rhythm issues overnight ranging from Afib rvr to smyptomatic bardycardia requiring digoxin trial, amiodarone, atropine. In the morning, patient denies any belly pain/chest pain/palpitation, reports feeling about the same at her baseline. Patient is still declining her oral medications and diet. Patient has refused blood transfusion overnight, me and RN Dennise went in the room to discuss about her overall poor prognosis and current grave medical status, she expressed understanding and stated she will still not want blood transfusion even if it means she is going to due to lack of blood. She signed on blood transfusion consent paper denying any blood transfusion. We did update patient in detail about her current status including her losing blood and need for holding her Eliquis and how it might affect her recent diagnosis of blood clot and A-fib RVR. She voiced understanding and she understands that she does not have much time to live due to advanced pancreatic cancer. She continues to decline further management but has not been able to make decisions regarding how she wants to proceed with her care with this new findings of array of medical problems. She had spoke to her oncology office by herself in prior day (but not w/ Dr) and has been telling that she would like to talk with Dr. Sutherland before she makes decision. I did call oncology Dr. Sutherland while at bedside, updated him about her current status and how her medical condition is deteriorating day by day. He spoke with her over the phone then she declined further conversation with Dr. Sutherland. During the phone call, Dr. Sutherland was in agreement that given her worsening medical status, she would be a good candidate for comfort care or hospice. I asked the patient if I can call and update her family members, today she agreed to it. RADHA Bowden was at bedside. I called her daughter Chaya first, left voicemail. Then I called her friend of 26 years who has been living with her, I gave update to Dheeraj and asked them to come to the hospital and asked him to let Chaya know and I will be more than happy to come upstairs in her room to update them [id number] when they arrive and answer any other questions. Dheeraj and Chaya arrived, RN notified me. I went upstairs in the patient's room. I let patient know that I am going to update them again and discuss her plan of care. To which patient was agreeable. I let the Chaya and Dheeraj know about her anemia, A-fib RVR, advanced metastatic pancreatic cancer, blood clot, need to stop Eliquis, electrolytes abnormalities secondary to poor appetite, patient declining various cares including her medications and physical therapy. I spoke about need for further investigation/management and if needed transfer to tertiary care if need arises. They declined any further investigation and wanted to focus on her comfort rather than management at this point. I also informed them that the patient did not want me to communicate with them until yesterday evening, but she was agreeable today. Both her daughter Chaya and her friend Dheeraj would want her to be comfortable and would not want any further investigations or treatment, and then would want to take her home with hospice after that. The patient wanted to be comfortable but she was still undecided or unable to grasps the gravity of the situation. I called palliative care and assistant case manager on board, then we had a discussion again in the room with the family first and then with the patient. At this time the patient was now decided that she would like to be comfortable/not pursue any more investigation & active management, and then would like to transition to home with hospice. We will discontinue active management, comfort care medications has been instituted. Physical Exam Physical Exam: GENERAL: Alert and oriented x3. NAD, on RA. Appears chronically ill, fatigued. HEENT: No pallor, no icterus. Pupils equal, round and reactive to light. Oral mucosa moist. NECK: No JVD, no neck masses. HEART: S1 and S2 heard. regular rhythm. No murmur, no gallop. RESPIRATORY SYSTEM: Normal AP diameter. No accessory muscle use. No wheezing, no crackles. ABDOMEN: Soft, bowel sounds present, nontender, distention. CENTRAL NERVOUS SYSTEM: No facial droop. Speech is clear. Obeys simple commands. Moves extremities. EXTREMITIES: 1+ ble edema, no erythema seen. Results & Data Results & Data Vital Signs (Past 12 Hours) Vital Signs Temp Pulse Resp BP BP Pulse Ox O2 Del Method 11/08/22 08:00 Room Air 11/08/22 11:48 36.4 C L 67 20 96/55 L 96 Room Air 11/08/22 07:54 36.3 C L 120 H 20 136/93 96 Room Air 11/08/22 02:44 36.3 C L 120 H 21 79/46 L 96 Room Air 11/08/22 03:53 102/51 L 11/08/22 03:39 97/55 L 11/08/22 02:52 77/45 L 11/08/22 01:16 112 H 90/61 L (2) Leukocytosis Leukocytosis type: unspecified Qualified Code(s): D72.829 - Elevated white blood cell count, unspecified (6) Pulmonary emboli Pulmonary embolism type: multiple subsegmental (without acute cor pulmonale) Qualified Code(s): I26.94 - Multiple subsegmental pulmonary emboli without acute cor pulmonale
[2022-11-08] MEDS: ACETAMINOPHEN 325 MG TAB PO PRN ×2 (13:04→17:05)
--- NOTE | 2022-11-08 13:49 | Palliative Care Progress Note ---
Date of Service November 08, 2022 Assessment & Plan (1) Palliative care by specialist: Plan: Met with pt family, her daughter Chaya and her significant other of 26 years, Dheeraj. Provided overview of Palliative Medicine, a subspecialty that provides specialized medical care for people living with a serious illness by offering a focus on quality of life. Palliative Medicine is often conflated with hospice: I advised patient/family that Palliative and hospice can be partners but we are not the same. It is important to understand the difference so that we may be informed, and not afraid. Palliative Medicine works to improve QOL through reduction of symptom burden/more control over their illness, for both the patient and family. Palliative medicine clinicians are board certified, specially-trained and another member of the patient's medical care team. We ofte n provide an extra layer of support because our care is based on the needs of the patient, not the prognosis; as such, it's appropriate at any age/advancing stage of a serious illness and can be provided along with curative treatment. Palliative Medicine clinicians are also trained in advanced communication methodologies, to facilitate complex discussions about advanced illness planning, which are needed to help assure that the treatment choices match the patient's goals, aka delivering Goal Concordant care. Finally, we discussed that hospice is a visiting nurse service that focuses on care delivered at the very end of life for patients with terminal illness, with life expectancy less than 6 month. (2) Advanced care planning/counseling discussion: Plan: a 45min face to face ACP discussion was held at bedside. Together with primary team attending, case management, patient's daughter and patient's significant other, I met with patient at the bedside. She is awake and alert to self and place. She is aware she has metastatic cancer. I advised her of the overall decline that we have been seeing with her cell counts dropping and her refusal of intervention such as blood transfusions. She reaffirms she does not wish any further aggressive interventions. She states she does not want any further treatment such as infusions, transfusions, or imaging. I asked her where she wanted to be at this junction, advising that I felt anticipated survival was short. She indicated a preference to be at home. Her family reaffirms this and want to bring her home with the addition of hospice. I then further discussed hospice together with her family. I provided education about the hospice benefit: an interdisciplinary program offered by nurses, nurses aides, social workers, chaplains and a certified court/medical interpreter for patients with a terminal condition and a life expectancy of less than 6 months. This is covered by Medicare at 100%/no out of pocket expense to patient and all meds/supplies needed by patient for the reason they are on hospice are paid for/covered by hospice. The goal is assure quality of life of the patient in their home setting (home, skilled nursing, inpatient hospice setting) by providing symptoms management, psychosocial and spiritual support. However, they cannot offer 24 hours care and if the family is unable to provide that care, they will have to consider personal care with out of pocket cost vs. skilled nursing placement. We discussed the goals of hospice as a patient service and the goals of care; we discussed EOL trajectories and transitions candido the emotional impact of realizing mortality as a concrete reality from prior abstract considerations. Pt was reassured that no matter where they are along this trajectory, they are not alone - their medical team will remain by their side through their journey. Discussed the pros/cons of accepting help when especially weakened and distressed by pain-which would also help provide relief/decrease caregiver burden/strain. Discussed changes pt may move through in the dying process including but not limited to sleeping more, disorientation when awake, restlessness, diminished senses/inability to respond to stimulus although ability to be aware of them remains intact longer, changes in body temperatures, skin jeyson nges/mottling/cyanosis, respiratory pattern changes, oral secretions. Family verbalized understanding. The goal is to assure a peaceful . Chaya indicates some frustration with how secretive or withholding patient has been with information about her prognosis. Chaya states that she understands patient withheld much of this information and attempt to protect her shield her from the bed to use and also wanted to try and remain hopeful in front of Chaya as she had set a goal to try and remain alive until her grandson graduated high school in 2 to 3 years. Chaya states she knew this was not likely but wish to provide support for the patient but she also wishes she had known how quickly things were progressing because she feels that there might have been some lost opportunities for them to have more time together and perhaps work on some meaningful legacy projects. Extensive psychosocial support and reassurance provided. (3) Metastasis from pancreatic cancer: (4) Weakness generalized: (5) Dyspnea and respiratory abnormalities: (6) Acute dehydration: (7) Atrial fibrillation with RVR: Plan * Changed to comfort care status in accordance with patient's expressed wishes as well as her family's agreement of same. * Plan for discharge home with hospice per patient and family preference. Case management is assisting. Please see their notes for additional details. * Comfort care orders have been written. All nonessential and on comfort oriented medications and interventions have been stopped. Patient does not wish to have any further infusions, transfusions, imaging or treatment. Additional scans, imaging and labs have been stopped. * I have updated nursing, care management, primary team. * Anticipate discharge likely tomorrow for home with hospice. Referral has been submitted to [facility] hospice. If they are not available to admit patient tomorrow, we will follow-up with another hospice agency [facility] or [facility]. * Patient's daughter Chaya is a administrative nursing supervisor at [employer]. 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 Patient's significant other Dheeraj has been her partner for over 26 years. He and Chaya are devoted to the patient and providing her with care at the end of her life at home. Dheeraj notes that they have several pets at home who have been missing patient and he believes that they will be a comfort to her in these final days as well. Family has been specifically advised that I believe her overall anticipated survival is short likely days. They are in agreement and acknowledges that they wish to focus on comfort and quality of life for what ever time she may have available. Daughter has provided care for several end-of-life patients in the skilled nursing and notes that she is comfortable providing care for her mom at home for the same reasons. She also asked that we have no scheduled opioids for now since patient is not complaining of any ongoing chronic symptomology that require scheduled opioids or benzos, she wishes to try and have as much interactive time with patient as possible. Please note: the above document was generated using voice recognition software. It may contain unintentional grammatical, syntax or spelling errors. Any formal questions or concerns about the content, text or information contained within the body of this dictation should be directly addressed to the provider for clarification. Thank you for allowing us to participate in the ongoing care of this patient. Please don't hesitate to call or page with any additional concerns. Dr. Olga Lidia Levin DNP Director, Palliative Care Admission and Anticipated Discharge Date Admission Date: October 30, 2022 Subjective Unfortunately, Verito continues on a downward trajectory of decline. Her daughter and her long-term significant other are at the bedside. Her cell counts continue to drop and she has adamantly and consistently refused blood transfusions. Unfortunately she was not able to have any type of discussion with her outside hospital oncologist due to their unavailability. Verito is now intermittently confused and slightly more agitated. She continues to deny any pain or respiratory distress. Her family states that they believe it is time to take her home and focus on comfort care. They do not want any further work-up or interventions. Review of Systems 2 Review of Systems: All systems reviewed & are unremarkable except as noted in Subjective Physical Exam Physical Exam: Elderly female, lying in bed, slightly restless. She is intermittently confused but easily reoriented. She is awake and alert to person and place. She can tell me the month is November. She can tell me that she has prostate cancer and that it is metastatic. She is pale and extremities are cool to touch. There is no obvious cyanotic changes. Respiratory rate is normal there is no use of accessory muscles or conversational dyspnea noted. Limited anterior lung exam indicates overall diminished breath sounds. Abdomen is soft and nontender to my palpation. S1-S2, no JVD. Generalized weakness persists. Skin is pale. Results & Data Vital Signs (Past 12 Hours) Vital Signs Temp Pulse Resp BP BP Pulse Ox O2 Del Method 11/08/22 08:00 Room Air 11/08/22 11:48 36.4 C L 67 20 96/55 L 96 Room Air 11/08/22 07:54 36.3 C L 120 H 20 136/93 96 Room Air 11/08/22 02:44 36.3 C L 120 H 21 79/46 L 96 Room Air 11/08/22 03:53 102/51 L 11/08/22 03:39 97/55 L 11/08/22 02:52 77/45 L Laboratory Results Data reviewed Diagnostic Findings Data reviewed PG Care Time/CCT Total # of Minutes Spent Total Time Spent: 95 Total Time Spent with Patient: Total time spent is greater than 50% in coordination of care (as documented) at patient's floor/unit and/or counseling patient: Advanced Care Planning 35236 Advanced Care Planning 30 Min 21662 Advanced Care Planning Additional 30 [place] [address] SUB INP/OBS CARE 3/50MIN Patient Type Established History Comprehensive Exam Comprehensive Medical Decision Making High Complexity Diagnoses Palliative care by specialist Z51.5 Advanced care planning/counseling discussion Z71.89 Metastasis from pancreatic cancer C79.9; C25.9 Weakness generalized R53.1 Dyspnea and respiratory abnormalities R06.00; R06.89 Acute dehydration E86.0 Atrial fibrillation with RVR I48.91 Additional Codes Advanced Care Planning - 03883 Advanced Care Planning 30 Min: 09634 Advanced Care Planning 30 Min ([id number]) Advanced Care Planning - 86648 Advanced Care Planning Additional 30 Min: 21053 Advanced Care Planning Additional 30 Min ([id number])
[2022-11-09] MEDS: LEVOTHYROXINE SODIUM 150 MCG TABLET PO SCH (05:50)
[2022-11-09] MEDS: HEPARIN 100 UNIT/ML 5ML FLUSH FLUSH PRN ×2 (08:37→14:36)
[2022-11-09] MEDS: PANTOprazole 40 MG TAB PO SCH ×2 (10:14→20:56)
--- NOTE | 2022-11-09 11:37 | Discharge Summary ---
Date of Service November 09, 2022 Admission HPI Per Admitting Provider This is a 71yo F with a PMH of recent admission for PE, metastatic pancreatic cancer status post surgery (chemotherapy currently on hold due to weakness), progressive disease noted on CAT scan, hyponatremia 2/2 poor PO intake, DM II, hypothyroidism, anemia and other medical problems who presents with ongoing weakness and fall at home. Was discharged home few days ago after admission for DVT/PE. Did not want placement at time of discharge and returned home. Was able to get out of bed and use commode today but became very weak upon standing and slid "on to bed" with help of family, who were able to clean her up and called EMS to bring to ED for further evaluation. Patient continues to feel poorly with progressive cancer diagnosis. Poor appetite. Feels depressed. Has been unable to receive chemotherapy treatment due to recent weakness. Is not interested in palliative care during admission but does confirm status as DNR. Denies any fever or chills, chest pain, palpitations, shortness of breath, nausea, vomiting, abdominal pain at chronic baseline, no diarrhea or constipation. Has indwelling Charlton due to urinary retention for the past 4 days. Admission Exam Per Admitting Provider General Appearance:WD/WN, vitals as above, appears chronically ill, pale, fatigued Head: normocephalic, atraumatic Eyes:normal inspection, PERRL, conjunctivae normal, anicteric sclerae ENT: external ear and nose normal, oropharynx with dry mucous membranes Neck: normal visual inspection, trachea midline, no thyromegaly Respiratory:normal respiratory effort, lungs clear to auscultation, no wheeze, rales, rhonchi. No accessory muscle use Cardiovascular: bradycardic rate, irregular rhythm, normal peripheral pulses, 1+ BLE edema. Vessels: no JVD Chest: normal inspection of chest Abdomen/GI: normal bowel sounds, soft, nontender, no hepatosplenomegaly :+ Charlton Extremities/Musculoskeletal: no cyanosis or clubbing, extremities motor strength 5/5 Neurologic: PERRL, EOMI, accommodation nl, no face palsy, no dysarthria, CN's II-XI intact bilaterally and moves all extremities Psychiatric:A+Ox3, flattened affect Skin: no rashes, normal color, warm/dry Principal Diagnosis Metastatic pancreatic cancer Urinary retention, UTI Ascites Generalized weakness A-fib RVR Hyponatremia Leukocytosis Goals of care discussed Discharge Exam GENERAL: sleepy. NAD, on RA. Appears chronically ill, fatigued. HEENT: + pallor, icterus. Pupils equal, round and reactive to light. Oral mucosa moist. NECK: No JVD, no neck masses. HEART: S1 and S2 heard. irregular rhythm. No murmur, no gallop. RESPIRATORY SYSTEM: Normal AP diameter. No accessory muscle use. No wheezing, no crackles. ABDOMEN: Soft, bowel sounds present, nontender, distention. CENTRAL NERVOUS SYSTEM: No facial droop. Speech is clear. Obeys simple commands. Moves extremities. EXTREMITIES: 1-2+ ble edema, no erythema seen. Discharge Data Allergies Allergy/AdvReac Type Severity Reaction Status Date / Time adhesive Allergy Mild Rash (with Verified 09/29/22 19:13 older bandaids) nickel Allergy Mild Rash Verified 09/29/22 19:13 amiodarone AdvReac Severe severe Verified 11/08/22 04:15 bradycardia tetanus toxoid, adsorbed AdvReac Intermediate Elevated BP Verified 09/29/22 19:13 NSAIDS (Non-Steroidal AdvReac Unknown was "told Verified 09/29/22 19:13 Anti-Inflamma to avoid" Consultations 10/30/22 17:30 ED Decision to Admit Stat 11/01/22 00:50 Consult Urology Routine 11/04/22 15:30 Consult Palliative Care Routine 11/07/22 15:34 Consult Cardiology Routine Ordered Studies 11/01/22 01:48 US retro bladder ltd Stat 11/06/22 15:47 IR paracentesis abd w/img US Routine 11/08/22 06:38 CT head/brain wo con Stat Hospital Course (1) Urinary retention: (2) Leukocytosis: (3) Hyponatremia: (4) Acute kidney failure: (5) Metastasis from pancreatic cancer: (6) Pulmonary emboli: (7) Hypothyroidism: (8) Diabetes mellitus, type 2: Plan 71 yo F with PMH of recent admission for PE, metastatic pancreatic cancer status post surgery (chemotherapy currently on hold due to weakness), progressive disease noted on CAT scan, hyponatremia 2/2 poor PO intake, DM II, hypothyroidism, anemia and other medical problems who presented 10/30 with ongoing weakness and fall at home. She was being managed for the following: Generalized weakness : 2/2 various comorbidities as below. Urinary retention and UTI: Indwelling Charlton in place from retention on previous admission, Uro evaled - keep charlton for now and maintain OP f/u. completed course of uti rx this admission w/ rocephin. We will keep Charlton for comfort. Ascites: Status post paracentesis 11/06, 3 L out, PMN less than 250. Patient denies abdominal pain. Pulmonary emboli Metastasis from pancreatic cancer Subacute DVT (deep venous thrombosis) A-fib RVR and symptomatic bradycardia: Range of dysrhythmia secondary to electrolyte abnormalities/underlying metastatic cancer/anemia. Patient with no chest pain, patient currently under comfort care status. Hyponatremia: Leukocytosis Abnormal CT findings: Patient currently under comfort care status Goals of care discussion Refer to subjective of 11/08. Patient transition to comfort care status 11/08/2022 after extensive discussion with the family and patient and palliative care and patient's oncologist. Will be discharged today to home w/ Hospice. Home Health Attestation I certify that this patient is under my care and that I, or a physicians client services assistant working with me, had a face to-face encounter that meets the home health zgzc-in-hzds encounter requirements with this patient. The encounter with the patient was in whole, or in part, for the following medical condition, which is the primary reason for home health care (list medical condition): fall- dehydration I certify that, based on my findings, the following services are medically necessary home health services: My clinical findings support the need for the above services because: OT Assess ADL Status and Restore Function w ADLs PT Assessment for Endurance / Balance / Strength PT Eval for Safety and Mobility PT Eval for Safety, Gait Training, Assistive Devices PT Gait and Balance Training, Strengthening and Safety Skilled Nsg Assessment Further, I certify that my clinical findings support that this patient is homebound (i.e. absences from home require considerable and taxing effort and are for medical reasons or latter-day services or infrequently or of short duration when for other reasons) because: Maximum Assistance with Ambulation and ADL's Transportation Assistance/Unable to Leave Home Unassisted Certification for Home Health Services: Based on the above findings, I certify that this patient is confined to the home and needs intermittent jail care, physical therapy and/or speech therapy or continues to need occupational therapy. The patient is under my care, and I have initiated the establishment of the plan of care. This patient will be followed by a physician who will periodically review the plan of care. Total Time Total Time Spent Total Time Spent (In Minutes): 40 Discharge Plan Discharge Items Patient Disposition: Hospice - Home Reason For Visit: FALL, DEHYDRATION Discharge Diagnosis: Metastatic pancreatic cancer Urinary retention, UTI Ascites Generalized weakness A-fib RVR Hyponatremia Leukocytosis Goals of care discussed Activity: Resume your previous activity Non-emergency contact: Primary Care Provider Call non-emergency contact if: you have any medication questions Follow-up/Referrals: Mahad Marques MD [Primary Care Provider] - Diet: Regular Diet Texture: Easy to Chew Addtl Attending Provider Instructions: You are being discharged home with hospice with few days worth of comfort medications. Hospice will take over your medication schedule when they start their care. Pending Studies at Discharge: No Stand-Alone Forms: My [facility]Mi Medications and DC Order Prescriptions: New ondansetron 4 mg Tablet,Disintegrating 4 mg sublingual Q4H PRN (Reason: nausea and vomiting) Qty: 10 0RF acetaminophen 325 mg Tablet 650 mg PO Q4H PRN (Reason: fever or pain) Qty: 20 0RF lorazepam 0.5 mg Tablet 0.5 mg PO Q4H PRN (Reason: agitation/anxiety) 2 Days Qty: 12 0RF morphine concentrate 100 mg/5 mL (20 mg/mL) Solution 10 mg PO Q1H PRN (Reason: pain/respiratroy distress) Qty: 30 0RF hyoscyamine sulfate [Levsin] 0.125 mg tablet 0.125 mg PO Q4H PRN (Reason: increased secretions) Qty: 12 0RF Continued levothyroxine 150 mcg tablet 150 mcg PO DAILYBB omeprazole 20 mg capsule,delayed release(DR/EC) 20 mg PO QAM prochlorperazine maleate 10 mg tablet 10 mg PO Q6 PRN (Reason: Nausea) Discontinued atenolol 25 mg tablet 25 mg PO QAM cholecalciferol (vitamin D3) 2,000 unit Tablet 2,000 unit PO QAM ondansetron HCl 8 mg tablet 8 mg PO Q8 PRN (Reason: Nausea) metformin 500 mg tablet extended release 24 hr 1,000 mg PO BIDM clotrimazole 10 mg rosalia 10 mg PO 5XD Rx Instructions: use for 14 days Eliquis 5 mg tablet 5 mg PO BID Qty: 60 0RF Discharge Orders: Discharge Order (Routine); Ordered 11/09/22 Ordered By: Es Jurado Admission Data Admit Date/Time: 10/30/22 18:36 Attending Provider: Es Jurado Admit Provider: Abiola Mcintosh Primary Care Provider: Mahad Marques Other Providers: [facility] ; [facility] ; Mahendra Banda ; Leonid Connors ; Jose Jackson ; Phan Valiente ; Sharri Bray ; Tom Cornelius ; Teodora Bernabe ; Suni Durham ; Darien Langley ; Osman Sarmiento ; Bertha Mayers ; Mitul Bojorquez ; To Cohen ; Adriana Jorgensen ; Olga Lidia Levin ; Ankur Baker
--- NOTE | 2022-11-09 16:03 | Palliative Care Progress Note ---
Date of Service November 09, 2022 Assessment & Plan (1) Palliative care by specialist: (2) Advanced care planning/counseling discussion: Plan: I met with pt at bedside with Dr Jurado face to face x 30min then with family x 30min in hallway per pt request (dtr, son from [place], brother from [place]) total time spent 60 min pt was refusing dc she states she is worried about how her pain when it comes will be managed - she is nervous her signif other will not be able to help care for her, she questions if he would even be able to get her meds asks me what hospice does and i I provided education about the hospice benefit: an interdisciplinary program offered by nurses, nurses aides, social workers, chaplains and a mobile paramedical examiner for patients with a terminal condition and a life expectancy of less than 6 months. This is covered by Medicare at 100%/no out of pocket expense to patient and all meds/supplies needed by patient for the reason they are on hospice are paid for/covered by hospice. The goal is assure quality of life of the patient in their home setting (home, skilled nursing, inpatient hospice setting) by providing symptoms management, psychosocial and spiritual support. However, they cannot offer 24 hours care and if the family is unable to provide that care, they will have to consider personal care with out of pocket cost vs. skilled nursing placement. We discussed the goals of hospice as a patient service and the goals of care; we discussed EOL trajectories and transitions candido the emotional impact of realizing mortality as a concrete reality from prior abstract considerations. Pt was reassured that no matter where they are along this trajectory, they are not alone - their medical team will remain by their side through their journey. Discussed the pros/cons of accepting help when especially weakened and distressed by pain-which would also help provide relief/decrease caregiver burden/strain. she asked about what to expect as time moves forward. Discussed changes pt may move through in the dying process including but not limited to sleeping more, disorientation when awake, restlessness, diminished senses/inability to respond to stimulus although ability to be aware of them remains intact longer, changes in body temperatures, skin changes/mottling/cyanosis, respiratory pattern changes, oral secretions. Family verbalized understanding. The goal is to assure a peaceful She does not want SNF. She worries about cost. She asks if she can remain in hospital indefinitely. Dr Jurado and I gently explained she is no longer acutely ill or in need of high level of urgent care that hospitals provide. Advised she is now stable for dc and in need of care that is more chronic. reviewed that options are either home with hospice vs SNF placement if ultimately she feels home is not safe enough. She asks me to update her family and share her fears. she is uncomfortable telling them directly. met with family outside room per pt preference, reviewed her concerns and provided guidance and education for how to support her emotional and psychological needs for comfort and safety. reviewed her concerns about signif other and daughter assures she will be living in pt home and she will not be alone. I advised of recommendations from Dr. Megha Jacome at the [facility]: there are four simple phrases: Please forgive me, I forgive you, Thank you, and I love you which carry enormous power to mend, nurture relationships and inner lives. These four phrases and the sentiments they convey can help resolve interpersonal difficulties with integrity and sulaiman, providing a path to emotional wellbeing, allows patients/families to live lives with integrity/sulaiman, help reconcile the rifts that divide people, and cut through "old history." Per Dr. Jacome, if we in healthcare attend only to the physiologic, without intending to we are inadvertently abandoning people to figure out how to live through these difficult times of life by themselves. (3) Metastasis from pancreatic cancer: Plan ACP as above transport service cancelled her ride home stating they were being called out for another emergency and did not know when they could be [place]ak patient prefers dc home tomorrow hospice can see her tomorrow family in agreement i ahe updated CM, nursing and primary team Thank you for allowing us to participate in the ongoing care of this patient. Please don't hesitate to call or page with any additional concerns. Dr. Olga Lidia Levin DNP Director, Palliative Care Admission and Anticipated Discharge Date Admission Date: October 30, 2022 Subjective urgently paged to bedside, patient questioning dc home with hospice, asking to speak privately. continues to deny any acute pain, dyspnea or n/v more awake today still does not want any aggressive intervention, infusion or testing also states she does not want SNF Review of Systems Review of Systems: All systems reviewed & are unremarkable except as noted in Subjective Physical Exam Physical Exam: deferred pt resting in bed no acute resp distress color pale skin cool no cyanosis more awake and alert, answering most questions appropriately sometimes she will wander off topic/become tangential Results & Data Vital Signs (Past 12 Hours) Vital Signs O2 Del Method 11/09/22 07:00 Room Air PG Care Time/CCT Total # of Minutes Spent Total Time Spent: 75 Total Time Spent with Patient: Total time spent is greater than 50% in coordination of care (as documented) at patient's floor/unit and/or counseling patient: Advanced Care Planning 72332 Advanced Care Planning 30 Min 43943 Advanced Care Planning Additional 30 Min [place] [address] SUB INP/OBS CARE 3/50MIN Patient Type Established History Comprehensive Exam Problem Focused Medical Decision Making High Complexity Diagnoses Palliative care by specialist Z51.5 Advanced care planning/counseling discussion Z71.89 Metastasis from pancreatic cancer C79.9; C25.9 Additional Codes Advanced Care Planning - 10853 Advanced Care Planning 30 Min: 86533 Advanced Care Planning 30 Min ([id number]) Advanced Care Planning - 17537 Advanced Care Planning Additional 30 Min: 46646 Advanced Care Planning Additional 30 Min ([id number])
--- NOTE | 2022-11-09 16:21 | Hospitalist Progress Note ---
Date of Service November 09, 2022 Assessment & Plan (1) Urinary retention: (2) Leukocytosis: (3) Hyponatremia: (4) Acute kidney failure: (5) Metastasis from pancreatic cancer: (6) Pulmonary emboli: (7) Hypothyroidism: (8) Diabetes mellitus, type 2: Plan 71 yo F with PMH of recent admission for PE, metastatic pancreatic cancer status post surgery (chemotherapy currently on hold due to weakness), progressive disease noted on CAT scan, hyponatremia 2/2 poor PO intake, DM II, hyp othyroidism, anemia and other medical problems who presented 10/30 with ongoing weakness and fall at home. She is managed for the following: Generalized weakness : 2/2 various comorbidities as below. Urinary retention and UTI: Indwelling Charlton in place from retention on previous admission, Uro evaled - keep charlton for now and maintain OP f/u. completed course of uti rx this admission w/ rocephin. We will keep Charlton for comfort. Ascites: Status post paracentesis 11/06, 3 L out, PMN less than 250. Patient denies abdominal pain. Pulmonary emboli Metastasis from pancreatic cancer Subacute DVT (deep venous thrombosis) A-fib RVR and symptomatic bradycardia: Range of dysrhythmia secondary to electrolyte abnormalities/underlying metastatic cancer/anemia. Patient with no chest pain, patient currently under comfort care status. Hyponatremia: Leukocytosis Abnormal CT findings: Patient currently under comfort care status Goals of care discussion Refer to subjective of 11/08. Patient transition to comfort care status 11/08/2022 after extensive discussion with the family and patient and palliative care and patient's oncologist. Will be discharged today to home w/ Hospice --> cancelled today, will transport onel per CM. Will Cancel DC order. Admission and Anticipated Discharge Date Admission Date: October 30, 2022 Subjective Patient seen and examined at bedside as a follow-up of comfort care status. Patient with metastatic pancreatic cancer, poor appetite, electrolyte abnormalities. Patient was lying in bed, appeared comfortable, denies pain, with poor appetite, her transport was canceled today per CM. Will dc home w/ hospice tomorrow. Physical Exam Physical Exam: GENERAL: sleepy. NAD, on RA. Appears chronically ill, fatigued. HEENT: + pallor, icterus. Pupils equal, round and reactive to light. Oral mucosa moist. NECK: No JVD, no neck masses. HEART: S1 and S2 heard. irregular rhythm. No murmur, no gallop. RESPIRATORY SYSTEM: Normal AP diameter. No accessory muscle use. No wheezing, no crackles. ABDOMEN: Soft, bowel sounds present, nontender, distention. CENTRAL NERVOUS SYSTEM: No facial droop. Speech is clear. Obeys simple commands. Moves extremities. EXTREMITIES: 1-2+ ble edema, no erythema seen. Results & Data Results & Data Vital Signs (Past 12 Hours) Vital Signs O2 Del Method 11/09/22 07:00 Room Air (2) Leukocytosis Leukocytosis type: unspecified Qualified Code(s): D72.829 - Elevated white blood cell count, unspecified (6) Pulmonary emboli Pulmonary embolism type: multiple subsegmental (without acute cor pulmonale) Qualified Code(s): I26.94 - Multiple subsegmental pulmonary emboli without acute cor pulmonale
[2022-11-10] MEDS: LEVOTHYROXINE SODIUM 150 MCG TABLET PO SCH (05:58)
[2022-11-10] MEDS: PANTOprazole 40 MG TAB PO SCH (09:53)
== END 2022-11-10 12:21 | disposition hospice, home (50) | DRG 640 ==
LOC: ED 14:28 → SUATTDRO 18:36 → 4W 18:36 → 3E 11-08 18:02